=== PATIENT | male | born 1950 | race Caucasian/White ===

== ENCOUNTER 2024-03-17 10:21 | Outpatient (CLI) | payer MEDICARE, OTHER, SELFPAY | END 2024-03-17 10:22 | disposition home or self-care (01) | LOC: AMB 03-21 14:28 | PROVIDERS: Visit Provider Family Medicine | DX: R06.09 Other forms of dyspnea (principal) | CPT/HCPCS: A0425; A0427 ==

== ENCOUNTER 2024-03-17 10:51 | Inpatient (IN) | payer MEDICARE, OTHER, SELFPAY ==
[2024-03-17] VITALS (20 sets, daily range): BP systolic 106–127; BP diastolic 65–85; PULSE 64–73; RESP 20–28; TEMP 36.4–36.6; O2SAT 88–96; BMI 30.4; BMI 30.6
--- NOTE | 2024-03-17 11:35 | ED.GENADULT ---
HPI - General Adult General Date Seen: 03/17/24 Chief complaint: Shortness of Breath/Dyspnea Stated complaint: Shortness of breath Time Seen by Provider: 03/17/24 11:35 History of Present Illness HPI narrative: 74-year-old male brought to the ER today by EMS. He has been short of breath for about 3 days and also has productive cough. He was referred from the [facility]. He had presented today to establish care and get an INR check. According to their records accessed through [facility] [employer] he sees Nephrology and Cardiology at [facility]. Vitals were blood pressure 103/65, pulse 72. No oxygen sats or respiratory rate were charted Additional records through [employer], he had a primary care note from [facility] on 03/13 Has a history of atrial fibrillation, previous stroke/TIA, on chronic anticoagulation. Recent INRs have been ranging 2.0 up to 3.1. His record says he is currently living in [place] in but the patient says he recently moved here to [place] 3 days ago. He says he went to the [facility] to get a new doctor. 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 Although his speech is difficult to understand he is clearly mentating normally and would be able to be a good historian if your able to express himself. I am able to get some history from him. However it is very difficult to understand his garbled speech. We attempted to call a previous care provider named ?Gabby? at [facility] in [place]. She did not answer Recent med list obtained through [employer] Warfarin Torsemide 20 mg tablets-60 mg in the morning and 40 mg at 1:00 p.m.. Patient also says that when he gets peripheral edema is doctor told him to double his dose Thiamine Senna Protonix 20 mg daily Metoprolol XL 25 mg daily Lipitor 80 mg daily Aspirin 81 mg daily Albuterol inhaler (patient says he does not have any inhalers. He does say that he uses nebulizer about every 2 or 3 months) Acetaminophen Artificial tear Pursue vision lutein drops Patient is able to tell me that he has a history of heart disease and has had 3 heart attacks. He has had 2 strokes. He does not recall any other heart problems. No definite valvular disease. He has never been told he has CHF. Recalls that he has had kidney failure twice. He is not currently on dialysis. He takes water pills. He can not tell me the name or dose. He is able to recall that his providers might have them med list and that they may have a med list at the [facility]. He says the also got iron infusions a couple of weeks ago. After receiving the iron infusion a couple weeks ago he had significant development of bilateral lower extremity peripheral edema. He thinks it was probably the iron the triggered it. He has had episodes of peripheral edema in the past and says that he is supposed to double his water pill when he gets swollen his legs. However he has never had such significant and persistent swelling before. For about the past 3 or 4 days he has had a cough. It is wet but nonproductive. He has been getting more and more short of breath. No fevers. No chest pain. No vomiting. No abdominal pain. He has been making normal urine. He went to the [facility] today as for a checkup and was sent here. He received DuoNeb from EMS and is now feeling somewhat better. Related Data Home Medications ?Medication ?Instructions ?Recorded ?Confirmed acetaminophen 500 mg tablet 1,000 mg PO TID PRN 03/17/24 03/17/24 albuterol sulfate 90 mcg/actuation 2 inh inhalation Q4H PRN 03/17/24 03/17/24 aerosol inhaler (Ventolin HFA) amlodipine 10 mg tablet 10 mg PO DAILY 03/17/24 03/17/24 aspirin 81 mg tablet,delayed 81 mg PO DAILY 03/17/24 03/17/24 release (Adult Aspirin Regimen) atorvastatin 80 mg tablet 80 mg PO HS 03/17/24 03/17/24 bisacodyl 10 mg rectal suppository 10 mg NV DAILY PRN 03/17/24 03/17/24 cholecalciferol (vitamin D3) 25 25 mcg PO DAILY 03/17/24 03/17/24 mcg (1,000 unit) capsule dextran 70-hypromellose 0.1 %-0.3 1 drp ophthalmic (eye) QID PRN 03/17/24 03/17/24 % eye drops diclofenac sodium 1 % topical gel 2 g topical QID PRN 03/17/24 03/17/24 (Voltaren Arthritis Pain) methyl salicylate-menthol topical 1 ea topical TID PRN 03/17/24 03/17/24 ointment metoprolol succinate 25 mg 25 mg PO DAILY 03/17/24 03/17/24 tablet,extended release 24 hr pantoprazole 20 mg tablet,delayed 20 mg PO DAILY 03/17/24 03/17/24 release sennosides 8.6 mg tablet (Senna 17.2 mg PO DAILY PRN 03/17/24 03/17/24 Lax) torsemide 20 mg tablet 60 mg PO DAILY 03/17/24 03/17/24 warfarin 1 mg tablet 1.5 - 2 mg PO DAILY 03/17/24 03/17/24 Allergies Allergy/AdvReac Type Severity Reaction Status Date / Time No Known Drug Allergies Allergy Verified 03/17/24 11:07 [facility] Medical History (Updated 03/17/24 @ 20:36 by Justin Barnes MD) Hypokalemia ?E87.6 - Hypokalemia (ICD-10) History of CVA (cerebrovascular accident) ?Z86.73 - Personal history of transient ischemic attack (TIA), and cerebral infarction without residual deficits (ICD-10) Acute on chronic hypoxic respiratory failure ?J96.21 - Acute and chronic respiratory failure with hypoxia (ICD-10) COPD (chronic obstructive pulmonary disease) ?J44.9 - Chronic obstructive pulmonary disease, unspecified (ICD-10) Chronic heart failure with reduced ejection fraction and diastolic dysfunction ?I50.42 - Chronic combined systolic (congestive) and diastolic (congestive) heart failure (ICD-10) Carotid arterial disease ?I77.9 - Disorder of arteries and arterioles, unspecified (ICD-10) NSTEMI (non-ST elevated myocardial infarction) ?I21.4 - Non-ST elevation (NSTEMI) myocardial infarction (ICD-10) Hemiplegia and hemiparesis 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 ?I69.352 - Hemiplegia and hemiparesis 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 (ICD-10) History of ventricular tachycardia ?Z86.79 - Personal history of other diseases of the circulatory system (ICD-10) Ataxia ?R27.0 - Ataxia, unspecified (ICD-10) Chronic anemia ?D64.9 - Anemia, unspecified (ICD-10) Upper GI bleed ?K92.2 - Gastrointestinal hemorrhage, unspecified (ICD-10) CKD (chronic kidney disease) ?N18.9 - Chronic kidney disease, unspecified (ICD-10) CAD (coronary artery disease) ?I25.10 - Atherosclerotic heart disease of lummi coronary artery without angina pectoris (ICD-10) Cardiomyopathy ?I42.9 - Cardiomyopathy, unspecified (ICD-10) Recurrent left pleural effusion ?J90 - Pleural effusion, not elsewhere classified (ICD-10) 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 - Alcohol use, unspecified with alcohol-induced persisting amnestic disorder (ICD-10) Alcoholic cirrhosis ?K70.30 - Alcoholic cirrhosis of liver without ascites (ICD-10) Alcohol withdrawal seizure ?F10.939 - Alcohol use, unspecified with withdrawal, unspecified (ICD-10) ?R56.9 - Unspecified convulsions (ICD-10) Alcohol dependence ?F10.20 - Alcohol dependence, uncomplicated (ICD-10) Aphasia ?R47.01 - Aphasia (ICD-10) Cardioembolic stroke ?I63.9 - Cerebral infarction, unspecified (ICD-10) Lacunar infarction ?I63.81 - Other cerebral infarction due to occlusion or stenosis of small artery (ICD-10) Atrial fibrillation ?I48.91 - Unspecified atrial fibrillation (ICD-10) Pulmonary hypertension ?I27.20 - Pulmonary hypertension, unspecified (ICD-10) Hyperlipidemia ?E78.5 - Hyperlipidemia, unspecified (ICD-10) Hypertension ?I10 - Essential (primary) hypertension (ICD-10) Adrenal adenoma ?D35.00 - Benign neoplasm of unspecified adrenal gland (ICD-10) Surgical History H/O hernia repair ?Z98.890 - Other specified postprocedural states (ICD-10) ?Z87.19 - Personal history of other diseases of the digestive system (ICD-10) Social History What is your current living situation?: I presently have a place to live Problems where you live: no known problems Problems where you live details: no known problems In the past 12 months, utilities in danger of being shut off: no In past 12 months, lack of transportation kept you from medical appts, meetings, work, or getting things needed for daily living: no In the past 12 mos, have been you worried that your food would run out before you had money to buy more?: never true In the past 12 mos, the food you bought just didn't last and you didn't have money to buy more?: never true Smoking Status: Former smoker Do you use any of these nicotine containing products: None Second hand tobacco smoke exposure: No How often do you have a drink containing alcohol: 4 or more times a week Alcohol type: hard liquor Alcohol type details: 2 whiskey 7-ups per day How many standard drinks containing alcohol do you have on a typical day: 1 or 2 How often do you have six or more drinks on one occasion: Never AUDIT-C Alcohol total score: 4 Non-prescribed substance use: denies use Caffeine: Yes How often does anyone, including family, friends and others, physically hurt you: never How often does anyone, including family, friends and others, insult or talk down to you: never How often does anyone, including family, friends and others, threaten you with harm: never How often does anyone, including family, friends and others, scream or curse at you: never service: No Exam Narrative: Exam Narrative: Constitutional: Appears well-developed and well-nourished. Alert. Conversant but speech is very difficult to understand. I asked him to repeat himself multiple times and cannot understand somewhat he says but part of his speech is just not comprehensible. Has chronic aphasia from previous stroke. Also chronic left-sided weakness from previous stroke.. HENT: Head: Atraumatic. Nose: Nose normal. Mouth/Throat: Oral mucosa is clear and dry. no trismus. Pharynx difficult to visualize, but visualized upper segment normal. No stridor. Uvula midline. Tonsils symmetric. Eyes: Conjunctivae normal. EOM normal. Pupils equal, round, and reactive to light. No scleral icterus. Neck: Normal range of motion. Neck supple. No tracheal deviation present. No JVD Cardiovascular: Normal rate, regular rhythm. No gallop. No friction rub. No murmur heard. Symmetric radial and PT artery pulses Pulmonary/Chest: Effort normal. No stridor. No respiratory distress. Frequent wet sound but nonproductive cough. Minimal bilateral wheezes. No rales. No rhonchi . No tenderness. Abdominal: Soft. Bowel sounds normal. No distension. No mass. No tenderness. No rebound. No guarding. Musculoskeletal: RUE: Normal range of motion. No tenderness. No deformity LUE: Normal range of motion. No tenderness. No deformity RLE: Normal range of motion. 3+ edema. No tenderness. No deformity LLE: Normal range of motion. 3+ edema. No tenderness. No deformity Neurological: Alert and oriented to person, place, and time. Normal strength. CN II-VII intact. He has chronic left upper extremity weakness from old stroke. No other new sensory deficit. GCS eye subscore is 4. GCS verbal subscore is 5. GCS motor subscore is 6. Normal coordination speech is somewhat garbled due to previous stroke. Skin: He has significant bilateral lower extremity edema and erythema and warmth of both of his shins. Symmetric. No palpable fluctuance. Skin is warm and dry. No no other rash noted. No pallor. Normal capillary refill. Psychiatric: Normal mood. Normal affect. Const: Vital Signs, click to edit/add: Vital Signs - 24 hr 03/17/24 11:01 03/17/24 11:29 03/17/24 11:30 Temperature Pulse Rate 69 73 Pulse Rate [Left P ulse Oximeter] 71 Respiratory Rate 28 H Blood Pressure [Ri ght Arm] Blood Pressure [Ri ght Upper Arm] 127/65 Pulse Oximetry 96 94 94 Oxygen Delivery Me thod Room Air Oxygen Flow Rate 03/17/24 11:40 03/17/24 11:45 03/17/24 12:00 Temperature 97.6 F Pulse Rate 72 69 Pulse Rate [Left P ulse Oximeter] Respiratory Rate Blood Pressure [Ri ght Arm] Blood Pressure [Ri ght Upper Arm] Pulse Oximetry 95 95 Oxygen Delivery Me thod Oxygen Flow Rate 03/17/24 12:15 03/17/24 12:30 03/17/24 12:45 Temperature Pulse Rate 68 70 65 Pulse Rate [Left P ulse Oximeter] Respiratory Rate Blood Pressure [Ri ght Arm] Blood Pressure [Ri ght Upper Arm] Pulse Oximetry 94 94 89 Oxygen Delivery Me thod Oxygen Flow Rate 03/17/24 13:15 03/17/24 13:30 03/17/24 13:45 Temperature Pulse Rate 66 64 66 Pulse Rate [Left P ulse Oximeter] Respiratory Rate Blood Pressure [Ri ght Arm] Blood Pressure [Ri ght Upper Arm] Pulse Oximetry 92 92 92 Oxygen Delivery Me thod Oxygen Flow Rate 03/17/24 14:00 03/17/24 14:15 03/17/24 14:30 Temperature Pulse Rate 66 64 69 Pulse Rate [Left P ulse Oximeter] Respiratory Rate Blood Pressure [Ri ght Arm] Blood Pressure [Ri ght Upper Arm] Pulse Oximetry 88 92 88 Oxygen Delivery Me thod Oxygen Flow Rate 03/17/24 15:14 03/17/24 15:16 03/17/24 15:29 Temperature 97.8 F 97.8 F Pulse Rate Pulse Rate [Left P ulse Oximeter] Respiratory Rate 22 22 22 Blood Pressure [Ri ght Arm] 124/85 124/85 Blood Pressure [Ri ght Upper Arm] Pulse Oximetry 96 96 96 Oxygen Delivery Me thod Nasal Cannula Room Air Oxygen Flow Rate 03/17/24 15:29 03/17/24 15:29 Temperature Pulse Rate 64 Pulse Rate [Left P ulse Oximeter] Respiratory Rate 24 Blood Pressure [Ri ght Arm] Blood Pressure [Ri ght Upper Arm] Pulse Oximetry 90 Oxygen Delivery Me thod Nasal Cannula Oxygen Flow Rate 1 Course Vital Signs Vital signs: Initial Vital Signs Pulse Rate 71 03/17/24 11:01 Pulse Rhythm Regular 03/17/24 11:01 Pulse Strength 3+ Normal 03/17/24 11:01 Respiratory Rate 28 H 03/17/24 11:01 Blood Pressure 127/65 03/17/24 11:01 Blood Pressure Mean 85 03/17/24 11:01 Blood Pressure Position High-Fowlers 03/17/24 11:01 Pulse Oximetry 96 03/17/24 11:01 Oxygen Delivery Method Room Air 03/17/24 11:01 Vital Signs Pulse Rate 71 03/17/24 11:01 Respiratory Rate 28 H 03/17/24 11:01 Blood Pressure 127/65 03/17/24 11:01 Pulse Oximetry 96 03/17/24 11:01 Oxygen Delivery Method Room Air 03/17/24 11:01 Temperature 97.5 F L 03/17/24 19:00 Pulse Rate 67 03/17/24 19:00 Respiratory Rate 20 03/17/24 19:00 Blood Pressure 119/70 03/17/24 19:00 Pulse Oximetry 90 03/17/24 19:00 Oxygen Delivery Method Nasal Cannula 03/17/24 19:00 Oxygen Flow Rate 1.5 03/17/24 19:00 Medications Administered Medications: Generic Name Dose Route Start Last Admin Trade Name Barber PRN Reason Stop Dose Admin Albuterol/Ipratropium 1 neb 03/17/24 18:00 03/17/24 18:35 Iprat-Albut 0.5-2.5 Mg/3 Ml Neb IH 1 neb Q6H SOFÍA Administration Atorvastatin Calcium 80 mg 03/17/24 21:00 03/17/24 20:27 Atorvastatin Calcium 40 Mg Tablet PO 80 mg HS SOFÍA Administration Sodium Chloride 5 ml 03/17/24 21:00 03/17/24 20:27 Sodium Chloride 0.9 % (Flush) 10 Ml Syringe IVF 5 ml BID SOFÍA Administration Discontinued Medications Generic Name Dose Route Start Last Admin Trade Name Mikelq PRN Reason Stop Dose Admin Furosemide 80 mg 03/17/24 13:54 03/17/24 14:19 Furosemide 10 Mg/Ml Inj IVP 03/17/24 13:55 80 mg ONCE ONE Administration Ceftriaxone Sodium 1 gm/ 100 mls @ 200 mls/hr 03/17/24 12:11 03/17/24 13:40 Sodium Chloride IVPB 03/17/24 12:12 200 mls/hr ONCE ONE Administration Azithromycin 500 mg/ Sodium 255 mls @ 255 mls/hr 03/17/24 12:11 03/17/24 14:30 Chloride IVPB 03/17/24 12:12 255 mls/hr ONCE ONE Administration Potassium Bicarbonate 50 meq 03/17/24 14:02 03/17/24 14:19 Potassium Bicarb 25 Meq Effervescent Tab PO 03/17/24 14:03 50 meq ONCE ONE Administration Potassium Chloride 40 meq 03/17/24 17:22 03/17/24 17:39 Potassium Chloride 10 Meq Capsule Er PO 03/17/24 17:23 40 meq ONCE ONE Administration Prednisone 60 mg 03/17/24 16:15 03/17/24 17:06 Prednisone 20 Mg Tablet PO 03/17/24 16:16 60 mg ONCE ONE Administration Warfarin Sodium 1 each 03/17/24 17:00 03/17/24 18:36 No Warfarin Today PO 03/17/24 17:01 Not Given ONCE ONE Medical Decision Making MDM Narrative Medical decision making narrative: 74-year-old gentleman with a complex presentation to the ER. He was sent to the ER today by EMS from the [facility] because of cough, shortness of breath, hypoxia. Was apparently hypoxic, short of breath and coughing per EMS. Received a DuoNeb with improvement in lung sounds. Remains on nasal cannula. Differential for cough would include viral infection. Coronavirus, influenza, RSV PCR is negative. Other common cold viruses cannot be ruled out. Also consider possible community-acquired pneumonia. Given wet sound and cough, we did administer antibiotics for Ca P when he arrived here in the ER. Further workup shows normal white count. He is not febrile. Chest x-ray shows mild interstitial prominence, possibly pulmonary edema, less likely would be an atypical pneumonia. He is not febrile cared white blood cell count is normal. He is not hypotensive, tachycardic, or showing sepsis physiology. Venous lactic acid is normal There may be some component of bronchospasm or COPD here as well. He apparently was quite course prior to EMS giving him a neb. Lung sounds are relatively clear on my initial exam. He does have about a 10 day or 2 week history of significant bilateral lower extremity edema. He is already on torsemide a total of 100 mg per day and he says it is not getting better. Chest x-ray could represent pulmonary edema indicating CHF. BNP is elevated about 9000 which would also correlate with CHF. Will initiate Lasix 80 mg IV here in the ER. Additional loop diuretic to be ordered by hospitalist if needed. He also has chronic kidney disease and says he has had ?renal failure? twice. Creatinine today is 2.4. Since he is new to [place] we do not have any old creatinine measurements in our system. I am able to see some creatinine measurements through the [facility] manifestation of [facility]. Most recent creatinine in their system was 1.33 in October 2020, over 3 years ago. Unclear how much creatinine of 2.4 is changed from his recent baselines. He is not having any chest pain. EKG is abnormal showing widened QRS duration nonspecific ST changes but no ST segment elevation. Troponin is normal. Admitting hospitalist recalls caring for this patient in the past. Has a history of alcohol abuse and previous alcohol withdrawal. He requests that we check LFTs and alcohol level. I have added these labs on the be followed up by the hospitalist service. Lab Data Labs: Lab Results 03/17/24 03/17/24 03/17/24 Range/Units 12:17 12:25 12:32 WBC 8.81 (4.50-11.00) K/uL RBC 4.59 (4.30-5.90) m/uL Hgb 11.0 L (13.5-17.5) gm/dL Hct 37.6 (37.0-53.0) % MCV 82 (80-100) fL MCH 24 L (26-34) pg MCHC 29 L (32-36) gm/dL RDW Coeff of Mynor 25.8 H (11.5-15.5) % Plt Count 166 (140-440) K/uL Neut % (Auto) 80.7 H (42.0-72.0) % Lymph % (Auto) 4.3 L (20-44) % Moore % (Auto) 13.1 H (0.0-11.0) % Eos % (Auto) 1.5 (0.0-7.0) % Baso % (Auto) 0.1 (0.0-3.0) % Neut # (Auto) 7.10 H (1.7-7.0) K/uL Lymph # (Auto) 0.40 L (0.90-2.90) K/uL Moore # (Auto) 1.20 H (0.00-0.90) K/UL Eos # (Auto) 0.13 (0.00-0.50) K/uL Baso # (Auto) 0.01 (0.00-0.30) K/uL Abs Immat Gran (auto) 0.03 (0.00-0.30) K/uL Imm/Tot Granulo (auto) 0.3 % INR 3.68 H (0.91-1.10) VBG pH 7.340 (7.32-7.43) VBG pCO2 49 (40-50) mmHG VBG pO2 32.8 (25-47) mmHG VBG HCO3 27 (21-28) mmol/L Sodium 137 (135-149) mmol/L Potassium 3.1 L (3.6-5.1) mmol/L Chloride 101 (96-114) mmol/L Carbon Dioxide 25 (20-32) mmol/L Anion Gap 11 (7-15) mEq/L BUN 39 H (7-30) mg/dL Creatinine 2.4 H (0.5-1.5) mg/dL Estimated Creat Clear 25.25 Estimated GFR 28 ml/min Glucose 95 (60-115) mg/dL Lactate 1.8 (0.5-1.9) mmol/L Calcium 8.8 (8.4-10.6) mg/dL Magnesium 2.0 (1.5-2.6) mg/dL Total Bilirubin 2.4 H (0.1-1.5) mg/dL Direct Bilirubin 1.2 H (0.0-0.5) mg/dL AST 32 (12-35) U/L ALT 15 (4-50) U/L Alkaline Phosphatase 243 H (40-150) U/L Troponin I 0.02 (0.01-0.04) ng/mL C-Reactive Protein 4.5 H (0.5-1.0) mg/dL NT-Pro-B Natriuret Pep 9360 pg/mL Total Protein 7.6 (6.0-8.3) g/dL Albumin 4.3 (3.3-5.0) g/dL Procalcitonin 0.26 (<0.50) ng/mL Ethyl Alcohol < 0.01 L (0.01-0.03) % SARS-CoV-2 (PCR) Negative SARS-CoV-2 (Negative) Influenza Type A (PCR) Negative PCR FLU A (Negative) Influenza Type B (PCR) Negative PCR FLU B (Negative) RSV (PCR) Negative PCR RSV (Negative) Lab Acknowledgement 03/17/24 Range/Units 15:33 WBC (4.50-11.00) K/uL RBC (4.30-5.90) m/uL Hgb (13.5-17.5) gm/dL Hct (37.0-53.0) % MCV (80-100) fL MCH (26-34) pg MCHC (32-36) gm/dL RDW Coeff of Mynor (11.5-15.5) % Plt Count (140-440) K/uL Neut % (Auto) (42.0-72.0) % Lymph % (Auto) (20-44) % Moore % (Auto) (0.0-11.0) % Eos % (Auto) (0.0-7.0) % Baso % (Auto) (0.0-3.0) % Neut # (Auto) (1.7-7.0) K/uL Lymph # (Auto) (0.90-2.90) K/uL Moore # (Auto) (0.00-0.90) K/UL Eos # (Auto) (0.00-0.50) K/uL Baso # (Auto) (0.00-0.30) K/uL Abs Immat Gran (auto) (0.00-0.30) K/uL Imm/Tot Granulo (auto) % INR (0.91-1.10) VBG pH (7.32-7.43) VBG pCO2 (40-50) mmHG VBG pO2 (25-47) mmHG VBG HCO3 (21-28) mmol/L Sodium (135-149) mmol/L Potassium (3.6-5.1) mmol/L Chloride (96-114) mmol/L Carbon Dioxide (20-32) mmol/L Anion Gap (7-15) mEq/L BUN (7-30) mg/dL Creatinine (0.5-1.5) mg/dL Estimated Creat Clear Estimated GFR ml/min Glucose (60-115) mg/dL Lactate (0.5-1.9) mmol/L Calcium (8.4-10.6) mg/dL Magnesium (1.5-2.6) mg/dL Total Bilirubin (0.1-1.5) mg/dL Direct Bilirubin (0.0-0.5) mg/dL AST (12-35) U/L ALT (4-50) U/L Alkaline Phosphatase (40-150) U/L Troponin I (0.01-0.04) ng/mL C-Reactive Protein (0.5-1.0) mg/dL NT-Pro-B Natriuret Pep pg/mL Total Protein (6.0-8.3) g/dL Albumin (3.3-5.0) g/dL Procalcitonin (<0.50) ng/mL Ethyl Alcohol (0.01-0.03) % SARS-CoV-2 (PCR) (Negative) Influenza Type A (PCR) (Negative) Influenza Type B (PCR) (Negative) RSV (PCR) (Negative) Lab Acknowledgement New Spec Needed Imaging Data Chest x-ray: Attestation: I have reviewed the pertinent imaging results. Radiologist's impression: Impression: Mild interstitial prominence may relate to low lung volumes or represent mild pulmonary edema. Discharge Plan Discharge Clinical Impression: CHF (congestive heart failure), Hypoxia, COPD (chronic obstructive pulmonary disease)
--- NOTE | 2024-03-17 12:11 | CRLHL7_ITS ---
For Patients: As a result of the Cures Act, medical imaging exams and procedure reports are released immediately into your electronic medical record. You may view this report before your referring provider. If you have questions, please contact your health care provider. Indication: COUGH, SOB, HYPOXIA Technique: PA and lateral views of the chest. Comparison: None. Findings: Left chest AICD with right atrial and right ventricular leads. Low lung volumes. Mildly enlarged cardiomediastinal silhouette with calcified aortic knob. No focal consolidation, pleural effusions, or visualized pneumothorax. Mild interstitial prominence. Impression: Mild interstitial prominence may relate to low lung volumes or represent mild pulmonary edema. Dictated by Nico Enriquez MD @ 03/17/2024 1:16:08 PM (Electronically Signed)
[2024-03-17 12:36] LABS: Lactate Sepsis w/Reflex* 1.8 mmol/L (0.5-1.9)
[2024-03-17 12:38] LABS: Basophils Absolute Auto 0.01 K/uL (0.00-0.30); Basophils Percent Auto 0.1 % (0.0-3.0); Eosinophils Absolute Auto 0.13 K/uL (0.00-0.50); Eosinophils Percent Auto 1.5 % (0.0-7.0); Hematocrit 37.6 % (37.0-53.0); Immature Granulocytes Abs Auto 0.03 K/uL (0.00-0.30); Immature Granulocytes Pct Auto 0.3 %; Lymphocytes Percent Auto 4.3 % (20-44); Mean Corpuscular HGB Conc 29 gm/dL (32-36); Mean Corpuscular Hemoglobin 24 pg (26-34); Mean Corpuscular Volume 82 fL (80-100); Monocytes Percent Auto 13.1 % (0.0-11.0); Neutrophils Percent Auto 80.7 % (42.0-72.0); Platelet Count* 166 K/uL (140-440); RDW Coefficient of Variation % 25.8 % (11.5-15.5); Red Blood Count 4.59 m/uL (4.30-5.90); White Blood Count* 8.81 K/uL (4.50-11.00)
[2024-03-17 12:40] LABS: Slide Review Reflex No
[2024-03-17 12:57] LABS: INR 3.68 (0.91-1.10); Prothrombin Time 39.5 Seconds
[2024-03-17 12:58] LABS: Chloride* 101 mmol/L (96-114)
[2024-03-17 12:59] LABS: Potassium* 3.1 mmol/L (3.6-5.1); Sodium* 137 mmol/L (135-149)
[2024-03-17 13:01] LABS: Creatinine* 2.4 mg/dL (0.5-1.5); Est. Creatinine Clearance* 25.25; Estimated Glomerular Filt Rate 28 ml/min
[2024-03-17 13:02] LABS: Anion Gap 11 mEq/L (7-15); Blood Urea Nitrogen* 39 mg/dL (7-30); Carbon Dioxide* 25 mmol/L (20-32); Glucose* 95 mg/dL (60-115)
[2024-03-17 13:02] LABS: PCR FLU A Negative PCR FLU A (Negative); PCR FLU B Negative PCR FLU B (Negative); PCR RSV Negative PCR RSV (Negative); SARS PCR* Negative SARS-CoV-2 (Negative)
[2024-03-17 13:03] LABS: Calcium* 8.8 mg/dL (8.4-10.6)
[2024-03-17 13:05] LABS: C Reactive Protein* 4.5 mg/dL (0.5-1.0)
[2024-03-17 13:14] LABS: Troponin I* 0.02 ng/mL (0.01-0.04)
[2024-03-17 13:15] LABS: NT Pro B Type NatriureticPept* 9360 pg/mL
[2024-03-17] MEDS: cefTRIAXone 1 GM in 0.9 % SODIUM CHLORIDE Mini-bag 100 ML IVPB (13:40)
[2024-03-17] MEDS: FUROSEMIDE 10 MG/ML inj 80 MG IVP (14:19)
[2024-03-17] MEDS: POTASSIUM BICARB 25 MEQ EFFERVESCENT TAB 50 MEQ PO (14:19)
[2024-03-17 14:27] LABS: Albumin* 4.3 g/dL (3.3-5.0)
[2024-03-17 14:30] LABS: Alanine Aminotransferase* 15 U/L (4-50); Alkaline Phosphatase* 243 U/L (40-150); Aspartate Amino Transferase* 32 U/L (12-35); Bilirubin Direct* 1.2 mg/dL (0.0-0.5); Bilirubin Total* 2.4 mg/dL (0.1-1.5); Total Protein* 7.6 g/dL (6.0-8.3)
[2024-03-17] MEDS: AZITHROMYCIN 500 MG in 0.9 % SODIUM CHLORIDE 250 ml 250 ML 255 MG IVPB (14:30)
[2024-03-17 14:31] LABS: Ethanol* < 0.01 % (0.01-0.03)
--- NOTE | 2024-03-17 15:26 | CRLHL7_ITS ---
For Patients: As a result of the Century Cures Act, medical imaging exams and procedure reports are released immediately into your electronic medical record. You may view this report before your referring provider. If you have questions, please contact your health care provider. INDICATION: Leg pain and swelling. TECHNIQUE: Ultrasound venous duplex bilateral lower extremity. Compression venous exam was performed using spears-scale, color Doppler, and spectral Doppler analysis. COMPARISON: None. FINDINGS: Deep veins: Sonographic imaging demonstrates the bilateral common femoral, deep femoral, superficial femoral, popliteal, posterior tibial veins to be fully compressible with normal color Doppler blood flow. Superficial veins: Greater saphenous vein are fully compressible. No popliteal cyst. IMPRESSION: No DVT in the bilateral lower extremities. Dictated by Nickolas De León MD @ 03/17/2024 4:38:14 PM (Electronically Signed)
--- NOTE | 2024-03-17 15:41 | PC.SOCIAL ---
Discharge planning: Met with pt regarding his concern about his power scooter. Pt had taken [employer] bus from his apartment to [facility] in [place]. When he was sent by ambulance to the hospital, his power scooter was left at [facility]. As it is a holiday weekend, the [facility] will be closed form 5:00 today until Wednesday morning. Pt requested the power scooter be sent by [employer] from [facility] either to the hospital if he is still here on Wednesday, or to his apartment if he is discharged home before Wednesday. Pt states he uses a walker in his home and only uses the scooter outside his home. Pt's daughter is currently out of town for the holiday and pt refused for social research assistant to call her to discuss this concern. Pt states he makes his won decisions and can get the scooter to his home after discharge from the hospital. Pt discharged from [facility] in [facility] to his apartment in [place] on Wednesday03/13/24 and is excited to be living on his own. He plans to discharge back to his apartment from the hospital and is not interested in a higher level of care. Called pt's insurance to see if there is coverage for transport of his power scooter and was informed he has medical transportation benefits, but this can not be used for the scooter if pt is not riding it. Shared this information with pt who states that he will find a ride to [facility] after he is discharged and then ride the scooter home on the [employer] bus. Received call from pt's insurance hearing healthcare practitioner, Rohini, . Rohini confirms pt has just discharged from a correction to his apartment this week. She states that she was his hearing healthcare practitioner when he was at [place], but when he establishes residency in [facility], his care coordination will change to the medical assistance contracted with [facility]. As pt has medical transportation benefits through his Medical Assistance connected insurance, non-emergency ambulance transportation should be covered at discharge if needed. Pt states he thinks his daughter is returning to [place] on Wednesday.
[2024-03-17 15:48] LABS: Lab Add On Test New Spec Needed
[2024-03-17 16:00] LABS: HCO3 VBG 27 mmol/L (21-28); PCO2 VBG 49 mmHG (40-50); PO2 VBG 32.8 mmHG (25-47)
--- NOTE | 2024-03-17 16:14 | PM.IMHP1 ---
Hospitalist- H&P: HPI History of Present Illness Date Seen: 03/17/24 Chief complaint: Shortness of breath Narrative: Chet Willis is a 74 year old male significant past medical history including CHF, CKD, COPD, CAD, cardiomyopathy, hypertension, hyperlipidemia, atrial fibrillation status post pacemaker on chronic anticoagulation, history of CVA with aphasia and left hemiparesis, NSTEMI is admitted to the medical floor from the ED for further management acute on chronic hypoxic respiratory failure. Patient reportedly checked himself out of a jail in [place], having relocated to [place] 3-4 days ago and reports a 10 day history of increasing shortness of breath, worse than usual. He tells me he is not oxygen dependent nor does he use a CPAP/BiPAP at bedtime. Has not had a sleep study. Has a nebulizer at home but has not used for some time. Denies headaches or dizziness. Denies recent fevers chills or sweats. Denies chest pain. Has had no abdominal pain, nausea, vomiting, diarrhea. No change in urination. Reports bilateral lower extremity swelling and erythema which he relates to following an iron infusion at [facility]. The exact date of this is unknown, reported as somewhere in the past 2 weeks. Patient cannot tell me why he had this infusion either. He was seen in the [facility] earlier this morning and advised to be seen in the ED. Oxygen saturation initially reported to be 78% on room air. Currently satting at 94% on 2 L. receive 1 dose of ceftriaxone and azithromycin in the ED. As well as 80 mg IV Lasix. He received a DuoNeb which was reported to help. Most recently, patient has had his medical care through [facility]. Followed by Cardiology, Nephrology, Pulmonology. Last hospitalized in [place] April 2023. Was seen in the [facility] clinic today to establish care. Previous smoker. Active alcohol use, 2 whiskey 7 ups daily. Last drink was 03/16 at 4:00 p.m.. History of alcohol withdrawal seizures but tells me he did not experience these last month when he went without drinking for short period of time. Review of Systems Narrative: REVIEW OF SYSTEMS: Complete review of systems performed and negative unless otherwise stated in HPI or below. [facility] Medical History (Updated 03/17/24 @ 17:22 by Kiera M DeBus, PA-C) Hypokalemia ?E87.6 - Hypokalemia (ICD-10) History of CVA (cerebrovascular accident) ?Z86.73 - Personal history of transient ischemic attack (TIA), and cerebral infarction without residual deficits (ICD-10) Acute on chronic hypoxic respiratory failure ?J96.21 - Acute and chronic respiratory failure with hypoxia (ICD-10) COPD (chronic obstructive pulmonary disease) ?J44.9 - Chronic obstructive pulmonary disease, unspecified (ICD-10) Chronic heart failure with reduced ejection fraction and diastolic dysfunction ?I50.42 - Chronic combined systolic (congestive) and diastolic (congestive) heart failure (ICD-10) Carotid arterial disease ?I77.9 - Disorder of arteries and arterioles, unspecified (ICD-10) NSTEMI (non-ST elevated myocardial infarction) ?I21.4 - Non-ST elevation (NSTEMI) myocardial infarction (ICD-10) Hemiplegia and hemiparesis 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 ?I69.352 - Hemiplegia and hemiparesis 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 (ICD-10) History of ventricular tachycardia ?Z86.79 - Personal history of other diseases of the circulatory system (ICD-10) Ataxia ?R27.0 - Ataxia, unspecified (ICD-10) Chronic anemia ?D64.9 - Anemia, unspecified (ICD-10) Upper GI bleed ?K92.2 - Gastrointestinal hemorrhage, unspecified (ICD-10) CKD (chronic kidney disease) ?N18.9 - Chronic kidney disease, unspecified (ICD-10) CAD (coronary artery disease) ?I25.10 - Atherosclerotic heart disease of [place] coronary artery without angina pectoris (ICD-10) Cardiomyopathy ?I42.9 - Cardiomyopathy, unspecified (ICD-10) Recurrent left pleural effusion ?J90 - Pleural effusion, not elsewhere classified (ICD-10) 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 - Alcohol use, unspecified with alcohol-induced persisting amnestic disorder (ICD-10) Alcoholic cirrhosis ?K70.30 - Alcoholic cirrhosis of liver without ascites (ICD-10) Alcohol withdrawal seizure ?F10.939 - Alcohol use, unspecified with withdrawal, unspecified (ICD-10) ?R56.9 - Unspecified convulsions (ICD-10) Alcohol dependence ?F10.20 - Alcohol dependence, uncomplicated (ICD-10) Aphasia ?R47.01 - Aphasia (ICD-10) Cardioembolic stroke ?I63.9 - Cerebral infarction, unspecified (ICD-10) Lacunar infarction ?I63.81 - Other cerebral infarction due to occlusion or stenosis of small artery (ICD-10) Atrial fibrillation ?I48.91 - Unspecified atrial fibrillation (ICD-10) Pulmonary hypertension ?I27.20 - Pulmonary hypertension, unspecified (ICD-10) Hyperlipidemia ?E78.5 - Hyperlipidemia, unspecified (ICD-10) Hypertension ?I10 - Essential (primary) hypertension (ICD-10) Adrenal adenoma ?D35.00 - Benign neoplasm of unspecified adrenal gland (ICD-10) Surgical History H/O hernia repair ?Z98.890 - Other specified postprocedural states (ICD-10) ?Z87.19 - Personal history of other diseases of the digestive system (ICD-10) Social History What is your current living situation?: I presently have a place to live Problems where you live: no known problems Problems where you live details: no known problems In the past 12 months, utilities in danger of being shut off: no In past 12 months, lack of transportation kept you from medical appts, meetings, work, or getting things needed for daily living: no In the past 12 mos, have been you worried that your food would run out before you had money to buy more?: never true In the past 12 mos, the food you bought just didn't last and you didn't have money to buy more?: never true Smoking Status: Former smoker Do you use any of these nicotine containing products: None Second hand tobacco smoke exposure: No How often do you have a drink containing alcohol: 4 or more times a week Alcohol type: hard liquor Alcohol type details: 2 whiskey 7-ups per day How many standard drinks containing alcohol do you have on a typical day: 1 or 2 How often do you have six or more drinks on one occasion: Never AUDIT-C Alcohol total score: 4 Non-prescribed substance use: denies use Caffeine: Yes How often does anyone, including family, friends and others, physically hurt you: never How often does anyone, including family, friends and others, insult or talk down to you: never How often does anyone, including family, friends and others, threaten you with harm: never How often does anyone, including family, friends and others, scream or curse at you: never service: No Meds Home Medications and Allergies Home Medications ?Medication ?Instructions ?Recorded ?Confirmed ?Type acetaminophen 500 mg tablet 1,000 mg PO TID PRN 03/17/24 03/17/24 History albuterol sulfate 90 mcg/actuation 2 inh inhalation Q4H PRN 03/17/24 03/17/24 History aerosol inhaler (Ventolin HFA) amlodipine 10 mg tablet 10 mg PO DAILY 03/17/24 03/17/24 History aspirin 81 mg tablet,delayed 81 mg PO DAILY 03/17/24 03/17/24 History release (Adult Aspirin Regimen) atorvastatin 80 mg tablet 80 mg PO HS 03/17/24 03/17/24 History bisacodyl 10 mg rectal suppository 10 mg ND DAILY PRN 03/17/24 03/17/24 History cholecalciferol (vitamin D3) 25 25 mcg PO DAILY 03/17/24 03/17/24 History mcg (1,000 unit) capsule dextran 70-hypromellose 0.1 %-0.3 1 drp ophthalmic (eye) QID PRN 03/17/24 03/17/24 History % eye drops diclofenac sodium 1 % topical gel 2 g topical QID PRN 03/17/24 03/17/24 History (Voltaren Arthritis Pain) methyl salicylate-menthol topical 1 ea topical TID PRN 03/17/24 03/17/24 History ointment metoprolol succinate 25 mg 25 mg PO DAILY 03/17/24 03/17/24 History tablet,extended release 24 hr pantoprazole 20 mg tablet,delayed 20 mg PO DAILY 03/17/24 03/17/24 History release sennosides 8.6 mg tablet (Senna 17.2 mg PO DAILY PRN 03/17/24 03/17/24 History Lax) torsemide 20 mg tablet 60 mg PO DAILY 03/17/24 03/17/24 History warfarin 1 mg tablet 1.5 - 2 mg PO DAILY 03/17/24 03/17/24 History Allergies Allergy/AdvReac Type Severity Reaction Status Date / Time No Known Drug Allergies Allergy Verified 03/17/24 11:07 Exam Narrative: Exam Narrative: PHYSICAL EXAM General: Pleasant, very conversant though difficult to understand secondary to chronic aphasia, NAD HEENT: Normocephalic, atraumatic, sclera white, EOMI, oral mucosa moist Cardiovascular: RRR, S1S2. Pulmonary: Coarse breath sounds throughout without rhonchi or expiratory wheezes. Mild dyspnea on NC Abdominal: Soft, nondistended, NTTP Neurological: Alert, answering questions appropriately, cranial nerves intact, no focal findings Extremities: Bilateral lower extremities with erythema distally to the knees, no open wounds at this time, no bleeding or drainage, +2 pitting edema. Neurovascularly intact Skin: Warm, dry. Const: Vital Signs, click to edit/add: Vital Signs - 24 hr 03/17/24 11:01 03/17/24 11:29 03/17/24 11:30 Temperature Pulse Rate 69 73 Pulse Rate [Left P ulse Oximeter] 71 Respiratory Rate 28 H Blood Pressure [Ri ght Arm] Blood Pressure [Ri ght Upper Arm] 127/65 Pulse Oximetry 96 94 94 Oxygen Delivery Me thod Room Air 03/17/24 11:40 03/17/24 11:45 03/17/24 12:00 Temperature 97.6 F Pulse Rate 72 69 Pulse Rate [Left P ulse Oximeter] Respiratory Rate Blood Pressure [Ri ght Arm] Blood Pressure [Ri ght Upper Arm] Pulse Oximetry 95 95 Oxygen Delivery Me thod 03/17/24 12:15 03/17/24 12:30 03/17/24 12:45 Temperature Pulse Rate 68 70 65 Pulse Rate [Left P ulse Oximeter] Respiratory Rate Blood Pressure [Ri ght Arm] Blood Pressure [Ri ght Upper Arm] Pulse Oximetry 94 94 89 Oxygen Delivery Me thod 03/17/24 13:15 03/17/24 13:30 03/17/24 13:45 Temperature Pulse Rate 66 64 66 Pulse Rate [Left P ulse Oximeter] Respiratory Rate Blood Pressure [Ri ght Arm] Blood Pressure [Ri ght Upper Arm] Pulse Oximetry 92 92 92 Oxygen Delivery Me thod 03/17/24 14:00 03/17/24 14:15 03/17/24 14:30 Temperature Pulse Rate 66 64 69 Pulse Rate [Left P ulse Oximeter] Respiratory Rate Blood Pressure [Ri ght Arm] Blood Pressure [Ri ght Upper Arm] Pulse Oximetry 88 92 88 Oxygen Delivery Me thod 03/17/24 15:16 Temperature 97.8 F Pulse Rate Pulse Rate [Left P ulse Oximeter] Respiratory Rate 22 Blood Pressure [Ri ght Arm] 124/85 Blood Pressure [Ri ght Upper Arm] Pulse Oximetry 96 Oxygen Delivery Me thod Room Air Hospitalist - H&P: Result Labs Labs: Short CBC 03/17/24 Range/Units 12:32 WBC 8.81 (4.50-11.00) K/uL Hgb 11.0 L (13.5-17.5) gm/dL Hct 37.6 (37.0-53.0) % Plt Count 166 (140-440) K/uL BMP 03/17/24 12:32 Sodium 137 Potassium 3.1 L Chloride 101 Carbon Dioxide 25 BUN 39 H Creatinine 2.4 H Glucose 95 Calcium 8.8 Cardiac Enzymes 03/17/24 Range/Units 12:32 Troponin I 0.02 (0.01-0.04) ng/mL Liver Function 03/17/24 Range/Units 12:25 Total Bilirubin 2.4 H (0.1-1.5) mg/dL Direct Bilirubin 1.2 H (0.0-0.5) mg/dL AST 32 (12-35) U/L ALT 15 (4-50) U/L Alkaline Phosphatase 243 H (40-150) U/L Albumin 4.3 (3.3-5.0) g/dL Imaging Chest x-ray: Attestation: I have reviewed the pertinent imaging results. Radiologist's impression: PA and lateral views of the chest. Comparison: None. Findings: Left chest AICD with right atrial and right ventricular leads. Low lung volumes. Mildly enlarged cardiomediastinal silhouette with calcified aortic knob. No focal consolidation, pleural effusions, or visualized pneumothorax. Mild interstitial prominence. Impression: Mild interstitial prominence may relate to low lung volumes or represent mild pulmonary edema. Venous US: Attestation: I have reviewed the pertinent imaging results. Radiologist's impression: Ultrasound venous duplex bilateral lower extremity. Compression venous exam was performed using spears-scale, color Doppler, and spectral Doppler analysis. COMPARISON: None. FINDINGS: Deep veins: Sonographic imaging demonstrates the bilateral common femoral, deep femoral, superficial femoral, popliteal, posterior tibial veins to be fully compressible with normal color Doppler blood flow. Superficial veins: Greater saphenous vein are fully compressible. No popliteal cyst. IMPRESSION: No DVT in the bilateral lower extremities. Assessment and Plan Assessment and plan (1) Acute on chronic hypoxic respiratory failure: Problem comment: Recurrent, initial saturations noted to be 78%, without hypercapnia In setting of chronic comorbidities COPD, CHF. Query adequate outpatient control, medication compliance VBG pH 7.340, pCO2 49, PO2 32.8, HC03 27 Afebrile, no leukocytosis, lactate 1.8, CRP 4.5, procalcitonin 0.26, triple swab negative, BNP 9360 (previous recorded at >6000), troponin 0.02, EKG ventricular rate 68, QTC 601, sinus rhythm with first-degree AV block, RBBB (noted on previous EKGs) Continue oxygen supplementation to maintain saturations 88-92%, weaning as able RT for pulmonary support Status: Acute (2) Chronic heart failure with reduced ejection fraction and diastolic dysfunction: Problem comment: BNP 9360 (previous recorded at >6000) Hold home torsemide. Received Lasix 80 mg IV in ED Continue Lasix 40 mg IV b.i.d., strict I&Os, daily weights, monitoring renal function 2g sodium diet Echocardiogram April 2023 done at [facility]: 1. Borderline enlarged left ventricular chamber size, regional wall motion abnormalities were present (see wall motion graphics), estimated ejection fraction range 20% - 25%. 2. Left ventricular cardiac index 1.47 l/min/m2. 3. Elevated left ventricular filling pressure. 4. Moderately enlarged right ventricular chamber size, moderate-severely reduced systolic function, estimated right ventricular systolic pressure 63 mmHg (right atrial pressure of 5 mmHg). 5. Mild-moderate tricuspid valve regurgitation. 6. Normal inferior vena cava size with normal inspiratory collapse (>50%). 7. Tiny pericardial effusion. 8. Compared to the report of 07/31/2021 the following changes have occurred: The left ventricular systolic function has decreased with a decrease in the cardiac index. The right ventricular systolic pressures has increased. . Side by side comparison of images performed. Status: Acute (3) COPD (chronic obstructive pulmonary disease): Problem comment: Exacerbation, without hypercapnia Continue ceftriaxone and azithromycin as initiated in ED for now Prednisone 40 mg daily x5 days, receive 60 mg x1 today Magnesium 2.0 DuoNebs q.i.d., albuterol nebs p.r.n., incentive spirometry, RT to follow Status: Acute (4) CKD (chronic kidney disease): Problem comment: Creatinine 2.4, recent baseline 1.6-2.0. History of 1 round of dialysis 04/2023, at that time [employer] [place] 10 with K+ 7.2 at that time Avoid nephrotoxic medications, continue to monitor, initiating IV Lasix diuresis Status: Acute (5) Alcohol dependence: Problem comment: With remote history of alcohol withdrawal seizures Reports typical 2 whiskeys daily, last drink 1600pm 03/16, ETOH <0.01 Monitor for now, may need to consider CIWA, seizure precautions Status: Acute (6) Alcoholic cirrhosis: Problem comment: Alk-phos 243, direct bili 1.2, total bili 2.4 Status: Acute (7) Aphasia: Problem comment: Sequelae, history of - Left MCA infarct in 2018 resulting in moderate to severe aphasia (cared for at other facilities). - 10/19/2020: presented to [facility] ED for transient left hemiplegia and was found to have right ICA stroke. Eliquis was switched to warfarin. - 02/05/2021: presented to [facility] ED for worsening dysphagia and was found to have worsening stenosis of the left ICA. Underwent stenting to the left ICA on 02/07/21 and discharged on 4 weeks of Plavix in addition to indefinite daily baby aspirin and warfarin. Patient has significant speech, motor improvement after stenting. Status: Acute (8) Atrial fibrillation: Problem comment: Continue metoprolol and warfarin, pharmacy to dose Currently supratherapeutic, INR 3.68 Telemetry S/p pacemaker Status: Acute (9) Hyperlipidemia: Problem comment: Continue statin Status: Acute (10) Hypertension: Problem comment: Continue amlodipine Status: Acute (11) Carotid arterial disease: Problem comment: s/p left ICA stenting 02/07/2021 Status: Acute (12) Hypokalemia: Problem comment: Potassium 3.1 Oral supplement, monitoring during IV diuresis Status: Acute Total Time Spent Total Time Spent: Total time spent caring for the patient today was 75 minutes. This includes time spent for the visit reviewing the chart, time spent during the visit, time spent after the visit and documentation and planning in coordination of care.
[2024-03-17 16:22] LABS: Procalcitonin* 0.26 ng/mL (<0.50)
[2024-03-17] MEDS: predniSONE 20 MG TABLET 60 MG PO (17:06)
[2024-03-17] MEDS: POTASSIUM CHLORIDE 10 MEQ CAPSULE ER 40 MEQ PO (17:39)
[2024-03-17] MEDS: IPRAT-ALBUT 0.5-2.5 MG/3 ML NEB 1 NEB IH (18:35)
--- NOTE | 2024-03-17 19:10 | PC.NURSE ---
Patient VSS. Patient dx with COPD. O2 saturations between 88-90% on 1 L of oxygen via nasal cannula. 2 gram sodium diet and tolerates well. A1 with walker gait belt.
[2024-03-17] MEDS: SODIUM CHLORIDE 0.9 % (FLUSH) 10 ML SYRINGE 5 ML IVF (20:27)
[2024-03-17] MEDS: ATORVASTATIN CALCIUM 40 MG TABLET 80 MG PO (20:27)
[2024-03-18] MEDS: IPRAT-ALBUT 0.5-2.5 MG/3 ML NEB 1 NEB IH ×5 (00:12→23:40)
[2024-03-18 03:00] VITALS: BP 137/72; PULSE 70; RESP 22; TEMP 36.8; O2SAT 95
[2024-03-18] MEDS: OMEPRAZOLE 20 MG CAPSULE DR PO (06:29)
[2024-03-18 07:00] VITALS: BP 178/67; PULSE 72; PULSE 76; RESP 22; TEMP 36.6; O2SAT 90
--- NOTE | 2024-03-18 07:01 | PC.NURSE ---
End of shift report: [id number] pleasant and cooperative with cares. Denies any pain this shift. SOB with exertion and reports intermittent SOB with rest. O2 sats between 86-92% on 1L, O2 did drop to 83% while sleeping and O2 increased to 1.5L to keep sats >87% while sleeping. Attempted to wean off O2 this am while awake, sats 96% on 1L, patient tolerated room air for 10 minutes then oxygen dropped to 81%, oxygen restarted at 0.75L and sats increased to 90%. Transfers with pivot to [facility], i able to walk short distances with A x 1 and walker.
[2024-03-18 07:40] LABS: Hematocrit 35.6 % (37.0-53.0); Hemoglobin* 10.4 gm/dL (13.5-17.5); Mean Corpuscular HGB Conc 29 gm/dL (32-36); Mean Corpuscular Hemoglobin 24 pg (26-34); Mean Corpuscular Volume 82 fL (80-100); Platelet Count* 174 K/uL (140-440); Red Blood Count 4.35 m/uL (4.30-5.90); White Blood Count* 4.21 K/uL (4.50-11.00)
[2024-03-18 07:42] LABS: Slide Review Reflex No
[2024-03-18] MEDS: FUROSEMIDE 10 MG/ML inj 80 MG IVP ×3 (07:58→16:14)
[2024-03-18 07:59] LABS: INR 3.26 (0.91-1.10); Prothrombin Time 35.8 Seconds
[2024-03-18] MEDS: predniSONE 20 MG TABLET 40 MG PO (07:59)
[2024-03-18 08:02] LABS: Chloride* 101 mmol/L (96-114); Potassium* 4.4 mmol/L (3.6-5.1); Sodium* 135 mmol/L (135-149)
[2024-03-18 08:04] LABS: Bilirubin Total* 1.8 mg/dL (0.1-1.5); Creatinine* 2.2 mg/dL (0.5-1.5); Est. Creatinine Clearance* 27.54; Estimated Glomerular Filt Rate 31 ml/min
[2024-03-18 08:05] LABS: Alanine Aminotransferase* 14 U/L (4-50); Alkaline Phosphatase* 222 U/L (40-150); Anion Gap 9 mEq/L (7-15); Aspartate Amino Transferase* 30 U/L (12-35); Blood Urea Nitrogen* 41 mg/dL (7-30); Calcium* 8.5 mg/dL (8.4-10.6); Carbon Dioxide* 25 mmol/L (20-32); Glucose* 125 mg/dL (60-115)
[2024-03-18] MEDS: AZITHROMYCIN 250 MG TABLET 500 MG PO (09:41)
[2024-03-18] MEDS: cefTRIAXone 1 GM in 0.9 % SODIUM CHLORIDE Mini-bag 100 ML IVPB (09:42)
[2024-03-18] MEDS: AMLODIPINE 10 MG TABLET PO (09:42)
[2024-03-18] MEDS: METOPROLOL SUCCINATE (XL) 25 MG TAB PO (09:42)
[2024-03-18] MEDS: ASPIRIN 81 MG TABLET EC PO (09:42)
[2024-03-18] MEDS: SODIUM CHLORIDE 0.9 % (FLUSH) 10 ML SYRINGE 5 ML IVF ×2 (09:46→20:45)
[2024-03-18] MEDS: POTASSIUM CHLORIDE 10 MEQ CAPSULE ER 20 MEQ PO ×2 (09:51→18:01)
[2024-03-18 11:00] VITALS: BP 132/67; PULSE 64; RESP 26; TEMP 36.6; O2SAT 85
[2024-03-18 15:00] VITALS: BP 147/82; PULSE 69; PULSE 76; RESP 26; TEMP 36.6; O2SAT 85
--- NOTE | 2024-03-18 15:15 | PM.IMPN1 ---
Progress Note: A&P Assessment and plan (1) Acute on chronic hypoxic respiratory failure: Problem details: Recurrent, initial saturations noted to be 78%, without hypercapnia In setting of chronic comorbidities COPD, CHF. Query adequate outpatient control, medication compliance, dietary compliance. VBG pH 7.340, pCO2 49, PO2 32.8, HC03 27 Afebrile, no leukocytosis, lactate 1.8, CRP 4.5, procalcitonin 0.26, triple swab negative, BNP 9360 (previous recorded at >6000), troponin 0.02, EKG ventricular rate 68, QTC 601, sinus rhythm with first-degree AV block, RBBB (noted on previous EKGs) Continue oxygen supplementation to maintain saturations 88-92%, weaning as able RT for pulmonary support. Status: Acute (2) Chronic heart failure with reduced ejection fraction and diastolic dysfunction: Problem details: Appears to be heart failure exacerbation causing hypoxic respiratory primarily. BNP 9360 (previous recorded at >6000) Hold home torsemide. Patient does not know home torsemide dose. Possibly 60 mg daily. Continue Lasix 80 mg IV b.i.d., strict I&Os, daily weights, monitoring renal function 2g sodium diet Echocardiogram April 2023 done at [facility]: 1. Borderline enlarged left ventricular chamber size, regional wall motion abnormalities were present (see wall motion graphics), estimated ejection fraction range 20% - 25%. 2. Left ventricular cardiac index 1.47 l/min/m2. 3. Elevated left ventricular filling pressure. 4. Moderately enlarged right ventricular chamber size, moderate-severely reduced systolic function, estimated right ventricular systolic pressure 63 mmHg (right atrial pressure of 5 mmHg). 5. Mild-moderate tricuspid valve regurgitation. 6. Normal inferior vena cava size with normal inspiratory collapse (>50%). 7. Tiny pericardial effusion. 8. Compared to the report of 07/31/2021 the following changes have occurred: The left ventricular systolic function has decreased with a decrease in the cardiac index. The right ventricular systolic pressures has increased. . Side by side comparison of images performed. Status: Acute (3) COPD (chronic obstructive pulmonary disease): Problem details: Hypoxic respiratory failure secondarily related to COPD. Exacerbation, without hypercapnia Continue ceftriaxone and azithromycin as initiated in ED for now Prednisone 40 mg daily x5 days, receive 60 mg x1 today Magnesium 2.0 DuoNebs q.i.d., albuterol nebs p.r.n., incentive spirometry, RT to follow Status: Acute (4) CKD (chronic kidney disease): Problem details: Creatinine 2.4 on admission, recent baseline 1.8. 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 Currently stage 4 chronic kidney disease. Status: Acute (5) Alcohol dependence: Problem details: With remote history of alcohol withdrawal seizures. Denies problem with alcohol use. Reports typical 2 whiskeys daily since leaving the jail 3 days prior to admission. last drink 1600pm 03/16, ETOH <0.01 Monitor for now, may need to consider CIWA, seizure precautions Status: Acute (6) Alcoholic cirrhosis: Problem details: Alk-phos 243, direct bili 1.2, total bili 2.4 Status: Acute (7) Aphasia: Problem details: Sequelae, history of - Left MCA infarct in 2018 resulting in moderate to severe aphasia (cared for at other facilities). - 10/19/2020: presented to [facility] ED for transient left hemiplegia and was found to have right ICA stroke. Eliquis was switched to warfarin. - 02/05/2021: presented to [facility] ED for worsening dysphagia and was found to have worsening stenosis of the left ICA. Underwent stenting to the left ICA on 02/07/21 and discharged on 4 weeks of Plavix in addition to indefinite daily baby aspirin and warfarin. Patient has significant speech, motor improvement after stenting. Status: Acute (8) Atrial fibrillation: Problem details: Continue metoprolol and warfarin, pharmacy to dose Currently supratherapeutic, INR 3.68. Possibly related to heart failure Telemetry S/p pacemaker Status: Acute (9) Hyperlipidemia: Problem details: Continue statin Status: Acute (10) Hypertension: Problem details: Continue amlodipine Status: Acute (11) Carotid arterial disease: Problem details: s/p left ICA stenting 02/07/2021 Status: Acute (12) Hypokalemia: Problem details: Potassium 3.1 Monitor and replace. Note chronic kidney disease and heart failure requiring diuresis Status: Acute Plan Continue in hospital for management of acute decompensation. Assess ability to function independently. Ongoing concerns about patient's ability to manage independent living, complex end-stage organ failure, complex and high risk medication regimen, sobriety. 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 Patient reportedly checked himself out of a jail in [place], having relocated to [place] 3-4 days ago and reports a 10 day history of increasing shortness of breath, worse than usual. He tells me he is not oxygen dependent nor does he use a CPAP/BiPAP at bedtime. Has not had a sleep study. Has a nebulizer at home but has not used for some time. Denies headaches or dizziness. Denies recent fevers chills or sweats. Denies chest pain. Has had no abdominal pain, nausea, vomiting, diarrhea. No change in urination. Reports bilateral lower extremity swelling and erythema which he relates to following an iron infusion at [facility]. The exact date of this is unknown, reported as somewhere in the past 2 weeks. Patient cannot tell me why he had this infusion either. He was seen in the [facility] earlier this morning and advised to be seen in the ED. Oxygen saturation initially reported to be 78% on room air. Currently satting at 94% on 2 L. receive 1 dose of ceftriaxone and azithromycin in the ED. As well as 80 mg IV Lasix. He received a DuoNeb which was reported to help. Most recently, patient has had his medical care through [facility]. Followed by Cardiology, Nephrology, Pulmonology. Last hospitalized in [place] April 2023. Was seen in the [facility] clinic today to establish care. He has had a guardian appointed who has kept him in a jail. He has been working with the [employer] system for the last 2 years to removed guardianship. This was successful a couple weeks ago. With removal of guardianship he was able to leave the jail on [place], 3 days prior to admission. I spoke with the patient and with his daughter on speaker phone in his room. His daughter indicated that she had concerns about him leaving the jail because of his inability to care for himself with his multiple medical problems and the likelihood of her his returning to drinking alcohol. Patient became quite upset with me and his daughter as we discussed issues around his ability to care for himself and manage independently. He is adamantly opposed to going to a jail or having a guardian appointed. He is unable to tell me what medications he is taking or how he remembers to take them. It sounds like he may have medications in a blister pack. Previous smoker. Active alcohol use, 2 whiskey 7 ups daily. Last drink was 03/16 at 4:00 p.m.. History of alcohol withdrawal seizures but tells me he did not experience these last month when he went without drinking for short period of time. March 18: Patient called his daughter on the phone and we spoke with her on speaker phone. I also spoke with the patient separate of that. He reports increasing swelling in his legs and some dyspnea since he got the iron infusion. He reports he has been taking his medications as prescribed. He has no concerns about his ability to manage independently, no concerns about drinking, no other health concerns. He received IV furosemide. He reports his edema is better but not back to normal for him. He continues to require oxygen to maintain his O2 sats at 90% Exam Narrative: Exam Narrative: He is alert and appears in no distress. Speech is somewhat difficult to understand due to sequela of previous stroke. He appears to manage his secretions fairly well though does have observed cough on occasion to clear his secretions. Respirations with marked decreased breath sounds in all lung marie. Occasional scattered wheezes are noted as well. No consolidation. Cardiovascular: S1, S2, relatively regular rhythm. Distant heart sounds. Abdomen: Bowel sounds active. Abdomen is soft without tenderness or mass. Extremities with bilateral trace to 1+ edema. No tenderness. Const: Vital Signs, click to edit/add: Vital Signs - 24 hr 03/17/24 15:16 03/17/24 15:29 03/17/24 15:29 Temperature 97.8 F 97.8 F Pulse Rate Pulse Rate [Right Pulse Oximeter] Respiratory Rate 22 22 24 Blood Pressure [Ri ght Arm] 124/85 124/85 Pulse Oximetry 96 96 90 Oxygen Delivery Me thod Room Air Nasal Cannula Oxygen Flow Rate 1 03/17/24 15:29 03/17/24 19:00 03/17/24 23:00 Temperature 97.5 F L Pulse Rate 64 65 Pulse Rate [Right Pulse Oximeter] 67 Respiratory Rate 20 Blood Pressure [Ri ght Arm] 119/70 Pulse Oximetry 90 Oxygen Delivery Me thod Nasal Cannula Oxygen Flow Rate 1.5 03/17/24 23:00 03/17/24 23:00 03/17/24 23:00 Temperature 97.6 F Pulse Rate Pulse Rate [Right Pulse Oximeter] 67 68 Respiratory Rate 20 20 Blood Pressure [Ri ght Arm] 106/78 Pulse Oximetry 90 94 Oxygen Delivery Me thod Nasal Cannula Oxygen Flow Rate 1.5 03/18/24 03:00 03/18/24 07:00 03/18/24 07:00 Temperature 98.2 F Pulse Rate 72 Pulse Rate [Right Pulse Oximeter] 70 Respiratory Rate 22 Blood Pressure [Ri ght Arm] 137/72 Pulse Oximetry 95 90 Oxygen Delivery Me thod Nasal Cannula Oxygen Flow Rate 1 03/18/24 07:00 03/18/24 07:00 03/18/24 11:00 Temperature 97.9 F 97.9 F Pulse Rate Pulse Rate [Right Pulse Oximeter] 76 76 64 Respiratory Rate 22 22 26 H Blood Pressure [Ri ght Arm] 178/67 H 132/67 Pulse Oximetry 90 85 L Oxygen Delivery Me thod Nasal Cannula Oxygen Flow Rate 1 03/18/24 15:00 03/18/24 15:00 03/18/24 15:00 Temperature 97.8 F Pulse Rate Pulse Rate [Right Pulse Oximeter] 76 76 Respiratory Rate 26 H 26 H Blood Pressure [Ri ght Arm] 147/82 H Pulse Oximetry 85 L 85 L Oxygen Delivery Me thod Nasal Cannula Oxygen Flow Rate 4 Documenting provider has reviewed patient's vital signs: yes Labs Labs: Laboratory Results - last 24 hr 03/17/24 03/17/24 03/17/24 12:25 12:32 15:33 WBC RBC Hgb Hct MCV MCH MCHC Plt Count INR VBG pH 7.340 VBG pCO2 49 VBG pO2 32.8 VBG HCO3 27 Sodium Potassium Chloride Carbon Dioxide Anion Gap BUN Creatinine Estimated Creat Clear Estimated GFR Glucose Calcium Magnesium 2.0 Total Bilirubin AST ALT Alkaline Phosphatase Total Protein Albumin Procalcitonin 0.26 Lab Acknowledgement New Spec Needed 03/18/24 06:37 WBC 4.21 L RBC 4.35 Hgb 10.4 L Hct 35.6 L MCV 82 MCH 24 L MCHC 29 L Plt Count 174 INR 3.26 H VBG pH VBG pCO2 VBG pO2 VBG HCO3 Sodium 135 Potassium 4.4 Chloride 101 Carbon Dioxide 25 Anion Gap 9 BUN 41 H Creatinine 2.2 H Estimated Creat Clear 27.54 Estimated GFR 31 Glucose 125 H Calcium 8.5 Magnesium Total Bilirubin 1.8 H AST 30 ALT 14 Alkaline Phosphatase 222 H Total Protein 7.0 Albumin 4.0 Procalcitonin Lab Acknowledgement
[2024-03-18] MEDS: WARFARIN 3 MG TABLET 1.5 MG PO (17:05)
--- NOTE | 2024-03-18 18:35 | PC.NURSE ---
Patient VSS. On 1 L of O2. Up to chair, tolerates well. Tolerating 2 gram sodium diet. Productive cough. Still c/o of SOB at times.
[2024-03-18 19:00] VITALS: BP 113/54; PULSE 68; RESP 18; TEMP 36.4; O2SAT 91
[2024-03-18] MEDS: ATORVASTATIN CALCIUM 40 MG TABLET 80 MG PO (20:45)
[2024-03-18] MEDS: guaiFENesin 600 MG TAB.ER.12H PO (21:43)
[2024-03-18 23:00] VITALS: BP 141/79; PULSE 69; PULSE 72; RESP 20; TEMP 36.3; O2SAT 92
[2024-03-19] VITALS (7 sets, daily range): BP systolic 112–130; BP diastolic 60–86; PULSE 58–69; RESP 18–24; TEMP 36.1–36.5; O2SAT 88–97
--- NOTE | 2024-03-19 05:54 | PC.NURSE ---
End of shift [id number]: Pleasant and cooperative with cares. SOB with exertion and coughing episodes. Patient able to expectorate thick, clear sputum. MD updated with thick secretions and new order for guaifenesin BID, patient reporting relief from thick secretions after medication. Transfers with Ax1 with walker, able to ambulate short distances with SBA, gait belt and walker. Oxygen sats maintained >88% wit O2 ranging from 1-3L per NC.
[2024-03-19] MEDS: OMEPRAZOLE 20 MG CAPSULE DR PO (06:26)
[2024-03-19] MEDS: IPRAT-ALBUT 0.5-2.5 MG/3 ML NEB 1 NEB IH ×4 (06:26→23:51)
[2024-03-19 06:44] LABS: Hematocrit 37.7 % (37.0-53.0); Hemoglobin* 11.2 gm/dL (13.5-17.5); Mean Corpuscular HGB Conc 30 gm/dL (32-36); Mean Corpuscular Hemoglobin 24 pg (26-34); Mean Corpuscular Volume 82 fL (80-100); Platelet Count* 202 K/uL (140-440); White Blood Count* 13.84 K/uL (4.50-11.00)
[2024-03-19 06:45] LABS: Slide Review Reflex No
[2024-03-19 06:57] LABS: Albumin* 4.1 g/dL (3.3-5.0); Chloride* 103 mmol/L (96-114)
[2024-03-19 06:58] LABS: INR 2.42 (0.91-1.10); Potassium* 4.5 mmol/L (3.6-5.1); Prothrombin Time 28.1 Seconds; Sodium* 137 mmol/L (135-149)
[2024-03-19 07:00] LABS: Anion Gap 9 mEq/L (7-15); Aspartate Amino Transferase* 30 U/L (12-35); Bilirubin Total* 1.4 mg/dL (0.1-1.5); Carbon Dioxide* 25 mmol/L (20-32); Creatinine* 2.1 mg/dL (0.5-1.5); Est. Creatinine Clearance* 28.85; Estimated Glomerular Filt Rate 32 ml/min; Total Protein* 7.3 g/dL (6.0-8.3)
[2024-03-19 07:01] LABS: Alanine Aminotransferase* 16 U/L (4-50); Alkaline Phosphatase* 206 U/L (40-150); Blood Urea Nitrogen* 47 mg/dL (7-30); Calcium* 8.2 mg/dL (8.4-10.6); Glucose* 112 mg/dL (60-115)
[2024-03-19] MEDS: POTASSIUM CHLORIDE 10 MEQ CAPSULE ER 20 MEQ PO ×2 (07:46→18:08)
[2024-03-19] MEDS: predniSONE 20 MG TABLET 40 MG PO (07:46)
[2024-03-19] MEDS: guaiFENesin 600 MG TAB.ER.12H PO ×2 (09:43→20:43)
[2024-03-19] MEDS: ASPIRIN 81 MG TABLET EC PO (09:44)
[2024-03-19] MEDS: FUROSEMIDE 10 MG/ML inj 80 MG IVP ×2 (09:48→16:15)
[2024-03-19] MEDS: SODIUM CHLORIDE 0.9 % (FLUSH) 10 ML SYRINGE 5 ML IVF ×2 (09:48→20:43)
[2024-03-19] MEDS: AZITHROMYCIN 250 MG TABLET 500 MG PO (09:49)
[2024-03-19] MEDS: AMLODIPINE 10 MG TABLET PO (09:50)
[2024-03-19] MEDS: METOPROLOL SUCCINATE (XL) 25 MG TAB PO (09:50)
--- NOTE | 2024-03-19 09:50 | CRLHL7_ITS ---
For Patients: As a result of the Century Cures Act, medical imaging exams and procedure reports are released immediately into your electronic medical record. You may view this report before your referring provider. If you have questions, please contact your health care provider. INDICATION: Hypoxia. COMPARISON: Chest radiographs dated 03/17/2024 TECHNIQUE: CT of the chest without intravenous contrast. Please note that all CT scans at this facility use dose modulation, iterative reconstruction, and/or weight-based dosing when appropriate to reduce radiation dose to as low as reasonably achievable. FINDINGS: The study is performed without intravenous contrast. This limits the sensitivity of the exam for the detection vascular pathology including arterial thrombosis, dissection and pulmonary arterial embolism. Visualized Lower Neck: No lower cervical adenopathy. Mediastinum: Diffuse severe atherosclerotic mural calcification of the thoracic aorta and aortic branch vessels. Cardiomegaly. Severe multivessel atherosclerotic coronary artery calcification. Left ventricular myocardial calcification consistent with the sequela of a prior infarct, for example. Correlation with the patient`s clinical history is recommended. Endoluminal tracheal secretions. There is no mediastinal lymphadenopathy. Lungs and Pleura: Symmetrical bilateral upper lobe predominant moderate emphysema. 4 mm (mean diameter) solid right lower lobe nodule (series 4; image 78). No routine imaging surveillance is indicated for such findings in the absence of an established history of malignancy or clinical risk factors for lung cancer such as a smoking history. If the latter, an optional 12 month follow-up chest CT according to Fleischner management guidelines is recommended. Left lower lobe superior segment architectural distortion and posterior basal segment pleural-based band opacities consistent with fibrosis. No significant pleural effusion. Left pleural calcification. No pneumothorax. Skeleton: Chronic appearing [id number] superior endplate compression deformities vertebral bodies L1 and L2. chronic left 3-10 rib fracture deformities. Thoracic soft tissues: Severe bilateral asymmetrical, more extensive on the left compared to the right, gynecomastia. No axillary adenopathy. Left-sided dual lead cardiac conduction device. Visualized Upper Abdomen: Small volume bilateral subphrenic ascites periods discontinuous mural calcification of the contracted gallbladder wall. Nonobstructing right nephrolith (2; 111). Severe aortic and branch vessel (SMA and left renal artery) atherosclerotic mural calcification. IMPRESSION: 1. No evidence of pneumonia, interstitial pulmonary edema to explain the history of hypoxia. 2. Moderate emphysema. 3. Cardiomegaly and severe multivessel atherosclerotic coronary artery calcification. Left ventricular myocardial calcification consistent with a chronic infarct. Please correlate with the patient`s clinical history. 4. 4 mm solid right lower lobe nodule. Management recommendations provided in the body of the report. Additional incidental findings described above. Please note that all CT scans at this facility use dose modulation, iterative reconstruction, and/or weight-based dosing when appropriate to reduce radiation dose to as low as reasonably achievable. Dictated by Elver Arreola MD @ 03/19/2024 10:51:12 AM (Electronically Signed)
[2024-03-19] MEDS: cefTRIAXone 1 GM in 0.9 % SODIUM CHLORIDE Mini-bag 100 ML IVPB (10:25)
--- NOTE | 2024-03-19 12:34 | PM.IMPN1 ---
Progress Note: A&P Assessment and plan (1) Acute on chronic hypoxic respiratory failure: Problem details: Multiple factors contributing including severe heart failure with reduced ejection fraction, severe COPD, suspected sleep apnea, concern for aspiration, Uncertain of medication compliance. Not on chronic outpatient oxygen. Recurrent, initial saturations noted to be 78%, without hypercapnia VBG pH 7.340, pCO2 49, PO2 32.8, HC03 27 Afebrile, no leukocytosis, lactate 1.8, CRP 4.5, procalcitonin 0.26, triple swab negative, BNP 9360 (previous recorded at >6000), troponin 0.02, EKG ventricular rate 68, QTC 601, sinus rhythm with first-degree AV block, RBBB (noted on previous EKGs) Continue oxygen supplementation to maintain saturations 88-92%, weaning as able RT for pulmonary support. Status: Acute (2) Chronic heart failure with reduced ejection fraction and diastolic dysfunction: Problem details: Possibly the primary cause of hypoxia. BNP 9360 (previous recorded at >6000) Hold home torsemide. Patient does not know home torsemide dose. Possibly 60 mg daily. Continue Lasix 80 mg IV b.i.d., strict I&Os, daily weights, monitoring renal function 2g sodium diet Echocardiogram April 2023 done at [facility]: 1. Borderline enlarged left ventricular chamber size, regional wall motion abnormalities were present (see wall motion graphics), estimated ejection fraction range 20% - 25%. 2. Left ventricular cardiac index 1.47 l/min/m2. 3. Elevated left ventricular filling pressure. 4. Moderately enlarged right ventricular chamber size, moderate-severely reduced systolic function, estimated right ventricular systolic pressure 63 mmHg (right atrial pressure of 5 mmHg). 5. Mild-moderate tricuspid valve regurgitation. 6. Normal inferior vena cava size with normal inspiratory collapse (>50%). 7. Tiny pericardial effusion. 8. Compared to the report of 07/31/2021 the following changes have occurred: The left ventricular systolic function has decreased with a decrease in the cardiac index. The right ventricular systolic pressures has increased. . Side by side comparison of images performed. Preliminary echocardiogram from 03/19/2024: Ejection fraction around 35-40%. Mild TR. Decreased right ventricular function. Dilated IVC. Status: Acute (3) COPD (chronic obstructive pulmonary disease): Problem details: Hypoxic respiratory failure secondarily related to COPD. Exacerbation, without hypercapnia Continue ceftriaxone and azithromycin as initiated in ED for now Prednisone 40 mg daily x5 days, receive 60 mg x1 today Magnesium 2.0 DuoNebs q.i.d., albuterol nebs p.r.n., incentive spirometry, RT to follow Status: Acute (4) CKD (chronic kidney disease): Problem details: Creatinine 2.4 on admission, recent baseline 1.8. History of 1 round of dialysis 04/2023, at that time [facility] 10 with K+ 7.2 at that time Avoid nephrotoxic medications, continue to monitor, initiating IV Lasix diuresis. Currently stage 4 chronic kidney disease. Creatinine improving to 2.1 on March 19. Status: Acute (5) Alcohol dependence: Problem details: With remote history of alcohol withdrawal seizures. Denies problem with alcohol use. Reports typical 2 whiskeys daily since leaving the long-term 3 days prior to admission. last drink 1600pm 03/16, ETOH <0.01 Monitor for now, may need to consider CIWA, seizure precautions Status: Acute (6) Alcoholic cirrhosis: Problem details: Alk-phos 243, direct bili 1.2, total bili 2.4. Bilirubin improving. Increase in bilirubin possibly related to congestion from right heart failure. Status: Acute (7) Aphasia: Problem details: Sequelae, history of - Left MCA infarct in 2018 resulting in moderate to severe aphasia (cared for at other facilities). - 10/19/2020: presented to [facility] ED for transient left hemiplegia and was found to have right ICA stroke. Eliquis was switched to warfarin. - 02/05/2021: presented to [facility] ED for worsening dysphagia and was found to have worsening stenosis of the left ICA. Underwent stenting to the left ICA on 02/07/21 and discharged on 4 weeks of Plavix in addition to indefinite daily baby aspirin and warfarin. Patient has significant speech, motor improvement after stenting. Status: Acute (8) Atrial fibrillation: Problem details: Continue metoprolol and warfarin, pharmacy to dose Currently supratherapeutic, INR 3.68. Possibly related to right heart failure with liver congestion Telemetry S/p pacemaker Status: Acute (9) Hyperlipidemia: Problem details: Continue statin Status: Acute (10) Hypertension: Problem details: Continue amlodipine Status: Acute (11) Carotid arterial disease: Problem details: s/p left ICA stenting 02/07/2021 Status: Acute (12) Hypokalemia: Problem details: Monitor and replace. Note chronic kidney disease and heart failure requiring diuresis Status: Acute Plan Continue in hospital for management of hypoxic respiratory failure. Continue IV furosemide, COPD management and chronic disease management. 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 Patient reportedly checked himself out of a long-term in [place], having relocated to [place] 3-4 days ago and reports a 10 day history of increasing shortness of breath, worse than usual. He tells me he is not oxygen dependent nor does he use a CPAP/BiPAP at bedtime. Has not had a sleep study. Has a nebulizer at home but has not used for some time. Denies headaches or dizziness. Denies recent fevers chills or sweats. Denies chest pain. Has had no abdominal pain, nausea, vomiting, diarrhea. No change in urination. Reports bilateral lower extremity swelling and erythema which he relates to following an iron infusion at [facility]. The exact date of this is unknown, reported as somewhere in the past 2 weeks. Patient cannot tell me why he had this infusion either. He was seen in the [facility] earlier this morning and advised to be seen in the ED. Oxygen saturation initially reported to be 78% on room air. Currently satting at 94% on 2 L. receive 1 dose of ceftriaxone and azithromycin in the ED. As well as 80 mg IV Lasix. He received a DuoNeb which was reported to help. Most recently, patient has had his medical care through [facility]. Followed by Cardiology, Nephrology, Pulmonology. Last hospitalized in [place] April 2023. Was seen in the [facility] today to establish care. He has had a guardian appointed who has kept him in a long-term. He has been working with the court system for the last 2 years to removed guardianship. This was successful a couple weeks ago. With removal of guardianship he was able to leave the long-term on Wednesday, 3 days prior to admission. I spoke with the patient and with his daughter on speaker phone in his room. His daughter indicated that she had concerns about him leaving the long-term because of his inability to care for himself with his multiple medical problems and the likelihood of her his returning to drinking alcohol. Patient became quite upset with me and his daughter as we discussed issues around his ability to care for himself and manage independently. He is adamantly opposed to going to a long-term or having a guardian appointed. He is unable to tell me what medications he is taking or how he remembers to take them. It sounds like he may have medications in a blister pack. Previous smoker. Active alcohol use, 2 whiskey 7 ups daily. Last drink was 03/16 at 4:00 p.m.. History of alcohol withdrawal seizures but tells me he did not experience these last month when he went without drinking for short period of time. March 18: Patient called his daughter on the phone and we spoke with her on speaker phone. I also spoke with the patient separate of that. He reports increasing swelling in his legs and some dyspnea since he got the iron infusion. He reports he has been taking his medications as prescribed. He has no concerns about his ability to manage independently, no concerns about drinking, no other health concerns. He received IV furosemide. He reports his edema is better but not back to normal for him. He continues to require oxygen to maintain his O2 sats at 90% March 19: Patient continued to need supplemental oxygen. He has continued to have a coarse loose cough with some troubles managing secretions. He reports no other concerns today. Physical therapy says he is relatively independent with mobility. Exam Narrative: Exam Narrative: He is alert and has mild increased work of breathing with rhonchus breath sounds. Speech is at baseline with some dysarthria. Mental status appears normal with appropriate responses to questions. Respirations with bilateral rhonchi and bilateral wheezes. He has diminished breath sounds and increased rate and work of breathing. Cardiovascular: S1, S2, regular rate and rhythm. Abdomen: Bowel sounds active. Abdomen is soft without tenderness. Extremities with 1+ edema bilaterally. Support hose in place. Const: Vital Signs, click to edit/add: Vital Signs - 24 hr 03/18/24 15:00 03/18/24 15:00 03/18/24 15:00 Temperature 97.8 F Pulse Rate Pulse Rate [Right Pulse Oximeter] 76 76 Respiratory Rate 26 H 26 H Blood Pressure [Ri ght Arm] 147/82 H Pulse Oximetry 85 L 85 L Oxygen Delivery Me thod Nasal Cannula Oxygen Flow Rate 4 03/18/24 15:00 03/18/24 19:00 03/18/24 23:00 Temperature 97.5 F L Pulse Rate 69 72 Pulse Rate [Right Pulse Oximeter] 68 Respiratory Rate 18 Blood Pressure [Ri ght Arm] 113/54 L Pulse Oximetry 91 Oxygen Delivery Me thod Nasal Cannula Oxygen Flow Rate 1 03/18/24 23:00 03/18/24 23:00 03/18/24 23:00 Temperature 97.4 F L Pulse Rate Pulse Rate [Right Pulse Oximeter] 69 69 Respiratory Rate 20 20 Blood Pressure [Ri ght Arm] 141/79 H Pulse Oximetry 92 92 Oxygen Delivery Me thod Nasal Cannula Oxygen Flow Rate 1 03/19/24 03:00 03/19/24 07:00 03/19/24 07:00 Temperature 97.0 F L 97.7 F Pulse Rate Pulse Rate [Right Pulse Oximeter] 66 67 Respiratory Rate 18 24 Blood Pressure [Ri ght Arm] 125/60 118/68 Pulse Oximetry 93 91 91 Oxygen Delivery Me thod Nasal Cannula Oxygen Flow Rate 2 03/19/24 07:00 03/19/24 07:00 03/19/24 11:00 Temperature 97.2 F L Pulse Rate 69 Pulse Rate [Right Pulse Oximeter] 67 58 L Respiratory Rate 24 24 Blood Pressure [Ri ght Arm] 130/86 Pulse Oximetry 91 Oxygen Delivery Me thod Oxygen Flow Rate Documenting provider has reviewed patient's vital signs: yes Labs Labs: Laboratory Results - last 24 hr 03/19/24 06:10 WBC 13.84 H RBC 4.60 Hgb 11.2 L Hct 37.7 MCV 82 MCH 24 L MCHC 30 L Plt Count 202 INR 2.42 H Sodium 137 Potassium 4.5 Chloride 103 Carbon Dioxide 25 Anion Gap 9 BUN 47 H Creatinine 2.1 H Estimated Creat Clear 28.85 Estimated GFR 32 Glucose 112 Calcium 8.2 L Total Bilirubin 1.4 AST 30 ALT 16 Alkaline Phosphatase 206 H Total Protein 7.[address] scan - chest: Radiologist's impression: INDICATION: Hypoxia. COMPARISON: Chest radiographs dated 03/17/2024 TECHNIQUE: CT of the chest without intravenous contrast. Please note that all CT scans at this facility use dose modulation, iterative reconstruction, and/or weight-based dosing when appropriate to reduce radiation dose to as low as reasonably achievable. FINDINGS: The study is performed without intravenous contrast. This limits the sensitivity of the exam for the detection vascular pathology including arterial thrombosis, dissection and pulmonary arterial embolism. Visualized Lower Neck: No lower cervical adenopathy. Mediastinum: Diffuse severe atherosclerotic mural calcification of the thoracic aorta and aortic branch vessels. Cardiomegaly. Severe multivessel atherosclerotic coronary artery calcification. Left ventricular myocardial calcification consistent with the sequela of a prior infarct, for example. Correlation with the patient`s clinical history is recommended. Endoluminal tracheal secretions. There is no mediastinal lymphadenopathy. Lungs and Pleura: Symmetrical bilateral upper lobe predominant moderate emphysema. 4 mm (mean diameter) solid right lower lobe nodule (series 4; image 78). No routine imaging surveillance is indicated for such findings in the absence of an established history of malignancy or clinical risk factors for lung cancer such as a smoking history. If the latter, an optional 12 month follow-up chest CT according to Fleischner management guidelines is recommended. Left lower lobe superior segment architectural distortion and posterior basal segment pleural-based band opacities consistent with fibrosis. No significant pleural effusion. Left pleural calcification. No pneumothorax. Skeleton: Chronic appearing [id number] superior endplate compression deformities vertebral bodies L1 and L2. chronic left 3-10 rib fracture deformities. Thoracic soft tissues: Severe bilateral asymmetrical, more extensive on the left compared to the right, gynecomastia. No axillary adenopathy. Left-sided dual lead cardiac conduction device. Visualized Upper Abdomen: Small volume bilateral subphrenic ascites periods discontinuous mural calcification of the contracted gallbladder wall. Nonobstructing right nephrolith (2; 111). Severe aortic and branch vessel (SMA and left renal artery) atherosclerotic mural calcification. IMPRESSION: 1. No evidence of pneumonia, interstitial pulmonary edema to explain the history of hypoxia. 2. Moderate emphysema. 3. Cardiomegaly and severe multivessel atherosclerotic coronary artery calcification. Left ventricular myocardial calcification consistent with a chronic infarct. Please correlate with the patient`s clinical history. 4. 4 mm solid right lower lobe nodule. Management recommendations provided in the body of the report. Additional incidental findings described above.
[2024-03-19] MEDS: WARFARIN 2 MG TABLET PO (17:01)
--- NOTE | 2024-03-19 18:48 | PC.NURSE ---
Patient VSS. Alert and oriented. SBA with ambulation. Patient to wear oxi-mask during ambulation and activities. Patient took a shower today. Worked with PT today.
[2024-03-19] MEDS: ATORVASTATIN CALCIUM 40 MG TABLET 80 MG PO (20:43)
[2024-03-20] VITALS (11 sets, daily range): BP systolic 120–139; BP diastolic 64–86; PULSE 63–69; RESP 18–26; TEMP 35.9–36.7; O2SAT 88–98
[2024-03-20] MEDS: OMEPRAZOLE 20 MG CAPSULE DR PO (06:10)
[2024-03-20] MEDS: IPRAT-ALBUT 0.5-2.5 MG/3 ML NEB 1 NEB IH ×4 (06:10→23:27)
[2024-03-20 07:11] LABS: HCO3 VBG 28 mmol/L (21-28); PCO2 VBG 49 mmHG (40-50); PO2 VBG 35.5 mmHG (25-47); pH VBG 7.365 (7.32-7.43)
[2024-03-20 07:18] LABS: Hematocrit 38.7 % (37.0-53.0); Hemoglobin* 11.3 gm/dL (13.5-17.5); Mean Corpuscular HGB Conc 29 gm/dL (32-36); Mean Corpuscular Hemoglobin 24 pg (26-34); Mean Corpuscular Volume 82 fL (80-100); Platelet Count* 242 K/uL (140-440); White Blood Count* 15.05 K/uL (4.50-11.00)
[2024-03-20 07:22] LABS: Slide Review Reflex No
[2024-03-20 07:33] LABS: Albumin* 4.3 g/dL (3.3-5.0); Chloride* 102 mmol/L (96-114); INR 1.88 (0.91-1.10); Potassium* 4.7 mmol/L (3.6-5.1); Prothrombin Time 22.9 Seconds; Sodium* 137 mmol/L (135-149)
[2024-03-20 07:35] LABS: Estimated Glomerular Filt Rate 34 ml/min
[2024-03-20 07:36] LABS: Alanine Aminotransferase* 17 U/L (4-50); Alkaline Phosphatase* 192 U/L (40-150); Anion Gap 9 mEq/L (7-15); Aspartate Amino Transferase* 33 U/L (12-35); Bilirubin Total* 1.2 mg/dL (0.1-1.5); Blood Urea Nitrogen* 54 mg/dL (7-30); Carbon Dioxide* 26 mmol/L (20-32); Glucose* 93 mg/dL (60-115); Total Protein* 7.3 g/dL (6.0-8.3)
[2024-03-20 07:37] LABS: Calcium* 8.5 mg/dL (8.4-10.6)
[2024-03-20] MEDS: predniSONE 20 MG TABLET 40 MG PO (07:41)
[2024-03-20] MEDS: POTASSIUM CHLORIDE 10 MEQ CAPSULE ER 20 MEQ PO (07:41)
[2024-03-20] MEDS: METOPROLOL SUCCINATE (XL) 25 MG TAB PO (08:56)
[2024-03-20] MEDS: guaiFENesin 600 MG TAB.ER.12H PO ×2 (08:57→20:42)
[2024-03-20] MEDS: AMLODIPINE 10 MG TABLET PO (08:57)
[2024-03-20] MEDS: ASPIRIN 81 MG TABLET EC PO (08:57)
[2024-03-20] MEDS: AZITHROMYCIN 250 MG TABLET 500 MG PO (08:57)
[2024-03-20] MEDS: cefTRIAXone 1 GM in 0.9 % SODIUM CHLORIDE Mini-bag 100 ML IVPB (08:58)
[2024-03-20] MEDS: TORSEMIDE 100 MG TABLET PO (09:19)
[2024-03-20] MEDS: SPIRONOLACTONE 25 MG TABLET PO (10:02)
--- NOTE | 2024-03-20 10:34 | RESP.RT ---
Patient sitting up in chair on 2.5 Nasal Cannula. Respiratory rate 20-28/minute. SaO2 at rest 94-96%, with patient talking with animated arms movement, SaO2 would decrease to 86-88%. Clubbing notice on fingers, capillary refill 4 seconds. BBS diminished all marie more so in Left marie. No wheezing or grunting noted at this time. Wheezing reported early by Nursing, patient had been coughing forcefully when RT entered room, possible reason of no wheeze noted. Patient color kali, effort needed to keep talking, short of breath in long sentences. Patient off Oxygen SaO2 decreases to low 70%, Patient needs 10 Lpm OxyMask for ambulation to bathroom, transfers, any activity.
--- NOTE | 2024-03-20 14:01 | PM.IMPN1 ---
Progress Note: A&P Assessment and plan (1) Acute on chronic hypoxic respiratory failure: Problem details: Multiple factors contributing including severe heart failure with reduced ejection fraction, severe COPD, suspected sleep apnea, concern for aspiration, Uncertain of medication compliance. Not on chronic outpatient oxygen for past 6 months. Recurrent, initial saturations noted to be 78%, without hypercapnia VBG pH 7.340, pCO2 49, PO2 32.8, HC03 27 Initial treatment for heart failure, COPD exacerbation, aspiration pneumonia. Status: Acute (2) Chronic heart failure with reduced ejection fraction and diastolic dysfunction: Problem details: Possibly the primary cause of hypoxia. BNP 9360 (previous recorded at >6000) Hold home torsemide. Patient does not know home torsemide dose. Possibly 60 mg daily. Continue Lasix 80 mg IV b.i.d., strict I&Os, daily weights, monitoring renal function 2g sodium diet Echocardiogram April 2023 done at [facility]: 1. Borderline enlarged left ventricular chamber size, regional wall motion abnormalities were present (see wall motion graphics), estimated ejection fraction range 20% - 25%. 2. Left ventricular cardiac index 1.47 l/min/m2. 3. Elevated left ventricular filling pressure. 4. Moderately enlarged right ventricular chamber size, moderate-severely reduced systolic function, estimated right ventricular systolic pressure 63 mmHg (right atrial pressure of 5 mmHg). 5. Mild-moderate tricuspid valve regurgitation. 6. Normal inferior vena cava size with normal inspiratory collapse (>50%). 7. Tiny pericardial effusion. 8. Compared to the report of 07/31/2021 the following changes have occurred: The left ventricular systolic function has decreased with a decrease in the cardiac index. The right ventricular systolic pressures has increased. . Side by side comparison of images performed. Preliminary echocardiogram from 03/19/2024: Ejection fraction around 35-40%. Mild TR. Decreased right ventricular function. Dilated IVC. Transition to oral diuretics Status: Acute (3) COPD (chronic obstructive pulmonary disease): Problem details: Hypoxic respiratory failure secondarily related to COPD. Exacerbation, without hypercapnia Continue ceftriaxone and azithromycin as initiated in ED for now Prednisone 40 mg daily x5 days, receive 60 mg x1 today Magnesium 2.0 DuoNebs q.i.d., albuterol nebs p.r.n., incentive spirometry, RT to follow Status: Acute (4) CKD (chronic kidney disease): Problem details: Creatinine 2.4 on admission, recent baseline 1.8. History of 1 round of dialysis 04/2023, at that time [employer] 10 with K+ 7.2 at that time Avoid nephrotoxic medications, continue to monitor, initiating IV Lasix diuresis. Currently stage 4 chronic kidney disease. Creatinine improving to 2.1 on March 19. Status: Acute (5) Alcohol dependence: Problem details: With remote history of alcohol withdrawal seizures. Denies problem with alcohol use. Reports typical 2 whiskeys daily since leaving the long term 3 days prior to admission. last drink 1600pm 03/16, ETOH <0.01 Monitor for now, may need to consider CIWA, seizure precautions Status: Acute (6) Alcoholic cirrhosis: Problem details: Alk-phos 243, direct bili 1.2, total bili 2.4. Bilirubin improving. Increase in bilirubin possibly related to congestion from right heart failure. Status: Acute (7) Aphasia: Problem details: Sequelae, history of - Left MCA infarct in 2018 resulting in moderate to severe aphasia (cared for at other facilities). - 10/19/2020: presented to [facility] ED for transient left hemiplegia and was found to have right ICA stroke. Eliquis was switched to warfarin. - 02/05/2021: presented to [facility] ED for worsening dysphagia and was found to have worsening stenosis of the left ICA. Underwent stenting to the left ICA on 02/07/21 and discharged on 4 weeks of Plavix in addition to indefinite daily baby aspirin and warfarin. Patient has significant speech, motor improvement after stenting. Status: Acute (8) Atrial fibrillation: Problem details: Continue metoprolol and warfarin, pharmacy to dose Currently supratherapeutic, INR 3.68. Possibly related to right heart failure with liver congestion Telemetry S/p pacemaker Status: Acute (9) Hyperlipidemia: Problem details: Continue statin Status: Acute (10) Hypertension: Problem details: Continue amlodipine Status: Acute (11) Carotid arterial disease: Problem details: s/p left ICA stenting 02/07/2021 Status: Acute (12) Hypokalemia: Problem details: Monitor and replace. Note chronic kidney disease and heart failure requiring diuresis Status: Acute Plan Continue in hospital for management of hypoxic respiratory failure. Evaluate for plan of disposition. 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 Patient reportedly checked himself out of a long term in [place], having relocated to [place] 3-4 days ago and reports a 10 day history of increasing shortness of breath, worse than usual. He tells me he is not oxygen dependent nor does he use a CPAP/BiPAP at bedtime. Has not had a sleep study. Has a nebulizer at home but has not used for some time. Denies headaches or dizziness. Denies recent fevers chills or sweats. Denies chest pain. Has had no abdominal pain, nausea, vomiting, diarrhea. No change in urination. Reports bilateral lower extremity swelling and erythema which he relates to following an iron infusion at [facility]. The exact date of this is unknown, reported as somewhere in the past 2 weeks. Patient cannot tell me why he had this infusion either. He was seen in the [facility] earlier this morning and advised to be seen in the ED. Oxygen saturation initially reported to be 78% on room air. Currently satting at 94% on 2 L. receive 1 dose of ceftriaxone and azithromycin in the ED. As well as 80 mg IV Lasix. He received a DuoNeb which was reported to help. Most recently, patient has had his medical care through [facility]. Followed by Cardiology, Nephrology, Pulmonology. Last hospitalized in [place] April 2023. Was seen in the [facility] clinic today to establish care. He has had a guardian appointed who has kept him in a long term. He has been working with the court system for the last 2 years to removed guardianship. This was successful a couple weeks ago. With removal of guardianship he was able to leave the long term on Wednesday, 3 days prior to admission. I spoke with the patient and with his daughter on speaker phone in his room. His daughter indicated that she had concerns about him leaving the long term because of his inability to care for himself with his multiple medical problems and the likelihood of her his returning to drinking alcohol. Patient became quite upset with me and his daughter as we discussed issues around his ability to care for himself and manage independently. He is adamantly opposed to going to a long term or having a guardian appointed. He is unable to tell me what medications he is taking or how he remembers to take them. It sounds like he may have medications in a blister pack. Previous smoker. Active alcohol use, 2 whiskey 7 ups daily. Last drink was 03/16 at 4:00 p.m.. History of alcohol withdrawal seizures but tells me he did not experience these last month when he went without drinking for short period of time. March 18: Patient called his daughter on the phone and we spoke with her on speaker phone. I also spoke with the patient separate of that. He reports increasing swelling in his legs and some dyspnea since he got the iron infusion. He reports he has been taking his medications as prescribed. He has no concerns about his ability to manage independently, no concerns about drinking, no other health concerns. He received IV furosemide. He reports his edema is better but not back to normal for him. He continues to require oxygen to maintain his O2 sats at 90% March 19: Patient continued to need supplemental oxygen. He has continued to have a coarse loose cough with some troubles managing secretions. He reports no other concerns today. Physical therapy says he is relatively independent with mobility. March 20: Patient remains quite hypoxic. He tells me that he was not on oxygen in the long term in the last [address] chest yesterday done without contrast showed no acute findings. Clearly has severe COPD. On admission INR was significantly elevated and PE was not thought to be the cause of his acute respiratory distress. Diuresis for his heart failure has not improved his oxygenation. Exam Narrative: Exam Narrative: He is alert and appears in no distress. Mild increased work of breathing when he is talking and his O2 sats drop into the upper 80s. Respirations with marked decreased breath sounds in all lung marie. Occasional wheezes are noted. No consolidation. Cardiovascular: S1, S2, regular rate and rhythm. Abdomen is soft without tenderness or mass. Extremities with 1+ edema. Support hose in place. Const: Vital Signs, click to edit/add: Vital Signs - 24 hr 03/19/24 15:00 03/19/24 15:00 03/19/24 15:00 Temperature 97.2 F L Pulse Rate Pulse Rate [Right Pulse Oximeter] 65 65 Respiratory Rate 24 24 Blood Pressure [Ri ght Arm] 114/68 Pulse Oximetry 91 97 Oxygen Delivery Me thod Nasal Cannula Oxygen Flow Rate 03/19/24 15:00 03/19/24 19:00 03/19/24 23:00 Temperature 97.7 F Pulse Rate 62 65 Pulse Rate [Right Pulse Oximeter] 67 Respiratory Rate 22 Blood Pressure [Ri ght Arm] 112/66 Pulse Oximetry 89 Oxygen Delivery Me thod Nasal Cannula Oxygen Flow Rate 2 03/20/24 05:00 03/20/24 07:00 03/20/24 07:58 Temperature 98 F Pulse Rate 65 Pulse Rate [Right Pulse Oximeter] 69 Respiratory Rate 26 H Blood Pressure [Ri ght Arm] 120/69 Pulse Oximetry 91 98 Oxygen Delivery Me thod Nasal Cannula Oxygen Flow Rate 2 03/20/24 10:31 03/20/24 11:00 Temperature 96.7 F L Pulse Rate Pulse Rate [Right Pulse Oximeter] 64 Respiratory Rate 26 H 22 Blood Pressure [Ri t Arm] 139/80 Pulse Oximetry 88 91 Oxygen Delivery Me thod Nasal Cannula Nasal Cannula Oxygen Flow Rate 2.5 2.5 Documenting provider has reviewed patient's vital signs: yes Labs Labs: Laboratory Results - last 24 hr 03/20/24 06:20 WBC 15.05 H RBC 4.70 Hgb 11.3 L Hct 38.7 MCV 82 MCH 24 L MCHC 29 L Plt Count 242 INR 1.88 H VBG pH 7.365 VBG pCO2 49 VBG pO2 35.5 VBG HCO3 28 Sodium 137 Potassium 4.7 Chloride 102 Carbon Dioxide 26 Anion Gap 9 BUN 54 H Creatinine 2.0 H Estimated Creat Clear 30.30 Estimated GFR 34 Glucose 93 Calcium 8.5 Total Bilirubin 1.2 AST 33 ALT 17 Alkaline Phosphatase 192 H Total Protein 7.3 Albumin 4.3
[2024-03-20] MEDS: WARFARIN 2 MG TABLET PO (17:37)
--- NOTE | 2024-03-20 18:44 | PC.NURSE ---
shift note: sats decreased to 78% on 8L per mask while ambulating in link with PT. pt using 10L per mask with activity after initial ambulation and sats 85-88%. pt at rest using 1.5L pnc -2L pnc O2 with sats 89-97%. pt nails clubbed and pale. LS course throughout. productive cough with thick white phlegm. IV patent
[2024-03-20] MEDS: ATORVASTATIN CALCIUM 40 MG TABLET 80 MG PO (20:42)
[2024-03-20] MEDS: SODIUM CHLORIDE 0.9 % (FLUSH) 10 ML SYRINGE 5 ML IVF (20:43)
[2024-03-21] VITALS (13 sets, daily range): BP systolic 128–143; BP diastolic 64–90; PULSE 63–74; RESP 18–20; TEMP 36.1–36.8; O2SAT 89–100
[2024-03-21] MEDS: ACETAMINOPHEN 325 MG TABLET 650 MG PO (02:54)
[2024-03-21] MEDS: IPRAT-ALBUT 0.5-2.5 MG/3 ML NEB 1 NEB IH ×4 (05:48→23:25)
[2024-03-21] MEDS: OMEPRAZOLE 20 MG CAPSULE DR PO (06:02)
--- NOTE | 2024-03-21 06:33 | PC.NURSE ---
End of shift [id number]: A&O pleasant and cooperative. VSS w/ sats >88% on 1.5 liters nasal cannula. Using urinal at bedside. Reports 3/10 shoulder pain managed with tylenol. Using call light appropriately.
[2024-03-21 06:42] LABS: HCO3 VBG 30 mmol/L (21-28); PCO2 VBG 45 mmHG (40-50); PO2 VBG 41.8 mmHG (25-47); pH VBG 7.423 (7.32-7.43)
[2024-03-21 06:48] LABS: Hematocrit 35.5 % (37.0-53.0); Hemoglobin* 10.6 gm/dL (13.5-17.5); Mean Corpuscular HGB Conc 30 gm/dL (32-36); Mean Corpuscular Hemoglobin 24 pg (26-34); Mean Corpuscular Volume 82 fL (80-100); Platelet Count* 223 K/uL (140-440); Red Blood Count 4.35 m/uL (4.30-5.90); White Blood Count* 13.74 K/uL (4.50-11.00)
[2024-03-21 06:52] LABS: Slide Review Reflex No
[2024-03-21 07:11] LABS: INR 2.01 (0.91-1.10); Prothrombin Time 24.2 Seconds
[2024-03-21 07:37] LABS: Albumin* 4.2 g/dL (3.3-5.0)
[2024-03-21 07:38] LABS: Chloride* 102 mmol/L (96-114); Potassium* 4.9 mmol/L (3.6-5.1); Sodium* 138 mmol/L (135-149)
[2024-03-21 07:40] LABS: Anion Gap 7 mEq/L (7-15); Aspartate Amino Transferase* 36 U/L (12-35); Bilirubin Total* 1.2 mg/dL (0.1-1.5); Carbon Dioxide* 29 mmol/L (20-32); Estimated Glomerular Filt Rate 34 ml/min
[2024-03-21 07:41] LABS: Alanine Aminotransferase* 19 U/L (4-50); Alkaline Phosphatase* 186 U/L (40-150); Blood Urea Nitrogen* 57 mg/dL (7-30); Calcium* 8.9 mg/dL (8.4-10.6); Glucose* 88 mg/dL (60-115); Total Protein* 7.1 g/dL (6.0-8.3)
[2024-03-21] MEDS: predniSONE 20 MG TABLET 40 MG PO (07:51)
[2024-03-21] MEDS: TORSEMIDE 100 MG TABLET PO (07:51)
[2024-03-21] MEDS: POTASSIUM CHLORIDE 10 MEQ CAPSULE ER 20 MEQ PO (07:53)
[2024-03-21] MEDS: SODIUM CHLORIDE 0.9 % (FLUSH) 10 ML SYRINGE 5 ML IVF ×2 (08:49→20:05)
[2024-03-21] MEDS: AMLODIPINE 10 MG TABLET PO (08:49)
[2024-03-21] MEDS: cefTRIAXone 1 GM in 0.9 % SODIUM CHLORIDE Mini-bag 100 ML IVPB (08:49)
[2024-03-21] MEDS: ASPIRIN 81 MG TABLET EC PO (08:50)
[2024-03-21] MEDS: guaiFENesin 600 MG TAB.ER.12H PO ×2 (08:50→20:04)
[2024-03-21] MEDS: METOPROLOL SUCCINATE (XL) 25 MG TAB PO (08:50)
[2024-03-21] MEDS: SPIRONOLACTONE 25 MG TABLET PO (08:51)
--- NOTE | 2024-03-21 11:22 | NUTR.NU ---
RDN with diet education related to 2 gram sodium diet. Patient admitted for respiratory failure. Current Weight 192 lb 7 oz; Height 5ft 7in; BMI 30.1 kg/m2. Current diet is 2 gram sodium. Meal intakes have mainly been 100% since admit. RDN visited with patient whom reports following a low sodium diet at home. He does not add salt to his meals. He declined diet education related to low sodium diet at this time - no designated caregiver listed to offer education to. Patient did however accept educational materials and was encouraged to call RDN with any questions or concerns. No nutrition interventions at this time. RDN will continue to monitor.
--- NOTE | 2024-03-21 13:49 | PC.SOCIAL ---
Addendum entered by DEBI Bermeo 03/21/24 16:15: Discharge planning/late entry: hydroponics worker offered to call pt's daughter and [facility] in [place] to see about getting pt's scooter picked up and pt stated that he did not need help with this and was going to take care of it on his own. Social work to follow-up as needed. Addendum entered by DEBI Bermeo 03/21/24 15:15: Discharge planning: hydroponics worker met with pt in his room and assisted him with applying for SNAP through [facility]. hydroponics worker sent the application to [facility] via secure email at [email or web address]. The pt also told this worker that he is getting a new scooter this Wednesday delivered to his apartment and that he wants to donate his old scooter that was left over at [facility] when he came to the hospital last Wednesday. Social work to follow-up as needed. Original Note: Discharge planning: hydroponics worker met with pt today in his room. Pt stated that he wants to go home at discharge and is open to home care services, if that is recommended by the doctor. Pt stated that he will not go back to a long-term. Pt stated that he just moved into his apartment on 03/13/2024 and was interested in applying for SNAP. hydroponics worker will assist the pt with applying for SNAP later this afternoon. Pt stated that he does not have a guardian anymore, but that he does still have a rep payee through [employer] whom he is trying to no longer have and will be going back to court about this, as well. hydroponics worker spoke to the human resources benefits administrator at [facility] in [place](the long-term the pt just discharged from on 03/13/2024) and she stated that the pt was discharged on his own accord and did not leave [place] [facility]. Pt's guardianship was overturned by [facility] and pt chose to move out, although it was recommended that he stay at the long-term. hydroponics worker also spoke to Rohini from [facility] who wanted to confirm that the pt was still in the hospital and who stated that she was available to assist with discharge planning needs for the pt, if needed. Social work to follow-up as needed.
--- NOTE | 2024-03-21 14:45 | PC.NURSE ---
PT has been on 1.5 L NC ranging 90-92% this shift. Wheezing heard on lung sounds. PT denies pain. 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
--- NOTE | 2024-03-21 14:59 | P.IMPN_ITS ---
Progress Note: A&P Assessment and plan (1) Acute on chronic hypoxic respiratory failure: Problem details: Multiple factors contributing including severe heart failure with reduced ejection fraction, severe COPD, suspected sleep apnea, concern for aspiration, Uncertain of medication compliance. Not on chronic outpatient oxygen for past 6 months. Recurrent, initial saturations noted to be 78%, without hypercapnia VBG pH 7.340, pCO2 49, PO2 32.8, HC03 27 Initial treatment for heart failure, COPD exacerbation, aspiration pneumonia. Appears likely to need home oxygen again Status: Acute (2) Chronic heart failure with reduced ejection fraction and diastolic dysfunction: Problem details: Possibly the primary cause of hypoxia. BNP 9360 (previous recorded at >6000) Hold home torsemide. Patient does not know home torsemide dose. Possibly 60 mg daily. Continue Lasix 80 mg IV b.i.d., strict I&Os, daily weights, monitoring renal function 2g sodium diet Echocardiogram April 2023 done at [facility]: 1. Borderline enlarged left ventricular chamber size, regional wall motion abnormalities were present (see wall motion graphics), estimated ejection fraction range 20% - 25%. 2. Left ventricular cardiac index 1.47 l/min/m2. 3. Elevated left ventricular filling pressure. 4. Moderately enlarged right ventricular chamber size, moderate-severely reduced systolic function, estimated right ventricular systolic pressure 63 mmHg (right atrial pressure of 5 mmHg). 5. Mild-moderate tricuspid valve regurgitation. 6. Normal inferior vena cava size with normal inspiratory collapse (>50%). 7. Tiny pericardial effusion. 8. Compared to the report of 07/31/2021 the following changes have occurred: The left ventricular systolic function has decreased with a decrease in the cardiac index. The right ventricular systolic pressures has increased. . Side by side comparison of images performed. echocardiogram from 03/19/2024: Ejection fraction around 35-40%. Apical inferior and apical septum abnormal motion. Mild TR. Decreased right ventricular function. Mild right ventricular systolic pressure, 42 mmHg. Dilated IVC. Transition to oral diuretics Status: Acute (3) COPD (chronic obstructive pulmonary disease): Problem details: Hypoxic respiratory failure secondarily related to COPD. Exacerbation, without hypercapnia Finished 3 days of ceftriaxone. Prednisone 40 mg daily x5 days, receive 60 mg x1 today Magnesium 2.0 DuoNebs q.i.d., albuterol nebs p.r.n., incentive spirometry, RT to follow Status: Acute (4) CKD (chronic kidney disease): Problem details: Creatinine 2.4 on admission, recent baseline 1.8. History of 1 round of dialysis 04/2023, at that time Insulator Helper 10 with K+ 7.2 at that time Avoid nephrotoxic medications, continue to monitor, initiating IV Lasix diuresis. Currently stage 4 chronic kidney disease. Creatinine improving to 2.0 on March 21 Status: Acute (5) Alcohol dependence: Problem details: With remote history of alcohol withdrawal seizures. Denies problem with alcohol use. Reports typical 2 whiskeys daily since leaving the senior living 3 days prior to admission. last drink 1600pm 03/16, ETOH <0.01 No evidence of alcohol withdrawal on this admission Status: Acute (6) Alcoholic cirrhosis: Problem details: Alk-phos 243, direct bili 1.2, total bili 2.4. Bilirubin improving. Increase in bilirubin possibly related to congestion from right heart failure. Status: Acute (7) Aphasia: Problem details: Sequelae, history of - Left MCA infarct in 2018 resulting in moderate to severe aphasia (cared for at other facilities). - 10/19/2020: presented to [facility] ED for transient left hemiplegia and was found to have right ICA stroke. Eliquis was switched to warfarin. - 02/05/2021: presented to [facility] ED for worsening dysphagia and was found to have worsening stenosis of the left ICA. Underwent stenting to the left ICA on 02/07/21 and discharged on 4 weeks of Plavix in addition to indefinite daily baby aspirin and warfarin. Patient has significant speech, motor improvement after stenting. Status: Acute (8) Atrial fibrillation: Problem details: Continue metoprolol and warfarin, pharmacy to dose Supratherapeutic on admission, INR 3.68. Possibly related to right heart failure with liver congestion Telemetry S/p pacemaker Status: Acute (9) Hyperlipidemia: Problem details: Continue statin Status: Acute (10) Hypertension: Problem details: Continue amlodipine Status: Acute (11) Carotid arterial disease: Problem details: s/p left ICA stenting 02/07/2021 Status: Acute (12) Hypokalemia: Problem details: Monitor and replace. Note chronic kidney disease and heart failure requiring diuresis Status: Acute Plan Continue to manage hypoxic respiratory failure, heart failure, COPD in the hospital. Anticipate discharge to home with home oxygen and possibly home care nursing. Time Spent With Patient Total time spent: Total time spent today is 40 minutes, 30 minutes in coordination of care discussing with patient and other providers plan of disposition and managing hypoxia. 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 Patient reportedly checked himself out of a senior living in [place], having relocated to [place] 3-4 days ago and reports a 10 day history of increasing shortness of breath, worse than usual. He tells me he is not oxygen dependent nor does he use a CPAP/BiPAP at bedtime. Has not had a sleep study. Has a n ebulizer at home but has not used for some time. Denies headaches or dizziness. Denies recent fevers chills or sweats. Denies chest pain. Has had no abdominal pain, nausea, vomiting, diarrhea. No change in urination. Reports bilateral lower extremity swelling and erythema which he relates to following an iron infusion at [facility]. The exact date of this is unknown, reported as somewhere in the past 2 weeks. Patient cannot tell me why he had this infusion either. He was seen in the [facility] earlier this morning and advised to be seen in the ED. Oxygen saturation initially reported to be 78% on room air. Currently satting at 94% on 2 L. receive 1 dose of ceftriaxone and azithromycin in the ED. As well as 80 mg IV Lasix. He received a DuoNeb which was reported to help. Most recently, patient has had his medical care through [facility]. Followed by Cardiology, Nephrology, Pulmonology. Last hospitalized in [place] April 2023. Was seen in the [facility] clinic today to establish care. He has had a guardian appointed who has kept him in a senior living. He has been working with the [employer] system for the last 2 years to removed guardianship. This was successful a couple weeks ago. With removal of guardianship he was able to leave the senior living on Wednesday, 3 days prior to admission. I spoke with the patient and with his daughter on speaker phone in his room. His daughter indicated that she had concerns about him leaving the senior living because of his inability to care for himself with his multiple medical problems and the likelihood of her his returning to drinking alcohol. Patient became quite upset with me and his daughter as we discussed issues around his ability to care for himself and manage independently. He is adamantly opposed to going to a senior living or having a guardian appointed. He is unable to tell me what medications he is taking or how he remembers to take them. It sounds like he may have medications in a blister pack. Previous smoker. Active alcohol use, 2 whiskey 7 ups daily. Last drink was 03/16 at 4:00 p.m.. History of alcohol withdrawal seizures but tells me he did not experience these last month when he went without drinking for short period of time. March 18: Patient called his daughter on the phone and we spoke with her on speaker phone. I also spoke with the patient separate of that. He reports increasing swelling in his legs and some dyspnea since he got the iron infusion. He reports he has been taking his medications as prescribed. He has no concerns about his ability to manage independently, no concerns about drinking, no other health concerns. He received IV furosemide. He reports his edema is better but not back to normal for him. He continues to require oxygen to maintain his O2 sats at 90% March 19: Patient continued to need supplemental oxygen. He has continued to have a coarse loose cough with some troubles managing secretions. He reports no other concerns today. Physical therapy says he is relatively independent with mobility. March 20: Patient remains quite hypoxic. He tells me that he was not on oxygen in the senior living in the last [address] chest yesterday done without contrast showed no acute findings. Clearly has severe COPD. On admission INR was significantly elevated and PE was not thought to be the cause of his acute respiratory distress. Diuresis for his heart failure has not improved his oxygenation. March 21: Patient reports feeling fine. He has no concerns today. Staff note that he still desaturates substantially with any activity. Patient reports no dyspnea. He continues to have relatively rhonchus breathing and frequent repeated episodes of coughing. I discussed do a disposition plan. I indicated my concerns about him living independently, managing oxygen, chronic medications and drinking alcohol. He became quite upset with me even considering a senior living for him. Exam 2 Narrative: Exam Narrative: He is alert and appears in no distress. Speech remains somewhat difficult to understand due to old stroke but is if anything a little better over the last 2 days. Respirations with some rhonchus breathing. No wheezing. No crackles. Fairly air exchange all lung marie. No consolidation. Cardiovascular: S1, S2, regular rate and rhythm. Abdomen: Bowel sounds active. Abdomen is soft without tenderness or mass. Trace edema in his ankles. Issa hose in place Const: Vital Signs, click to edit/add: Vital Signs - 24 hr 03/20/24 15:00 03/20/24 15:00 03/20/24 15:00 Temperature 96.6 F L Pulse Rate Pulse Rate [Right Pulse Oximeter] 67 67 Respiratory Rate 20 18 Blood Pressure [Ri ght Arm] 138/86 Pulse Oximetry 97 95 Oxygen Delivery Me thod Nasal Cannula Oxygen Flow Rate 1.5 03/20/24 15:39 03/20/24 19:21 03/20/24 22:08 Temperature 98.0 F Pulse Rate 65 69 Pulse Rate [Right Pulse Oximeter] 63 Respiratory Rate 20 Blood Pressure [Ri ght Arm] 135/64 Pulse Oximetry 96 Oxygen Delivery Me thod Nasal Cannula Oxygen Flow Rate 2 03/20/24 22:48 03/20/24 22:50 03/21/24 00:20 Temperature 97.6 F Pulse Rate Pulse Rate [Right Pulse Oximeter] 65 Respiratory Rate 22 Blood Pressure [Ri ght Arm] 138/76 Pulse Oximetry 94 94 97 Oxygen Delivery Me thod Nasal Cannula Nasal Cannula Oxygen Flow Rate 2 2 03/21/24 00:21 03/21/24 02:49 03/21/24 07:00 Temperature 97.6 F Pulse Rate Pulse Rate [Right Pulse Oximeter] 65 Respiratory Rate 20 20 Blood Pressure [Ri ght Arm] 143/79 H Pulse Oximetry 90 89 92 Oxygen Delivery Me thod Nasal Cannula Nasal Cannula Nasal Cannula Oxygen Flow Rate 0.5 1.5 1.5 03/21/24 07:00 03/21/24 07:00 03/21/24 07:19 Temperature 97.9 F Pulse Rate 63 Pulse Rate [Right Pulse Oximeter] 74 Respiratory Rate 20 Blood Pressure [Ri ght Arm] 139/67 Pulse Oximetry 92 92 Oxygen Delivery Me thod Nasal Cannula Oxygen Flow Rate 1.5 03/21/24 11:00 Temperature 97 F L Pulse Rate Pulse Rate [Right Pulse Oximeter] 66 Respiratory Rate 18 Blood Pressure [Ri ght Arm] 128/64 Pulse Oximetry 90 Oxygen Delivery Me thod Nasal Cannula Oxygen Flow Rate 1.5 Documenting provider has reviewed patient's vital signs: yes Labs Labs: Laboratory Results - last 24 hr 03/21/24 05:42 WBC 13.74 H RBC 4.35 Hgb 10.6 L Hct 35.5 L MCV 82 MCH 24 L MCHC 30 L Plt Count 223 INR 2.01 H VBG pH 7.423 VBG pCO2 45 VBG pO2 41.8 VBG HCO3 30 H Sodium 138 Potassium 4.9 Chloride 102 Carbon Dioxide 29 Anion Gap 7 BUN 57 H Creatinine 2.0 H Estimated Creat Clear 30.30 Estimated GFR 34 Glucose 88 Calcium 8.9 Total Bilirubin 1.2 AST 36 H ALT 19 Alkaline Phosphatase 186 H Total Protein 7.1 Albumin 4.2
[2024-03-21] MEDS: WARFARIN 2 MG TABLET PO (17:39)
--- NOTE | 2024-03-21 18:09 | PC.NURSE ---
(Shift 15-19) Pt alert. Pt had no complaints of pain during shift. Pt up to chair. Pt assist of one. ?
[2024-03-21] MEDS: ATORVASTATIN CALCIUM 40 MG TABLET 80 MG PO (20:04)
[2024-03-22] VITALS (12 sets, daily range): BP systolic 132–150; BP diastolic 62–80; PULSE 65–88; RESP 18–20; TEMP 36.3–36.9; O2SAT 88–95
--- NOTE | 2024-03-22 03:26 | PC.NURSE ---
Pt pleasant and cooperative this night. On 1.5L NC all night. LS coarse Bilat. Reporting zero pain. Desats when getting up out of bed.
[2024-03-22] MEDS: IPRAT-ALBUT 0.5-2.5 MG/3 ML NEB 1 NEB IH ×3 (05:48→23:57)
[2024-03-22] MEDS: OMEPRAZOLE 20 MG CAPSULE DR PO (05:49)
[2024-03-22 06:29] LABS: HCO3 VBG 30 mmol/L (21-28); PCO2 VBG 49 mmHG (40-50); PO2 VBG 39.5 mmHG (25-47); pH VBG 7.402 (7.32-7.43)
[2024-03-22 06:35] LABS: Hematocrit 37.1 % (37.0-53.0); Mean Corpuscular HGB Conc 30 gm/dL (32-36); Mean Corpuscular Hemoglobin 24 pg (26-34); Mean Corpuscular Volume 82 fL (80-100); Platelet Count* 244 K/uL (140-440); White Blood Count* 13.87 K/uL (4.50-11.00)
[2024-03-22 06:36] LABS: Slide Review Reflex No
[2024-03-22 06:47] LABS: Albumin* 4.4 g/dL (3.3-5.0); Chloride* 104 mmol/L (96-114); Potassium* 4.4 mmol/L (3.6-5.1); Sodium* 141 mmol/L (135-149)
[2024-03-22 06:49] LABS: Creatinine* 1.9 mg/dL (0.5-1.5); Est. Creatinine Clearance* 31.89; Estimated Glomerular Filt Rate 37 ml/min; INR 2.23 (0.91-1.10); Prothrombin Time 26.4 Seconds
[2024-03-22 06:50] LABS: Alanine Aminotransferase* 31 U/L (4-50); Alkaline Phosphatase* 183 U/L (40-150); Anion Gap 7 mEq/L (7-15); Aspartate Amino Transferase* 48 U/L (12-35); Blood Urea Nitrogen* 60 mg/dL (7-30); Carbon Dioxide* 30 mmol/L (20-32); Glucose* 117 mg/dL (60-115); Total Protein* 7.6 g/dL (6.0-8.3)
[2024-03-22] MEDS: TORSEMIDE 100 MG TABLET PO (07:47)
[2024-03-22] MEDS: predniSONE 20 MG TABLET 40 MG PO (07:47)
--- NOTE | 2024-03-22 08:17 | CRLHL7_ITS ---
For Patients: As a result of the Century Cures Act, medical imaging exams and procedure reports are released immediately into your electronic medical record. You may view this report before your referring provider. If you have questions, please contact your health care provider. Indication: Hypoxia Technique: CT angiogram of the chest was performed for evaluation of pulmonary embolism. 95 mL of Isovue 370 intravenous contrast was administered. Comparison: 03/19/2024 Findings: CARDIOVASCULAR: Diagnostic quality: Contrast opacification of the pulmonary arterial circulation is adequate for assessment of pulmonary embolism. Study is not significantly limited by respiratory motion artifact. Pulmonary arteries: No filling defects to suggest pulmonary embolism. Enlarged, measuring 3.5 centimeter in diameter (). Heart: No interventricular septal deviation. Normal in size. Moderate coronary artery calcification. No significant valvular calcification. Left ventricular calcification, which may represent chronic prior infarct. Pericardium: No pericardial effusion. Thoracic aorta: Moderate calcification. Normal cervical branching. REMAINING CHEST: Medical devices: Left chest AICD with right atrial and right ventricular leads. Thyroid: Normal. Lymph nodes: Increased number of prominent subcentimeter mediastinal lymph nodes. Other mediastinal structures: No significant abnormality. Lung parenchyma: Mild centrilobular emphysema. Redemonstration of 4 millimeter right lower lobe pulmonary nodule (). Consensus guidelines for single or multiple solid lung nodules less than 6 mm, not applicable if known malignancy or immunocompromise: Low risk: No routine follow-up. High risk without suspicious morphology AND not in upper lobe: Consider CT at 12 months. High risk AND nodule(s) with suspicious morphology OR in upper lobe: Strongly consider CT at 12 months. (Thee, et al. Radiology 2017) Mild right and moderate left apical pleural parenchymal scarring. Airways: Moderate bronchial wall thickening. Scattered areas of distal mucous plugging. Pleura: Left-sided pleural calcifications. Chest wall: Moderate bilateral gynecomastia. Upper abdomen: Please see separately dictated same day CT. Trace perihepatic ascites. Musculoskeletal: Moderate multilevel degenerative changes of the visualized spine. Moderate chronic posterior left-sided rib deformities. Redemonstration of [id number] superior endplate compression deformities at L1 and L2. Impression: 1. No acute pulmonary embolism. 2. Enlarged main pulmonary artery, which can be seen in the setting of pulmonary hypertension. 3. Moderate bronchial wall thickening with scattered areas of distal mucous plugging may represent airways infection or inflammation. Please note that all CT scans at this facility use dose modulation, iterative reconstruction, and/or weight-based dosing when appropriate to reduce radiation dose to as low as reasonably achievable. Dictated by Nico Enriquez MD @ 03/22/2024 11:38:32 AM (Electronically Signed)
--- NOTE | 2024-03-22 08:17 | CRLHL7_ITS ---
For Patients: As a result of the 21st Century Cures Act, medical imaging exams and procedure reports are released immediately into your electronic medical record. You may view this report before your referring provider. If you have questions, please contact your health care provider. INDICATION: HYPOXIA; ABD DISTENTION TECHNIQUE: CT of the abdomen and pelvis was obtained with 95 mL of Isovue 370 intravenous contrast. Please note that all CT scans at this facility use dose modulation, iterative reconstruction, and/or weight-based dosing when appropriate to reduce radiation dose to as low as reasonably achievable. COMPARISON: 05/22/2019 FINDINGS: Lower thorax: Please see separately dictated same day CT of the chest. Liver and biliary tree: Normal. Gallbladder: Contracted. Cholelithiasis. Mildly hyperenhancing wall with associated wall thickening. Spleen: Normal. Pancreas: Normal. Adrenal glands: Redemonstration of 1.3 centimeter left adrenal nodule measuring 93 HU (2/37). Kidneys and ureters: No hydronephrosis. Bilateral renal and parapelvic cysts. Nonobstructing renal calculi measuring up to 1.1 centimeter on the right (2/54). Gastrointestinal tract: Moderate stool burden. Mild sigmoid colonic diverticulosis without CT evidence of acute diverticulitis. No evidence of bowel obstruction. Normal appendix. Peritoneal cavity: Trace upper abdominal ascites. Bladder: Normal. Pelvic organs: Mildly enlarged prostate. Vasculature: Moderate calcification. Lymph nodes: Normal. Abdominal wall: Trace fat containing periumbilical hernia. Small fat containing bilateral inguinal hernias. Musculoskeletal: Moderate multilevel degenerative changes of the visualized spine. Redemonstration of moderate superior endplate L1 and L2 compression deformities and interval progression of moderate to severe L4 superior endplate compression deformity. Moderate degenerative changes of the bilateral hips. Postsurgical changes of the proximal left femur. Moderate anasarca. IMPRESSION: 1. Moderate stool burden. No evidence of bowel obstruction. 2. Contracted gallbladder with cholelithiasis with mildly hyperenhancing wall and associated wall thickening. This may relate to underdistention. Consider correlation with signs or symptoms of acute cholecystitis an ultrasound for further evaluation as clinically indicated. 3. Moderate anasarca and trace upper abdominal ascites. 4. Nonobstructing renal calculi measuring up to 1.1 centimeter on the right. No hydronephrosis. 5. Redemonstration of 1.3 centimeter left adrenal nodule measuring 93 HU. Consider outpatient adrenal protocol CT for further characterization. 6. Redemonstration of moderate superior endplate L1 and L2 compression deformities and interval progression of moderate to severe L4 superior endplate compression deformity. Please note that all CT scans at this facility use dose modulation, iterative reconstruction, and/or weight-based dosing when appropriate to reduce radiation dose to as low as reasonably achievable. Dictated by Nico Enriquez MD @ 03/22/2024 11:53:29 AM (Electronically Signed)
[2024-03-22] MEDS: POTASSIUM CHLORIDE 10 MEQ CAPSULE ER PO (09:32)
[2024-03-22] MEDS: AMLODIPINE 10 MG TABLET PO (09:33)
[2024-03-22] MEDS: METOPROLOL SUCCINATE (XL) 25 MG TAB PO (09:33)
[2024-03-22] MEDS: guaiFENesin 600 MG TAB.ER.12H PO ×2 (09:33→20:42)
[2024-03-22] MEDS: SPIRONOLACTONE 25 MG TABLET PO (09:34)
[2024-03-22] MEDS: ASPIRIN 81 MG TABLET EC PO (09:34)
[2024-03-22] MEDS: SODIUM CHLORIDE 0.9 % (FLUSH) 10 ML SYRINGE 5 ML IVF ×2 (09:35→20:43)
--- NOTE | 2024-03-22 14:28 | PC.NURSE ---
PT was on RA throughout the shift with ranging sats of 88-94%. PT A&Ox3, up and la. PT is calm and cooperative. CT scan was done per MD orders. Neb was returned today due to PT resting over the afternoon.
--- NOTE | 2024-03-22 14:49 | PC.SOCIAL ---
Discharge planning: horticultural farmworker spoke with pt's daughter, Vicky, and she was pleased to hear that her father is open to having home health care services come into his apartment when he discharges. Pt's daughter stated that she had major concerns about father's guardianship being overturned and realizes that he has a high risk for failure with living on his own; however, she also realizes that her father is nearing the end of his life due to medical issues and she also wants him to be happy during his final years. Pt has stated to his daughter that he will be happier living on his own than in a alf. horticultural farmworker explained that this worker will update her more when there is a certain discharge date and plan for final services needed. Social work to follow-up as needed.
--- NOTE | 2024-03-22 15:49 | PM.IMPN1 ---
Progress Note: A&P Assessment and plan (1) Acute on chronic hypoxic respiratory failure: Problem details: Multiple factors contributing including severe heart failure with reduced ejection fraction, severe COPD, suspected sleep apnea, concern for aspiration, Uncertain of medication compliance. Not on chronic outpatient oxygen for past 6 months. Recurrent, initial saturations noted to be 78%, without hypercapnia VBG pH 7.340, pCO2 49, PO2 32.8, HC03 27 Initial treatment for heart failure, COPD exacerbation, aspiration pneumonia. Appears likely to need home oxygen again Status: Acute (2) Chronic heart failure with reduced ejection fraction and diastolic dysfunction: Problem details: Possibly the primary cause of hypoxia. BNP 9360 (previous recorded at >6000) Hold home torsemide. Patient does not know home torsemide dose. Possibly 60 mg daily. Continue Lasix 80 mg IV b.i.d., strict I&Os, daily weights, monitoring renal function 2g sodium diet Echocardiogram April 2023 done at [facility]: 1. Borderline enlarged left ventricular chamber size, regional wall motion abnormalities were present (see wall motion graphics), estimated ejection fraction range 20% - 25%. 2. Left ventricular cardiac index 1.47 l/min/m2. 3. Elevated left ventricular filling pressure. 4. Moderately enlarged right ventricular chamber size, moderate-severely reduced systolic function, estimated right ventricular systolic pressure 63 mmHg (right atrial pressure of 5 mmHg). 5. Mild-moderate tricuspid valve regurgitation. 6. Normal inferior vena cava size with normal inspiratory collapse (>50%). 7. Tiny pericardial effusion. 8. Compared to the report of 07/31/2021 the following changes have occurred: The left ventricular systolic function has decreased with a decrease in the cardiac index. The right ventricular systolic pressures has increased. . Side by side comparison of images performed. Echocardiogram from 03/19/2024: Ejection fraction around 35-40%. Apical inferior and apical septum abnormal motion. Mild TR. Decreased right ventricular function. Mild right ventricular systolic pressure, 42 mmHg. Dilated IVC. Transition to oral diuretics Status: Acute (3) COPD (chronic obstructive pulmonary disease): Problem details: Hypoxic respiratory failure secondarily related to COPD. Exacerbation, without hypercapnia Finished 3 days of ceftriaxone. Prednisone 40 mg daily x5 days, receive 60 mg x1 today Magnesium 2.0 DuoNebs q.i.d., albuterol nebs p.r.n., incentive spirometry, RT to follow Status: Acute (4) CKD (chronic kidney disease): Problem details: Creatinine 2.4 on admission, recent baseline 1.8. History of 1 round of dialysis 04/2023, at that time [facility] 10 with K+ 7.2 at that time Avoid nephrotoxic medications, continue to monitor, initiating IV Lasix diuresis. Currently stage 4 chronic kidney disease. Creatinine improving to 1.9 on March 22 Status: Acute (5) Alcohol dependence: Problem details: With remote history of alcohol withdrawal seizures. Denies problem with alcohol use currently. Reports typical 2 whiskeys daily since leaving the senior care 3 days prior to admission. last drink 1600pm 03/16, ETOH <0.01 No evidence of alcohol withdrawal on this admission. I recommend abstinence. Patient is opposed to this and plans to continue modest occasional alcohol consumption. Status: Acute (6) Alcoholic cirrhosis: Problem details: Alk-phos 243, direct bili 1.2, total bili 2.4. Bilirubin improving. Increase in bilirubin possibly related to congestion from right heart failure. Status: Acute (7) Aphasia: Problem details: Sequelae, history of - Left MCA infarct in 2018 resulting in moderate to severe aphasia (cared for at other facilities). - 10/19/2020: presented to [facility] ED for transient left hemiplegia and was found to have right ICA stroke. Eliquis was switched to warfarin. - 02/05/2021: presented to [facility] ED for worsening dysphagia and was found to have worsening stenosis of the left ICA. Underwent stenting to the left ICA on 02/07/21 and discharged on 4 weeks of Plavix in addition to indefinite daily baby aspirin and warfarin. Patient has significant speech, motor improvement after stenting. Status: Acute (8) Atrial fibrillation: Problem details: Continue metoprolol and warfarin, Supratherapeutic on admission, INR 3.68. Possibly related to right heart failure with liver congestion Telemetry S/p pacemaker Status: Acute (9) Hyperlipidemia: Problem details: Continue statin Status: Acute (10) Hypertension: Problem details: Continue amlodipine Status: Acute (11) Carotid arterial disease: Problem details: s/p left ICA stenting 02/07/2021 Status: Acute (12) Hypokalemia: Problem details: Monitor and replace. Note chronic kidney disease and heart failure requiring diuresis Status: Acute (13) Adrenal nodule: Problem details: Incidental finding of adrenal nodule on CT. Radiologist recommends dedicated CT protocol for adrenal nodule as an outpatient. Status: Acute Plan Continue in hospital for 1 more day. Possible discharge to home tomorrow if respiratory status is improved and fluid electrolyte status is appropriate. 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 Patient reportedly checked himself out of a senior care in [place], having relocated to [place] 3-4 days ago and reports a 10 day history of increasing shortness of breath, worse than usual. He tells me he is not oxygen dependent nor does he use a CPAP/BiPAP at bedtime. Has not had a sleep study. Has a nebulizer at home but has not used for some time. Denies headaches or dizziness. Denies recent fevers chills or sweats. Denies chest pain. Has had no abdominal pain, nausea, vomiting, diarrhea. No change in urination. Reports bilateral lower extremity swelling and erythema which he relates to following an iron infusion at [facility]. The exact date of this is unknown, reported as somewhere in the past 2 weeks. Patient cannot tell me why he had this infusion either. He was seen in the [facility] earlier this morning and advised to be seen in the ED. Oxygen saturation initially reported to be 78% on room air. Currently satting at 94% on 2 L. receive 1 dose of ceftriaxone and azithromycin in the ED. As well as 80 mg IV Lasix. He received a DuoNeb which was reported to help. Most recently, patient has had his medical care through [facility]. Followed by Cardiology, Nephrology, Pulmonology. Last hospitalized in [place] April 2023. Was seen in the [facility] today to establish care. He has had a guardian appointed who has kept him in a senior care. He has been working with the [employer] system for the last 2 years to removed guardianship. This was successful a couple weeks ago. With removal of guardianship he was able to leave the senior care on Wednesday, 3 days prior to admission. I spoke with the patient and with his daughter on speaker phone in his room. His daughter indicated that she had concerns about him leaving the senior care because of his inability to care for himself with his multiple medical problems and the likelihood of her his returning to drinking alcohol. Patient became quite upset with me and his daughter as we discussed issues around his ability to care for himself and manage independently. He is adamantly opposed to going to a senior care or having a guardian appointed. He is unable to tell me what medications he is taking or how he remembers to take them. It sounds like he may have medications in a blister pack. Previous smoker. Active alcohol use, 2 whiskey 7 ups daily. Last drink was 03/16 at 4:00 p.m.. History of alcohol withdrawal seizures but tells me he did not experience these last month when he went without drinking for short period of time. March 18: Patient called his daughter on the phone and we spoke with her on speaker phone. I also spoke with the patient separate of that. He reports increasing swelling in his legs and some dyspnea since he got the iron infusion. He reports he has been taking his medications as prescribed. He has no concerns about his ability to manage independently, no concerns about drinking, no other health concerns. He received IV furosemide. He reports his edema is better but not back to normal for him. He continues to require oxygen to maintain his O2 sats at 90% March 19: Patient continued to need supplemental oxygen. He has continued to have a coarse loose cough with some troubles managing secretions. He reports no other concerns today. Physical therapy says he is relatively independent with mobility. March 20: Patient remains quite hypoxic. He tells me that he was not on oxygen in the senior care in the last [address] chest yesterday done without contrast showed no acute findings. Clearly has severe COPD. On admission INR was significantly elevated and PE was not thought to be the cause of his acute respiratory distress. Diuresis for his heart failure has not improved his oxygenation. March 21: Patient reports feeling fine. He has no concerns today. Staff note that he still desaturates substantially with any activity. Patient reports no dyspnea. He continues to have relatively rhonchus breathing and frequent repeated episodes of coughing. I discussed do a disposition plan. I indicated my concerns about him living independently, managing oxygen, chronic medications and drinking alcohol. He became quite upset with me even considering a senior care for him. March 22: Patient has been able to wean off of oxygen and is having O2 sats in the upper 80s to low 90s on room air at rest. CT chest abdomen pelvis with multiple incidental and chronic findings. No heart failure, pneumonia, pulmonary embolism. Contracted gallbladder noted but clinically has no signs or symptoms of gallbladder disease. Adrenal nodule noted and dedicated CT protocol for adrenal nodule as an outpatient is recommended. Lumbar endplate compression deformities noted. Exam Narrative: Exam Narrative: He is alert and appears in no distress. Breathing is unlabored on room air at rest. He does become a little dyspneic when talking. Respirations with diminished breath sounds rare basilar crackles noted. Cardiovascular: S1, S2, regular rate and rhythm. No murmur gallop or rub. Abdomen is soft without tenderness or mass. Extremities with trace edema. Const: Vital Signs, click to edit/add: Vital Signs - 24 hr 03/21/24 16:36 03/21/24 19:01 03/21/24 19:37 Temperature 97.8 F Pulse Rate 73 73 Pulse Rate [Right Pulse Oximeter] 68 Respiratory Rate 18 Blood Pressure [Ri t Arm] 141/90 H Pulse Oximetry 92 Oxygen Delivery Me thod Nasal Cannula Oxygen Flow Rate 1.5 03/21/24 22:27 03/21/24 22:28 03/21/24 22:28 Temperature 98.2 F Pulse Rate Pulse Rate [Right Pulse Oximeter] 68 68 Respiratory Rate 18 18 Blood Pressure [Ri t Arm] 135/73 Pulse Oximetry 95 95 Oxygen Delivery Me thod Nasal Cannula Oxygen Flow Rate 1.5 03/21/24 22:29 03/22/24 01:22 03/22/24 02:57 Temperature 98.5 F 97.4 F L Pulse Rate Pulse Rate [Right Pulse Oximeter] 69 72 Respiratory Rate 18 18 20 Blood Pressure [Ri t Arm] 132/67 149/74 H Pulse Oximetry 95 95 94 Oxygen Delivery Me thod Nasal Cannula Nasal Cannula Nasal Cannula Oxygen Flow Rate 1.5 1.5 1.5 03/22/24 07:00 03/22/24 07:00 03/22/24 07:00 Temperature Pulse Rate Pulse Rate [Right Pulse Oximeter] Respiratory Rate 18 18 Blood Pressure [[facility]] Pulse Oximetry 93 93 Oxygen Delivery Me thod Nasal Cannula Oxygen Flow Rate 1 03/22/24 07:00 03/22/24 11:00 03/22/24 11:01 Temperature 97.5 F L 97.4 F L Pulse Rate 66 Pulse Rate [Right Pulse Oximeter] 71 65 Respiratory Rate 18 18 Blood Pressure [Ri t Arm] 133/70 148/77 H Pulse Oximetry 93 90 Oxygen Delivery Me thod Nasal Cannula Room Air Oxygen Flow Rate 1 Documenting provider has reviewed patient's vital signs: yes Labs Labs: Laboratory Results - last 24 hr 03/22/24 06:06 WBC 13.87 H RBC 4.50 Hgb 11.0 L Hct 37.1 MCV 82 MCH 24 L MCHC 30 L Plt Count 244 INR 2.23 H VBG pH 7.402 VBG pCO2 49 VBG pO2 39.5 VBG HCO3 30 H Sodium 141 Potassium 4.4 Chloride 104 Carbon Dioxide 30 Anion Gap 7 BUN 60 H Creatinine 1.9 H Estimated Creat Clear 31.89 Estimated GFR 37 Glucose 117 H Calcium 9.0 Total Bilirubin 1.0 AST 48 H ALT 31 Alkaline Phosphatase 183 H Total Protein 7.6 Albumin 4.4
[2024-03-22] MEDS: WARFARIN 2 MG TABLET PO (17:24)
[2024-03-22] MEDS: ATORVASTATIN CALCIUM 40 MG TABLET 80 MG PO (20:42)
--- NOTE | 2024-03-22 22:57 | PC.NURSE ---
End of Shift: Patient pleasant and cooperative, A&O. VSS, afebrile. SpO2 maintained above 85% on RA. Patient denies pain this shift. Using urinal at bedside independently. Tolerating regular diet.
[2024-03-23 03:04] VITALS: BP 114/56; PULSE 67; RESP 18; TEMP 36.1; O2SAT 92
[2024-03-23] MEDS: IPRAT-ALBUT 0.5-2.5 MG/3 ML NEB 1 NEB IH (06:15)
[2024-03-23] MEDS: OMEPRAZOLE 20 MG CAPSULE DR PO (06:15)
--- NOTE | 2024-03-23 06:31 | PC.NURSE ---
End of shift note [id number]: Pt noted to be alert & oriented x 4 and has been continent of bladder using urinal. Pt able to reposition independently. Oxygen used at 1-1.5 LPM to maintain O2 sat above 90% per order. O2 sat noted to dip to low to mid 80?s when sleeping- oxygen then increased to 1.5 LPM. Pt transfers/ambulates with SBA using walker. He has been denying pain when asked and has been afebrile throughout the shift. Telemetry in place with first degree AV block?noted. Pt noted to be awake for first half of shift though declined PRN Melatonin when offered. IV to R AC SL. ?
[2024-03-23 07:00] VITALS: BP 128/71; PULSE 74; RESP 18; TEMP 35.8; O2SAT 90
[2024-03-23 07:25] VITALS: PULSE 67
[2024-03-23 07:32] LABS: Hematocrit 35.9 % (37.0-53.0); Hemoglobin* 10.6 gm/dL (13.5-17.5); Mean Corpuscular HGB Conc 30 gm/dL (32-36); Mean Corpuscular Hemoglobin 24 pg (26-34); Mean Corpuscular Volume 82 fL (80-100); Platelet Count* 263 K/uL (140-440); Red Blood Count 4.36 m/uL (4.30-5.90); White Blood Count* 15.35 K/uL (4.50-11.00)
[2024-03-23 07:34] LABS: Slide Review Reflex No
[2024-03-23 07:43] LABS: INR 2.33 (0.91-1.10); Prothrombin Time 27.3 Seconds
[2024-03-23 07:46] LABS: Albumin* 3.8 g/dL (3.3-5.0); Chloride* 104 mmol/L (96-114)
[2024-03-23 07:47] LABS: Potassium* 4.2 mmol/L (3.6-5.1); Sodium* 140 mmol/L (135-149)
[2024-03-23 07:49] LABS: Anion Gap 5 mEq/L (7-15); Aspartate Amino Transferase* 66 U/L (12-35); Bilirubin Total* 1.1 mg/dL (0.1-1.5); Blood Urea Nitrogen* 55 mg/dL (7-30); Carbon Dioxide* 31 mmol/L (20-32); Creatinine* 1.7 mg/dL (0.5-1.5); Est. Creatinine Clearance* 35.64; Estimated Glomerular Filt Rate 42 ml/min; Total Protein* 6.8 g/dL (6.0-8.3)
[2024-03-23 07:50] LABS: Alanine Aminotransferase* 45 U/L (4-50); Alkaline Phosphatase* 167 U/L (40-150); Calcium* 8.6 mg/dL (8.4-10.6); Glucose* 92 mg/dL (60-115)
[2024-03-23] MEDS: predniSONE 20 MG TABLET 40 MG PO (08:38)
[2024-03-23] MEDS: guaiFENesin 600 MG TAB.ER.12H PO (08:39)
[2024-03-23] MEDS: METOPROLOL SUCCINATE (XL) 25 MG TAB PO (08:39)
[2024-03-23] MEDS: POTASSIUM CHLORIDE 10 MEQ CAPSULE ER PO (08:39)
[2024-03-23] MEDS: AMLODIPINE 10 MG TABLET PO (08:39)
[2024-03-23] MEDS: ASPIRIN 81 MG TABLET EC PO (08:40)
[2024-03-23] MEDS: TORSEMIDE 100 MG TABLET PO (08:40)
[2024-03-23] MEDS: SPIRONOLACTONE 25 MG TABLET PO (08:41)
[2024-03-23] MEDS: SODIUM CHLORIDE 0.9 % (FLUSH) 10 ML SYRINGE 5 ML IVF (08:41)
[2024-03-23 09:42] VITALS: O2SAT 84; O2SAT 90; O2SAT 92
--- NOTE | 2024-03-23 12:09 | PC.SOCIAL ---
Discharge planning: Pt will be discharging home today. compound worker set-up home care for the pt through [facility] for PT/OT and custodial. [facility] will be able to open the pt this Wednesday, March 25. Pt was pleased with this plan and was informed that [facility] will call him to set-up a time on Wednesday for the intake. Pt stated that he plans to take [employer] [facility] bus back home today from the hospital. compound worker provided pt with The Important Message from Medicare document. Pt is pleased with his discharge plan. compound worker attempted to contact pt's daughter, Vicky, to inform her about the finalized discharge plans, but her phone went straight to voicemail and this worker was not able to leave a message due to the mailbox being full. Social work to follow-up as needed.
--- NOTE | 2024-03-23 13:02 | P.DS_ITS ---
DS: Providers Provider Date Seen: 03/23/24 Date of admission: 03/17/24 16:30 Primary care physician: Not a Local Provider Admitting Clinician: Santiago Larkin MD Attending Physician on discharge: Santiago Larkin MD Date of Discharge: 03/23/24 DS: Diagnosis Discharge Diagnosis (1) Acute on chronic hypoxic respiratory failure: Status: Acute Problem details: Multiple factors contributing including severe heart failure with reduced ejection fraction, severe COPD, suspected sleep apnea, concern for aspiration, Uncertain of medication compliance. Not on chronic outpatient oxygen for past 6 months. Initial treatment for heart failure, COPD exacerbation, aspiration pneumonia. Has weaned off of oxygen at rest but still requiring oxygen with activity. (2) Chronic heart failure with reduced ejection fraction and diastolic dysfunction: Status: Acute Problem details: Possibly the primary cause of hypoxia. BNP 9360 (previous recorded at >6000) IV furosemide initiated on admission then Increased home torsemide to 100 mg daily and added spironolactone 25 mg daily and potassium 20 mEq daily. Significant improvement with this treatment. Needs close outpatient follow-up of respiratory status, vital signs, volume status, electrolytes Echocardiogram April 2023 done at [facility]: 1. Borderline enlarged left ventricular chamber size, regional wall motion abnormalities were present (see wall motion graphics), estimated ejection fraction range 20% - 25%. 2. Left ventricular cardiac index 1.47 l/min/m2. 3. Elevated left ventricular filling pressure. 4. Moderately enlarged right ventricular chamber size, moderate-severely reduced systolic function, estimated right ventricular systolic pressure 63 mmHg (right atrial pressure of 5 mmHg). 5. Mild-moderate tricuspid valve regurgitation. 6. Normal inferior vena cava size with normal inspiratory collapse (>50%). 7. Tiny pericardial effusion. 8. Compared to the report of 07/31/2021 the following changes have occurred: The left ventricular systolic function has decreased with a decrease in the cardiac index. The right ventricular systolic pressures has increased. . Side by side comparison of images performed. Echocardiogram from 03/19/2024: Ejection fraction around 35-40%. Apical inferior and apical septum abnormal motion. Mild TR. Decreased right ventricular function. Mild right ventricular systolic pressure, 42 mmHg. Dilated IVC. Transition to oral diuretics (3) COPD (chronic obstructive pulmonary disease): Status: Acute Problem details: Hypoxic respiratory failure secondarily related to COPD. Exacerbation, without hypercapnia Finished 3 days of ceftriaxone. Prednisone 40 mg daily x5 days, receive 60 mg x1 today Magnesium 2.0 DuoNebs q.i.d., albuterol nebs p.r.n., incentive spirometry, RT to follow (4) CKD (chronic kidney disease): Status: Acute Problem details: Creatinine 2.4 on admission, recent baseline 1.8. History of 1 round of dialysis 04/2023, at that time Estimator And Drafter 10 with K+ 7.2 at that time Avoid nephrotoxic medications, continue to monitor, initiating IV Lasix diuresis. Currently stage 4 chronic kidney disease. Creatinine improving to 1.9 on March 22 (5) Alcohol dependence: Status: Acute Problem details: With remote history of alcohol withdrawal seizures. Denies problem with alcohol use currently. Reports typical 2 whiskeys daily since leaving the jail 3 days prior to admission. last drink 1600pm 03/16, ETOH <0.01 No evidence of alcohol withdrawal on this admission. I recommend abstinence. Patient is opposed to this and plans to continue modest occasional alcohol consumption. (6) Alcoholic cirrhosis: Status: Acute Problem details: Alk-phos 243, direct bili 1.2, total bili 2.4. Bilirubin improving. Increase in bilirubin possibly related to congestion from right heart failure. (7) Aphasia: Status: Acute Problem details: Sequelae, history of - Left MCA infarct in 2018 resulting in moderate to severe aphasia (cared for at other facilities). - 10/19/2020: presented to [facility] ED for transient left hemiplegia and was found to have right ICA stroke. Eliquis was switched to warfarin. - 02/05/2021: presented to [facility] ED for worsening dysphagia and was found to have worsening stenosis of the left ICA. Underwent stenting to the left ICA on 02/07/21 and discharged on 4 weeks of Plavix in addition to indefinite daily baby aspirin and warfarin. Patient has significant speech, motor improvement after stenting. (8) Atrial fibrillation: Status: Acute Problem details: Continue metoprolol and warfarin, heart rate adequately controlled. Supratherapeutic on admission, INR 3.68. Possibly related to right heart failure with liver congestion. Has pacemaker (9) Hyperlipidemia: Status: Acute Problem details: Continue statin (10) Hypertension: Status: Acute Problem details: Continue amlodipine (11) Carotid arterial disease: Status: Acute Problem details: s/p left ICA stenting 02/07/2021 (12) Hypokalemia: Status: Acute Problem details: Monitor and replace. Note chronic kidney disease and heart failure requiring diuresis. Potassium and spironolactone added at discharge (13) Adrenal nodule: Status: Acute Problem details: Incidental finding of adrenal nodule on CT. Radiologist recommends dedicated CT protocol for adrenal nodule as an outpatient. (14) Obstructive sleep apnea: Status: Suspected Problem details: He he desaturates at night. Likely has obstructive sleep apnea. Outpatient evaluation offered DS: Summary Hospital Course Hospital Course: 74-year-old male with heart failure with reduced ejection fraction, chronic kidney disease previously on dialysis, COPD, coronary artery disease with recurrent non STEMI, recurrent stroke with aphasia and hemiparesis, atrial fibrillation, history of alcohol abuse and alcohol withdrawal is admitted to the hospital with hypoxic respiratory failure. Patient was resident of [facility] in [place] until 3 days prior to admission. He had been there under the care directed by his court appointed guardian. For the last 2 years he has been working through the court system to have the guardianship revoked. This was done about 2 weeks prior to admission. Having revoked guardianship the patient has left the jail and moved to independent living in [place]. He tells me that in the jail a couple weeks ago he received an infusion of intravenous iron and since that time he has had increasing shortness of breath and increasing swelling in his legs. Patient is convinced that the IV iron was the cause of this. On this admission it appears that he is having a heart failure exacerbation as the primary cause of his hypoxic respiratory failure with secondary contributors being relatively severe underlying COPD and probable recurrent episodes of aspiration. Due to his stroke he appears to have some difficulty handling food fluid and secretions. He tells me he has had a swallowing evaluation and everything was fine. During this hospital stay was of deserves to have a relatively wet cough and rhonchus breathing frequently. He also appeared to have a COPD exacerbation with marked decreased breath sounds and bilateral wheezing. He was treated with IV furosemide and transition to oral torsemide with spironolactone for diuresis. He was treated with prednisone and antibiotics for community-acquired pneumonia. He slowly got better over his hospital stay. Patient was felt to be relatively frail and high risk of complications due to multiple relatively severe multiorgan disease. He did accept offers to have home nursing, PT and OT but declined any consideration of return to jail. Patient has an history of alcohol abuse which he reports is no longer a problem he did report that he was drinking since he left the jail and disputed my recommendation to avoid alcohol. I recommended against alcohol because of h is disabilities from his stroke, chronic heart failure, chronic liver disease, warfarin therapy for AFib. Physical therapy and occupational therapy assess that he was probably back to baseline mobility. Status at Discharge Functional status at discharge: uses cane/walker Overall status at discharge: patient is progressing back to baseline Time Spent with Patient Time attestation: Total time spent providing and/or coordinating discharge services: Time spent: Greater than 30 minutes Exam Narrative: Exam Narrative: He is alert and appears in no distress. Some rhonchus breathing. He is otherwise breathing relatively comfortably on room air at rest. O2 sats 89% when I see him. No significant edema. Const: Vital Signs, click to edit/add: Vital Signs - 24 hr 03/22/24 15:00 03/22/24 15:00 03/22/24 15:00 Temperature 97.6 F Pulse Rate Pulse Rate [Right Pulse Oximeter] 88 88 Respiratory Rate 18 18 Blood Pressure [Le ft Arm] Blood Pressure [Ri ght Arm] 150/75 H Pulse Oximetry 88 88 Oxygen Delivery Me thod Room Air Oxygen Flow Rate 03/22/24 15:00 03/22/24 15:00 03/22/24 19:00 Temperature 97.8 F Pulse Rate 66 Pulse Rate [Right Pulse Oximeter] 72 Respiratory Rate 18 18 Blood Pressure [Le ft Arm] Blood Pressure [Ri ght Arm] 137/62 Pulse Oximetry 88 90 Oxygen Delivery Me thod Room Air Room Air Oxygen Flow Rate 03/22/24 23:00 03/22/24 23:22 03/22/24 23:54 Temperature Pulse Rate 66 Pulse Rate [Right Pulse Oximeter] 68 Respiratory Rate 18 Blood Pressure [Le ft Arm] Blood Pressure [Ri ght Arm] Pulse Oximetry 91 Oxygen Delivery Me thod Oxygen Flow Rate 03/22/24 23:55 03/22/24 23:56 03/23/24 03:04 Temperature 97.3 F L 97.0 F L Pulse Rate Pulse Rate [Right Pulse Oximeter] 68 67 Respiratory Rate 18 18 18 Blood Pressure [Le ft Arm] 137/80 114/56 L Blood Pressure [Ri ght Arm] Pulse Oximetry 91 91 92 Oxygen Delivery Me thod Nasal Cannula Nasal Cannula Nasal Cannula Oxygen Flow Rate 1 1 1 03/23/24 07:00 03/23/24 07:00 03/23/24 07:00 Temperature 96.5 F L Pulse Rate Pulse Rate [Right Pulse Oximeter] 74 Respiratory Rate 18 Blood Pressure [Le ft Arm] 128/71 Blood Pressure [Ri ght Arm] Pulse Oximetry 90 90 90 Oxygen Delivery Me thod Room Air Room Air Oxygen Flow Rate 03/23/24 07:25 Temperature Pulse Rate 67 Pulse Rate [Right Pulse Oximeter] Respiratory Rate Blood Pressure [Le ft Arm] Blood Pressure [Ri ght Arm] Pulse Oximetry Oxygen Delivery Me thod Oxygen Flow Rate Documenting provider has reviewed patient's vital signs: yes DS: Data Data Completed and Pending Labs on day of discharge: Labs from last 24 hours 03/23/24 07:08 WBC 15.35 H RBC 4.36 Hgb 10.6 L Hct 35.9 L MCV 82 MCH 24 L MCHC 30 L Plt Count 263 INR 2.33 H Sodium 140 Potassium 4.2 Chloride 104 Carbon Dioxide 31 Anion Gap 5 L BUN 55 H Creatinine 1.7 H Estimated Creat Clear 35.64 Estimated GFR 42 Glucose 92 Calcium 8.6 Total Bilirubin 1.1 AST 66 H ALT 45 Alkaline Phosphatase 167 H Total Protein 6.[address] Chest/Ab/Pelvis: Radiologist's impression: Indication: Hypoxia Technique: CT angiogram of the chest was performed for evaluation of pulmonary embolism. 95 mL of Isovue 370 intravenous contrast was administered. Comparison: 03/19/2024 Findings: CARDIOVASCULAR: Diagnostic quality: Contrast opacification of the pulmonary arterial circulation is adequate for assessment of pulmonary embolism. Study is not significantly limited by respiratory motion artifact. Pulmonary arteries: No filling defects to suggest pulmonary embolism. Enlarged, measuring 3.5 centimeter in diameter (4/78). Heart: No interventricular septal deviation. Normal in size. Moderate coronary artery calcification. No significant valvular calcification. Left ventricular calcification, which may represent chronic prior infarct. Pericardium: No pericardial effusion. Thoracic aorta: Moderate calcification. Normal cervical branching. REMAINING CHEST: Medical devices: Left chest AICD with right atrial and right ventricular leads. Thyroid: Normal. Lymph nodes: Increased number of prominent subcentimeter mediastinal lymph nodes. Other mediastinal structures: No significant abnormality. Lung parenchyma: Mild centrilobular emphysema. Redemonstration of 4 millimeter right lower lobe pulmonary nodule (). Consensus guidelines for single or multiple solid lung nodules less than 6 mm, not applicable if known malignancy or immunocompromise: Low risk: No routine follow-up. High risk without suspicious morphology AND not in upper lobe: Consider CT at 12 months. High risk AND nodule(s) with suspicious morphology OR in upper lobe: Strongly consider CT at 12 months. (Thee, et al. Radiology 2017) Mild right and moderate left apical pleural parenchymal scarring. Airways: Moderate bronchial wall thickening. Scattered areas of distal mucous plugging. Pleura: Left-sided pleural calcifications. Chest wall: Moderate bilateral gynecomastia. Upper abdomen: Please see separately dictated same day CT. Trace perihepatic ascites. Musculoskeletal: Moderate multilevel degenerative changes of the visualized spine. Moderate chronic posterior left-sided rib deformities. Redemonstration of [id number] superior endplate compression deformities at L1 and L2. Impression: 1. No acute pulmonary embolism. 2. Enlarged main pulmonary artery, which can be seen in the setting of pulmonary hypertension. 3. Moderate bronchial wall thickening with scattered areas of distal mucous plugging may represent airways infection or inflammation. INDICATION: HYPOXIA; ABD DISTENTION TECHNIQUE: CT of the abdomen and pelvis was obtained with 95 mL of Isovue 370 intravenous contrast. Please note that all CT scans at this facility use dose modulation, iterative reconstruction, and/or weight-based dosing when appropriate to reduce radiation dose to as low as reasonably achievable. COMPARISON: 05/22/2019 FINDINGS: Lower thorax: Please see separately dictated same day CT of the chest. Liver and biliary tree: Normal. Gallbladder: Contracted. Cholelithiasis. Mildly hyperenhancing wall with associated wall thickening. Spleen: Normal. Pancreas: Normal. Adrenal glands: Redemonstration of 1.3 centimeter left adrenal nodule measuring 93 HU (2/37). Kidneys and ureters: No hydronephrosis. Bilateral renal and parapelvic cysts. Nonobstructing renal calculi measuring up to 1.1 centimeter on the right (2/54). Gastrointestinal tract: Moderate stool burden. Mild sigmoid colonic diverticulosis without CT evidence of acute diverticulitis. No evidence of bowel obstruction. Normal appendix. Peritoneal cavity: Trace upper abdominal ascites. Bladder: Normal. Pelvic organs: Mildly enlarged prostate. Vasculature: Moderate calcification. Lymph nodes: Normal. Abdominal wall: Trace fat containing periumbilical hernia. Small fat containing bilateral inguinal hernias. Musculoskeletal: Moderate multilevel degenerative changes of the visualized spine. Redemonstration of moderate superior endplate L1 and L2 compression deformities and interval progression of moderate to severe L4 superior endplate compression deformity. Moderate degenerative changes of the bilateral hips. Postsurgical changes of the proximal left femur. Moderate anasarca. IMPRESSION: 1. Moderate stool burden. No evidence of bowel obstruction. 2. Contracted gallbladder with cholelithiasis with mildly hyperenhancing wall and associated wall thickening. This may relate to underdistention. Consider correlation with signs or symptoms of acute cholecystitis an ultrasound for further evaluation as clinically indicated. 3. Moderate anasarca and trace upper abdominal ascites. 4. Nonobstructing renal calculi measuring up to 1.1 centimeter on the right. No hydronephrosis. 5. Redemonstration of 1.3 centimeter left adrenal nodule measuring 93 HU. Consider outpatient adrenal protocol CT for further characterization. 6. Redemonstration of moderate superior endplate L1 and L2 compression deformities and interval progression of moderate to severe L4 superior endplate compression deformity. Discharge Plan Discharge Disposition: Home, Self-Care Date of Admission: 03/17/24 16:30 Attending Provider on Discharge: Santiago Larkin Primary Care Provider: Provider,Not a Local Condition: Improved Anticipated Discharge Date/Time: 03/23/24 09:54 Discharge Medications: New potassium chloride 10 mEq Capsule, Extended Release 20 meq PO DAILYWM Qty: 60 0RF spironolactone 25 mg Tablet 25 mg PO DAILY Qty: 30 0RF Continued atorvastatin 80 mg tablet 80 mg PO HS amlodipine 10 mg tablet 10 mg PO DAILY pantoprazole 20 mg tablet,delayed release (DR/EC) 20 mg PO DAILY metoprolol succinate 25 mg tablet extended release 24 hr 25 mg PO DAILY warfarin 1 mg tablet 1.5 - 2 mg PO DAILY Rx Instructions: DIRECTED BY INR CLINIC aspirin [Adult Aspirin Regimen] 81 mg tablet,delayed release (DR/EC) 81 mg PO DAILY acetaminophen 500 mg tablet 1,000 mg PO TID PRN albuterol sulfate [Ventolin HFA] 90 mcg/actuation HFA aerosol inhaler 2 inh inhalation Q4H PRN bisacodyl 10 mg suppository 10 mg [place] DAILY PRN cholecalciferol (vitamin D3) 25 mcg (1,000 unit) capsule 25 mcg PO DAILY diclofenac sodium [Voltaren Arthritis Pain] 1 % gel 2 g topical QID PRN Rx Instructions: apply to single elbow, wrist or hand; for hand includes palm/fingers/back of hand methyl salicylate-menthol Ointment 1 ea topical TID PRN dextran 70-hypromellose 0.1-0.3 % drops 1 drp ophthalmic (eye) QID PRN sennosides [Senna Lax] 8.6 mg tablet 17.2 mg PO DAILY PRN Changed torsemide 20 mg tablet 100 mg PO DAILY Qty: 150 0RF Discharge Orders: Discharge Order (Routine); Ordered 03/23/24 Ordered By: Santiago Larkin Patient Education: Potassium Chloride (By mouth), Alcohol Dependence (DC), Chronic Respiratory Failure (DC), Acute Respiratory Failure (GEN) Activity Level: Activity as Tolerated and Use Walker Discharge Diet: Heart Healthy (2 gm sodium, low fat) Follow Up Appointments: Nelson Hayes MD [Staff Physician] - (Follow-up in clinic in 4-6 days. Check basic metabolic panel and INR in 4-6 days) Provider,Not a Local [Primary Care Provider] - Yuliet Blair DO [Staff Physician] - 03/29/24 11:15 am ([facility] for follow-up, and check basic metabolic panel and INR.) Forms: INFIMET Info Instructions
== END 2024-03-23 13:03 | disposition home or self-care (01) | DRG 291 ==
LOC: ED 12:00 → MEDSURG 14:33
PROVIDERS: Admitting Provider Physician Assistant; Emergency Provider Emergency Medicine; Visit Provider Family Medicine
DX: I13.0 Hypertensive heart and chronic kidney disease with heart failure and stage 1 through stage 4 chronic kidney disease, or unspecified chronic kidney disease (principal); I50.43 Acute on chronic combined systolic (congestive) and diastolic (congestive) heart failure; J69.0 Pneumonitis due to inhalation of food and vomit; J96.21 Acute and chronic respiratory failure with hypoxia; J44.1 Chronic obstructive pulmonary disease with (acute) exacerbation; N18.4 Chronic kidney disease, stage 4 (severe); I69.354 Hemiplegia and hemiparesis following cerebral infarction affecting left non-dominant side; I69.320 Aphasia following cerebral infarction; F10.20 Alcohol dependence, uncomplicated; K70.30 Alcoholic cirrhosis of liver without ascites; Y90.0 Blood alcohol level of less than 20 mg/100 ml; Z87.891 Personal history of nicotine dependence; E87.6 Hypokalemia; I48.91 Unspecified atrial fibrillation; Z95.0 Presence of cardiac pacemaker; G47.33 Obstructive sleep apnea (adult) (pediatric); I77.9 Disorder of arteries and arterioles, unspecified; E27.8 Other specified disorders of adrenal gland; I25.10 Atherosclerotic heart disease of native coronary artery without angina pectoris; I43 Cardiomyopathy in diseases classified elsewhere; Z79.01 Long term (current) use of anticoagulants; E78.5 Hyperlipidemia, unspecified
CPT/HCPCS: 36415; 71046; 71250; 71275; 74177; 80048; 80053; 80076; 82077; 82803; 83605; 83735; 83880; 84145; 84484; 85025; 85027; 85610; 86140; 87040; 87631; 93005; 93306; 93970; 94640; 94761; 97110; 97112; 97116; 97162; 97165; 97530; 97535; 99284; 99285; A9270; J0456; J0696; J1940; J7050; J7512; Q9967

== ENCOUNTER 2024-04-17 08:19 | Outpatient (CLI) | payer MEDICARE, OTHER, SELFPAY | END 2024-04-17 08:20 | disposition home or self-care (01) | LOC: WOUND 08:20 | PROVIDERS: Visit Provider Family Medicine | DX: R06.00 Dyspnea, unspecified (principal); R06.02 Shortness of breath; I95.0 Idiopathic hypotension; I50.22 Chronic systolic (congestive) heart failure; R47.01 Aphasia; S81.801A Unspecified open wound, right lower leg, initial encounter | CPT/HCPCS: G0463 ==

== ENCOUNTER 2024-04-17 08:56 | Observation (INO) | payer MEDICARE, OTHER, SELFPAY ==
[2024-04-17] VITALS (24 sets, daily range): BP systolic 105–126; BP diastolic 57–71; PULSE 58–62; RESP 18; TEMP 35.7–36.9; O2SAT 94–100; BMI 27.4; BMI 26.1
--- NOTE | 2024-04-17 09:00 | ED_ITS ---
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 Thought to be multifactorial including severe heart failure, severe COPD, sleep apnea, possible aspiration. Per records he had not been on chronic oxygen at home. BNP 9360 (previous recorded at >6000) IV furosemide initiated on admission then Increased home torsemide to 100 mg daily and added spironolactone 25 mg daily and potassium 20 mEq daily. Significant improvement with this treatment. Needs close outpatient follow-up of respiratory status, vital signs, volume status, electrolytes Echocardiogram April 2023 done at [place]: 1. Borderline enlarged left ventricular chamber size, regional wall motion abnormalities were present (see wall motion graphics), estimated ejection fraction range 20% - 25%. 2. Left ventricular cardiac index 1.47 l/min/m2. 3. Elevated left ventricular filling pressure. 4. Moderately enlarged right ventricular chamber size, moderate-severely reduced systolic function, estimated right ventricular systolic pressure 63 mmHg (right atrial pressure of 5 mmHg). 5. Mild-moderate tricuspid valve regurgitation. 6. Normal inferior vena cava size with normal inspiratory collapse (>50%). 7. Tiny pericardial effusion. 8. Compared to the report of 07/31/2021 the following changes have occurred: The left ventricular systolic function has decreased with a decrease in the cardiac index. The right ventricular systolic pressures has increased. . Side by side comparison of images performed. Echocardiogram from 03/19/2024: Ejection fraction around 35-40%. Apical inferior and apical septum abnormal motion. Mild TR. Decreased right ventricular function. Mild right ventricular systolic pressure, 42 mmHg. Dilated IVC. (3) COPD (chronic obstructive pulmonary disease): Hypoxic respiratory failure secondarily related to COPD. Exacerbation, without hypercapnia Finished 3 days of ceftriaxone. Prednisone 40 mg daily x5 days, receive 60 mg x1 today Magnesium 2.0 DuoNebs q.i.d., albuterol nebs p.r.n., incentive spirometry, RT to follow (4) CKD (chronic kidney disease): Creatinine 2.4 on admission, recent baseline 1.8. History of 1 round of dialysis 04/2023, at that time [employer] 10 with K+ 7.2 at that time Avoid nephrotoxic medications, continue to monitor, initiating IV Lasix diuresis. Currently stage 4 chronic kidney disease. Creatinine improving to 1.9 on March 22 (5) Alcohol dependence: With remote history of alcohol withdrawal seizures. Denies problem with alcohol use currently. Reports typical 2 whiskeys daily since leaving the [facility] 3 days prior to admission. last drink 1600pm 03/16, ETOH <0.01 No evidence of alcohol withdrawal on this admission. I recommend abstinence. Patient is opposed to this and plans to continue modest occasional alcohol consumption. (6) Alcoholic cirrhosis: Alk-phos 243, direct bili 1.2, total bili 2.4. Bilirubin improving. Increase in bilirubin possibly related to congestion from right heart failure. (7) Aphasia: Sequelae, history of - Left MCA infarct in 2018 resulting in moderate to severe aphasia (cared for at other facilities). - 10/19/2020: presented to [facility] ED for transient left hemiplegia and was found to have right ICA stroke. Eliquis was switched to warfarin. - 02/05/2021: presented to [facility] ED for worsening dysphagia and was found to have worsening stenosis of the left ICA. Underwent stenting to the left ICA on 02/07/21 and discharged on 4 weeks of Plavix in addition to indefinite daily baby aspirin and warfarin. (8) Atrial fibrillation: Continue metoprolol and warfarin, heart rate adequately controlled. Has pacemake r History is difficult because of the patient's expressive aphasia, and is somewhat limited but best history I can get is as below Per patient he has been doing pretty well at home. He has been taking his prescribed meds including his diuretic, his anticoagulation. He notes that he has been doing well since discharge from the hospital last month. Breathing has been good. No recent cough. No chest pain. His weight has actually come down. He was 195 lb when he was hospitalized last month and is now down to 172. He notes significant improvement in his lower extremity edema. He does wear oxygen overnight but does not really need to use it during the day. He has not had any worsening shortness of breath lately. He has been getting visits from home nursing and they been helping him change dressings for the wound on his right faria. His faria wound has been healing. No recent redness. No purulent drainage. He was feeling normally this morning. He got up and came to the wound clinic for his long awaited wound clinic visit. He did begin to feel short of breath about an hour prior to arrival in the wound clinic. No chest pain. No cough. No other symptoms. In the wound clinic they did check his vital signs. They measured oxygen level at 80% on room air and put him on nasal cannula. However, it is notable that the patient has very poor perfusion of his finger tips and we are not able to get a reliable oximetry from his finger, even with his supplemental oxygen nasal cannula active. When we place a forehead probe we get a good plethysmography waveform and oxygen level is 100%. I dialed him back to room air and oxygen level remained in the high 90s (when measured through the forehead probe). Blood pressure was 70/40 on 3 measurements at the wound clinic triage. However does normalize to 106/60 upon arrival here to the ER. Patient says he feels fine now. No chest pain. No shortness of breath at this time. No cough. No leg swelling. After I discovered that the patient had a creatinine of 3.1, he and I discussed again his diuretics. He actually says that his doctors at the [facility] cut his dose down from 6 pills per day down to 2 pills per day, last week. Per records, the patient has been doing point of care INR is at home. INRs have been supratherapeutic lately. It was 3.5 on 04/14. They wanted him to get a venous INR done at the hospital today. According to records from [facility] a care link it looks like his doctor gave and over the phone order to decrease his torsemide dose to 40 mg per day on 04/07 I do see that he had a BMP on 03/29 Sodium 140, potassium 4.7, chloride 96, bicarb 30, glucose 74, BUN 38, creatinine 2.23 He had another BMP on 04/06. Sodium 131, potassium 5.7, chloride 93, bicarb twenty-three, BUN 39, creatinine 2.3 Related Data Home Medications ?Medication ?Instructions ?Recorded ?Confirmed albuterol sulfate 90 mcg/actuation 2 inh inhalation Q4H PRN 03/17/24 04/17/24 aerosol inhaler (Ventolin HFA) aspirin 81 mg tablet,delayed 81 mg PO DAILY 03/17/24 04/17/24 release (Adult Aspirin Regimen) atorvastatin 80 mg tablet 80 mg PO HS 03/17/24 04/17/24 bisacodyl 10 mg rectal suppository 10 mg RI DAILY PRN 03/17/24 04/17/24 dextran 70-hypromellose 0.1 %-0.3 1 drp ophthalmic (eye) QID PRN 03/17/24 04/17/24 % eye drops diclofenac sodium 1 % topical gel 2 g topical QID PRN 03/17/24 04/17/24 (Voltaren Arthritis Pain) methyl salicylate-menthol topical 1 ea topical TID PRN 03/17/24 04/17/24 ointment pantoprazole 20 mg tablet,delayed 20 mg PO DAILY 03/17/24 04/17/24 release sennosides 8.6 mg tablet (Senna 17.2 mg PO DAILY PRN 03/17/24 04/17/24 Lax) warfarin 1 mg tablet 1.5 - 2 mg PO DAILY 03/17/24 04/17/24 acetaminophen 650 mg 650 mg PO Q6H PRN 04/17/24 04/17/24 tablet,extended release (Arthritis Pain Reliever) carvedilol 6.25 mg tablet 6.25 mg PO BID 04/17/24 04/17/24 lisinopril 2.5 mg tablet 2.5 mg PO DAILY 04/17/24 04/17/24 torsemide 20 mg tablet 50 mg PO DAILY 04/17/24 04/17/24 Previous Rx's ?Medication ?Instructions ?Recorded potassium chloride 10 mEq 20 meq (2 x 10 mEq) PO DAILYWM #60 03/23/24 capsule,extended release caps spironolactone 25 mg tablet 25 mg PO DAILY #30 tabs 03/23/24 Allergies Allergy/AdvReac Type Severity Reaction Status Date / Time No Known Drug Allergies Allergy Verified 03/17/24 11:07 [facility] Medical History Hypoxia ?R09.02 - Hypoxemia (ICD-10) Obstructive sleep apnea ?G47.33 - Obstructive sleep apnea (adult) (pediatric) (ICD-10) Adrenal nodule ?E27.8 - Other specified disorders of adrenal gland (ICD-10) Hypokalemia ?E87.6 - Hypokalemia (ICD-10) History of CVA (cerebrovascular accident) ?Z86.73 - Personal history of transient ischemic attack (TIA), and cerebral infarction without residual deficits (ICD-10) Acute on chronic hypoxic respiratory failure ?J96.21 - Acute and chronic respiratory failure with hypoxia (ICD-10) Chronic heart failure with reduced ejection fraction and diastolic dysfunction ?I50.42 - Chronic combined systolic (congestive) and diastolic (congestive) heart failure (ICD-10) Carotid arterial disease ?I77.9 - Disorder of arteries and arterioles, unspecified (ICD-10) NSTEMI (non-ST elevated myocardial infarction) ?I21.4 - Non-ST elevation (NSTEMI) myocardial infarction (ICD-10) Hemiplegia and hemiparesis 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 ?I69.352 - Hemiplegia and hemiparesis 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 (ICD-10) History of ventricular tachycardia ?Z86.79 - Personal history of other diseases of the circulatory system (ICD- 10) Ataxia ?R27.0 - Ataxia, unspecified (ICD-10) Chronic anemia ?D64.9 - Anemia, unspecified (ICD-10) Upper GI bleed ?K92.2 - Gastrointestinal hemorrhage, unspecified (ICD-10) CKD (chronic kidney disease) ?N18.9 - Chronic kidney disease, unspecified (ICD-10) CAD (coronary artery disease) ?I25.10 - Atherosclerotic heart disease of [place] coronary artery without angina pectoris (ICD-10) Cardiomyopathy ?I42.9 - Cardiomyopathy, unspecified (ICD-10) Recurrent left pleural effusion ?J90 - Pleural effusion, not elsewhere classified (ICD-10) 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 - Alcohol use, unspecified with alcohol-induced persisting amnestic disorder (ICD-10) Alcoholic cirrhosis ?K70.30 - Alcoholic cirrhosis of liver without ascites (ICD-10) Alcohol withdrawal seizure ?F10.939 - Alcohol use, unspecified with withdrawal, unspecified (ICD-10) ?R56.9 - Unspecified convulsions (ICD-10) Alcohol dependence ?F10.20 - Alcohol dependence, uncomplicated (ICD-10) Aphasia ?R47.01 - Aphasia (ICD-10) Cardioembolic stroke ?I63.9 - Cerebral infarction, unspecified (ICD-10) Lacunar infarction ?I63.81 - Other cerebral infarction due to occlusion or stenosis of small artery (ICD-10) Atrial fibrillation ?I48.91 - Unspecified atrial fibrillation (ICD-10) Pulmonary hypertension ?I27.20 - Pulmonary hypertension, unspecified (ICD-10) Hyperlipidemia ?E78.5 - Hyperlipidemia, unspecified (ICD-10) Hypertension ?I10 - Essential (primary) hypertension (ICD-10) Adrenal adenoma ?D35.00 - Benign neoplasm of unspecified adrenal gland (ICD-10) Surgical History H/O hernia repair ?Z98.890 - Other specified postprocedural states (ICD-10) ?Z87.19 - Personal history of other diseases of the digestive system (ICD-10) Social History What is your current living situation?: I presently have a place to live Problems where you live: no known problems Problems where you live details: N/A In the past 12 months, utilities in danger of being shut off: no In past 12 months, lack of transportation kept you from medical appts, meetings, work, or getting things needed for daily living: no In the past 12 mos, have been you worried that your food would run out before you had money to buy more?: never true In the past 12 mos, the food you bought just didn't last and you didn't have money to buy more?: never true Smoking Status: Former smoker Do you use any of these nicotine containing products: None Second hand tobacco smoke exposure: No How often do you have a drink containing alcohol: 4 or more times a week Alcohol type: hard liquor Alcohol type details: 2 whiskey 7-ups per day How many standard drinks containing alcohol do you have on a typical day: 1 or 2 How often do you have six or more drinks on one occasion: Never AUDIT-C Alcohol total score: 4 Non-prescribed substance use: denies use Caffeine: Yes How often does anyone, including family, friends and others, physically hurt you : never How often does anyone, including family, friends and others, insult or talk down to you: never How often does anyone, including family, friends and others, threaten you with harm: never How often does anyone, including family, friends and others, scream or curse at you: never service: No Exam Narrative: Exam Narrative: Constitutional: Appears well-developed and well-nourished. Alert. Has an expressive aphasia but is polite and remembers meeting the last month in the ER. Non toxic. HENT: Head: Atraumatic. Nose: Nose normal. Mouth/Throat: Oral mucosa is clear and moist. no trismus. Pharynx normal. Tonsils symmetric. No tonsillar enlargement, erythema, or exudate. Eyes: Conjunctivae normal. EOM normal. Pupils equal, round, and reactive to light. No scleral icterus. Neck: Normal range of motion. Neck supple. No tracheal deviation present. Cardiovascular: Normal rate, regular rhythm. No gallop. No friction rub. No murmur heard. Symmetric radial artery pulses Pulmonary/Chest: Effort normal. No stridor. No respiratory distress. No wheezes. No rales. No rhonchi . No tenderness. Oxygen 100% on room air when measured through a forehead probe. Or night able to get a good oxygen reading from his finger tip. Abdominal: Soft. Bowel sounds normal. No distension. No mass. No tenderness. No rebound. No guarding. Musculoskeletal: RUE: Normal range of motion. No tenderness. No deformity LUE: Normal range of motion. No tenderness. No deformity RLE: Normal range of motion. No edema. No tenderness. No deformity. Dressing in place on right mid faria, removed for exam. There is a healing oval-shaped wound on the right anterior faria roughly 6 x 3 cm. It largely appeared to be covered by he new skin. There is a small rim of granulation tissue on the upper and lateral rim of the oval that looks like it is still healing and not yet covered by skin. No redness. No purulent drainage. No palpable fluctuance or crepitus. Overall this appears to be a chronic wound that has been slowly healing and looks good today LLE: Normal range of motion. No edema. No tenderness. No deformity Lymph: No ascending lymphangitis Neurological: Alert and oriented to person, place, and time. Normal strength. CN II-VII intact. No sensory deficit. GCS eye subscore is 4. GCS verbal subscore is 5. GCS motor subscore is 6. Normal coordination Skin: Skin is warm and dry. No rash noted. No pallor. Normal capillary refill. Psychiatric: Normal mood. Normal affect. Const: Vital Signs, click to edit/add: Vital Signs - 24 hr 04/17/24 09:02 04/17/24 09:26 04/17/24 09:30 Temperature 96.3 F L Pulse Rate 60 60 Pulse Rate [Right Pulse Oximeter] 60 Respiratory Rate 18 Blood Pressure Blood Pressure [Ri ght Upper Arm] 105/59 L Pulse Oximetry 100 98 97 Oxygen Delivery Me thod Nasal Cannula Nasal Cannula Nasal Cannula Oxygen Flow Rate 2 2 2 04/17/24 09:45 04/17/24 10:00 04/17/24 10:18 Temperature Pulse Rate 60 60 60 Pulse Rate [Right Pulse Oximeter] Respiratory Rate Blood Pressure Blood Pressure [Ri ght Upper Arm] Pulse Oximetry 99 100 95 Oxygen Delivery Me thod Room Air Room Air Room Air Oxygen Flow Rate 04/17/24 10:21 04/17/24 10:22 04/17/24 10:30 Temperature Pulse Rate 58 L 60 59 L Pulse Rate [Right Pulse Oximeter] Respiratory Rate Blood Pressure 120/64 Blood Pressure [Ri ght Upper Arm] Pulse Oximetry 98 100 99 Oxygen Delivery Me thod Room Air Oxygen Flow Rate 04/17/24 10:32 04/17/24 10:45 04/17/24 11:00 Temperature Pulse Rate 60 60 60 Pulse Rate [Right Pulse Oximeter] Respiratory Rate Blood Pressure 117/62 Blood Pressure [Ri ght Upper Arm] Pulse Oximetry 99 98 98 Oxygen Delivery Me thod Oxygen Flow Rate 04/17/24 11:02 04/17/24 11:15 04/17/24 11:30 Temperature Pulse Rate 60 60 60 Pulse Rate [Right Pulse Oximeter] Respiratory Rate Blood Pressure 125/68 Blood Pressure [Ri ght Upper Arm] Pulse Oximetry 98 94 99 Oxygen Delivery Me thod Oxygen Flow Rate 04/17/24 11:45 04/17/24 12:00 04/17/24 12:02 Temperature Pulse Rate 60 59 L 60 Pulse Rate [Right Pulse Oximeter] Respiratory Rate Blood Pressure 118/68 Blood Pressure [Ri ght Upper Arm] Pulse Oximetry 98 96 98 Oxygen Delivery Me thod Oxygen Flow Rate 04/17/24 12:15 Temperature Pulse Rate 60 Pulse Rate [Right Pulse Oximeter] Respiratory Rate Blood Pressure Blood Pressure [Ri ght Upper Arm] Pulse Oximetry 100 Oxygen Delivery Me thod Oxygen Flow Rate Course Vital Signs Vital signs: Initial Vital Signs Temperature 96.3 F L 04/17/24 09:02 Temperature Source Temporal Artery Scan 04/17/24 09:02 Pulse Rate 60 04/17/24 09:02 Pulse Rhythm Regular 04/17/24 09:02 Respiratory Rate 18 04/17/24 09:02 Blood Pressure 105/59 L 04/17/24 09:02 Blood Pressure Mean 74 04/17/24 09:02 Blood Pressure Position Supine 04/17/24 09:02 Pulse Oximetry 100 04/17/24 09:02 Oxygen Delivery Method Nasal Cannula 04/17/24 09:02 Oxygen Flow Rate 2 04/17/24 09:02 Vital Signs Temperature 96.3 F L 04/17/24 09:02 Pulse Rate 60 04/17/24 09:02 Respiratory Rate 18 04/17/24 09:02 Blood Pressure 105/59 L 04/17/24 09:02 Pulse Oximetry 100 04/17/24 09:02 Oxygen Delivery Method Nasal Cannula 04/17/24 09:02 Oxygen Flow Rate 2 04/17/24 09:02 Temperature 98.4 F 04/17/24 19:00 Pulse Rate 60 04/17/24 19:00 Respiratory Rate 18 04/17/24 19:00 Blood Pressure 126/71 04/17/24 20:52 Pulse Oximetry 94 04/17/24 19:00 Oxygen Delivery Method Room Air 04/17/24 19:00 Oxygen Flow Rate 0 04/17/24 19:00 Medications Administered Medications: Generic Name Dose Route Start Last Admin Trade Name Freq PRN Reason Stop Dose Admin Acetaminophen 650 mg 04/17/24 13:27 04/17/24 20:57 Acetaminophen 650 Mg Tablet Er PO 650 mg Q6H PRN Administration Atorvastatin Calcium 80 mg 04/17/24 21:00 04/17/24 20:50 Atorvastatin Calcium 40 Mg Tablet PO 80 mg HS SOFÍA Administration Carvedilol 6.25 mg 04/17/24 21:00 04/17/24 20:52 Carvedilol 6.25 Mg Tablet PO 6.25 mg BID SOFÍA Administration Sodium Chloride 5 ml 04/17/24 21:00 04/17/24 20:52 Sodium Chloride 0.9 % (Flush) 10 Ml Syringe IVF 5 ml BID SOFÍA Administration Discontinued Medications Generic Name Dose Route Start Last Admin Trade Name Barber PRN Reason Stop Dose Admin Sodium Chloride 500 mls @ 500 mls/hr 04/17/24 11:20 04/17/24 11:55 0.9 % Sodium Chloride 500 Ml IV 04/17/24 12:19 500 mls/hr .Q1H ONE Administration Sodium Chloride 500 mls @ 500 mls/hr 04/17/24 13:35 04/17/24 14:18 0.9 % Sodium Chloride 500 Ml IV 04/17/24 14:34 500 mls/hr .Q1H ONE Administration Medical Decision Making MDM Narrative Medical decision making narrative: This pleasant 74-year-old gentleman with a very complex past medical history is referred to the ER from the wound clinic this morning for hypoxia and hypotension. He has a chronic wound on his right mid faria for which he was referred to the Wound Clinic (he was actually supposed to have had his 1st wound clinic visit this morning). He has chronic CHF, COPD and is chronically on oxygen overnight (but says he does not use it during the day). He developed shortness of breath above his baseline about an hour prior to his clinic appointment. No other symptoms such as cough, chest pain, palpitations, new peripheral edema. In clinic they were not able to get good oxygen measurements. He was apparently saturating 80% on room air. However they were using on oximeter measuring at his finger tip. In our ER were not able to get reliable measurements from his finger tip. However with a forehead probe saturation is actually 100% on 2 L and in the mid 90s on room air. Suspect that the measured hypoxia from clinic was probably due to measuring from his finger tip, rather than from his forehead. He actually says he is feeling better now. We did do a workup for possible hypoxia. Lung sounds are clear. No wheezing or bronchospasm. No focal rales to suggest pneumonia or pleural effusion, or CHF. Chest x-ray is clear. EKG shows functioning pacemaker with no obvious ischemia. Troponin is negative. Chest x-ray shows no obvious pulmonary edema. Interval proBNP is 3940 today, down from 9000 during his recent hospitalization. Laboratory workup shows a normal white count 7.6, normal hemoglobin. Platelet counts 209. INR is supratherapeutic today at 3.7. With no new lower extremity edema or signs of DVT and a supratherapeutic INR, with normal oxygen saturations here in the ER, I think the patient is very low risk for PE. Would hold off on CT pulmonary angiogram at this time especially in the setting of renal insufficiency. Creatinine today is 3.4. Most recent creatinine was March 23 when he was discharged from the hospital. At that point it was 1.7. BUN is also elevated at 78 (increased from 55 on 03/23). suspect this is probably pre-renal from diuresis. Medical record indicates he is currently on torsemide 100 mg daily. However he actually says his primary care office at [facility] cut him back to 40 mg per day week ago. He has been taking the reduced dose. With worsening renal insufficiency I do think he needs small IV fluid bolus, administered here in the ER. It will be very difficult for this patient to get any outpatient for expeditious follow-up due to his difficulty moving and difficulty with transportation. Therefore we will admit for gentle high rehydration and kidney function monitoring. Lab Data Labs: Lab Results 04/17/24 04/17/24 04/17/24 Range/Units 09:32 09:47 12:12 WBC 7.64 (4.50-11.00) K/uL RBC 5.35 (4.30-5.90) m/uL Hgb 13.7 (13.5-17.5) gm/dL Hct 45.6 (37.0-53.0) % MCV 85 (80-100) fL MCH 26 (26-34) pg MCHC 30 L (32-36) gm/dL RDW Coeff of Mynor 27.6 H (11.5-15.5) % Plt Count 209 (140-440) K/uL Neut % (Auto) 74.9 H (42.0-72.0) % Lymph % (Auto) 9.0 L (20-44) % [place] % (Auto) 12.4 H (0.0-11.0) % Eos % (Auto) 3.4 (0.0-7.0) % Baso % (Auto) 0.0 (0.0-3.0) % Neut # (Auto) 5.70 (1.7-7.0) K/uL Lymph # (Auto) 0.70 L (0.90-2.90) K/uL [place] # (Auto) 0.90 (0.00-0.90) K/UL Eos # (Auto) 0.26 (0.00-0.50) K/uL Baso # (Auto) 0.00 (0.00-0.30) K/uL Abs Immat Gran (auto) 0.02 (0.00-0.30) K/uL Imm/Tot Granulo (auto) 0.3 % INR 3.70 H (0.91-1.10) Sodium 134 L (135-149) mmol/L Potassium 4.9 (3.6-5.1) mmol/L Chloride 100 (96-114) mmol/L Carbon Dioxide 22 (20-32) mmol/L Anion Gap 12 (7-15) mEq/L BUN 78 H (7-30) mg/dL Creatinine 3.4 H (0.5-1.5) mg/dL Estimated Creat Clear 17.82 Estimated GFR 18 ml/min Glucose 105 (60-115) mg/dL Calcium 9.4 (8.4-10.6) mg/dL NT-Pro-B Natriuret Pep 3940 pg/mL POC Troponin I 0.02 0.03 (0.01-0.04) ng/ml Imaging Data Chest x-ray: My impression: Pacemaker in place. Cardiomegaly. Clear lung marie. No pulmonary edema. No pleural effusion. No pneumothorax. No focal infiltrate Radiologist's impression: IMPRESSION: Stable exam without radiographic findings to explain shortness of breath. ECG Data Attestation: I personally reviewed and interpreted this ECG as follows: Interpretation: AV paced rhythm Rate: 60 RI: N/a QRS axis: Paced QRS complex. Left axis deviation ST segment/T wave: No ST segment elevation or depression. T-waves discordant from paced QRS is QTc: 556 Discharge Plan Discharge Clinical Impression: GORGE (acute kidney injury) Patient Disposition: Admitted As Observation
--- NOTE | 2024-04-17 09:32 | CRLHL7_ITS ---
For Patients: As a result of the Cures Act, medical imaging exams and procedure reports are released immediately into your electronic medical record. You may view this report before your referring provider. If you have questions, please contact your health care provider. INDICATION: Shortness of breath. COMPARISON: 03/17/2024 TECHNIQUE: 2 views. FINDINGS: The frontal chest radiograph is limited by technique. Medical Devices: In-situ left-sided dual lead cardiac conduction device. Lung Volumes: Adequate inspiration. No significant atelectasis. Lungs: No focal infiltrate. Pleura and Pleural spaces: No significant pleural effusion. No pneumothorax. Mediastinum: Stable. Bony Thorax and Soft Tissues: No significant incidental findings. IMPRESSION: Stable exam without radiographic findings to explain shortness of breath. Dictated by Elver Arreola MD @ 04/17/2024 10:34:42 AM (Electronically Signed)
[2024-04-17 09:56] LABS: Eosinophils Absolute Auto 0.26 K/uL (0.00-0.50); Eosinophils Percent Auto 3.4 % (0.0-7.0); Hematocrit 45.6 % (37.0-53.0); Hemoglobin* 13.7 gm/dL (13.5-17.5); Immature Granulocytes Abs Auto 0.02 K/uL (0.00-0.30); Immature Granulocytes Pct Auto 0.3 %; Mean Corpuscular HGB Conc 30 gm/dL (32-36); Mean Corpuscular Hemoglobin 26 pg (26-34); Mean Corpuscular Volume 85 fL (80-100); Monocytes Percent Auto 12.4 % (0.0-11.0); Neutrophils Percent Auto 74.9 % (42.0-72.0); Platelet Count* 209 K/uL (140-440); RDW Coefficient of Variation % 27.6 % (11.5-15.5); Red Blood Count 5.35 m/uL (4.30-5.90); White Blood Count* 7.64 K/uL (4.50-11.00)
[2024-04-17 09:59] LABS: Slide Review Reflex No
[2024-04-17 10:10] LABS: Chloride* 100 mmol/L (96-114); Potassium* 4.9 mmol/L (3.6-5.1); Sodium* 134 mmol/L (135-149)
[2024-04-17 10:12] LABS: Prothrombin Time 39.7 Seconds
[2024-04-17 10:12] LABS: Troponin, Point-of-Care* 0.02 ng/ml (0.01-0.04)
--- NOTE | 2024-04-17 10:12 | RESP.RT ---
Patient with Complaint of SOB. Patient SaO2 97% on room air, breathing regular/easy, RR 18/minute. Patient stated not SOB at moment. Patent states has Home Oxygen he uses at night and as required. Has MDI of Albuterol, does not use with extension. Extension given to patient with explanation of use, and how long to wait between inhalation of medication. Patient understands and states so.
[2024-04-17 10:13] LABS: Anion Gap 12 mEq/L (7-15); Blood Urea Nitrogen* 78 mg/dL (7-30); Carbon Dioxide* 22 mmol/L (20-32); Creatinine* 3.4 mg/dL (0.5-1.5); Est. Creatinine Clearance* 17.82; Estimated Glomerular Filt Rate 18 ml/min; Glucose* 105 mg/dL (60-115)
[2024-04-17 10:14] LABS: Calcium* 9.4 mg/dL (8.4-10.6)
[2024-04-17 10:41] LABS: NT Pro B Type NatriureticPept* 3940 pg/mL
[2024-04-17] MEDS: 0.9 % SODIUM CHLORIDE 500 ML 500 ML IV ×2 (11:55→14:18)
[2024-04-17 12:13] LABS: Troponin, Point-of-Care* 0.03 ng/ml (0.01-0.04)
--- NOTE | 2024-04-17 16:19 | PC.SOCIAL ---
Discharge planning: Met with pt regarding d/c plan. Pt states he is still living by himself in his apartment in [place]. He shared that he had been told before he moved in that it was a handicapped accessible apartment, but his scooter he uses does not fit well into the main door or the bathroom door. He shared that he has been talking to the landlord and is hopeful they will change the doors so that he is better able to get around in his apartment. He provided the contact information for his landlord, Yissel [phone] and gave permission for this licensed social worker to call his landlord to ask about the modifications. Mr. Willis has verbal communication challenges because of his stroke and finds it difficult to communicate with others by phone. Pt also gave licensed social worker permission to contact his [facility] rn case management, Ivy, to ask about insurance coverage for transportation to medical appointments as pt is currently paying for the [facility] which does not always have availability to provide the transportation be needs. Called Rohini at [facility] [employer] through [facility] [phone]. She states she is still pt's rn case management but that it will be switching over to [facility] case management in the next week or two. She stated there is transportation available through his insurance but that anything set up with [facility] would need to be changed to [facility] which has different contracted providers. Shared this information with pt who states he will wait until he is set up with [facility] Case Management to inquire about transportation and will continue to use the [facility] at this time. Pt states he would like to discharge home on the [facility] at discharge from the hospital. On behalf of pt, called [employer] and arranged for a machine operator picker at 1:45 tomorrow for discharge home on his scooter. Cost is $2.50, hospital to cover this cost. At pt's request, called his landlord and left message requesting call back to clarify what changes are planned for his apartment to make it more accessible to him. needleworker to follow up as needed.
--- NOTE | 2024-04-17 16:45 | PM.IMHP1 ---
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 He has been doing pretty well at home. He has been taking his prescribed meds including his diuretic, his anticoagulation. He notes that he has been doing well since discharge from the hospital last month. Breathing has been good. No recent cough. No chest pain. His weight has actually come down. He was 195 lb when he was hospitalized last month and is now down to 172. He notes significant improvement in his lower extremity edema. He does wear oxygen overnight but does not really need to use it during the day. He has not had any worsening shortness of breath lately. He has been getting visits from home nursing and they been helping him change dressings for the wound on his right faria. His faria wound has been healing. No recent redness. No purulent drainage. He was feeling normally this morning. He got up and came to the wound clinic for his long awaited wound clinic visit. He did begin to feel short of breath about an hour prior to arrival in the wound clinic. No chest pain. No cough. No other symptoms. In the wound clinic they did check his vital signs. They measured oxygen level at 80% on room air and put him on nasal cannula. However, it is notable that the patient has very poor perfusion of his finger tips and we are not able to get a reliable oximetry from his finger, even with his supplemental oxygen nasal cannula active. When we place a forehead probe we get a good plethysmography waveform and oxygen level is 100%. I dialed him back to room air and oxygen level remained in the high 90s (when measured through the forehead probe). Blood pressure was 70/40 on 3 measurements at the wound clinic triage. However does normalize to 106/60 upon arrival here to the ER. Patient says he feels fine now. No chest pain. No shortness of breath at this time. No cough. No leg swelling. After I discovered that the patient had a creatinine of 3.1, he and I discussed again his diuretics. He actually says that his doctors at the [facility] cut his dose down from 6 pills per day down to 2 pills per day, last week. Per records, the patient has been doing point of care INR is at home. INRs have been supratherapeutic lately. It was 3.5 on 04/14. They wanted him to get a venous INR done at the hospital today. Additional history: Patient has his medications set up by home health nurse. Does not know his medications. Some uncertainty about whether he is taking potassium, spironolactone, lisinopril and what dose of torsemide he has been on recently. He reports that he is feeling fine in his only here because of the abnormalities noted in the wound care clinic today. He has no current health concerns. He reports his current living arrangements are working well for him. Review of Systems Narrative: No new concerns today. [facility] Medical History Hypoxia ?R09.02 - Hypoxemia (ICD-10) Obstructive sleep apnea ?G47.33 - Obstructive sleep apnea (adult) (pediatric) (ICD-10) Adrenal nodule ?E27.8 - Other specified disorders of adrenal gland (ICD-10) Hypokalemia ?E87.6 - Hypokalemia (ICD-10) History of CVA (cerebrovascular accident) ?Z86.73 - Personal history of transient ischemic attack (TIA), and cerebral infarction without residual deficits (ICD-10) Acute on chronic hypoxic respiratory failure ?J96.21 - Acute and chronic respiratory failure with hypoxia (ICD-10) Chronic heart failure with reduced ejection fraction and diastolic dysfunction ?I50.42 - Chronic combined systolic (congestive) and diastolic (congestive) heart failure (ICD-10) Carotid arterial disease ?I77.9 - Disorder of arteries and arterioles, unspecified (ICD-10) NSTEMI (non-ST elevated myocardial infarction) ?I21.4 - Non-ST elevation (NSTEMI) myocardial infarction (ICD-10) Hemiplegia and hemiparesis 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 ?I69.352 - Hemiplegia and hemiparesis 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 (ICD-10) History of ventricular tachycardia ?Z86.79 - Personal history of other diseases of the circulatory system (ICD-10) Ataxia ?R27.0 - Ataxia, unspecified (ICD-10) Chronic anemia ?D64.9 - Anemia, unspecified (ICD-10) Upper GI bleed ?K92.2 - Gastrointestinal hemorrhage, unspecified (ICD-10) CKD (chronic kidney disease) ?N18.9 - Chronic kidney disease, unspecified (ICD-10) CAD (coronary artery disease) ?I25.10 - Atherosclerotic heart disease of semin[place] coronary artery without angina pectoris (ICD-10) Cardiomyopathy ?I42.9 - Cardiomyopathy, unspecified (ICD-10) Recurrent left pleural effusion ?J90 - Pleural effusion, not elsewhere classified (ICD-10) 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 - Alcohol use, unspecified with alcohol-induced persisting amnestic disorder (ICD-10) Alcoholic cirrhosis ?K70.30 - Alcoholic cirrhosis of liver without ascites (ICD-10) Alcohol withdrawal seizure ?F10.939 - Alcohol use, unspecified with withdrawal, unspecified (ICD-10) ?R56.9 - Unspecified convulsions (ICD-10) Alcohol dependence ?F10.20 - Alcohol dependence, uncomplicated (ICD-10) Aphasia ?R47.01 - Aphasia (ICD-10) Cardioembolic stroke ?I63.9 - Cerebral infarction, unspecified (ICD-10) Lacunar infarction ?I63.81 - Other cerebral infarction due to occlusion or stenosis of small artery (ICD-10) Atrial fibrillation ?I48.91 - Unspecified atrial fibrillation (ICD-10) Pulmonary hypertension ?I27.20 - Pulmonary hypertension, unspecified (ICD-10) Hyperlipidemia ?E78.5 - Hyperlipidemia, unspecified (ICD-10) Hypertension ?I10 - Essential (primary) hypertension (ICD-10) Adrenal adenoma ?D35.00 - Benign neoplasm of unspecified adrenal gland (ICD-10) Surgical History H/O hernia repair ?Z98.890 - Other specified postprocedural states (ICD-10) ?Z87.19 - Personal history of other diseases of the digestive system (ICD-10) Social History What is your current living situation?: I presently have a place to live Problems where you live: no known problems Problems where you live details: N/A In the past 12 months, utilities in danger of being shut off: no In past 12 months, lack of transportation kept you from medical appts, meetings, work, or getting things needed for daily living: no In the past 12 mos, have been you worried that your food would run out before you had money to buy more?: never true In the past 12 mos, the food you bought just didn't last and you didn't have money to buy more?: never true Smoking Status: Former smoker Do you use any of these nicotine containing products: None Second hand tobacco smoke exposure: No How often do you have a drink containing alcohol: 4 or more times a week Alcohol type: hard liquor Alcohol type details: 2 whiskey 7-ups per day How many standard drinks containing alcohol do you have on a typical day: 1 or 2 How often do you have six or more drinks on one occasion: Never AUDIT-C Alcohol total score: 4 Non-prescribed substance use: denies use Caffeine: Yes How often does anyone, including family, friends and others, physically hurt you: never How often does anyone, including family, friends and others, insult or talk down to you: never How often does anyone, including family, friends and others, threaten you with harm: never How often does anyone, including family, friends and others, scream or curse at you: never service: No Meds Home Medications and Allergies Home Medications ?Medication ?Instructions ?Recorded ?Confirmed ?Type albuterol sulfate 90 mcg/actuation 2 inh inhalation Q4H PRN 03/17/24 04/17/24 History aerosol inhaler (Ventolin HFA) aspirin 81 mg tablet,delayed 81 mg PO DAILY 03/17/24 04/17/24 History release (Adult Aspirin Regimen) atorvastatin 80 mg tablet 80 mg PO HS 03/17/24 04/17/24 History bisacodyl 10 mg rectal suppository 10 mg NC DAILY PRN 03/17/24 04/17/24 History dextran 70-hypromellose 0.1 %-0.3 1 drp ophthalmic (eye) QID PRN 03/17/24 04/17/24 History % eye drops diclofenac sodium 1 % topical gel 2 g topical QID PRN 03/17/24 04/17/24 History (Voltaren Arthritis Pain) methyl salicylate-menthol topical 1 ea topical TID PRN 03/17/24 04/17/24 History ointment pantoprazole 20 mg tablet,delayed 20 mg PO DAILY 03/17/24 04/17/24 History release sennosides 8.6 mg tablet (Senna 17.2 mg PO DAILY PRN 03/17/24 04/17/24 History Lax) warfarin 1 mg tablet 1.5 - 2 mg PO DAILY 03/17/24 04/17/24 History acetaminophen 650 mg 650 mg PO Q6H PRN 04/17/24 04/17/24 History tablet,extended release (Arthritis Pain Reliever) carvedilol 6.25 mg tablet 6.25 mg PO BID 04/17/24 04/17/24 History lisinopril 2.5 mg tablet 2.5 mg PO DAILY 04/17/24 04/17/24 History torsemide 20 mg tablet 50 mg PO DAILY 04/17/24 04/17/24 History Allergies Allergy/AdvReac Type Severity Reaction Status Date / Time No Known Drug Allergies Allergy Verified 03/17/24 11:07 Exam Narrative: Exam Narrative: He is alert and appears in no distress. Due to previous stroke he has some difficulties with articulation. This appears to be at baseline for him. Mood and affect are bright. He is pleasant and cooperative. Neck is supple without jugular venous distension. Respirations are clear to auscultation. He has diminished breath sounds but no wheezing rales or rhonchi. Abdomen: Bowel sounds active. Abdomen is soft without tenderness or mass. Extremities are somewhat cool to touch he has somewhat decreased perfusion of his fingers and toes. No edema Const: Vital Signs, click to edit/add: Vital Signs - 24 hr 04/17/24 09:02 04/17/24 09:26 04/17/24 09:30 Temperature 96.3 F L Pulse Rate 60 60 Pulse Rate [Right Pulse Oximeter] 60 Pulse Rate [Right Radial] Respiratory Rate 18 Blood Pressure Blood Pressure [Ri ght Arm] Blood Pressure [Ri ght Upper Arm] 105/59 L Pulse Oximetry 100 98 97 Oxygen Delivery Me thod Nasal Cannula Nasal Cannula Nasal Cannula Oxygen Flow Rate 2 2 2 04/17/24 09:45 04/17/24 10:00 04/17/24 10:18 Temperature Pulse Rate 60 60 60 Pulse Rate [Right Pulse Oximeter] Pulse Rate [Right Radial] Respiratory Rate Blood Pressure Blood Pressure [Ri ght Arm] Blood Pressure [Ri ght Upper Arm] Pulse Oximetry 99 100 95 Oxygen Delivery Me thod Room Air Room Air Room Air Oxygen Flow Rate 04/17/24 10:21 04/17/24 10:22 04/17/24 10:30 Temperature Pulse Rate 58 L 60 59 L Pulse Rate [Right Pulse Oximeter] Pulse Rate [Right Radial] Respiratory Rate Blood Pressure 120/64 Blood Pressure [Ri ght Arm] Blood Pressure [Ri ght Upper Arm] Pulse Oximetry 98 100 99 Oxygen Delivery Me thod Room Air Oxygen Flow Rate 04/17/24 10:32 04/17/24 10:45 04/17/24 11:00 Temperature Pulse Rate 60 60 60 Pulse Rate [Right Pulse Oximeter] Pulse Rate [Right Radial] Respiratory Rate Blood Pressure 117/62 Blood Pressure [Ri ght Arm] Blood Pressure [Ri ght Upper Arm] Pulse Oximetry 99 98 98 Oxygen Delivery Me thod Oxygen Flow Rate 04/17/24 11:02 04/17/24 11:15 04/17/24 11:30 Temperature Pulse Rate 60 60 60 Pulse Rate [Right Pulse Oximeter] Pulse Rate [Right Radial] Respiratory Rate Blood Pressure 125/68 Blood Pressure [Ri ght Arm] Blood Pressure [Ri ght Upper Arm] Pulse Oximetry 98 94 99 Oxygen Delivery Me thod Oxygen Flow Rate 04/17/24 11:45 04/17/24 12:00 04/17/24 12:02 Temperature Pulse Rate 60 59 L 60 Pulse Rate [Right Pulse Oximeter] Pulse Rate [Right Radial] Respiratory Rate Blood Pressure 118/68 Blood Pressure [Ri ght Arm] Blood Pressure [Ri ght Upper Arm] Pulse Oximetry 98 96 98 Oxygen Delivery Me thod Oxygen Flow Rate 04/17/24 12:15 04/17/24 13:08 04/17/24 15:15 Temperature 98.3 F 98.2 F Pulse Rate 60 Pulse Rate [Right Pulse Oximeter] Pulse Rate [Right Radial] 62 60 Respiratory Rate 18 18 Blood Pressure Blood Pressure [Ri ght Arm] 109/66 125/70 Blood Pressure [Ri ght Upper Arm] Pulse Oximetry 100 96 94 Oxygen Delivery Me thod Room Air Room Air Oxygen Flow Rate 04/17/24 15:15 Temperature Pulse Rate Pulse Rate [Right Pulse Oximeter] Pulse Rate [Right Radial] Respiratory Rate 18 Blood Pressure Blood Pressure [Ri ght Arm] Blood Pressure [Ri ght Upper Arm] Pulse Oximetry 94 Oxygen Delivery Me thod Room Air Oxygen Flow Rate 0 Documenting provider has reviewed patient's vital signs: yes Hospitalist - H&P: Result Labs Labs: Short CBC 04/17/24 Range/Units 09:47 WBC 7.64 (4.50-11.00) K/uL Hgb 13.7 (13.5-17.5) gm/dL Hct 45.6 (37.0-53.0) % Plt Count 209 (140-440) K/uL BMP 04/17/24 09:47 Sodium 134 L Potassium 4.9 Chloride 100 Carbon Dioxide 22 BUN 78 H Creatinine 3.4 H Glucose 105 Calcium 9.4 Assessment and Plan Assessment and plan (1) Dehydration: Problem comment: Clinically patient appears to be he dehydrated. I believe this is the cause of the relatively low blood pressures and the cause of the hypoxia which was probably due to poor perfusion of the fingers on the pulse oximetry. O2 sats are normal at 98 to 99% on room air when I see him. Poor perfusion in finger tips persist. Hold diuretics and blood pressure medications and additional fluid. Status: Acute (2) GORGE (acute kidney injury): Problem comment: Likely due to dehydration. Probably needs less diuretics as well. Status: Acute (3) CHF (congestive heart failure): Problem comment: Appears well compensated. Will need close follow-up if reducing heart failure medications. Status: Acute Plan Admit to the hospital for fluid resuscitation and holding heart failure medications with a goal of optimizing heart failure in the context of dehydration, hypotension and acute kidney injury. Total Time Spent Total Time Spent: Total time spent today is 75 minutes, 25 minutes in coordination of care discussing with patient and other providers ongoing evaluation management of heart failure and dehydration
--- NOTE | 2024-04-17 18:29 | PC.NURSE ---
(shift 15-19) Pt alert and oriented. Pt had no complaints of pain. 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 Pt on room air and is tolerating well. Pt wears one Liter of oxygen at night.n Pt SBA. Pt had no complaints of pain. ?
[2024-04-17] MEDS: ATORVASTATIN CALCIUM 40 MG TABLET 80 MG PO (20:50)
[2024-04-17] MEDS: SODIUM CHLORIDE 0.9 % (FLUSH) 10 ML SYRINGE 5 ML IVF (20:52)
[2024-04-17] MEDS: carvediloL 6.25 MG TABLET PO (20:52)
[2024-04-17] MEDS: ACETAMINOPHEN 650 MG TABLET ER PO (20:57)
[2024-04-18 02:19] VITALS: BP 129/68; PULSE 60; RESP 18; TEMP 36.5; O2SAT 100
--- NOTE | 2024-04-18 04:42 | PC.NURSE ---
Shift note: Pt has been pleasant and cooperated with treatment and care. Occasional confusion but easily redirectable. 2 person assist with EZ stand to bedside commode. Groin area clean and Nystatin powder applied. NSR from playground monitor. Pt had adequate sleep, no awkward behaviors this shift. Vitally stable. Pt has Mepilex to coccyx.
--- NOTE | 2024-04-18 05:34 | PC.NURSE ---
Shift note: Pt is doing well this morning. Bp and HR are stable. O2 probe at forehead was successfully replaced with finger and O2 maintain >90 in room air when awake and 1L when sleeping. Small amount of blood was seen coming from the wound at the left faria. Wound cleaned and gauze dressing applied. Pt is SBA in room. Complained of pain to the right shoulder when moving. Tylenol given. A/O, pt had adequate sleep.
[2024-04-18] MEDS: OMEPRAZOLE 20 MG CAPSULE DR PO (06:26)
[2024-04-18 06:50] LABS: Chloride* 104 mmol/L (96-114); Potassium* 4.7 mmol/L (3.6-5.1); Sodium* 136 mmol/L (135-149)
[2024-04-18 06:52] LABS: Creatinine* 2.7 mg/dL (0.5-1.5); Est. Creatinine Clearance* 22.44; Estimated Glomerular Filt Rate 24 ml/min
[2024-04-18 06:53] LABS: Anion Gap 8 mEq/L (7-15); Blood Urea Nitrogen* 66 mg/dL (7-30); Calcium* 8.8 mg/dL (8.4-10.6); Carbon Dioxide* 24 mmol/L (20-32); Glucose* 91 mg/dL (60-115)
[2024-04-18 07:00] VITALS: BP 118/64; PULSE 63; RESP 18; TEMP 36.5; O2SAT 91
[2024-04-18 07:11] LABS: INR 4.14 (0.91-1.10); Prothrombin Time 43.4 Seconds
[2024-04-18] MEDS: carvediloL 6.25 MG TABLET PO (09:14)
[2024-04-18] MEDS: ACETAMINOPHEN 650 MG TABLET ER PO (09:16)
[2024-04-18 11:00] VITALS: BP 109/58; PULSE 60; RESP 16; O2SAT 93
--- NOTE | 2024-04-18 12:14 | P.DS_ITS ---
DS: Providers Provider Date Seen: 04/18/24 Date of admission: 04/17/24 12:39 Primary care physician: Not a Local Provider Admitting Clinician: Santiago Larkin MD Attending Physician on discharge: Santiago Larkin MD Date of Discharge: 04/18/24 DS: Diagnosis Discharge Diagnosis (1) Dehydration: Status: Acute Problem details: Clinically patient appears to be he dehydrated. I believe this is the cause of the relatively low blood pressures and the cause of the hypoxia which was probably due to poor perfusion of the fingers on the pulse oximetry. O2 sats are normal at 98 to 99% on room air when I see him. Poor perfusion in finger tips persist. During his hospital stay his diuretics were held and he was given IV fluids. BUN (66) creatinine) (27) and potassium (4.7) all improved since admission. (2) GORGE (acute kidney injury): Status: Acute Problem details: Likely due to dehydration. Probably needs less diuretics as well. At discharge stop spironolactone and torsemide will be at 40 mg daily. Closely follow weights and basic metabolic panel next week. (3) CHF (congestive heart failure): Status: Acute Problem details: Appears well compensated. Will need close follow-up if reducing heart failure medications. Close outpatient follow-up. 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 He has been doing pretty well at home. He has been taking his prescribed meds including his diuretic, his anticoagulation. INRs have been mostly subtherapeutic or excessively high in the last couple months. Reviewing clinic records it appears that he has had his potassium held, his spironolactone stopped and his torsemide dose adjusted possibly to 40 mg or 50 mg a day. Under sets up his medications. He does not know his medications. Uncertain how compliant he is with his medications. He notes that he has been doing well since discharge from the hospital last month. Breathing has been good. No recent cough. No chest pain. His weight has actually come down. He was 195 lb when he was hospitalized last month and is now down to 172. He notes significant improvement in his lower extremity edema. He does wear oxygen overnight but does not really need to use it during the day. He has not had any worsening shortness of breath lately. He has been getting visits from home nursing and they been helping him change dressings for the wound on his right faria. His faria wound has been healing. No recent redness. No purulent drainage. He was feeling normally this morning. He got up and came to the wound clinic for his long awaited wound clinic visit. He did begin to feel short of breath about an hour prior to arrival in the wound clinic. No chest pain. No cough. No other symptoms. In the wound clinic they did check his vital signs. They measured oxygen level at 80% on room air and put him on nasal cannula. However, it is notable that the patient has very poor perfusion of his finger tips and we are not able to get a reliable oximetry from his finger, even with his supplemental oxygen nasal cannula active. When we place a forehead probe we get a good plethysmography waveform and oxygen level is 100%. I dialed him back to room air and oxygen level remained in the high 90s (when measured through the forehead probe). Blood pressure was 70/40 on 3 measurements at the wound clinic triage. However does normalize to 106/60 upon arrival here to the ER. Patient says he feels fine now. No chest pain. No shortness of breath at this time. No cough. No leg swelling. After I discovered that the patient had a creatinine of 3.1, he and I discussed again his diuretics. He actually says that his doctors at the [facility] cut his dose down from 6 pills per day down to 2 pills per day, last week. Per records, the patient has been doing point of care INR is at home. INRs have been supratherapeutic lately. It was 3.5 on 04/14. They wanted him to get a venous INR done at the hospital today. Additional history: Patient has his medications set up by home health nurse. Does not know his medications. Some uncertainty about whether he is taking potassium, spironolactone, lisinopril and what dose of torsemide he has been on recently. He reports that he is feeling fine in his only here because of the abnormalities noted in the wound care clinic today. He has no current health concerns. He reports his current living arrangements are working well for him. Status at Discharge Functional status at discharge: wheelchair bound Overall status at discharge: patient is progressing back to baseline Time Spent with Patient Time attestation: Total time spent providing and/or coordinating discharge services: 40 mins. Time spent: Greater than 30 minutes Exam Narrative: Exam Narrative: He is alert and appears in no distress. Respirations are clear to auscultation. Cardiovascular: S1, S2, regular rate and rhythm. Abdomen is soft without tenderness. No significant edema. Const: Vital Signs, click to edit/add: Vital Signs - 24 hr 04/17/24 12:15 04/17/24 13:08 04/17/24 15:15 Temperature 98.3 F 98.2 F Pulse Rate 60 Pulse Rate [Right Radial] 62 60 Respiratory Rate 18 18 Blood Pressure [Ri ght Arm] 109/66 125/70 Pulse Oximetry 100 96 94 Oxygen Delivery Me thod Room Air Room Air Oxygen Flow Rate 04/17/24 15:15 04/17/24 19:00 04/17/24 20:52 Temperature 98.4 F Pulse Rate Pulse Rate [Right Radial] 60 Respiratory Rate 18 18 Blood Pressure [Ri ght Arm] 111/57 L 126/71 Pulse Oximetry 94 94 Oxygen Delivery Me thod Room Air Room Air Oxygen Flow Rate 0 0 04/17/24 22:24 04/17/24 22:24 04/18/24 02:19 Temperature 98 F 97.7 F Pulse Rate Pulse Rate [Right Radial] 60 60 60 Respiratory Rate 18 18 18 Blood Pressure [Ri ght Arm] 109/60 129/68 Pulse Oximetry 95 100 Oxygen Delivery Me thod Room Air Nasal Cannula Oxygen Flow Rate 0 1 04/18/24 07:00 04/18/24 07:00 04/18/24 07:00 Temperature 97.7 F Pulse Rate Pulse Rate [Right Radial] 63 63 Respiratory Rate 18 18 18 Blood Pressure [Ri ght Arm] 118/64 Pulse Oximetry 91 91 Oxygen Delivery Me thod Room Air Room Air Oxygen Flow Rate DS: Data Data Completed and Pending Completed studies during hospitalization: Procedures Introduction of Other Therapeutic Substance into Respiratory Tract, Via Natural or Artificial Opening (03/17/24) Labs on day of discharge: Labs from last 24 hours 04/18/24 06:23 INR 4.14 H Sodium 136 Potassium 4.7 Chloride 104 Carbon Dioxide 24 Anion Gap 8 BUN 66 H Creatinine 2.7 H Estimated Creat Clear 22.44 Estimated GFR 24 Glucose 91 Calcium 8.8 Discharge Plan Discharge Disposition: Home, Self-Care Date of Admission: 04/17/24 12:39 Attending Provider on Discharge: Santiago Larkin Primary Care Provider: Provider,Not a Local Condition: Improved Anticipated Discharge Date/Time: 04/18/24 13:00 Discharge Medications: New apixaban 2.5 mg tablet 2.5 mg PO BID Qty: 60 2RF Continued atorvastatin 80 mg tablet 80 mg PO HS pantoprazole 20 mg tablet,delayed release (DR/EC) 20 mg PO DAILY albuterol sulfate [Ventolin HFA] 90 mcg/actuation HFA aerosol inhaler 2 inh inhalation Q4H PRN bisacodyl 10 mg suppository 10 mg [place] DAILY PRN diclofenac sodium [Voltaren Arthritis Pain] 1 % gel 2 g topical QID PRN Rx Instructions: apply to single elbow, wrist or hand; for hand includes palm/fingers/back of hand methyl salicylate-menthol Ointment 1 ea topical TID PRN dextran 70-hypromellose 0.1-0.3 % drops 1 drp ophthalmic (eye) QID PRN sennosides [Senna Lax] 8.6 mg tablet 17.2 mg PO DAILY PRN carvedilol 6.25 mg tablet 6.25 mg PO BID acetaminophen [Arthritis Pain Reliever] 650 mg tablet extended release 650 mg PO Q6H PRN lisinopril 2.5 mg tablet 2.5 mg PO DAILY Changed torsemide 20 mg tablet 40 mg PO DAILY Qty: 60 0RF Discontinued warfarin 1 mg tablet 1.5 - 2 mg PO DAILY Rx Instructions: DIRECTED BY INR CLINIC aspirin [Adult Aspirin Regimen] 81 mg tablet,delayed release (DR/EC) 81 mg PO DAILY potassium chloride 10 mEq Capsule, Extended Release 20 meq PO DAILYWM Qty: 60 0RF Hold Instructions: PER CARDS spironolactone 25 mg Tablet 25 mg PO DAILY Qty: 30 0RF Hold Instructions: ON HOLD PER CARDS Discharge Orders: Discharge Order (Routine); Ordered 04/18/24 Ordered By: Santiago Larkin Patient Education: Apixaban (By mouth), Acute Kidney Injury (DC) Additional Instructions: Home care nurse to set up medications Activity Level: Activity as Tolerated Discharge Diet: Heart Healthy (2 gm sodium, low fat) Follow Up Appointments: Provider,Not a Local [Primary Care Provider] - (Follow-up with primary care provider in 1 week. Follow up labs in 1 week: CBC, basic metabolic panel) Yuliet Blair DO [Staff Physician] - 04/26/24 11:15 am ([facility] for follow-up and labs CBC, basic metabolic panel.) Forms: [employer] Info Instructions
--- NOTE | 2024-04-18 15:18 | PC.NURSE ---
Nursing Care Hours: [id number] Pt this shift calm and cooperative, alert and oriented. VSS. C/o pain to R shoulder, states it has been hurting for about a month. Treating with tylenol. 1L NC while sleeping for hypoxia. SB assist to bathroom. Pt dressed self. IV removed for discharge. Instructions went over with pt. Assisted with scooter to ride. Instructed not to take any medications at home today until home care nurse reviews medications for set up. Bandage on leg CDI.
== END 2024-04-18 13:35 | disposition home or self-care (01) ==
LOC: ED 11:24 → MEDSURG 12:39
PROVIDERS: Admitting Provider Family Medicine; Emergency Provider Emergency Medicine; Visit Provider Family Medicine
DX: N17.9 Acute kidney failure, unspecified (principal); E86.0 Dehydration; I50.20 Unspecified systolic (congestive) heart failure; I13.0 Hypertensive heart and chronic kidney disease with heart failure and stage 1 through stage 4 chronic kidney disease, or unspecified chronic kidney disease; I11.0 Hypertensive heart disease with heart failure; N39.0 Urinary tract infection, site not specified; I48.91 Unspecified atrial fibrillation; R79.0 Abnormal level of blood mineral; I25.10 Atherosclerotic heart disease of native coronary artery without angina pectoris; R63.4 Abnormal weight loss; Z68.25 Body mass index [BMI] 25.0-25.9, adult; S81.801A Unspecified open wound, right lower leg, initial encounter; R60.0 Localized edema; R47.01 Aphasia; E27.8 Other specified disorders of adrenal gland; R06.02 Shortness of breath; I95.9 Hypotension, unspecified; K70.30 Alcoholic cirrhosis of liver without ascites; F10.96 Alcohol use, unspecified with alcohol-induced persisting amnestic disorder; I69.352 Hemiplegia and hemiparesis 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; E78.5 Hyperlipidemia, unspecified; I73.89 Other specified peripheral vascular diseases; G47.33 Obstructive sleep apnea (adult) (pediatric); J44.9 Chronic obstructive pulmonary disease, unspecified; N18.9 Chronic kidney disease, unspecified; Z79.01 Long term (current) use of anticoagulants; Z95.0 Presence of cardiac pacemaker; Z87.09 Personal history of other diseases of the respiratory system; Z86.018 Personal history of other benign neoplasm; Z86.79 Personal history of other diseases of the circulatory system; Z98.890 Other specified postprocedural states; Z87.19 Personal history of other diseases of the digestive system
CPT/HCPCS: 36415; 71046; 80048; 83880; 84484; 85025; 85610; 96360; 96361; 99284; 99285; G0463; A9270; G0378; J7030

== ENCOUNTER 2024-04-26 12:04 | Outpatient (CLI) | payer MEDICARE, MEDICAID, SELFPAY | END 2024-04-26 12:05 | disposition home or self-care (01) | LOC: AMB 04-30 08:32 | PROVIDERS: Visit Provider Emergency Medicine | DX: R55 Syncope and collapse (principal); I95.9 Hypotension, unspecified | CPT/HCPCS: A0425; A0427 ==

== ENCOUNTER 2024-04-26 12:54 | Inpatient (IN) | payer MEDICARE, MEDICAID, SELFPAY ==
[2024-04-26] VITALS (23 sets, daily range): BP systolic 74–118; BP diastolic 46–93; PULSE 60–96; RESP 16; TEMP 35.7–36.4; O2SAT 83–96; BMI 25.1
--- NOTE | 2024-04-26 13:26 | ED_ITS ---
HPI - General Adult General Chief complaint: Hypotension Stated complaint: Low BP Time Seen by Provider: 04/26/24 13:12 History of Present Illness HPI narrative: Patient is a 74-year-old male with a complex past medical history, couple of recent admissions to the hospital here with congestive heart failure as well as acute kidney injury, most recently on April 18 of this year. He was at [facility] clinic today, says he was feeling okay, feels that he has been doing okay since discharge but when they went to draw some blood he started to feel poorly. Was noted to have low blood pressures, perhaps low O2 sats and was sent here by ambulance. He says he feels improved now. His medications were adjusted secondary to his kidney injury and at this point he is on torsemide 40 daily. His speech is very difficult to understand secondary to prior stroke but best I can tell he is taking his medications as prescribed. He has some chronic wounds that he feels are doing okay. He says he is making urine and feels like that has been normal. He has not had fevers or chills, he denies difficulty breathing or leg swelling. Related Data Home Medications ?Medication ?Instructions ?Recorded ?Confirmed albuterol sulfate 90 mcg/actuation 2 inh inhalation Q4H PRN 03/17/24 04/26/24 aerosol inhaler (Ventolin HFA) atorvastatin 80 mg tablet 80 mg PO HS 03/17/24 04/26/24 bisacodyl 10 mg rectal suppository 10 mg [place] DAILY PRN 03/17/24 04/26/24 dextran 70-hypromellose 0.1 %-0.3 1 drp ophthalmic (eye) QID PRN 03/17/24 04/26/24 % eye drops diclofenac sodium 1 % topical gel 2 g topical QID PRN 03/17/24 04/26/24 (Voltaren Arthritis Pain) sennosides 8.6 mg tablet (Senna 17.2 mg PO DAILY PRN 03/17/24 04/26/24 Lax) acetaminophen 650 mg 650 mg PO Q6H PRN 04/17/24 04/26/24 tablet,extended release (Arthritis Pain Reliever) carvedilol 6.25 mg tablet 6.25 mg PO BID 04/17/24 04/26/24 lisinopril 2.5 mg tablet 2.5 mg PO DAILY 04/17/24 04/26/24 pantoprazole 40 mg tablet,delayed 40 mg PO BID 04/26/24 04/26/24 release thiamine mononitrate (vit B1) 50 50 mg PO DAILY 04/26/24 04/26/24 mg tablet torsemide 10 mg tablet 40 mg PO QAM 04/26/24 04/26/24 Previous Rx's ?Medication ?Instructions ?Recorded apixaban 2.5 mg tablet 2.5 mg PO BID #60 tabs 04/18/24 Allergies Allergy/AdvReac Type Severity Reaction Status Date / Time No Known Drug Allergies Allergy Verified 04/26/24 13:08 Review of Systems Status of ROS: Reports: unobtainable due to medical condition PFSH [facility] Medical History Hypoxia ?R09.02 - Hypoxemia (ICD-10) Obstructive sleep apnea ?G47.33 - Obstructive sleep apnea (adult) (pediatric) (ICD-10) Adrenal nodule ?E27.8 - Other specified disorders of adrenal gland (ICD-10) Hypokalemia ?E87.6 - Hypokalemia (ICD-10) History of CVA (cerebrovascular accident) ?Z86.73 - Personal history of transient ischemic attack (TIA), and cerebral infarction without residual deficits (ICD-10) Acute on chronic hypoxic respiratory failure ?J96.21 - Acute and chronic respiratory failure with hypoxia (ICD-10) Chronic heart failure with reduced ejection fraction and diastolic dysfunction ?I50.42 - Chronic combined systolic (congestive) and diastolic (congestive) heart failure (ICD-10) Carotid arterial disease ?I77.9 - Disorder of arteries and arterioles, unspecified (ICD-10) NSTEMI (non-ST elevated myocardial infarction) ?I21.4 - Non-ST elevation (NSTEMI) myocardial infarction (ICD-10) Hemiplegia and hemiparesis 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 ?I69.352 - Hemiplegia and hemiparesis 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 (ICD-10) History of ventricular tachycardia ?Z86.79 - Personal history of other diseases of the circulatory system (ICD- 10) Ataxia ?R27.0 - Ataxia, unspecified (ICD-10) Chronic anemia ?D64.9 - Anemia, unspecified (ICD-10) Upper GI bleed ?K92.2 - Gastrointestinal hemorrhage, unspecified (ICD-10) CKD (chronic kidney disease) ?N18.9 - Chronic kidney disease, unspecified (ICD-10) CAD (coronary artery disease) ?I25.10 - Atherosclerotic heart disease of [place] coronary artery without angina pectoris (ICD-10) Cardiomyopathy ?I42.9 - Cardiomyopathy, unspecified (ICD-10) Recurrent left pleural effusion ?J90 - Pleural effusion, not elsewhere classified (ICD-10) 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 - Alcohol use, unspecified with alcohol-induced persisting amnestic disorder (ICD-10) Alcoholic cirrhosis ?K70.30 - Alcoholic cirrhosis of liver without ascites (ICD-10) Alcohol withdrawal seizure ?F10.939 - Alcohol use, unspecified with withdrawal, unspecified (ICD-10) ?R56.9 - Unspecified convulsions (ICD-10) Alcohol dependence ?F10.20 - Alcohol dependence, uncomplicated (ICD-10) Aphasia ?R47.01 - Aphasia (ICD-10) Cardioembolic stroke ?I63.9 - Cerebral infarction, unspecified (ICD-10) Lacunar infarction ?I63.81 - Other cerebral infarction due to occlusion or stenosis of small art patricia (ICD-10) Atrial fibrillation ?I48.91 - Unspecified atrial fibrillation (ICD-10) Pulmonary hypertension ?I27.20 - Pulmonary hypertension, unspecified (ICD-10) Hyperlipidemia ?E78.5 - Hyperlipidemia, unspecified (ICD-10) Hypertension ?I10 - Essential (primary) hypertension (ICD-10) Adrenal adenoma ?D35.00 - Benign neoplasm of unspecified adrenal gland (ICD-10) Surgical History H/O hernia repair ?Z98.890 - Other specified postprocedural states (ICD-10) ?Z87.19 - Personal history of other diseases of the digestive system (ICD-10) Social History What is your current living situation?: I presently have a place to live Problems where you live: no known problems Problems where you live details: N/A In the past 12 months, utilities in danger of being shut off: no In past 12 months, lack of transportation kept you from medical appts, meetings, work, or getting things needed for daily living: no In the past 12 mos, have been you worried that your food would run out before you had money to buy more?: never true In the past 12 mos, the food you bought just didn't last and you didn't have money to buy more?: never true Smoking Status: Former smoker Do you use any of these nicotine containing products: None Second hand tobacco smoke exposure: No How often do you have a drink containing alcohol: 4 or more times a week Alcohol type: hard liquor Alcohol type details: 2 whiskey 7-ups per day How many standard drinks containing alcohol do you have on a typical day: 1 or 2 How often do you have six or more drinks on one occasion: Never AUDIT-C Alcohol total score: 4 Non-prescribed substance use: denies use Caffeine: Yes How often does anyone, including family, friends and others, physically hurt you : never How often does anyone, including family, friends and others, insult or talk down to you: never How often does anyone, including family, friends and others, threaten you with harm: never How often does anyone, including family, friends and others, scream or curse at you: never service: No Exam Narrative: Exam Narrative: Vital signs as noted above. In general, an alert, nontoxic male. Pleasant, cooperative. Head: Normocephalic, atraumatic. Eyes: Pupils are equal reactive. Extraocular movements are full. Conjunctivae are normal. ENT: Mucous membranes are mildly dry. Throat is normal. Neck: Supple without lymphadenopathy. Heart: Regular rate and rhythm. No murmur or rub. Pacemaker. Lungs: Clear bilaterally. No increased work of breathing, crackles or wheezes. Abdomen: Soft and nontender. No organomegaly. Extremities: Well perfused. No edema. No calf tenderness. Pulses intact. A couple of bandages overlying chronic wounds, these were not removed but there is no surrounding erythema or edema. Neurologic: Patient is alert and oriented to person and place. Speech is fluent. Face is symmetric. Moves all extremities equally. Affect: Normal. Skin: Warm and dry. Well perfused. Const: Vital Signs, click to edit/add: Vital Signs - 24 hr 04/26/24 13:08 04/26/24 13:32 04/26/24 13:47 Temperature 96.3 F L Pulse Rate Pulse Rate [Pulse Oximeter] 96 Respiratory Rate 16 Blood Pressure 100/53 L 111/64 Blood Pressure [Ri ght Upper Arm] 95/48 L Pulse Oximetry 96 Oxygen Delivery Me thod Room Air Oxygen Flow Rate 04/26/24 14:02 04/26/24 14:17 04/26/24 14:32 Temperature Pulse Rate Pulse Rate [Pulse Oximeter] Respiratory Rate Blood Pressure 116/60 115/59 L 112/64 Blood Pressure [Ri ght Upper Arm] Pulse Oximetry Oxygen Delivery Me thod Oxygen Flow Rate 04/26/24 14:46 04/26/24 15:02 04/26/24 15:17 Temperature Pulse Rate Pulse Rate [Pulse Oximeter] Respiratory Rate Blood Pressure 118/58 L 116/68 116/64 Blood Pressure [Ri ght Upper Arm] Pulse Oximetry Oxygen Delivery Me thod Oxygen Flow Rate 04/26/24 15:21 04/26/24 15:30 04/26/24 15:32 Temperature Pulse Rate 78 63 64 Pulse Rate [Pulse Oximeter] Respiratory Rate Blood Pressure 114/93 H Blood Pressure [Ri ght Upper Arm] Pulse Oximetry 88 83 L 83 L Oxygen Delivery Me thod Oxygen Flow Rate 04/26/24 15:33 04/26/24 15:38 Temperature Pulse Rate Pulse Rate [Pulse Oximeter] Respiratory Rate Blood Pressure Blood Pressure [Ri ght Upper Arm] Pulse Oximetry 94 91 Oxygen Delivery Me thod Nasal Cannula Oxygen Flow Rate 1 Course Course ED Course: Patient had a L of normal saline per paramedics, blood pressures have remained in the 90s to low 100s. An EKG shows a paced rhythm, ventricular rate of 60. Labs are notable for a creatinine of 3.6, again up from his baseline. BUN is 84. CBC is unremarkable. Potassium is 5.1. LFTs notable only for an AST of 40 and an alk-phos of 184. Troponin is 0.03. CRP is 0.5, urinalysis took a long time to get this patient did not provide a urine sample for about 4 hours after arrival. This did not come back until after patient's departure from the floor but did show 10-25 white blood cells 0-2 red cells. Case was discussed with the hospitalist, he continues to show signs of acute kidney injury and overall we decided he would be best served by admission again rehydration perhaps a conversation with Cardiology to determine best management for his congestive heart failure in light of his recent difficulties with his kidneys. He is agreeable to that. Vital Signs Vital signs: Initial Vital Signs Temperature 96.3 F L 04/26/24 13:08 Temperature Source Temporal Artery Scan 04/26/24 13:08 Pulse Rate 96 04/26/24 13:08 Respiratory Rate 16 04/26/24 13:08 Blood Pressure 95/48 L 04/26/24 13:08 Blood Pressure Mean 63 L 04/26/24 13:08 Blood Pressure Position Supine 04/26/24 13:08 Pulse Oximetry 96 04/26/24 13:08 Oxygen Delivery Method Room Air 04/26/24 13:08 Vital Signs Temperature 96.3 F L 04/26/24 13:08 Pulse Rate 96 04/26/24 13:08 Respiratory Rate 16 04/26/24 13:08 Blood Pressure 95/48 L 04/26/24 13:08 Pulse Oximetry 96 04/26/24 13:08 Oxygen Delivery Method Room Air 04/26/24 13:08 Temperature 96.3 F L 04/26/24 13:08 Pulse Rate 64 04/26/24 15:32 Respiratory Rate 16 04/26/24 13:08 Blood Pressure 114/93 H 04/26/24 15:32 Pulse Oximetry 91 04/26/24 15:38 Oxygen Delivery Method Nasal Cannula 04/26/24 15:38 Oxygen Flow Rate 1 04/26/24 15:38 Medical Decision Making Lab Data Labs: Lab Results 04/26/24 04/26/24 Range/Units 13:45 16:34 WBC 9.21 (4.50-11.00) K/uL RBC 5.34 (4.30-5.90) m/uL Hgb 13.9 (13.5-17.5) gm/dL Hct 45.3 (37.0-53.0) % MCV 85 (80-100) fL MCH 26 (26-34) pg MCHC 31 L (32-36) gm/dL RDW Coeff of Mynor 27.2 H (11.5-15.5) % Plt Count 215 (140-440) K/uL Neut % (Auto) 82.6 H (42.0-72.0) % Lymph % (Auto) 6.1 L (20-44) % [place] % (Auto) 9.9 (0.0-11.0) % Eos % (Auto) 0.9 (0.0-7.0) % Baso % (Auto) 0.2 (0.0-3.0) % Neut # (Auto) 7.60 H (1.7-7.0) K/uL Lymph # (Auto) 0.60 L (0.90-2.90) K/uL [place] # (Auto) 0.90 (0.00-0.90) K/UL Eos # (Auto) 0.08 (0.00-0.50) K/uL Baso # (Auto) 0.02 (0.00-0.30) K/uL Abs Immat Gran (auto) 0.03 (0.00-0.30) K/uL Imm/Tot Granulo (auto) 0.3 % VBG pH 7.325 (7.32-7.43) VBG pCO2 47 (40-50) mmHG VBG pO2 33.3 (25-47) mmHG VBG HCO3 24 (21-28) mmol/L Sodium 134 L (135-149) mmol/L Potassium 5.1 (3.6-5.1) mmol/L Chloride 102 (96-114) mmol/L Carbon Dioxide 21 (20-32) mmol/L Anion Gap 11 (7-15) mEq/L BUN 84 H (7-30) mg/dL Creatinine 3.6 H (0.5-1.5) mg/dL Estimated GFR 17 ml/min Glucose 103 (60-115) mg/dL Lactate 1.0 (0.5-1.9) mmol/L Calcium 8.7 (8.4-10.6) mg/dL Magnesium 1.9 (1.5-2.6) mg/dL Total Bilirubin 1.1 (0.1-1.5) mg/dL Direct Bilirubin 0.5 (0.0-0.5) mg/dL AST 40 H (12-35) U/L ALT 27 (4-50) U/L Alkaline Phosphatase 184 H (40-150) U/L Troponin I 0.03 (0.01-0.04) ng/mL C-Reactive Protein 0.5 (0.5-1.0) mg/dL Total Protein 7.4 (6.0-8.3) g/dL Albumin 4.3 (3.3-5.0) g/dL Urine Color Yellow (Yellow) Urine Appearance Cloudy A (Clear) Urine pH 5.5 (5.0-8.5) Ur Specific Calder 1.010 (1.000-1.030) Urine Protein Negative (Negative) Urine Glucose (UA) Negative (Negative) Urine Ketones Negative (Negative) Urine Blood 1+ A (Negative) Urine Nitrite Negative (Negative) Urine Bilirubin Negative (Negative) Urine Urobilinogen 0.2 (0.2-1.0) Ur Leukocyte Esterase 1+ A (Negative) Urine RBC 0-2 (0-2) Urine WBC 10-25 A (0-5) Urine WBC Clumps Few A (None) Ur Squamous Epith Cells None (None-Few) Urine Bacteria None (None) Hyaline Casts Few (None-Few) Discharge Plan Discharge Prescriptions: No Action atorvastatin 80 mg tablet 80 mg PO HS albuterol sulfate [Ventolin HFA] 90 mcg/actuation HFA aerosol inhaler 2 inh inhalation Q4H PRN bisacodyl 10 mg suppository 10 mg [place] DAILY PRN diclofenac sodium [Voltaren Arthritis Pain] 1 % gel 2 g topical QID PRN Rx Instructions: apply to single elbow, wrist or hand; for hand includes palm/fingers/back of hand dextran 70-hypromellose 0.1-0.3 % drops 1 drp ophthalmic (eye) QID PRN sennosides [Senna Lax] 8.6 mg tablet 17.2 mg PO DAILY PRN carvedilol 6.25 mg tablet 6.25 mg PO BID acetaminophen [Arthritis Pain Reliever] 650 mg tablet extended release 650 mg PO Q6H PRN lisinopril 2.5 mg tablet 2.5 mg PO DAILY apixaban 2.5 mg tablet 2.5 mg PO BID Qty: 60 2RF torsemide 10 mg tablet 40 mg PO QAM pantoprazole 40 mg tablet,delayed release (DR/EC) 40 mg PO BID thiamine mononitrate (vit B1) 50 mg tablet 50 mg PO DAILY Follow Up/Referrals: Provider,Not a Local [Primary Care Provider] -
[2024-04-26 13:48] LABS: HCO3 VBG 24 mmol/L (21-28); PCO2 VBG 47 mmHG (40-50); PO2 VBG 33.3 mmHG (25-47); pH VBG 7.325 (7.32-7.43)
[2024-04-26 13:51] LABS: Basophils Absolute Auto 0.02 K/uL (0.00-0.30); Basophils Percent Auto 0.2 % (0.0-3.0); Eosinophils Absolute Auto 0.08 K/uL (0.00-0.50); Eosinophils Percent Auto 0.9 % (0.0-7.0); Hematocrit 45.3 % (37.0-53.0); Hemoglobin* 13.9 gm/dL (13.5-17.5); Immature Granulocytes Abs Auto 0.03 K/uL (0.00-0.30); Immature Granulocytes Pct Auto 0.3 %; Lymphocytes Percent Auto 6.1 % (20-44); Mean Corpuscular HGB Conc 31 gm/dL (32-36); Mean Corpuscular Hemoglobin 26 pg (26-34); Mean Corpuscular Volume 85 fL (80-100); Monocytes Percent Auto 9.9 % (0.0-11.0); Neutrophils Percent Auto 82.6 % (42.0-72.0); Platelet Count* 215 K/uL (140-440); RDW Coefficient of Variation % 27.2 % (11.5-15.5); Red Blood Count 5.34 m/uL (4.30-5.90); White Blood Count* 9.21 K/uL (4.50-11.00)
[2024-04-26 13:53] LABS: Slide Review Reflex No
[2024-04-26 14:07] LABS: Albumin* 4.3 g/dL (3.3-5.0); Chloride* 102 mmol/L (96-114); Sodium* 134 mmol/L (135-149)
[2024-04-26 14:08] LABS: Potassium* 5.1 mmol/L (3.6-5.1)
[2024-04-26 14:10] LABS: Anion Gap 11 mEq/L (7-15); Aspartate Amino Transferase* 40 U/L (12-35); Bilirubin Direct* 0.5 mg/dL (0.0-0.5); Bilirubin Total* 1.1 mg/dL (0.1-1.5); Carbon Dioxide* 21 mmol/L (20-32); Creatinine* 3.6 mg/dL (0.5-1.5); Estimated Glomerular Filt Rate 17 ml/min; Total Protein* 7.4 g/dL (6.0-8.3)
[2024-04-26 14:11] LABS: Alanine Aminotransferase* 27 U/L (4-50); Alkaline Phosphatase* 184 U/L (40-150); Blood Urea Nitrogen* 84 mg/dL (7-30); Calcium* 8.7 mg/dL (8.4-10.6); Glucose* 103 mg/dL (60-115); Magnesium* 1.9 mg/dL (1.5-2.6)
[2024-04-26 14:13] LABS: C Reactive Protein* 0.5 mg/dL (0.5-1.0)
[2024-04-26 14:21] LABS: Troponin I* 0.03 ng/mL (0.01-0.04)
[2024-04-26 16:44] LABS: Appearance Urine Cloudy (Clear); Bilirubin Urine Negative (Negative); Blood Urine 1+ (Negative); Color Urine Yellow (Yellow); Glucose Urine Negative (Negative); Ketones Urine Negative (Negative); Leukocyte Esterase Urine 1+ (Negative); Nitrite Urine Negative (Negative); Protein Urine Negative (Negative); Urobilinogen Urine 0.2 (0.2-1.0); pH Urine 5.5 (5.0-8.5)
[2024-04-26 17:21] LABS: RBC Urine 0-2 (0-2); WBC Clumps Urine Few
[2024-04-26 17:22] LABS: Hyaline Casts Urine Few (None-Few)
[2024-04-26] MEDS: 0.9 % SODIUM CHLORIDE 500 ML 500 ML 250 ML IV ×2 (18:59→19:42)
--- NOTE | 2024-04-26 19:09 | PM.IMHP1 ---
Hospitalist- H&P: HPI History of Present Illness Date Seen: 04/26/24 Chief complaint: Low BP Narrative: ADMISSION HISTORY AND PHYSICAL - HOSPITALIST Chief Complaint: HPI: Chet Willis is a 74 year old male with a complex past history including chronic hypoxic respiratory failure (oxygen at night), h/o of stroke (dysarthria, left side weakness uses scooter), coronary disease, CHF with reduced ejection fraction (35-40%), atrial fibrillation on eliquis, hypertension, hyperlipidemia, history of upper GI bleeding, recurrent left pleural effusions, Wernicke-Korsakoff syndrome, and alcoholic cirrhosis presents by ambulance from the [facility] secondary to near-syncope. He was just admitted here approximately 9 days ago. He had an GORGE, acute dehydration and state overnight for fluids. He was at [facility] today, says he was feeling okay, feels that he has been doing okay since discharge but when they went to draw some blood he started to feel poorly. Was noted to have low blood pressures, perhaps low O2 sats and was sent here by ambulance. He says he feels improved now. His medications were adjusted secondary to his kidney injury and at this point he is on torsemide 40 daily. His speech is very difficult to understand secondary to prior stroke but best I can tell he is taking his medications as prescribed. He has some chronic wounds that he feels are doing okay. He says he is making urine and feels like that has been normal. He has not had fevers or chills, he denies difficulty breathing or leg swelling. ER COURSE: labs, discussed with hospitalist to admit - manage his borderline pressures and CKD. CODE STATUS: FULL CODE EMERGENCY CONTACT PLAN: Vicky Conley Rel To Pat Daughter Cell I've updated the PFSH, medications and allergies in the Expanse tabs. INVESTIGATIONS: LABS/MICRO/ECG/IMAGING He is afebrile His blood pressures bouncing 118/58 down to 74/46. Asymptomatic. Sitting up eating dinner with low blood pressures. Pulse rate 60 Respiratory rate 16 and unlabored but sats were in the mid 80s. Weight 72.8 kilos which is down two kgs from discharge 9 days ago CBC reflects a normal white blood cell count. A normal hemoglobin. And normal platelets. Previously INRs have been tract however he is on Eliquis so I am not sure if there was a switch from warfarin at some point. No INR today Blood gas normal. Mild hyponatremia at 134. Normal electrolytes. BUN 84 creatinine 3.6. It would appear his baseline seems to be 2.0 to 1.7 He has known have chronic cirrhosis and his numbers reflect that with no obvious change. His UA shows 1+ leukocyte esterase, 1+ blood. White blood cell clumps and white blood cells. Culture is pending. Troponin is undetectable. BNP is still pending. No further imaging as he was just here 9 days ago He has a paced rhythm in EKG REVIEW OF SYSTEMS: 12-point ROS completed with patient and negative unless otherwise stated in HPI or below. PHYSICAL EXAM: CONSTITUTIONAL: Eating pizza in his room. I see his scooter with his well-known antlers parked in the room. He looks comfortable. His dysarthria is baseline. He has a forehead probe on and is wearing low flow 1/2L. VITAL SIGNS: see record. HEENT: Normocephalic, atraumatic. PERRL, EOMI, conjunctivae pink, no scleral icterus. Ears and nose externally normal. Pharynx normal. NECK: No JVD. No carotid bruit, no thyromegaly, no adenopathy. CHEST: Clear to auscultation bilaterally HEART: S1 and S2 normal. No harsh murmurs. Edema MUSCULOSKELETAL: No gross joint deformity or swelling. NEURO: Cranial nerves intact. Grossly intact. No asymmetric findings. SKIN: No rashes, petechiae, concerning changes PSYCHIATRIC: Euthymic. ADMIT TO MEDSURG: FLOOR CARE DVT: home eliquis GI: PO intake Time spent: Today I spent 75 minutes seeing the patient, discussing the patient with ER staff, reviewing Expanse and EPIC notes/diagnostics, discussing the care plan with our care time that includes social work, PT/OT, pharmacy, RT, senior care and documenting my impressions and plan in the medical record. [facility] Medical History (Updated 04/26/24 @ 19:42 by Helen Sheikh MD) Alcoholic cirrhosis ?K70.30 - Alcoholic cirrhosis of liver without ascites (ICD-10) Atrial fibrillation ?I48.91 - Unspecified atrial fibrillation (ICD-10) Systolic CHF with reduced left ventricular function, NYHA class 3 ?I50.20 - Unspecified systolic (congestive) heart failure (ICD-10) Hypoxia ?R09.02 - Hypoxemia (ICD-10) Obstructive sleep apnea ?G47.33 - Obstructive sleep apnea (adult) (pediatric) (ICD-10) Adrenal nodule ?E27.8 - Other specified disorders of adrenal gland (ICD-10) History of CVA (cerebrovascular accident) ?Z86.73 - Personal history of transient ischemic attack (TIA), and cerebral infarction without residual deficits (ICD-10) Acute on chronic hypoxic respiratory failure ?J96.21 - Acute and chronic respiratory failure with hypoxia (ICD-10) Carotid arterial disease ?I77.9 - Disorder of arteries and arterioles, unspecified (ICD-10) NSTEMI (non-ST elevated myocardial infarction) ?I21.4 - Non-ST elevation (NSTEMI) myocardial infarction (ICD-10) Hemiplegia and hemiparesis 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 ?I69.352 - Hemiplegia and hemiparesis 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 (ICD-10) History of ventricular tachycardia ?Z86.79 - Personal history of other diseases of the circulatory system (ICD-10) Ataxia ?R27.0 - Ataxia, unspecified (ICD-10) Chronic anemia ?D64.9 - Anemia, unspecified (ICD-10) Upper GI bleed ?K92.2 - Gastrointestinal hemorrhage, unspecified (ICD-10) CKD (chronic kidney disease) ?N18.9 - Chronic kidney disease, unspecified (ICD-10) CAD (coronary artery disease) ?I25.10 - Atherosclerotic heart disease of [place] coronary artery without angina pectoris (ICD-10) Recurrent left pleural effusion ?J90 - Pleural effusion, not elsewhere classified (ICD-10) 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 - Alcohol use, unspecified with alcohol-induced persisting amnestic disorder (ICD-10) Alcohol withdrawal seizure ?F10.939 - Alcohol use, unspecified with withdrawal, unspecified (ICD-10) ?R56.9 - Unspecified convulsions (ICD-10) Alcohol dependence ?F10.20 - Alcohol dependence, uncomplicated (ICD-10) Aphasia ?R47.01 - Aphasia (ICD-10) Cardioembolic stroke ?I63.9 - Cerebral infarction, unspecified (ICD-10) Lacunar infarction ?I63.81 - Other cerebral infarction due to occlusion or stenosis of small artery (ICD-10) Pulmonary hypertension ?I27.20 - Pulmonary hypertension, unspecified (ICD-10) Hyperlipidemia ?E78.5 - Hyperlipidemia, unspecified (ICD-10) Hypertension ?I10 - Essential (primary) hypertension (ICD-10) Adrenal adenoma ?D35.00 - Benign neoplasm of unspecified adrenal gland (ICD-10) Surgical History H/O hernia repair ?Z98.890 - Other specified postprocedural states (ICD-10) ?Z87.19 - Personal history of other diseases of the digestive system (ICD-10) Social History What is your current living situation?: I presently have a place to live Problems where you live: no known problems Problems where you live details: N/A In the past 12 months, utilities in danger of being shut off: no In past 12 months, lack of transportation kept you from medical appts, meetings, work, or getting things needed for daily living: no In the past 12 mos, have been you worried that your food would run out before you had money to buy more?: never true In the past 12 mos, the food you bought just didn't last and you didn't have money to buy more?: never true Highest level of school completed/degree received: some college, no degree Smoking Status: Former smoker Do you use any of these nicotine containing products: None Second hand tobacco smoke exposure: No How often do you have a drink containing alcohol: 4 or more times a week Alcohol type: hard liquor Alcohol type details: 2 whiskey 7-ups per day How many standard drinks containing alcohol do you have on a typical day: 1 or 2 How often do you have six or more drinks on one occasion: Never AUDIT-C Alcohol total score: 4 Non-prescribed substance use: denies use Caffeine: Yes How often does anyone, including family, friends and others, physically hurt you: never How often does anyone, including family, friends and others, insult or talk down to you: never How often does anyone, including family, friends and others, threaten you with harm: never How often does anyone, including family, friends and others, scream or curse at you: never service: No Meds Home Medications and Allergies Home Medications ?Medication ?Instructions ?Recorded ?Confirmed ?Type albuterol sulfate 90 mcg/actuation 2 inh inhalation Q4H PRN 03/17/24 04/26/24 History aerosol inhaler (Ventolin HFA) atorvastatin 80 mg tablet 80 mg PO HS 03/17/24 04/26/24 History bisacodyl 10 mg rectal suppository 10 mg MI DAILY PRN 03/17/24 04/26/24 History dextran 70-hypromellose 0.1 %-0.3 1 drp ophthalmic (eye) QID PRN 03/17/24 04/26/24 History % eye drops diclofenac sodium 1 % topical gel 2 g topical QID PRN 03/17/24 04/26/24 History (Voltaren Arthritis Pain) sennosides 8.6 mg tablet (Senna 17.2 mg PO DAILY PRN 03/17/24 04/26/24 History Lax) acetaminophen 650 mg 650 mg PO Q6H PRN 04/17/24 04/26/24 History tablet,extended release (Arthritis Pain Reliever) carvedilol 6.25 mg tablet 6.25 mg PO BID 04/17/24 04/26/24 History lisinopril 2.5 mg tablet 2.5 mg PO DAILY 04/17/24 04/26/24 History pantoprazole 40 mg tablet,delayed 40 mg PO BID 04/26/24 04/26/24 History release thiamine mononitrate (vit B1) 50 50 mg PO DAILY 04/26/24 04/26/24 History mg tablet torsemide 10 mg tablet 40 mg PO QAM 04/26/24 04/26/24 History Allergies Allergy/AdvReac Type Severity Reaction Status Date / Time No Known Drug Allergies Allergy Verified 04/26/24 13:08 Exam Const: Vital Signs, click to edit/add: Vital Signs - 24 hr 04/26/24 13:08 04/26/24 13:32 04/26/24 13:47 Temperature 96.3 F L Pulse Rate Pulse Rate [Pulse Oximeter] 96 Respiratory Rate 16 Blood Pressure 100/53 L 111/64 Blood Pressure [Ri ght Arm] Blood Pressure [Ri ght Upper Arm] 95/48 L Pulse Oximetry 96 Oxygen Delivery Me thod Room Air Oxygen Flow Rate 04/26/24 14:02 04/26/24 14:17 04/26/24 14:32 Temperature Pulse Rate Pulse Rate [Pulse Oximeter] Respiratory Rate Blood Pressure 116/60 115/59 L 112/64 Blood Pressure [Ri ght Arm] Blood Pressure [Ri ght Upper Arm] Pulse Oximetry Oxygen Delivery Me thod Oxygen Flow Rate 04/26/24 14:46 04/26/24 15:02 04/26/24 15:17 Temperature Pulse Rate Pulse Rate [Pulse Oximeter] Respiratory Rate Blood Pressure 118/58 L 116/68 116/64 Blood Pressure [Ri ght Arm] Blood Pressure [Ri ght Upper Arm] Pulse Oximetry Oxygen Delivery Me thod Oxygen Flow Rate 04/26/24 15:21 04/26/24 15:30 04/26/24 15:32 Temperature Pulse Rate 78 63 64 Pulse Rate [Pulse Oximeter] Respiratory Rate Blood Pressure 114/93 H Blood Pressure [Ri ght Arm] Blood Pressure [Ri ght Upper Arm] Pulse Oximetry 88 83 L 83 L Oxygen Delivery Me thod Oxygen Flow Rate 04/26/24 15:33 04/26/24 15:38 04/26/24 17:54 Temperature 96.9 F L Pulse Rate Pulse Rate [Pulse Oximeter] 65 Respiratory Rate 16 Blood Pressure Blood Pressure [Ri ght Arm] 100/60 Blood Pressure [Ri ght Upper Arm] Pulse Oximetry 94 91 92 Oxygen Delivery Me thod Nasal Cannula Nasal Cannula Oxygen Flow Rate 1 0.5 04/26/24 18:15 04/26/24 19:01 04/26/24 19:01 Temperature Pulse Rate Pulse Rate [Pulse Oximeter] Respiratory Rate 16 16 Blood Pressure Blood Pressure [Ri ght Arm] Blood Pressure [Ri ght Upper Arm] Pulse Oximetry 92 92 92 Oxygen Delivery Me thod Nasal Cannula Nasal Cannula Oxygen Flow Rate 0.5 0.5 Hospitalist - H&P: Result Labs Labs: Short CBC 04/26/24 Range/Units 13:45 WBC 9.21 (4.50-11.00) K/uL Hgb 13.9 (13.5-17.5) gm/dL Hct 45.3 (37.0-53.0) % Plt Count 215 (140-440) K/uL BMP 04/26/24 13:45 Sodium 134 L Potassium 5.1 Chloride 102 Carbon Dioxide 21 BUN 84 H Creatinine 3.6 H Glucose 103 Calcium 8.7 Cardiac Enzymes 04/26/24 Range/Units 13:45 Troponin I 0.03 (0.01-0.04) ng/mL Liver Function 04/26/24 Range/Units 13:45 Total Bilirubin 1.1 (0.1-1.5) mg/dL Direct Bilirubin 0.5 (0.0-0.5) mg/dL AST 40 H (12-35) U/L ALT 27 (4-50) U/L Alkaline Phosphatase 184 H (40-150) U/L Albumin 4.3 (3.3-5.0) g/dL Urine 04/26/24 Range/Units 16:34 Urine Color Yellow (Yellow) Urine Appearance Cloudy A (Clear) Urine pH 5.5 (5.0-8.5) Ur Specific [place] 1.010 (1.000-1.030) Urine Protein Negative (Negative) Urine Glucose (UA) Negative (Negative) Assessment and Plan Assessment and plan (1) Acute kidney injury superimposed on stage 4 chronic kidney disease: Problem comment: 1.7-2.1 seems to be our goal. fluids, hold diuretics and antihypertensive medications I suspect this is not from dehydration (no hx and neg ketones) but 2/2 to the intensity of his diuretic regimen. His weight is down another 2kg just in 9 days. currently on 40 of torsemide; likely needs to be decreased again Status: Acute (2) Systolic CHF with reduced left ventricular function, NYHA class 3: Problem comment: Echo in February 2024 EF 35-40%. Moderately reduced global systolic function. Apical inferior segment and apical septum are abnormal. Right ventricle is moderately enlarged, global systolic RV function is moderately reduced Mildly enlarged left atrium Pulmonary hypertension Status: Acute (3) Medication side effect: Problem comment: intensity of the torsemide needs to decreased will suggest 20mg once creatinine has recovered, assuming he stays euvolemic Status: Acute (4) Atrial fibrillation: Problem comment: -paced -on eliquis -on coreg but I placed hold parameters given his blood pressures Status: Acute (5) Chronic anticoagulation: Problem comment: -Eliquis Status: Acute (6) Alcoholic cirrhosis: Problem comment: congestion from right heart failure may influence his LFTS but most likely due to his known alcoholic cirrhosis Status: Acute (7) Hemiplegia and hemiparesis 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: Problem comment: Following CVA in September 2020, with some improvement following ICA stenting in January 2021. Status: Acute
--- NOTE | 2024-04-26 19:22 | PC.NURSE ---
End of Shift: Patient pleasant and cooperative, arrived to the floor at about 1736. Patient hypotensive(see vitals), aware, but stable, lungs clear, BS WNL, IV currently running NS Bolus. Patient on 0.5 L NC with sats in low to mid 90s. Patient 1/2 assist, walker. Patient alert and oriented. Patient rates right shoulder pain 5/10. Patient has a mepilex on right knee and a transparent gel like dressing on right faria from old wounds. Patient has impaired speech. Patient tolerating regular diet.
[2024-04-26] MEDS: cefTRIAXone 1 GM in 0.9 % SODIUM CHLORIDE Mini-bag 100 ML IVPB (19:41)
[2024-04-26] MEDS: 5 % DEXTROSE/0.9% SOD CHLORIDE 1,000 ML 125 ML IV (21:17)
[2024-04-26] MEDS: OMEPRAZOLE 20 MG CAPSULE DR 40 MG PO (21:18)
[2024-04-26] MEDS: APIXABAN 5 MG TABLET 2.5 MG PO (21:18)
[2024-04-26] MEDS: ATORVASTATIN CALCIUM 40 MG TABLET 80 MG PO (21:19)
[2024-04-27 02:57] VITALS: BP 122/59; PULSE 60; RESP 16; TEMP 36.4; O2SAT 95
[2024-04-27] MEDS: ACETAMINOPHEN 325 MG TABLET PO ×2 (04:40→15:24)
--- NOTE | 2024-04-27 04:57 | PC.NURSE ---
Shift note: At the start of the shift at 1900, Bp was low at 84/50. 2nd IV line inserted and IV N/S 1000ml given at 250ml/hr, HOB lowered and pt given 0.5L of oxygen. Systolic Bp gradually elevated above 110 at 2300. Ambulated wit A1 to SBA to BR. personal banking representative has been A.fib with NSR and paced. Pt had adequate sleep. Pt accidentally removed the 2nd IV line at 0230. Continuous O2 delivered through finger probe since pt had difficulty keeping the forehead probe. O2 consistently above 93%. At 0440, pt complained of headache and Tylenol given.
[2024-04-27] MEDS: 5 % DEXTROSE/0.9% SOD CHLORIDE 1,000 ML 125 ML IV (05:13)
[2024-04-27 06:14] LABS: NT Pro B Type NatriureticPept* 3620 pg/mL
[2024-04-27 07:00] VITALS: BP 106/71; PULSE 60; PULSE 61; RESP 18; TEMP 36.2; O2SAT 95
--- NOTE | 2024-04-27 07:34 | PM.IMPN1 ---
Progress Note: A&P Assessment and plan (1) Acute kidney injury superimposed on stage 4 chronic kidney disease: Problem details: Creatinine 3.6 on admission, recently 2.7-3.4 1.7-2.1 seems to be our goal - down trending, 2.8 this morning Fluids, hold diuretics, lisinopril, atorvastatin, carvedilol with parameters. I suspect this is not from dehydration (no hx and neg ketones) but 2/2 to the intensity of his diuretic regimen. His weight is down another 2kg just in 9 days. currently on 40 of torsemide; likely needs to be decreased again Status: Acute (2) Hypotension: Problem details: Has had systolics < 90-100, minimally improved. Continue to hold lisinopril and torsemide. Coreg with parameters. NS boluses as needed Status: Acute (3) Systolic CHF with reduced left ventricular function, NYHA class 3: Problem details: Echo in February 2024 EF 35-40%. Moderately reduced global systolic function. Apical inferior segment and apical septum are abnormal. Right ventricle is moderately enlarged, global systolic RV function is moderately reduced Mildly enlarged left atrium Pulmonary hypertension Diuretic is on hold. Receiving IVF, will need to monitor for fluid overload Status: Acute (4) Medication side effect: Problem details: intensity of the torsemide needs to decreased will suggest 20mg once creatinine has recovered, assuming he stays euvolemic Status: Acute (5) Atrial fibrillation: Problem details: -paced -on eliquis -on coreg but I placed hold parameters given his blood pressures Status: Acute (6) Chronic anticoagulation: Problem details: -Eliquis Status: Acute (7) Alcoholic cirrhosis: Problem details: congestion from right heart failure may influence his LFTS but most likely due to his known alcoholic cirrhosis Status: Acute (8) Hemiplegia and hemiparesis 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: Problem details: Following CVA in September 2020, with some improvement following ICA stenting in January 2021. Status: Acute Plan Patient is currently receiving ceftriaxone, possibly for an abnormal appearing UA. UC is pending. Will discontinue if not appropriate. Time Spent With Patient Total time spent: Total time spent caring for the patient today was 45 minutes. This includes time spent for the visit reviewing the chart, time spent during the visit, time spent after the visit and documentation and planning in coordination of care. Subjective Date Seen: 04/27/24 Exam Const: Vital Signs, click to edit/add: Vital Signs - 24 hr 04/26/24 13:08 04/26/24 13:32 04/26/24 13:47 Temperature 96.3 F L Pulse Rate Pulse Rate [Pulse Oximeter] 96 Respiratory Rate 16 Blood Pressure 100/53 L 111/64 Blood Pressure [Le ft Arm] Blood Pressure [Ri ght Arm] Blood Pressure [Ri ght Upper Arm] 95/48 L Pulse Oximetry 96 Oxygen Delivery Me thod Room Air Oxygen Flow Rate 04/26/24 14:02 04/26/24 14:17 04/26/24 14:32 Temperature Pulse Rate Pulse Rate [Pulse Oximeter] Respiratory Rate Blood Pressure 116/60 115/59 L 112/64 Blood Pressure [Le ft Arm] Blood Pressure [Ri ght Arm] Blood Pressure [Ri ght Upper Arm] Pulse Oximetry Oxygen Delivery Me thod Oxygen Flow Rate 04/26/24 14:46 04/26/24 15:02 04/26/24 15:17 Temperature Pulse Rate Pulse Rate [Pulse Oximeter] Respiratory Rate Blood Pressure 118/58 L 116/68 116/64 Blood Pressure [Le ft Arm] Blood Pressure [Ri ght Arm] Blood Pressure [Ri ght Upper Arm] Pulse Oximetry Oxygen Delivery Me thod Oxygen Flow Rate 04/26/24 15:21 04/26/24 15:30 04/26/24 15:32 Temperature Pulse Rate 78 63 64 Pulse Rate [Pulse Oximeter] Respiratory Rate Blood Pressure 114/93 H Blood Pressure [Le ft Arm] Blood Pressure [Ri ght Arm] Blood Pressure [Ri ght Upper Arm] Pulse Oximetry 88 83 L 83 L Oxygen Delivery Me thod Oxygen Flow Rate 04/26/24 15:33 04/26/24 15:38 04/26/24 17:54 Temperature 96.9 F L Pulse Rate Pulse Rate [Pulse Oximeter] 65 Respiratory Rate 16 Blood Pressure Blood Pressure [Le ft Arm] Blood Pressure [Ri ght Arm] 100/60 Blood Pressure [Ri ght Upper Arm] Pulse Oximetry 94 91 92 Oxygen Delivery Me thod Nasal Cannula Nasal Cannula Oxygen Flow Rate 1 0.5 04/26/24 18:15 04/26/24 18:36 04/26/24 18:46 Temperature Pulse Rate Pulse Rate [Pulse Oximeter] 61 60 Respiratory Rate 16 Blood Pressure Blood Pressure [Le ft Arm] 86/48 L 76/49 L Blood Pressure [Ri ght Arm] Blood Pressure [Ri ght Upper Arm] Pulse Oximetry 92 Oxygen Delivery Me thod Nasal Cannula Oxygen Flow Rate 0.5 04/26/24 18:48 04/26/24 19:00 04/26/24 19:01 Temperature 97.2 F L Pulse Rate Pulse Rate [Pulse Oximeter] 74 60 Respiratory Rate 16 Blood Pressure Blood Pressure [Le ft Arm] 74/46 L 84/50 L Blood Pressure [Ri ght Arm] Blood Pressure [Ri ght Upper Arm] Pulse Oximetry 90 92 Oxygen Delivery Me thod Nasal Cannula Oxygen Flow Rate 0.5 04/26/24 19:01 04/26/24 22:40 04/26/24 22:40 Temperature 97.5 F L Pulse Rate Pulse Rate [Pulse Oximeter] 60 60 Respiratory Rate 16 16 16 Blood Pressure Blood Pressure [Le ft Arm] 114/68 Blood Pressure [Ri ght Arm] Blood Pressure [Ri ght Upper Arm] Pulse Oximetry 92 95 Oxygen Delivery Me thod Nasal Cannula Nasal Cannula Oxygen Flow Rate 0.5 0.5 04/26/24 23:00 04/27/24 02:57 Temperature 97.5 F L Pulse Rate 60 Pulse Rate [Pulse Oximeter] 60 Respiratory Rate 16 Blood Pressure Blood Pressure [Le ft Arm] 122/59 L Blood Pressure [Ri ght Arm] Blood Pressure [Ri ght Upper Arm] Pulse Oximetry 95 Oxygen Delivery Me thod Nasal Cannula Oxygen Flow Rate 0.5 Labs Labs: Laboratory Results - last 24 hr 04/26/24 04/26/24 13:45 16:34 WBC 9.21 RBC 5.34 Hgb 13.9 Hct 45.3 MCV 85 MCH 26 MCHC 31 L RDW Coeff of [place] 27.2 H Plt Count 215 Neut % (Auto) 82.6 H Lymph % (Auto) 6.1 L [place] % (Auto) 9.9 Eos % (Auto) 0.9 Baso % (Auto) 0.2 Neut # (Auto) 7.60 H Lymph # (Auto) 0.60 L [place] # (Auto) 0.90 Eos # (Auto) 0.08 Baso # (Auto) 0.02 Abs Immat Gran (auto) 0.03 Imm/Tot Granulo (auto) 0.3 VBG pH 7.325 VBG pCO2 47 VBG pO2 33.3 VBG HCO3 24 Sodium 134 L Potassium 5.1 Chloride 102 Carbon Dioxide 21 Anion Gap 11 BUN 84 H Creatinine 3.6 H Estimated GFR 17 Glucose 103 Lactate 1.0 Calcium 8.7 Magnesium 1.9 Total Bilirubin 1.1 Direct Bilirubin 0.5 AST 40 H ALT 27 Alkaline Phosphatase 184 H Troponin I 0.03 C-Reactive Protein 0.5 NT-Pro-B Natriuret Pep 3620 Total Protein 7.4 Albumin 4.3 Urine Color Yellow Urine Appearance Cloudy A Urine pH 5.5 Ur Specific [place] 1.010 Urine Protein Negative Urine Glucose (UA) Negative Urine Ketones Negative Urine Blood 1+ A Urine Nitrite Negative Urine Bilirubin Negative Urine Urobilinogen 0.2 Ur Leukocyte Esterase 1+ A Urine RBC 0-2 Urine WBC 10-25 A Urine WBC Clumps Few A Ur Squamous Epith Cells None Urine Bacteria None Hyaline Casts Few
[2024-04-27 08:30] LABS: Albumin* 3.7 g/dL (3.3-5.0); Chloride* 109 mmol/L (96-114); Potassium* 4.1 mmol/L (3.6-5.1); Sodium* 138 mmol/L (135-149)
[2024-04-27 08:32] LABS: Anion Gap 12 mEq/L (7-15); Carbon Dioxide* 17 mmol/L (20-32); Creatinine* 2.8 mg/dL (0.5-1.5); Est. Creatinine Clearance* 21.64; Estimated Glomerular Filt Rate 23 ml/min
[2024-04-27 08:33] LABS: Blood Urea Nitrogen* 74 mg/dL (7-30); Calcium* 8.1 mg/dL (8.4-10.6); Glucose* 125 mg/dL (60-115); Phosphorus* 4.4 mg/dL (2.5-4.5)
[2024-04-27] MEDS: THIAMINE 100 MG TABLET 50 MG PO (08:42)
[2024-04-27] MEDS: APIXABAN 5 MG TABLET 2.5 MG PO ×2 (08:42→21:32)
[2024-04-27] MEDS: OMEPRAZOLE 20 MG CAPSULE DR 40 MG PO ×2 (08:42→21:32)
[2024-04-27 11:00] VITALS: BP 105/52; PULSE 60; RESP 18; TEMP 36.7; O2SAT 94
[2024-04-27] MEDS: 5 % DEXTROSE/0.9% SOD CHLORIDE 1,000 ML 75 ML IV (12:54)
--- NOTE | 2024-04-27 13:35 | PT.IPDN ---
Orders for PT Eval and Treat received. Chart Reviewed. Pt able to demo ind gait without an AD 100 feet and ind transfers STS and supine<>sit. Appears at baseline with regards to functional mobility. No further skilled PT warranted. D/C PT. No Charge.
[2024-04-27 15:00] VITALS: BP 106/75; PULSE 60; RESP 18; TEMP 36.2; O2SAT 93
[2024-04-27] MEDS: cefTRIAXone 1 GM in 0.9 % SODIUM CHLORIDE Mini-bag 100 ML IVPB (18:18)
[2024-04-27 19:00] VITALS: BP 100/70; PULSE 60; RESP 18; TEMP 36.1; O2SAT 91
--- NOTE | 2024-04-27 19:30 | PC.NURSE ---
End of Shift: Patient pleasant and cooperative. SpO2 maintained above 90% on 0.5L O2. Blood pressure at 1100 vitals was slightly low, MD notified. After 1100 his BP stabilized again. Patient reports pain on his right shoulder this shift, managed with PRN medication, see MAR. 1A to bathroom.
[2024-04-27 23:00] VITALS: BP 142/80; PULSE 63; PULSE 64; RESP 18; TEMP 36.3; O2SAT 91
[2024-04-28] MEDS: 5 % DEXTROSE/0.9% SOD CHLORIDE 1,000 ML 75 ML IV (00:51)
[2024-04-28 02:35] VITALS: BP 122/63; PULSE 78; RESP 18; TEMP 36.3; O2SAT 91
--- NOTE | 2024-04-28 06:00 | PC.NURSE ---
Shift note: Pt is doing well this morning. Bp is stabilized. Pt continue to complained of pain to the right shoulder but refused a
--- NOTE | 2024-04-28 06:04 | PC.NURSE ---
Shift note: Pt is doing well this morning. Bp is stabilized. Pt continue to complained of pain to the right shoulder but refused pain medication. Pt is pleasant and cooperate with care and treatment. Pt has been on 0.5L of oxygen throughout the night. Pt had adequate sleep.
[2024-04-28 06:27] LABS: Hematocrit 40.5 % (37.0-53.0); Hemoglobin* 12.3 gm/dL (13.5-17.5); Mean Corpuscular HGB Conc 30 gm/dL (32-36); Mean Corpuscular Hemoglobin 26 pg (26-34); Mean Corpuscular Volume 87 fL (80-100); Platelet Count* 186 K/uL (140-440); Red Blood Count 4.68 m/uL (4.30-5.90); White Blood Count* 8.01 K/uL (4.50-11.00)
[2024-04-28 06:36] LABS: Slide Review Reflex No
[2024-04-28 06:44] LABS: Chloride* 112 mmol/L (96-114)
[2024-04-28 06:45] LABS: Potassium* 4.3 mmol/L (3.6-5.1); Sodium* 139 mmol/L (135-149)
[2024-04-28 06:47] LABS: Creatinine* 1.9 mg/dL (0.5-1.5); Est. Creatinine Clearance* 31.89; Estimated Glomerular Filt Rate 37 ml/min
[2024-04-28 06:48] LABS: Anion Gap 7 mEq/L (7-15); Blood Urea Nitrogen* 49 mg/dL (7-30); Calcium* 8.2 mg/dL (8.4-10.6); Carbon Dioxide* 20 mmol/L (20-32); Glucose* 106 mg/dL (60-115)
[2024-04-28 07:30] VITALS: BP 132/66; PULSE 66; RESP 20; TEMP 36.5; O2SAT 90
[2024-04-28 07:31] VITALS: PULSE 66; RESP 20
[2024-04-28] MEDS: OMEPRAZOLE 20 MG CAPSULE DR 40 MG PO (09:32)
[2024-04-28] MEDS: carvediloL 6.25 MG TABLET PO (09:32)
[2024-04-28] MEDS: APIXABAN 5 MG TABLET 2.5 MG PO (09:32)
[2024-04-28] MEDS: THIAMINE 100 MG TABLET 50 MG PO (09:33)
[2024-04-28 11:15] VITALS: BP 120/81; PULSE 67; RESP 20; TEMP 36.1; O2SAT 95
--- NOTE | 2024-04-28 12:19 | NUTR.NU ---
RDN with diet education related to Renal diet. Patient admitted for GORGE in setting stage stage 4 CKD, current weight 163 lbs 5 oz; height 5ft 7in; BMI 25.6 kg/m2. Patient has a history of about 30 lbs weight loss since February 2024, however suspect this is due to fluid and CHF, though is significant. Current diet is Renal. Meal intakes have been adequate. Patient reports he usually only eats 2 meals daily. He agreed to recieve diet education related to Renal diet. Discussed following a general, healthy diet using the plate method that includes ? plate non-starchy vegetables and fruit, ? plate whole grains/starch, ? plate healthy protein focusing on white meat such as turkey and chicken (limiting red meats), and healthy fats. Discussed limiting saturated fat and sodium intake, and foods high in phosphorus and potassium. Handouts provided to support discussion. RDN contact information provided and encouraged patient to call with questions. RDN to follow up as needed.
--- NOTE | 2024-04-28 12:59 | P.DS_ITS ---
DS: Providers Provider Date Seen: 04/28/24 Date of admission: 04/26/24 18:25 Primary care physician: Not a Local Provider Admitting Clinician: Helen Sheikh MD Consults: 04/26/24 18:25 Consult to Occupational Therapy [CONS] Routine Comment: Reason(s) for OT Consult:: Evaluate and Treat Any Restrictions?:: No Restrictions Consult to Physical Therapy [CONS] Routine Comment: Reason(s) for PT Consult:: Evaluate and Treat Any Restrictions?:: No Restrictions Consult to [employer] [CONS] Routine Comment: Reason for Consult:: Social Service Consult Attending Physician on discharge: Kiera Hood, [facility], [facility] Date of Discharge: 04/28/24 DS: Diagnosis Discharge Diagnosis (1) Acute kidney injury superimposed on stage 4 chronic kidney disease: Status: Acute Problem details: Creatinine 3.6 on admission, recently 2.7-3.4 1.7-2.1 seems to be our goal - down trending, 2.8 this morning Fluids, hold diuretics, lisinopril, atorvastatin, carvedilol with parameters. I suspect this is not from dehydration (no hx and neg ketones) but 2/2 to the in tensity of his diuretic regimen. His weight is down another 2kg just in 9 days. currently on 40 of torsemide; likely needs to be decreased again On discharge, holding torsemide until follow-up with PCP (2) Hypotension: Status: Acute Problem details: Has had systolics < 90-100. Patient tells me his normal systolics are 110 as he checks them routinely at home. Continue to hold lisinopril and torsemide. Coreg with parameters. On discharge, holding torsemide and lisinopril until follow-up with PCP (3) Systolic CHF with reduced left ventricular function, NYHA class 3: Status: Acute Problem details: Echo in February 2024 EF 35-40%. Moderately reduced global systolic function. Apical inferior segment and apical septum are abnormal. Right ventricle is moderately enlarged, global systolic RV function is moderately reduced Mildly enlarged left atrium Pulmonary hypertension On discharge, continuing to hold torsemide until follow-up with PCP. (4) Medication side effect: Status: Acute Problem details: intensity of the torsemide needs to decreased will suggest 20mg once creatinine has recovered, assuming he stays euvolemic On discharge, continuing to hold torsemide and lisinopril to follow-up with PCP. 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 DS: Summary Hospital Course Hospital Course: [age] year old male was admitted to the medical floor for management acute, on chronic, recurrent hypotension and acute kidney injury. Course of care and details as noted above. Patient is very compliant with his medication management. Also checks his blood pressures at home. Normal systolics are 110s. Creatinine significantly improving prior to discharge. Pressures returning to baseline. Lisinopril and torsemide have been held recommending he not take these again until follow-up with his PCP for further medication management. UC growing Enterococcus faecalis. Sensitivities reviewed. Asymptomatic. Was started on IV antibiotics for concerning UA. Discharged with oral antibiotics to complete therapeutic regimen. Follow-up with PCP. Remainder of chronic medical comorbidities were monitored and managed with home medications. Status at Discharge Overall status at discharge: patient is back to baseline Time Spent with Patient Time attestation: Total time spent providing and/or coordinating discharge services: Time spent: Greater than 30 minutes Exam Narrative: Exam Narrative: PHYSICAL EXAM General: Pleasant, conversant, NAD Cardiovascular: RRR Pulmonary: No dyspnea Neurological: Alert, answering questions appropriately Skin: Warm, dry. Const: Vital Signs, click to edit/add: Vital Signs - 24 hr 04/27/24 15:00 04/27/24 15:00 04/27/24 15:00 Temperature 97.2 F L Pulse Rate 60 Pulse Rate [Pulse Oximeter] 60 60 Respiratory Rate 18 18 Blood Pressure [Le ft Arm] 106/75 Pulse Oximetry 93 Oxygen Delivery Me thod Nasal Cannula Oxygen Flow Rate 0.5 04/27/24 19:00 04/27/24 19:00 04/27/24 23:00 Temperature 97.0 F L Pulse Rate Pulse Rate [Pulse Oximeter] 60 64 Respiratory Rate 18 18 Blood Pressure [Le ft Arm] 100/70 Pulse Oximetry 91 91 Oxygen Delivery Me thod Room Air Oxygen Flow Rate 04/27/24 23:00 04/27/24 23:00 04/28/24 02:35 Temperature 97.3 F L 97.3 F L Pulse Rate 63 Pulse Rate [Pulse Oximeter] 64 78 Respiratory Rate 18 18 Blood Pressure [Le ft Arm] 142/80 H 122/63 Pulse Oximetry 91 91 Oxygen Delivery Me thod Nasal Cannula Nasal Cannula Oxygen Flow Rate 0.5 0.5 04/28/24 07:30 04/28/24 07:31 04/28/24 11:15 Temperature 97.7 F 97.0 F L Pulse Rate Pulse Rate [Pulse Oximeter] 66 66 67 Respiratory Rate 20 20 20 Blood Pressure [Le ft Arm] 132/66 120/81 Pulse Oximetry 90 95 Oxygen Delivery Me thod Nasal Cannula Nasal Cannula Oxygen Flow Rate 0.5 1 DS: Data Data Completed and Pending Completed studies during hospitalization: Procedures Introduction of Other Therapeutic Substance into Respiratory Tract, Via Natural or Artificial Opening (03/17/24) Labs on day of discharge: Labs from last 24 hours 04/28/24 06:00 WBC 8.01 RBC 4.68 Hgb 12.3 L Hct 40.5 MCV 87 MCH 26 MCHC 30 L Plt Count 186 Sodium 139 Potassium 4.3 Chloride 112 Carbon Dioxide 20 Anion Gap 7 BUN 49 H Creatinine 1.9 H Estimated Creat Clear 31.89 Estimated GFR 37 Glucose 106 Calcium 8.2 L Discharge Plan Discharge Disposition: Home, Self-Care Date of Admission: 04/26/24 18:25 Attending Provider on Discharge: Kiera Hood Primary Care Provider: Provider,Not a Local Condition: Stable Anticipated Discharge Date/Time: 04/28/24 12:50 Discharge Medications: New amoxicillin-pot clavulanate 875-125 mg tablet 1 tab PO BID Qty: 10 0RF Continued atorvastatin 80 mg tablet 80 mg PO HS albuterol sulfate [Ventolin HFA] 90 mcg/actuation HFA aerosol inhaler 2 inh inhalation Q4H PRN bisacodyl 10 mg suppository [address] DAILY PRN diclofenac sodium [Voltaren Arthritis Pain] 1 % gel 2 g topical QID PRN Rx Instructions: apply to single elbow, wrist or hand; for hand includes palm/fingers/back of hand dextran 70-hypromellose 0.1-0.3 % drops 1 drp ophthalmic (eye) QID PRN sennosides [Senna Lax] 8.6 mg tablet 17.2 mg PO DAILY PRN carvedilol 6.25 mg tablet 6.25 mg PO BID acetaminophen [Arthritis Pain Reliever] 650 mg tablet extended release 650 mg PO Q6H PRN apixaban 2.5 mg tablet 2.5 mg PO BID Qty: 60 2RF pantoprazole 40 mg tablet,delayed release (DR/EC) 40 mg PO BID thiamine mononitrate (vit B1) 50 mg tablet 50 mg PO DAILY Held lisinopril 2.5 mg tablet 2.5 mg PO DAILY Hold Instructions: Resume on 05/05/24. Do not take this medication until follow up with your PCP torsemide 10 mg tablet 40 mg PO QAM Hold Instructions: Resume on 05/05/24. Do not take this medication until follow up with your PCP Discharge Orders: Discharge Order (Routine); Ordered 04/28/24 Ordered By: Kiera Hood Patient Education: Amoxicillin/Clavulanate Potassium (By mouth), Acute Kidney Injury (GEN), Urinary Tract Infection in Men (GEN) Additional Instructions: Continue augmentin for your UTI/bladder infection. Your kidney functions (creatinine) were too high and your blood pressure was too low. Do not continue to take your torsemide or your lisinopril until follow up with your PCP. [employer]IST [employer] OCCUPATIONAL THER[employer]Y Activity Level: Activity as Tolerated Discharge Diet: Heart Healthy (2 gm sodium, low fat) Follow Up Appointments: Provider,Not a Local [Primary Care Provider] - (Post hospital follow-up with PCP next week please. Hypotension, acute kidney injury, blood pressure medication management, UTI. Patient stated he has an appointment this coming Wednesday at [facility].) Forms: Decalog Info Instructions
--- NOTE | 2024-04-28 14:52 | PC.SOCIAL ---
Discharge planning: Late entry: Prior to discharge, met with pt regarding d/c plan. Pt states he is going well at home and has no concerns about being discharged home. Pt has his scooter with him at the hospital and tried calling [facility] [employer] for transport home on his scooter but found out they are closed today because of the holiday. Pt plans to ride his scooter from the hospital to his home. Distance is 2 miles, which he says he knows his battery will do. Pt states he has gone much further than that on his scooter before. Pt is pleased with the home care he is receiving for RN and OT services through [facility]. Faxed MD order to resume home care to [facility] at discharge.
--- NOTE | 2024-04-28 15:08 | PC.NURSE ---
Discharge: Patient pleasant and cooperative, A&O. VSS, afebrile. SpO2 maintained above 90% on 1L O2. Patient removed his IV this shift, tip intact. Patient reports pain on his right shoulder this shift, declined PRN medication. Discharged to home.
== END 2024-04-28 14:10 | disposition home or self-care (01) | DRG 682 ==
LOC: ED 14:11 → MEDSURG 17:33
PROVIDERS: Physician Assistant; Admitting Provider Family Medicine; Emergency Provider Emergency Medicine; Visit Provider Family Medicine
DX: N17.9 Acute kidney failure, unspecified (principal); I50.23 Acute on chronic systolic (congestive) heart failure; I13.0 Hypertensive heart and chronic kidney disease with heart failure and stage 1 through stage 4 chronic kidney disease, or unspecified chronic kidney disease; I69.952 Hemiplegia and hemiparesis following unspecified cerebrovascular disease affecting left dominant side; N39.0 Urinary tract infection, site not specified; N18.4 Chronic kidney disease, stage 4 (severe); G47.33 Obstructive sleep apnea (adult) (pediatric); I27.20 Pulmonary hypertension, unspecified; T50.1X5A Adverse effect of loop [high-ceiling] diuretics, initial encounter; I95.9 Hypotension, unspecified; B95.2 Enterococcus as the cause of diseases classified elsewhere; K70.30 Alcoholic cirrhosis of liver without ascites; F10.26 Alcohol dependence with alcohol-induced persisting amnestic disorder; E27.8 Other specified disorders of adrenal gland; Z79.01 Long term (current) use of anticoagulants; I48.91 Unspecified atrial fibrillation
CPT/HCPCS: 36415; 80048; 80069; 80076; 81001; 82803; 83605; 83735; 83880; 84484; 85025; 85027; 86140; 87086; 87186; 93005; 94761; 97165; 99284; 99285; A9270; J0696; J7030; J7042

== ENCOUNTER 2024-06-23 08:55 | Inpatient (IN) | payer MEDICARE, MEDICAID, SELFPAY ==
[2024-06-23] VITALS (16 sets, daily range): BP systolic 113–182; BP diastolic 48–98; PULSE 58–79; RESP 18–20; TEMP 35.9–36.8; O2SAT 84–96; BMI 28.2; BMI 27.9
--- NOTE | 2024-06-23 09:15 | CRLHL7_ITS ---
For Patients: As a result of the Century Cures Act, medical imaging exams and procedure reports are released immediately into your electronic medical record. You may view this report before your referring provider. If you have questions, please contact your health care provider. Indication: Shortness of breath. Technique: One view(s) of the chest. Comparison: 04/17/2024, 08/22/2020, 04/01/2020. Findings: Left subclavian pacemaker/AICD. Compared to priors CT, the right atrial lead is below the left mainstem bronchus, in the region of the right atrial appendage. The right ventricular lead appears unchanged in position. There is progressive moderate cardiomegaly with left ventricular calcifications. Pulmonary vasculature is similar. Increased mild basilar airspace opacities. No pleural effusion or pneumothorax. Unchanged bones and soft tissues Impression: 1. Minimal bibasilar airspace opacities which may be due to atelectasis or developing pneumonia in the appropriate clinical context. 2. Moderate cardiomegaly. Dictated by April Chance MD @ 06/23/2024 10:13:24 AM (Electronically Signed)
--- NOTE | 2024-06-23 09:16 | ED.GENADULT ---
HPI - General Adult General Date Seen: 06/23/24 Chief complaint: Lower Extremity Swelling Stated complaint: Both legs swollen Time Seen by Provider: 06/23/24 08:57 Source: patient Mode of arrival: wheelchair Limitations: physical limitation History of Present Illness HPI narrative: Patient is a 74-year-old male who comes in on his own to the ER, he does use a motorized scooter. He is on home oxygen but says he does not use it outside of the house. He comes in complaining of shortness of breath and leg swelling for the past week or so. He does not have chest pain, he does have some pain in his right shoulder which he says has been ongoing for the past several months. He was hospitalized here back in April with hypotension and acute on chronic kidney injury, diuretics were held at the time of his hospitalization, he does have a history of stroke and is somewhat difficult understand that seems to be telling me that he is not currently taking a diuretic. I do not see that he has had any cardiology follow-up. He has a history of alcoholic cirrhosis, denies current alcohol use. He does live alone, home health comes to help him. He denies tobacco use. Related Data Home Medications ?Medication ?Instructions ?Recorded ?Confirmed albuterol sulfate 90 mcg/actuation 2 inh inhalation Q4H PRN 03/17/24 06/23/24 aerosol inhaler (Ventolin HFA) atorvastatin 80 mg tablet 80 mg PO HS 03/17/24 06/23/24 sennosides 8.6 mg tablet (Senna 17.2 mg PO DAILY PRN 03/17/24 06/23/24 Lax) acetaminophen 650 mg 650 mg PO Q6H PRN 04/17/24 06/23/24 tablet,extended release (Arthritis Pain Reliever) carvedilol 6.25 mg tablet 6.25 mg PO BID 04/17/24 06/23/24 pantoprazole 40 mg tablet,delayed 40 mg PO BID 04/26/24 06/23/24 release amiodarone 100 mg tablet 100 mg PO DAILY 06/23/24 06/23/24 apixaban 5 mg tablet (Eliquis) 5 mg PO BID 06/23/24 06/23/24 budesonide-formoterol HFA 80 2 inh inhalation BID 08/30/24 08/30/24 mcg-4.5 mcg/actuation aerosol inhaler (Breyna) cholecalciferol (vitamin D3) 25 25 mcg PO DAILY 06/23/24 06/23/24 mcg (1,000 unit) tablet hydralazine 25 mg tablet 25 mg PO TID 06/23/24 06/23/24 isosorbide dinitrate 20 mg tablet 20 mg PO TID 06/23/24 06/23/24 sacubitril 24 mg-valsartan 26 mg 1 tab PO BID 06/23/24 06/23/24 tablet (Entresto) Allergies Allergy/AdvReac Type Severity Reaction Status Date / Time No Known Drug Allergies Allergy Verified 06/23/24 09:06 Review of Systems Status of ROS: Reports: 10 or more systems reviewed and unremarkable except as noted in History and below [facility] Medical History Alcoholic cirrhosis ?K70.30 - Alcoholic cirrhosis of liver without ascites (ICD-10) Atrial fibrillation ?I48.91 - Unspecified atrial fibrillation (ICD-10) Systolic CHF with reduced left ventricular function, NYHA class 3 ?I50.20 - Unspecified systolic (congestive) heart failure (ICD-10) Hypoxia ?R09.02 - Hypoxemia (ICD-10) Obstructive sleep apnea ?G47.33 - Obstructive sleep apnea (adult) (pediatric) (ICD-10) Adrenal nodule ?E27.8 - Other specified disorders of adrenal gland (ICD-10) History of CVA (cerebrovascular accident) ?Z86.73 - Personal history of transient ischemic attack (TIA), and cerebral infarction without residual deficits (ICD-10) Acute on chronic hypoxic respiratory failure ?J96.21 - Acute and chronic respiratory failure with hypoxia (ICD-10) Carotid arterial disease ?I77.9 - Disorder of arteries and arterioles, unspecified (ICD-10) NSTEMI (non-ST elevated myocardial infarction) ?I21.4 - Non-ST elevation (NSTEMI) myocardial infarction (ICD-10) Hemiplegia and hemiparesis 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 ?I69.352 - Hemiplegia and hemiparesis 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 (ICD-10) History of ventricular tachycardia ?Z86.79 - Personal history of other diseases of the circulatory system (ICD-10) Ataxia ?R27.0 - Ataxia, unspecified (ICD-10) Chronic anemia ?D64.9 - Anemia, unspecified (ICD-10) Upper GI bleed ?K92.2 - Gastrointestinal hemorrhage, unspecified (ICD-10) CKD (chronic kidney disease) ?N18.9 - Chronic kidney disease, unspecified (ICD-10) CAD (coronary artery disease) ?I25.10 - Atherosclerotic heart disease of [place] coronary artery without angina pectoris (ICD-10) Recurrent left pleural effusion ?J90 - Pleural effusion, not elsewhere classified (ICD-10) 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 - Alcohol use, unspecified with alcohol-induced persisting amnestic disorder (ICD-10) Alcohol withdrawal seizure ?F10.939 - Alcohol use, unspecified with withdrawal, unspecified (ICD-10) ?R56.9 - Unspecified convulsions (ICD-10) Alcohol dependence ?F10.20 - Alcohol dependence, uncomplicated (ICD-10) Aphasia ?R47.01 - Aphasia (ICD-10) Cardioembolic stroke ?I63.9 - Cerebral infarction, unspecified (ICD-10) Lacunar infarction ?I63.81 - Other cerebral infarction due to occlusion or stenosis of small artery (ICD-10) Pulmonary hypertension ?I27.20 - Pulmonary hypertension, unspecified (ICD-10) Hyperlipidemia ?E78.5 - Hyperlipidemia, unspecified (ICD-10) Hypertension ?I10 - Essential (primary) hypertension (ICD-10) Adrenal adenoma ?D35.00 - Benign neoplasm of unspecified adrenal gland (ICD-10) Surgical History H/O hernia repair ?Z98.890 - Other specified postprocedural states (ICD-10) ?Z87.19 - Personal history of other diseases of the digestive system (ICD-10) Social History What is your current living situation?: I presently have a place to live Problems where you live: no known problems Problems where you live details: N/A In the past 12 months, utilities in danger of being shut off: no In past 12 months, lack of transportation kept you from medical appts, meetings, work, or getting things needed for daily living: no In the past 12 mos, have been you worried that your food would run out before you had money to buy more?: never true In the past 12 mos, the food you bought just didn't last and you didn't have money to buy more?: never true Highest level of school completed/degree received: some college, no degree Smoking Status: Former smoker Do you use any of these nicotine containing products: None Second hand tobacco smoke exposure: No How often do you have a drink containing alcohol: 4 or more times a week Alcohol type: hard liquor Alcohol type details: 2 whiskey 7-ups per day How many standard drinks containing alcohol do you have on a typical day: 1 or 2 How often do you have six or more drinks on one occasion: Never AUDIT-C Alcohol total score: 4 Non-prescribed substance use: denies use Caffeine: Yes How often does anyone, including family, friends and others, physically hurt you: never How often does anyone, including family, friends and others, insult or talk down to you: never How often does anyone, including family, friends and others, threaten you with harm: never How often does anyone, including family, friends and others, scream or curse at you: never service: No Exam Narrative: Exam Narrative: Vital signs as noted above. In general, an alert, nontoxic elderly male, somewhat tachypneic. Head: Normocephalic, atraumatic. Eyes: Pupils are equal reactive. Extraocular movements are full. Conjunctivae are normal. ENT: Mucous membranes are moist. Neck: Supple without lymphadenopathy. Heart: Heart sounds are distant, rate controlled. Lungs: Bibasilar crackles, mildly labored breathing. Abdomen: Protuberant, soft, nontender. Extremities: Bilateral lower extremity edema, natividad erythema symmetric bilaterally suggestive most likely of venous stasis. Neurologic: Patient is alert and oriented to person and place. Dysarthric. Face is symmetric. Moves all extremities equally. Able to transfer from scooter to bed without difficulty. Affect: Normal. Skin: Warm and dry. Well perfused. Const: Vital Signs, click to edit/add: Vital Signs - 24 hr 06/23/24 08:59 06/23/24 09:15 06/23/24 09:15 Temperature 97.9 F Pulse Rate Pulse Rate [Left P ulse Oximeter] 60 Respiratory Rate 18 Blood Pressure Blood Pressure [Ri ght Upper Arm] 113/54 L Pulse Oximetry 84 L 87 L 87 L Oxygen Delivery Me thod Room Air Nasal Cannula Oxygen Flow Rate 4 06/23/24 09:32 06/23/24 09:33 06/23/24 09:45 Temperature Pulse Rate 60 60 Pulse Rate [Left P ulse Oximeter] Respiratory Rate 20 Blood Pressure 124/65 Blood Pressure [Ri ght Upper Arm] Pulse Oximetry 93 92 95 Oxygen Delivery Me thod Nasal Cannula Nasal Cannula Nasal Cannula Oxygen Flow Rate 2 2 2 06/23/24 10:02 06/23/24 10:32 06/23/24 11:02 Temperature Pulse Rate 60 60 61 Pulse Rate [Left P ulse Oximeter] Respiratory Rate Blood Pressure 137/64 141/68 H 144/72 H Blood Pressure [Ri ght Upper Arm] Pulse Oximetry 95 96 95 Oxygen Delivery Me thod Nasal Cannula Nasal Cannula Nasal Cannula Oxygen Flow Rate 2 2 2 Documenting provider has reviewed patient's vital signs: yes Course Course ED Course: O2 sats on room air once he transferred into the ER car were about 81%, he usually apparently is on 2 L at home, we have him on 4 L here and he is satting in the high 80s to 90%. Overall, I suspect that he his now fluid up, will need to figure out what exactly he is on for medications at this point. Other diagnostic considerations would include pulmonary infection whether viral such as COVID or pneumonia, worsening cirrhosis/liver failure, acute coronary syndrome, arrhythmia, anemia among others. Labs are notable for a normal white blood cell count of 7.8, slight left shift with 80% neutrophils. Hemoglobin is mildly low at 11.6, which is stable compared to previous. INR is 2, patient is anticoagulated on Eliquis. Metabolic panel shows a sodium of 134, otherwise normal electrolytes. BUN today is 20 and creatinine is 1.3, which is normalized relative to his target creatinine of 1.7-2.1. Magnesium is 1.8, blood sugar is 88. LFTs [place]. [place] [address], most recently was in the 3 thousands, it was 9000 at the time of his last echo in February. Blood alcohol is 0, COVID is negative. Troponin was stable at 0.03, TSH is pending at this time. Chest x-ray by my review showed some pulmonary congestion although this is read as stable compared to previous by Radiology. Allergy read as follows:Findings: Left subclavian pacemaker/AICD. Compared to priors CT, the right atrial lead is below the left mainstem bronchus, in the region of the right atrial appendage. The right ventricular lead appears unchanged in position. There is progressive moderate cardiomegaly with left ventricular calcifications. Pulmonary vasculature is similar. Increased mild basilar airspace opacities. No pleural effusion or pneumothorax. Unchanged bones and soft tissues 1. Minimal bibasilar airspace opacities which may be due to atelectasis or developing pneumonia in the appropriate clinical context. 2. Moderate cardiomegaly. Overall clinically I do not suspect pneumonia at this time. Clinical picture is more consistent with congestive heart failure and fluid overload. There is no evidence of an acute ischemic event at this time. He did have an EKG which by my review shows a paced rhythm, ventricular rate of 60. Due to his frailty and tenuous renal function, I do think he would be best served by admission for diuresis. I talked with the hospitalist and then spoke with Dr. Lazo, on-call for Cardiology, about this patient as well. He recommended decreasing his carvedilol dose by half for the time being. Noted that patient saw Cardiology on June 16, was started on Entresto, lisinopril was discontinued, hydralazine and nitrates added. I also gave him Lasix 40 mg IV. Plan will be admission to the hospitalist service. Vital Signs Vital signs: Initial Vital Signs Temperature 97.9 F 06/23/24 08:59 Temperature Source Temporal Artery Scan 06/23/24 08:59 Pulse Rate 60 06/23/24 08:59 Respiratory Rate 18 06/23/24 08:59 Blood Pressure 113/54 L 06/23/24 08:59 Blood Pressure Mean 73 06/23/24 08:59 Pulse Oximetry 84 L 06/23/24 08:59 Oxygen Delivery Method Room Air 06/23/24 08:59 Vital Signs Temperature 97.9 F 06/23/24 08:59 Pulse Rate 60 06/23/24 08:59 Respiratory Rate 18 06/23/24 08:59 Blood Pressure 113/54 L 06/23/24 08:59 Pulse Oximetry 84 L 06/23/24 08:59 Oxygen Delivery Method Room Air 06/23/24 08:59 Temperature 97.9 F 06/23/24 08:59 Pulse Rate 61 06/23/24 11:02 Respiratory Rate 20 06/23/24 09:45 Blood Pressure 144/72 H 06/23/24 11:02 Pulse Oximetry 95 06/23/24 11:02 Oxygen Delivery Method Nasal Cannula 06/23/24 11:02 Oxygen Flow Rate 2 06/23/24 11:02 Medications Administered Medications: Discontinued Medications Generic Name Dose Route Start Last Admin Trade Name Freq PRN Reason Stop Dose Admin Furosemide 40 mg 06/23/24 10:44 06/23/24 11:06 Furosemide 10 Mg/Ml Inj IVP 06/23/24 10:45 40 mg ONCE ONE Administration Medical Decision Making Lab Data Labs: Lab Results 06/23/24 06/23/24 06/23/24 Range/Units 09:16 09:17 11:40 WBC 7.84 (4.50-11.00) K/uL RBC 4.19 L (4.30-5.90) m/uL Hgb 11.6 L (13.5-17.5) gm/dL Hct 38.5 (37.0-53.0) % MCV 92 (80-100) fL MCH 28 (26-34) pg MCHC 30 L (32-36) gm/dL RDW Coeff of Myn[place] 19.4 H (11.5-15.5) % Plt Count 162 (140-440) K/uL Neut % (Auto) 80.2 H (42.0-72.0) % Lymph % (Auto) 5.7 L (20-44) % [place] % (Auto) 12.5 H (0.0-11.0) % Eos % (Auto) 1.1 (0.0-7.0) % Baso % (Auto) 0.4 (0.0-3.0) % Neut # (Auto) 6.30 (1.7-7.0) K/uL Lymph # (Auto) 0.40 L (0.90-2.90) K/uL [place] # (Auto) 1.00 H (0.00-0.90) K/UL Eos # (Auto) 0.09 (0.00-0.50) K/uL Baso # (Auto) 0.03 (0.00-0.30) K/uL Abs Immat Gran (auto) 0.01 (0.00-0.30) K/uL Imm/Tot Granulo (auto) 0.1 % INR 2.06 H (0.91-1.10) Sodium 134 L (135-149) mmol/L Potassium 4.6 (3.6-5.1) mmol/L Chloride 103 (96-114) mmol/L Carbon Dioxide 26 (20-32) mmol/L Anion Gap 5 L (7-15) mEq/L BUN 20 (7-30) mg/dL Creatinine 1.3 (0.5-1.5) mg/dL Estimated Creat Clear 46.61 Estimated GFR 58 ml/min Glucose 88 (60-115) mg/dL Calcium 8.9 (8.4-10.6) mg/dL Magnesium 1.8 (1.5-2.6) mg/dL Total Bilirubin 1.2 (0.1-1.5) mg/dL Direct Bilirubin 0.4 (0.0-0.5) mg/dL AST 23 (12-35) U/L ALT 9 (4-50) U/L Alkaline Phosphatase 128 (40-150) U/L NT-Pro-B Natriuret Pep 30466 pg/mL Total Protein 6.2 (6.0-8.3) g/dL Albumin 3.8 (3.3-5.0) g/dL TSH 0.460 (0.270-4.200) uIU/mL Urine Color Yellow (Yellow) Urine Appearance Clear (Clear) Urine pH 6.5 (5.0-8.5) Ur Specific [place] 1.015 (1.000-1.030) Urine Protein Negative (Negative) Urine Glucose (UA) Negative (Negative) Urine Ketones Negative (Negative) Urine Blood Negative (Negative) Urine Nitrite Negative (Negative) Urine Bilirubin Negative (Negative) Urine Urobilinogen 0.2 (0.2-1.0) Ur Leukocyte Esterase 2+ A (Negative) Urine RBC 0-2 (0-2) Urine WBC 25-50 A (0-5) Ur Squamous Epith Cells Few (None-Few) Urine Bacteria Few A (None) Ethyl Alcohol < 0.01 L (0.01-0.03) % SARS-CoV-2 (PCR) Negative SARS-CoV-2 (Negative) POC Troponin I 0.03 (0.01-0.04) ng/ml Discharge Plan Discharge Clinical Impression: Congestive heart failure, Shortness of breath Patient Disposition: Admitted As Observation Condition: Stable
[2024-06-23 09:31] LABS: Basophils Absolute Auto 0.03 K/uL (0.00-0.30); Basophils Percent Auto 0.4 % (0.0-3.0); Eosinophils Absolute Auto 0.09 K/uL (0.00-0.50); Eosinophils Percent Auto 1.1 % (0.0-7.0); Hematocrit 38.5 % (37.0-53.0); Hemoglobin* 11.6 gm/dL (13.5-17.5); Immature Granulocytes Abs Auto 0.01 K/uL (0.00-0.30); Immature Granulocytes Pct Auto 0.1 %; Lymphocytes Percent Auto 5.7 % (20-44); Mean Corpuscular HGB Conc 30 gm/dL (32-36); Mean Corpuscular Hemoglobin 28 pg (26-34); Mean Corpuscular Volume 92 fL (80-100); Monocytes Percent Auto 12.5 % (0.0-11.0); Neutrophils Percent Auto 80.2 % (42.0-72.0); Platelet Count* 162 K/uL (140-440); RDW Coefficient of Variation % 19.4 % (11.5-15.5); Red Blood Count 4.19 m/uL (4.30-5.90); White Blood Count* 7.84 K/uL (4.50-11.00)
[2024-06-23 09:34] LABS: Troponin, Point-of-Care* 0.03 ng/ml (0.01-0.04)
[2024-06-23 09:45] LABS: Albumin* 3.8 g/dL (3.3-5.0)
[2024-06-23 09:46] LABS: Chloride* 103 mmol/L (96-114); Potassium* 4.6 mmol/L (3.6-5.1); Sodium* 134 mmol/L (135-149)
[2024-06-23 09:48] LABS: Anion Gap 5 mEq/L (7-15); Bilirubin Direct* 0.4 mg/dL (0.0-0.5); Bilirubin Total* 1.2 mg/dL (0.1-1.5); Carbon Dioxide* 26 mmol/L (20-32); Creatinine* 1.3 mg/dL (0.5-1.5); Est. Creatinine Clearance* 46.61; Estimated Glomerular Filt Rate 58 ml/min; INR 2.06 (0.91-1.10); Prothrombin Time 24.7 Seconds
[2024-06-23 09:49] LABS: Alanine Aminotransferase* 9 U/L (4-50); Alkaline Phosphatase* 128 U/L (40-150); Aspartate Amino Transferase* 23 U/L (12-35); Blood Urea Nitrogen* 20 mg/dL (7-30); Calcium* 8.9 mg/dL (8.4-10.6); Glucose* 88 mg/dL (60-115); Magnesium* 1.8 mg/dL (1.5-2.6); Total Protein* 6.2 g/dL (6.0-8.3)
[2024-06-23 09:50] LABS: Ethanol* < 0.01 % (0.01-0.03)
[2024-06-23 09:51] LABS: Slide Review Reflex No
[2024-06-23 10:01] LABS: NT Pro B Type NatriureticPept* 12500 pg/mL
[2024-06-23 10:03] LABS: SARS PCR* Negative SARS-CoV-2 (Negative)
[2024-06-23] MEDS: FUROSEMIDE 10 MG/ML inj 40 MG IVP ×2 (11:06→16:27)
[2024-06-23 11:44] LABS: Appearance Urine Clear (Clear); Bilirubin Urine Negative (Negative); Blood Urine Negative (Negative); Color Urine Yellow (Yellow); Glucose Urine Negative (Negative); Ketones Urine Negative (Negative); Leukocyte Esterase Urine 2+ (Negative); Nitrite Urine Negative (Negative); Protein Urine Negative (Negative); Specific Gravity Urine 1.015 (1.000-1.030); Urobilinogen Urine 0.2 (0.2-1.0); pH Urine 6.5 (5.0-8.5)
[2024-06-23 11:55] LABS: Bacteria Urine Few; RBC Urine 0-2 (0-2); Squamous Epithelial Cell Urine Few (None-Few); WBC Urine 25-50 (0-5)
--- NOTE | 2024-06-23 16:00 | P.IMHP_ITS ---
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 He presents today with a 2 week history of increasing dyspnea and swelling in his legs. He notes that his weight has increased as well. He was hospitalized here 3 months ago with hypoxia due to multiple problems including heart failure with reduced ejection fraction, COPD, suspected sleep apnea and suspected aspiration pneumonia. At that time he had an increase in his diuretics: torsemide 60-100 mg daily, spironolactone 25 mg daily and also supplemental potassium. Two months ago he was hospitalized here with what was thought to be dehydration and acute on chronic kidney injury. This was felt to be due to excessive diuresis. The spironolactone was stopped and torsemide reduced to 40 mg daily. Seven weeks ago he was again hospitalized and felt to be having acute on chronic kidney injury due to diuresis so torsemide was stopped altogether. Since that admission he has been generally doing well until about the last 2 weeks when he reports he is having increasing edema and more shortness of breath. He has been on chronic oxygen but was able to wean off of it until 2 weeks ago when he started requiring oxygen again both day and night. He notes that his weight is up as well. He has had swelling in his legs. One week ago he was seen by the it applications analyst and the it applications analyst recommended that he start Entresto, hydralazine, isosorbide and stop taking amlodipine and lisinopril. He tells me those medication changes were just started yesterday. He also thinks he may have been taking torsemide during this month even though it was discontinued at the beginning of April. Patient has significant aphasia due to prior stroke and is quite difficult to understand. Patient also has some uncertainty about his medications as they are set up by his home care nurse. He denies other symptoms of illness, fever, cough, chest pain, abdominal pain, nausea, vomiting, cold or congestion. Review of Systems Narrative: Negative except as noted above [facility] Medical History (Updated 06/23/24 @ 16:32 by Santiago Larkin MD) Hypoxia ?R09.02 - Hypoxemia (ICD-10) Alcoholic cirrhosis ?K70.30 - Alcoholic cirrhosis of liver without ascites (ICD-10) Atrial fibrillation ?I48.91 - Unspecified atrial fibrillation (ICD-10) Systolic CHF with reduced left ventricular function, NYHA class 3 ?I50.20 - Unspecified systolic (congestive) heart failure (ICD-10) Obstructive sleep apnea ?G47.33 - Obstructive sleep apnea (adult) (pediatric) (ICD-10) Adrenal nodule ?E27.8 - Other specified disorders of adrenal gland (ICD-10) History of CVA (cerebrovascular accident) ?Z86.73 - Personal history of transient ischemic attack (TIA), and cerebral infarction without residual deficits (ICD-10) Acute on chronic hypoxic respiratory failure ?J96.21 - Acute and chronic respiratory failure with hypoxia (ICD-10) Carotid arterial disease ?I77.9 - Disorder of arteries and arterioles, unspecified (ICD-10) NSTEMI (non-ST elevated myocardial infarction) ?I21.4 - Non-ST elevation (NSTEMI) myocardial infarction (ICD-10) Hemiplegia and hemiparesis 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 ?I69.352 - Hemiplegia and hemiparesis 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 (ICD-10) History of ventricular tachycardia ?Z86.79 - Personal history of other diseases of the circulatory system (ICD- 10) Ataxia ?R27.0 - Ataxia, unspecified (ICD-10) Chronic anemia ?D64.9 - Anemia, unspecified (ICD-10) Upper GI bleed ?K92.2 - Gastrointestinal hemorrhage, unspecified (ICD-10) CKD (chronic kidney disease) ?N18.9 - Chronic kidney disease, unspecified (ICD-10) CAD (coronary artery disease) ?I25.10 - Atherosclerotic heart disease of [place] coronary artery without angina pectoris (ICD-10) Recurrent left pleural effusion ?J90 - Pleural effusion, not elsewhere classified (ICD-10) 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 - Alcohol use, unspecified with alcohol-induced persisting amnestic disorder (ICD-10) Alcohol withdrawal seizure ?F10.939 - Alcohol use, unspecified with withdrawal, unspecified (ICD-10) ?R56.9 - Unspecified convulsions (ICD-10) Alcohol dependence ?F10.20 - Alcohol dependence, uncomplicated (ICD-10) Aphasia ?R47.01 - Aphasia (ICD-10) Cardioembolic stroke ?I63.9 - Cerebral infarction, unspecified (ICD-10) Lacunar infarction ?I63.81 - Other cerebral infarction due to occlusion or stenosis of small artery (ICD-10) Pulmonary hypertension ?I27.20 - Pulmonary hypertension, unspecified (ICD-10) Hyperlipidemia ?E78.5 - Hyperlipidemia, unspecified (ICD-10) Hypertension ?I10 - Essential (primary) hypertension (ICD-10) Adrenal adenoma ?D35.00 - Benign neoplasm of unspecified adrenal gland (ICD-10) Surgical History H/O hernia repair ?Z98.890 - Other specified postprocedural states (ICD-10) ?Z87.19 - Personal history of other diseases of the digestive system (ICD-10) Social History What is your current living situation?: I presently have a place to live Problems where you live: no known problems Problems where you live details: N/A In the past 12 months, utilities in danger of being shut off: no In past 12 months, lack of transportation kept you from medical appts, meetings, work, or getting things needed for daily living: no In the past 12 mos, have been you worried that your food would run out before you had money to buy more?: never true In the past 12 mos, the food you bought just didn't last and you didn't have money to buy more?: never true Highest level of school completed/degree received: some college, no degree Smoking Status: Former smoker Do you use any of these nicotine containing products: None Second hand tobacco smoke exposure: No How often do you have a drink containing alcohol: 4 or more times a week Alcohol type: hard liquor Alcohol type details: 1 whiskey 7-ups per day How many standard drinks containing alcohol do you have on a typical day: 1 or 2 How often do you have six or more drinks on one occasion: Never AUDIT-C Alcohol total score: 4 Non-prescribed substance use: denies use Caffeine: Yes How often does anyone, including family, friends and others, physically hurt you : never How often does anyone, including family, friends and others, insult or talk down to you: never How often does anyone, including family, friends and others, threaten you with harm: never How often does anyone, including family, friends and others, scream or curse at you: never service: No Meds Home Medications and Allergies Home Medications ?Medication ?Instructions ?Recorded ?Confirmed ?Type albuterol sulfate 90 mcg/actuation 2 inh inhalation Q4H PRN 03/17/24 06/23/24 History aerosol inhaler (Ventolin HFA) atorvastatin 80 mg tablet 80 mg PO HS 03/17/24 06/23/24 History sennosides 8.6 mg tablet (Senna 17.2 mg PO DAILY PRN 03/17/24 06/23/24 History Lax) acetaminophen 650 mg 650 mg PO Q6H PRN 04/17/24 06/23/24 History tablet,extended release (Arthritis Pain Reliever) carvedilol 6.25 mg tablet 6.25 mg PO BID 04/17/24 06/23/24 History pantoprazole 40 mg tablet,delayed 40 mg PO BID 04/26/24 06/23/24 History release amiodarone 100 mg tablet 100 mg PO DAILY 06/23/24 06/23/24 History apixaban 5 mg tablet (Eliquis) 5 mg PO BID 06/23/24 06/23/24 History budesonide-formoterol HFA 80 2 inh inhalation BID 06/23/24 06/23/24 History mcg-4.5 mcg/actuation aerosol inhaler (Breyna) cholecalciferol (vitamin D3) 25 25 mcg PO DAILY 06/23/24 06/23/24 History mcg (1,000 unit) tablet hydralazine 25 mg tablet 25 mg PO TID 06/23/24 06/23/24 History isosorbide dinitrate 20 mg tablet 20 mg PO TID 06/23/24 06/23/24 History sacubitril 24 mg-valsartan 26 mg 1 tab PO BID 06/23/24 06/23/24 History tablet (Entresto) Allergies Allergy/AdvReac Type Severity Reaction Status Date / Time No Known Drug Allergies Allergy Verified 06/23/24 09:06 Exam Narrative: Exam Narrative: He is alert and appears in no distress. Speech is at baseline with significant difficulty in articulation due to old stroke. Eyes are normal. Oropharynx edentulous. No mucous membrane abnormalities. Neck is supple without mass or adenopathy. Respirations with diminished breath sounds throughout. No wheezing. Rare basilar crackle. Cardiovascular: Very distant S1, S2, regular rhythm. Abdomen is mildly distended but soft without tenderness or mass. Extremities with 1+ edema bilaterally. All 4 extremities are cool to touch with sluggish capillary refill and weak pulses Const: Vital Signs, click to edit/add: Vital Signs - 24 hr 06/23/24 08:59 06/23/24 09:15 06/23/24 09:15 Temperature 97.9 F Pulse Rate Pulse Rate [Left P ulse Oximeter] 60 Pulse Rate [Pulse Oximeter] Respiratory Rate 18 Blood Pressure Blood Pressure [Ri ght Arm] Blood Pressure [Ri ght Upper Arm] 113/54 L Pulse Oximetry 84 L 87 L 87 L Oxygen Delivery Me thod Room Air Nasal Cannula Oxygen Flow Rate 4 06/23/24 09:32 06/23/24 09:33 06/23/24 09:45 Temperature Pulse Rate 60 60 Pulse Rate [Left P ulse Oximeter] Pulse Rate [Pulse Oximeter] Respiratory Rate 20 Blood Pressure 124/65 Blood Pressure [Ri ght Arm] Blood Pressure [Ri ght Upper Arm] Pulse Oximetry 93 92 95 Oxygen Delivery Me thod Nasal Cannula Nasal Cannula Nasal Cannula Oxygen Flow Rate 2 2 2 06/23/24 10:02 06/23/24 10:32 06/23/24 11:02 Temperature Pulse Rate 60 60 61 Pulse Rate [Left P ulse Oximeter] Pulse Rate [Pulse Oximeter] Respiratory Rate Blood Pressure 137/64 141/68 H 144/72 H Blood Pressure [Ri ght Arm] Blood Pressure [Ri ght Upper Arm] Pulse Oximetry 95 96 95 Oxygen Delivery Me thod Nasal Cannula Nasal Cannula Nasal Cannula Oxygen Flow Rate 2 2 2 06/23/24 14:16 Temperature 96.7 F L Pulse Rate Pulse Rate [Left P ulse Oximeter] Pulse Rate [Pulse Oximeter] 58 L Respiratory Rate 20 Blood Pressure Blood Pressure [Ri ght Arm] 162/82 H Blood Pressure [Ri ght Upper Arm] Pulse Oximetry 95 Oxygen Delivery Me thod Nasal Cannula Oxygen Flow Rate 2 Documenting provider has reviewed patient's vital signs: yes Hospitalist - H&P: Result Labs Labs: Short CBC 06/23/24 Range/Units 09:17 WBC 7.84 (4.50-11.00) K/uL Hgb 11.6 L (13.5-17.5) gm/dL Hct 38.5 (37.0-53.0) % Plt Count 162 (140-440) K/uL BMP 06/23/24 09:17 Sodium 134 L Potassium 4.6 Chloride 103 Carbon Dioxide 26 BUN 20 Creatinine 1.3 Glucose 88 Calcium 8.9 Liver Function 06/23/24 Range/Units 09:17 Total Bilirubin 1.2 (0.1-1.5) mg/dL Direct Bilirubin 0.4 (0.0-0.5) mg/dL AST 23 (12-35) U/L ALT 9 (4-50) U/L Alkaline Phosphatase 128 (40-150) U/L Albumin 3.8 (3.3-5.0) g/dL Urine 06/23/24 Range/Units 11:40 Urine Color Yellow (Yellow) Urine Appearance Clear (Clear) Urine pH 6.5 (5.0-8.5) Ur Specific Lutz 1.015 (1.000-1.030) Urine Protein Negative (Negative) Urine Glucose (UA) Negative (Negative) ECG Attestation: I personally reviewed and interpreted this ECG as follows: (Regular wide complex rhythm with a rate of 60, likely paced.) Imaging Chest x-ray: Attestation: I have reviewed the pertinent imaging results. (Mild congestion. No definite infiltrate.) Assessment and Plan Assessment and plan (1) Hypoxia: Problem comment: Patient has recently weaned off of oxygen and then restarted it with current exacerbation of heart failure. Likely will need some diuretic for decongestion pending affective treatment with Entresto and isosorbide and hydralazine which were started yesterday. Status: Acute (2) Systolic CHF with reduced left ventricular function, NYHA class 3: Problem comment: Echo in February 2024 EF 35-40%. Moderately reduced global systolic function. Apical inferior segment and apical septum are abnormal. Right ventricle is moderately enlarged, global systolic RV function is moderately reduced Mildly enlarged left atrium Pulmonary hypertension History of chronic hypoxia but has weaned off of oxygen until the last 2 weeks. He may or may not have been off torsemide recently. The order to discontinue was on April 28. Yesterday started on Entresto, isosorbide, hydralazine. His blood pressure is adequate but his peripheral perfusion is poor. Will need to monitor blood pressure and electrolytes with diuresis. Status: Acute (3) Atrial fibrillation: Problem comment: -paced -on eliquis Continue Coreg for rate control Status: Acute (4) Chronic anticoagulation: Problem comment: -Eliquis - with improved renal function now on 5 mg b.i.d. Status: Acute (5) Alcoholic cirrhosis: Problem comment: congestion from right heart failure may influence his LFTS but most likely due to his known alcoholic cirrhosis Status: Acute (6) Wernicke-Korsakoff syndrome (alcoholic): Status: Acute (7) COPD (chronic obstructive pulmonary disease): Status: Acute (8) Acute kidney injury superimposed on stage 4 chronic kidney disease: Problem comment: Previous admissions occurred with elevated creatinine, stage 4 kidney disease and associated dehydration from aggressive diuresis. Status: Acute (9) Hemiplegia and hemiparesis 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: Problem comment: Following CVA in September 2020, with some improvement following ICA stenting in January 2021. Status: Acute (10) Obstructive sleep apnea: Problem comment: He wears oxygen sometimes at night sleeps on his couch in his apartment Declines any further evaluation or treatment Status: Suspected Plan Patient is admitted to the hospital for ongoing monitoring and management of heart failure with reduced ejection fraction, multiple recent changes to heart failure medicines, recent history of acute kidney injury due to diuresis for heart failure, managing major communication, cognitive and mobility deficits, new hypoxia and oxygen requirement. Total Time Spent Total Time Spent: Total time spent today is 90 minutes.
[2024-06-23] MEDS: HYDRALAZINE 25 MG TABLET PO ×2 (16:30→21:33)
[2024-06-23] MEDS: ALBUTEROL SULFATE 2.5 MG/3 ML VIAL.NEB NEB ×2 (16:30→21:31)
[2024-06-23] MEDS: OMEPRAZOLE 20 MG CAPSULE DR 40 MG PO (16:32)
[2024-06-23] MEDS: ISOSORBIDE DINITRATE 10 MG TABLET 20 MG PO (21:32)
[2024-06-23] MEDS: APIXABAN 5 MG TABLET PO (21:32)
[2024-06-23] MEDS: ATORVASTATIN CALCIUM 40 MG TABLET 80 MG PO (21:32)
[2024-06-23] MEDS: carvediloL 6.25 MG TABLET PO (21:33)
[2024-06-23] MEDS: SODIUM CHLORIDE 0.9 % (FLUSH) 10 ML SYRINGE 5 ML IVF (21:34)
[2024-06-23] MEDS: BUDESONIDE 0.5 MG/2ML NEB NEB (21:34)
[2024-06-23] MEDS: SACUBITRIL 24 mg/VALSARTAN 26 mg TABLET 1 TAB PO (21:34)
[2024-06-24] VITALS (9 sets, daily range): BP systolic 112–133; BP diastolic 55–79; PULSE 60–89; RESP 18–22; TEMP 35.6–36.8; O2SAT 88–92
[2024-06-24] MEDS: OMEPRAZOLE 20 MG CAPSULE DR 40 MG PO ×2 (06:28→17:29)
--- NOTE | 2024-06-24 06:56 | PC.NURSE ---
Shift note: Pt has been on 0.5 to 1L of oxygen throughout the night to keep the O2 between 88 and 91. Pulse oximeter probe removed from forehead to left middle finger and appeared to be reading well. Alert sand oriented. Vitally stable. Pt had adequate sleep. About 1+ pedal edema. SCD and ALANIS applied.
[2024-06-24 07:17] LABS: Chloride* 102 mmol/L (96-114); Potassium* 4.3 mmol/L (3.6-5.1); Sodium* 134 mmol/L (135-149)
[2024-06-24 07:20] LABS: Anion Gap 15 mEq/L (7-15); Blood Urea Nitrogen* 26 mg/dL (7-30); Calcium* 8.8 mg/dL (8.4-10.6); Carbon Dioxide* 17 mmol/L (20-32); Creatinine* 1.4 mg/dL (0.5-1.5); Est. Creatinine Clearance* 43.28; Estimated Glomerular Filt Rate 53 ml/min; Glucose* 96 mg/dL (60-115)
[2024-06-24] MEDS: ACETAMINOPHEN 325 MG TABLET PO (08:58)
[2024-06-24] MEDS: AMIODARONE 200 MG TABLET 100 MG PO (08:58)
[2024-06-24] MEDS: HYDRALAZINE 25 MG TABLET PO ×3 (08:58→21:11)
[2024-06-24] MEDS: ISOSORBIDE DINITRATE 10 MG TABLET 20 MG PO ×3 (08:58→21:14)
[2024-06-24] MEDS: SACUBITRIL 24 mg/VALSARTAN 26 mg TABLET 1 TAB PO ×2 (08:59→21:11)
[2024-06-24] MEDS: carvediloL 6.25 MG TABLET PO ×2 (08:59→21:11)
[2024-06-24] MEDS: ALBUTEROL SULFATE 2.5 MG/3 ML VIAL.NEB NEB ×4 (08:59→21:10)
[2024-06-24] MEDS: BUDESONIDE 0.5 MG/2ML NEB NEB ×2 (08:59→21:14)
[2024-06-24] MEDS: APIXABAN 5 MG TABLET PO ×2 (08:59→21:10)
[2024-06-24] MEDS: SODIUM CHLORIDE 0.9 % (FLUSH) 10 ML SYRINGE 5 ML IVF ×2 (09:03→21:12)
--- NOTE | 2024-06-24 15:16 | P.IMPN_ITS ---
Progress Note: A&P Assessment and plan (1) Hypoxia: Problem details: Patient has recently weaned off of oxygen and then restarted it with current exacerbation of heart failure. Likely will need some diuretic for decongestion pending affective treatment with Entresto and isosorbide and hydralazine which were started yesterday. Status: Acute (2) Systolic CHF with reduced left ventricular function, NYHA class 3: Problem details: Echo in February 2024 EF 35-40%. Moderately reduced global systolic function. Apical inferior segment and apical septum are abnormal. Right ventricle is moderately enlarged, global systolic RV function is moderately reduced Mildly enlarged left atrium Pulmonary hypertension History of chronic hypoxia but has weaned off of oxygen until the last 2 weeks. He may or may not have been off torsemide recently. The order to discontinue was on April 28. 06/22 started on Entresto, isosorbide, hydralazine. 06/24 acute on chronic. blood pressure remains adequate but his peripheral perfusion is poor. Oxygen needs are stable. Continue to monitor blood pressure and electrolytes with diuresis. He has diuresed about 1 L, 1 kg overnight. Status: Acute (3) Atrial fibrillation: Problem details: -paced -on eliquis Continue Coreg for rate control Status: Chronic (4) Chronic anticoagulation: Problem details: -Eliquis for atrial fibrillation - with improved renal function now on 5 mg b.i.d. Status: Chronic (5) Alcoholic cirrhosis: Problem details: - these have improved overnight. Suspect congestion from right heart failure and known alcoholic cirrhosis Status: Acute (6) Wernicke-Korsakoff syndrome (alcoholic): Status: Chronic (7) COPD (chronic obstructive pulmonary disease): Status: Chronic (8) Hemiplegia and hemiparesis 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: Problem details: Following CVA in September 2020, with some improvement following ICA stenting in January 2021. Status: Chronic (9) Obstructive sleep apnea: Problem details: He wears oxygen sometimes at night sleeps on his couch in his apartment Declines any further evaluation or treatment Status: Suspected (10) CKD (chronic kidney disease): Problem details: Previous admissions occurred with elevated creatinine, stage 4 kidney disease and associated dehydration from aggressive diuresis. Monitor and expect some cr eatinine elevation with diuresis. Status: Chronic Plan 74-year-old male with acute on chronic heart failure with reduced ejection fraction. Patient has had multiple recent changes to heart failure medications and history of acute kidney injury recently with diuresis. Has had some improvement overnight, but continues to require oxygen. Continued management in the hospital overnight yet and monitor labs electrolytes, oxygen needs, symptoms, cognition and mobility. Subjective Time Seen by Provider: 10:42 Date Seen: 06/24/24 Interval history: Chet is feeling a bit better today, but notes that he is not feeling well enough to go home yet or feeling back to baseline. He complains about the concern impression stockings and says they are hurting his legs and he does not want to wear them. Exam Narrative: Exam Narrative: General: No acute distress. Awake, alert, oriented. Some speech difficulty noted, consistent with chronic issues. No pallor. No jaundice. Oropharynx: Clear. Mucous membranes moist. Cardiovascular: Regular rate and rhythm. No murmurs, gallops, or rubs. Respiratory: Bibasilar crackles. No wheezes. Abdomen: Bowel sounds present. Soft, nondistended, nontender. Extremities: Trace bilateral lower extremity edema. Const: Vital Signs, click to edit/add: Vital Signs - 24 hr 06/23/24 16:31 06/23/24 18:28 06/23/24 19:00 Temperature 97.4 F L 97.4 F L Pulse Rate Pulse Rate [Pulse Oximeter] 65 61 Pulse Rate [orthos tatic lying] 70 Pulse Rate [orthos tatic sitting] 75 Pulse Rate [orthos tatic standing] 79 Respiratory Rate 20 20 Blood Pressure [Ri ght Arm] 182/95 H 122/63 Blood Pressure [or thostatic lying] 139/98 H Blood Pressure [or thostatic sitting] 130/66 Blood Pressure [or thostatic standing ] 128/70 Pulse Oximetry 91 91 Oxygen Delivery Me thod Nasal Cannula Nasal Cannula Oxygen Flow Rate 1 0.5 06/23/24 22:42 06/23/24 22:59 06/23/24 22:59 Temperature 98.2 F Pulse Rate 60 Pulse Rate [Pulse Oximeter] 64 Pulse Rate [orthos tatic lying] Pulse Rate [orthos tatic sitting] Pulse Rate [orthos tatic standing] Respiratory Rate 20 Blood Pressure [Ri ght Arm] 118/48 L Blood Pressure [or thostatic lying] Blood Pressure [or thostatic sitting] Blood Pressure [or thostatic standing ] Pulse Oximetry 88 88 Oxygen Delivery Me thod Nasal Cannula Oxygen Flow Rate 0.5 06/23/24 22:59 06/24/24 03:00 06/24/24 07:00 Temperature 98.2 F Pulse Rate Pulse Rate [Pulse Oximeter] 64 60 Pulse Rate [orthos tatic lying] Pulse Rate [orthos tatic sitting] Pulse Rate [orthos tatic standing] Respiratory Rate 20 20 Blood Pressure [Ri ght Arm] 133/62 Blood Pressure [or thostatic lying] Blood Pressure [or thostatic sitting] Blood Pressure [or thostatic standing ] Pulse Oximetry 88 90 Oxygen Delivery Me thod Nasal Cannula Oxygen Flow Rate 1 06/24/24 07:00 06/24/24 07:00 06/24/24 07:00 Temperature 97.1 F L Pulse Rate 60 Pulse Rate [Pulse Oximeter] 89 89 Pulse Rate [orthos tatic lying] Pulse Rate [orthos tatic sitting] Pulse Rate [orthos tatic standing] Respiratory Rate 22 22 Blood Pressure [Ri ght Arm] 126/69 Blood Pressure [or thostatic lying] Blood Pressure [or thostatic sitting] Blood Pressure [or thostatic standing ] Pulse Oximetry 90 Oxygen Delivery Me thod Nasal Cannula Oxygen Flow Rate 1 06/24/24 07:00 06/24/24 11:00 06/24/24 15:00 Temperature 97.3 F L Pulse Rate Pulse Rate [Pulse Oximeter] 80 Pulse Rate [orthos tatic lying] Pulse Rate [orthos tatic sitting] Pulse Rate [orthos tatic standing] Respiratory Rate 20 Blood Pressure [Ri ght Arm] 112/55 L Blood Pressure [or thostatic lying] Blood Pressure [or thostatic sitting] Blood Pressure [or thostatic standing ] Pulse Oximetry 90 91 90 Oxygen Delivery Me thod Nasal Cannula Nasal Cannula Oxygen Flow Rate 1 1 Labs Labs: Laboratory Results - last 24 hr 06/24/24 06:15 Sodium 134 L Potassium 4.3 Chloride 102 Carbon Dioxide 17 L Anion Gap 15 BUN 26 Creatinine 1.4 Estimated Creat Clear 43.28 Estimated GFR 53 Glucose 96 Calcium 8.8
--- NOTE | 2024-06-24 19:33 | PC.NURSE ---
End of Shift: Patient pleasant and cooperative. Afebrile. C/o pain in right shoulder 2/10 and PRN Tylenol given x1. Up to chair and bathroom with SBA and walker. 0.5-1L O2 via NC to keep sats above 90%. Tolerating regular diet with no nausea.
[2024-06-24] MEDS: ATORVASTATIN CALCIUM 40 MG TABLET 80 MG PO (21:10)
[2024-06-25 02:59] VITALS: BP 133/71; PULSE 77; RESP 18; TEMP 36.5; O2SAT 92
[2024-06-25] MEDS: OMEPRAZOLE 20 MG CAPSULE DR 40 MG PO (06:11)
[2024-06-25] MEDS: ACETAMINOPHEN 325 MG TABLET PO (06:14)
--- NOTE | 2024-06-25 06:17 | PC.NURSE ---
End of shift note [id number]: Pt alert & oriented x 4 and able to make needs known though speech garbled at baseline due to past CVA. VSS with pt on 1 LPM of oxygen throughout the shift. Pt transfers/ambulates with SBA though is independent with repositioning in bed. IV to R AC patent and SL. He has been continent of bladder. PRN Tylenol administered for c/o 3/10 back pain this morning. Pt has been refusing TEDs and SCDs throughout the shift despite encouragement, education and reapproaching. Pt remains on tele- A/V paced with BBB.
[2024-06-25 06:59] LABS: Chloride* 104 mmol/L (96-114); Potassium* 4.1 mmol/L (3.6-5.1); Sodium* 137 mmol/L (135-149)
[2024-06-25 07:02] LABS: Anion Gap 9 mEq/L (7-15); Blood Urea Nitrogen* 28 mg/dL (7-30); Carbon Dioxide* 24 mmol/L (20-32); Creatinine* 1.5 mg/dL (0.5-1.5); Est. Creatinine Clearance* 40.39; Estimated Glomerular Filt Rate 49 ml/min; Glucose* 106 mg/dL (60-115)
[2024-06-25 07:03] LABS: Calcium* 8.9 mg/dL (8.4-10.6)
[2024-06-25 08:45] VITALS: BP 103/68; PULSE 79; RESP 18; TEMP 36.6; O2SAT 91
[2024-06-25 09:00] VITALS: PULSE 73
[2024-06-25] MEDS: BUDESONIDE 0.5 MG/2ML NEB NEB (09:02)
[2024-06-25] MEDS: SACUBITRIL 24 mg/VALSARTAN 26 mg TABLET 1 TAB PO (09:02)
[2024-06-25] MEDS: APIXABAN 5 MG TABLET PO (09:02)
[2024-06-25] MEDS: carvediloL 6.25 MG TABLET PO (09:03)
[2024-06-25] MEDS: HYDRALAZINE 25 MG TABLET PO (09:03)
[2024-06-25] MEDS: AMIODARONE 200 MG TABLET 100 MG PO (09:03)
[2024-06-25] MEDS: ISOSORBIDE DINITRATE 10 MG TABLET 20 MG PO (09:03)
[2024-06-25] MEDS: SODIUM CHLORIDE 0.9 % (FLUSH) 10 ML SYRINGE 5 ML IVF (09:04)
[2024-06-25] MEDS: ALBUTEROL SULFATE 2.5 MG/3 ML VIAL.NEB NEB (09:04)
--- NOTE | 2024-06-25 10:38 | RESP.RT ---
Pt seen for oxygen needs. He has a current prescription for oxygen at home of 2L. This information is per the pt. He does desaurate to 85% with walking. He uses a scoter he uses for all transportation. He does not have oxygen for use on the scoter. Suggest that Primary care looks into the possibility of portable oxygen that is not an oxygen tank for his use when on the scoter. He does use it as a mode of transportation around the community. Will need non emergent ride home, pt not to use his scoter to get home.
[2024-06-25 12:00] VITALS: BP 121/81; PULSE 74; RESP 18; TEMP 36.6; O2SAT 92
--- NOTE | 2024-06-25 12:05 | PM.DS1 ---
DS: Providers Provider Time Seen by Provider: 09:35 Date Seen: 06/25/24 Date of admission: 06/23/24 15:28 Primary care physician: Not a Local Provider Admitting Clinician: Helen Sheikh MD Consults: 06/23/24 13:41 Consult to Occupational Therapy [CONS] Routine Comment: Reason(s) for OT Consult:: Evaluate and Treat Any Restrictions?:: No Restrictions Consult to Physical Therapy [CONS] Routine Comment: Reason(s) for PT Consult:: Evaluate and Treat Any Restrictions?:: No Restrictions Consult to [employer] Waste [employer] [CONS] Routine Comment: Reason for Consult:: Social Service Consult 06/23/24 15:30 Consult to Occupational Therapy [CONS] Routine Comment: Reason(s) for OT Consult:: Evaluate and Treat Any Restrictions?:: No Restrictions Consult to Physical Therapy [CONS] Routine Comment: Reason(s) for PT Consult:: Evaluate and Treat Any Restrictions?:: No Restrictions Attending Physician on discharge: Guillermina Taveras MD Date of Discharge: 06/25/24 DS: Diagnosis Discharge Diagnosis (1) Hypoxia: Status: Acute Problem details: Patient has recently weaned off of oxygen and then restarted it with current exacerbation of heart failure. He started new medications and stopped other antihypertensives just a day before admission. He is doing well on these and should continue the medications as prescribed. The discharge medication list is sent to his [facility] [employer] [facility]. (2) Systolic CHF with reduced left ventricular function, NYHA class 3: Status: Acute Problem details: Echo in February 2024 EF 35-40%. Moderately reduced global systolic function. Apical inferior segment and apical septum are abnormal. Right ventricle is moderately enlarged, global systolic RV function is moderately reduced Mildly enlarged left atrium Pulmonary hypertension History of chronic hypoxia but has weaned off of oxygen until the last 2 weeks. He may or may not have been off torsemide recently. The order to discontinue was on April 28. 06/22 started on Entresto, isosorbide, hydralazine. 06/24 acute on chronic. blood pressure remains adequate but his peripheral perfusion is poor. Oxygen needs are stable. Continue to monitor blood pressure and electrolytes with diuresis. He has diuresed about 1 L, 1 kg overnight. 06/25 he is doing well in improved, 1 L net output. Discharge home in improved condition today. (3) Atrial fibrillation: Status: Chronic Problem details: -paced -on eliquis Continue Coreg for rate control (4) Chronic anticoagulation: Status: Chronic Problem details: -Eliquis for atrial fibrillation - with improved renal function now on 5 mg b.i.d. (5) Alcoholic cirrhosis: Status: Acute Problem details: - these have improved overnight. Suspect congestion from right heart failure and known alcoholic cirrhosis (6) Wernicke-Korsakoff syndrome (alcoholic): Status: Chronic (7) COPD (chronic obstructive pulmonary disease): Status: Chronic (8) Hemiplegia and hemiparesis 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: Status: Chronic Problem details: Following CVA in September 2020, with some improvement following ICA stenting in January 2021. (9) Obstructive sleep apnea: Status: Suspected Problem details: He wears oxygen sometimes at night sleeps on his couch in his apartment Declines any further evaluation or treatment (10) CKD (chronic kidney disease): Status: Chronic Problem details: Previous admissions occurred with elevated creatinine, stage 4 kidney disease and associated dehydration from aggressive diuresis. DS: Summary Hospital Course Hospital Course: This is a 74-year-old male with a complex medical history that includes chronic hypoxic respiratory failure, systolic and diastolic CHF, coronary artery disease, atrial fibrillation, hypertension, hyperlipidemia, stroke with chronic hemiplegia and aphasia, ataxia, history of upper GI bleeding, recurrent left pleural effusions, Wernicke-Korsakoff syndrome, alcoholic cirrhosis, and adrenal adenoma who presented with a 2 week history of increasing dyspnea and swelling in his legs. He has had multiple hospitalizations recently with heart failure exacerbations and multiple changes to his medication. 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 He had just started those medication changes the day before admission. He has home healthcare who sets up his medications. He was admitted for management of heart failure. It was noted that he needed oxygen via nasal cannula. He noted that he sometimes wears oxygen at night, but seemed unaware that he is supposed to wear it during the day. According to recent clinic telephone notes, his home health nurse was calling concerned that he may need an increase in oxygen because he was hypoxic on the 2 liters/minute which he is using continuously. According to the patient, he does not use this continuously, but only at night. His usual medications were continued. No additional diuretics were added. Creatinine was monitor due to his history of acute kidney injury when adjustments in heart failure medications are made. Creatinine remained stable and patient's symptoms improved, lower extremity swelling also improved. His discharged home today in improved in stable condition with oxygen via nasal cannula at 2 liters/minute continuously. Had like him to follow-up with his primary care provider in about a week. Time Spent with Patient Time attestation: Total time spent providing and/or coordinating discharge services: Exam Narrative: Exam Narrative: General: No acute distress. Awake, alert, oriented. Some speech difficulty noted, consistent with chronic issues. Oropharynx: Clear. Mucous membranes moist. Cardiovascular: Regular rate and rhythm. No murmurs, gallops, or rubs. Respiratory: Fine bibasilar crackles, slightly improved from yesterday. No wheezes. Abdomen: Bowel sounds present. Soft, nondistended, nontender. Extremities: Trace bilateral lower extremity edema. Const: Vital Signs, click to edit/add: Vital Signs - 24 hr 06/24/24 15:00 06/24/24 15:00 06/24/24 15:00 Temperature 97.2 F L Pulse Rate Pulse Rate [Pulse Oximeter] 88 Respiratory Rate 20 Blood Pressure [Ri ght Arm] 113/66 Pulse Oximetry 90 90 90 Oxygen Delivery Me thod Nasal Cannula Nasal Cannula Oxygen Flow Rate 1 1 06/24/24 15:00 06/24/24 15:00 06/24/24 19:23 Temperature 96.1 F L Pulse Rate 68 Pulse Rate [Pulse Oximeter] 88 68 Respiratory Rate 20 20 Blood Pressure [Ri ght Arm] 125/72 Pulse Oximetry 91 Oxygen Delivery Me thod Nasal Cannula Oxygen Flow Rate 1 06/24/24 23:00 06/24/24 23:08 06/24/24 23:51 Temperature Pulse Rate 75 Pulse Rate [Pulse Oximeter] 76 Respiratory Rate 18 Blood Pressure [Ri ght Arm] Pulse Oximetry 92 Oxygen Delivery Me thod Oxygen Flow Rate 06/24/24 23:52 06/24/24 23:52 06/25/24 02:59 Temperature 97.0 F L 97.7 F Pulse Rate Pulse Rate [Pulse Oximeter] 76 77 Respiratory Rate 18 18 18 Blood Pressure [Ri ght Arm] 124/79 133/71 Pulse Oximetry 92 92 92 Oxygen Delivery Me thod Nasal Cannula Nasal Cannula Nasal Cannula Oxygen Flow Rate 1 1 1 DS: Data Data Completed and Pending Completed studies during hospitalization: 06/23/2024 EKG: Wide QRS rhythm, 60 beats per minute, left axis deviation, right bundle-branch block, inferior infarct, age undetermined, T-wave abnormality, consider lateral ischemia. Ordering Physician: Kimberly Gray M.D. Date of Service: 06/23/24 Procedure(s): XR chest 1V portable Accession Number(s): [id number] cc: Kimberly Gray M.D.; Provider,Not a Local~ For Patients: As a result of the Cures Act, medical imaging exams and procedure reports are released immediately into your electronic medical record. You may view this report before your referring provider. If you have questions, please contact your health care provider. Indication: Shortness of breath. Technique: One view(s) of the chest. Comparison: 04/17/2024, 08/22/2020, 04/01/2020. Findings: Left subclavian pacemaker/AICD. Compared to priors CT, the right atrial lead is below the left mainstem bronchus, in the region of the right atrial appendage. The right ventricular lead appears unchanged in position. There is progressive moderate cardiomegaly with left ventricular calcifications. Pulmonary vasculature is similar. Increased mild basilar airspace opacities. No pleural effusion or pneumothorax. Unchanged bones and soft tissues Impression: 1. Minimal bibasilar airspace opacities which may be due to atelectasis or developing pneumonia in the appropriate clinical context. 2. Moderate cardiomegaly. Dictated by April Chance MD @ 06/23/2024 10:13:24 AM (Electronically Signed) Labs on day of discharge: Labs from last 24 hours 06/25/24 06:12 Sodium 137 Potassium 4.1 Chloride 104 Carbon Dioxide 24 Anion Gap 9 BUN 28 Creatinine 1.5 Estimated Creat Clear 40.39 Estimated GFR 49 Glucose 106 Calcium 8.9 Discharge Plan Discharge Disposition: Home, Self-Care Date of Admission: 06/23/24 15:28 Attending Provider on Discharge: Guillermina Taveras Primary Care Provider: Provider,Not a Local Condition: Stable Anticipated Discharge Date/Time: 06/25/24 12:09 Discharge Medications: Continued atorvastatin 80 mg tablet 80 mg PO HS albuterol sulfate [Ventolin HFA] 90 mcg/actuation HFA aerosol inhaler 2 inh inhalation Q4H PRN sennosides [Senna Lax] 8.6 mg tablet 17.2 mg PO DAILY PRN isosorbide dinitrate 20 mg tablet 20 mg PO TID Eliquis 5 mg tablet 5 mg PO BID Entresto 24-26 mg tablet 1 tab PO BID hydralazine 25 mg tablet 25 mg PO TID amiodarone 100 mg tablet 100 mg PO DAILY budesonide-formoterol [Breyna] 80-4.5 mcg/actuation HFA aerosol inhaler 2 inh inhalation BID cholecalciferol (vitamin D3) 25 mcg (1,000 unit) tablet 25 mcg PO DAILY carvedilol 6.25 mg tablet 6.25 mg PO BID acetaminophen [Arthritis Pain Reliever] 650 mg tablet extended release 650 mg PO Q6H PRN pantoprazole 40 mg tablet,delayed release (DR/EC) 40 mg PO BID Discharge Orders: Discharge Order (Routine); Ordered 06/25/24 Ordered By: Guillermina Taveras Patient Education: Heart Failure (DC), COPD (Chronic Obstructive Pulmonary Disease) (DC) Activity Level: Use Walker Discharge Diet: Heart Healthy (2 gm sodium, low fat) Follow Up Appointments: Bruce Coughlin MD [Referring] - 07/03/24 1:50 pm ([facility] for follow up appointment. Dr. Blair was unavailable during desired time ) Provider,Not a Local [Primary Care Provider] - () Forms: [employer] Info Instructions
--- NOTE | 2024-06-25 15:46 | PC.NURSE ---
PT UP WITH SBA AND WALKER. CHRONIC SOB WIT EXERTION AND WEARING 2L O2. SATS 91-92% WITH O2. WHILE REVIEWING PATIENT'S DC INSTRUCTIONS, PATIENT REPORTED HE DOES RECEIVE HHC BUT WAS UNSURE OF WHICH COMPANY IT WAS. PATIENT STATED THE HHC SET UP HIS MEDS FOR HIM. REPORTS HE THINKS HIS MEDS ARE SET UP AND HE DOES HAVE ENOUGH FOOD AND RESOURCES AT HIS APARTMENT CURRENTLY. RESPIRATORY THERAPY AND MD INSTRUCTED FOR PATIENT TO USE 2L O2 AT HOME AT ALL TIMES AND DISCUSS PORTABLE O2 WITH HIS PCP ON FOLLOW-UP. PATIENT HAD HOME O2 AT HOME PREVIOUSLY BUT WAS ONLY USING INTERMITTENTLY. PATIENT WAS DC'D HOME WITH NON-EMERGENT EMS TRANSPORT SO HE WOULD HAVE O2 AVAILABLE TO HIM. PATIENT HAD DRIVEN HIMSELF TO THE ED ON WEDNESDAY VIA HIS MOBILITY SCOOTER. MAINTENANCE WAS ABLE TO TRANSPORT PATIENT'S SCOOTER TO HIS APARTMENT PRIOR TO DISCHARGE. REVIEW OF PATIENT'S CHART SHOWED HIS CURRENT HOME CARE IS [facility]. CONTACTED THE FACILITY AND ORDER TO RESUME CARE AND A COPY OF THE ORDERS WERE SENT TO [facility] AT [facility] [place] DC'D AND PATIENT DC'D HOME VIA EMS ON 2L O2.
== END 2024-06-25 13:22 | disposition home health service (06) | DRG 291 ==
LOC: ED 10:58 → MEDSURG 12:25
PROVIDERS: Admitting Provider Family Medicine; Emergency Provider Emergency Medicine; Visit Provider Family Medicine
DX: I13.0 Hypertensive heart and chronic kidney disease with heart failure and stage 1 through stage 4 chronic kidney disease, or unspecified chronic kidney disease (principal); I50.43 Acute on chronic combined systolic (congestive) and diastolic (congestive) heart failure; J96.21 Acute and chronic respiratory failure with hypoxia; N18.4 Chronic kidney disease, stage 4 (severe); N17.9 Acute kidney failure, unspecified; I69.952 Hemiplegia and hemiparesis following unspecified cerebrovascular disease affecting left dominant side; I48.20 Chronic atrial fibrillation, unspecified; F10.26 Alcohol dependence with alcohol-induced persisting amnestic disorder; K70.30 Alcoholic cirrhosis of liver without ascites; G47.33 Obstructive sleep apnea (adult) (pediatric); I27.20 Pulmonary hypertension, unspecified; Z95.0 Presence of cardiac pacemaker; I69.920 Aphasia following unspecified cerebrovascular disease; I69.993 Ataxia following unspecified cerebrovascular disease; E78.5 Hyperlipidemia, unspecified; J44.9 Chronic obstructive pulmonary disease, unspecified; Z99.81 Dependence on supplemental oxygen; D64.9 Anemia, unspecified
CPT/HCPCS: 36415; 71045; 80048; 80076; 81001; 82077; 83735; 83880; 84443; 84484; 85025; 85610; 87081; 87086; 87186; 87635; 93005; 94640; 94761; 97110; 97116; 97161; 97165; 99284; 99285; A9270; J1940; J7626

== ENCOUNTER 2024-06-25 13:19 | Outpatient (CLI) | payer MEDICARE, MEDICAID, SELFPAY | END 2024-06-25 13:20 | disposition home or self-care (01) | LOC: AMB 06-26 23:22 | PROVIDERS: Visit Provider Emergency Medicine Emergency Medical Services | DX: I51.7 Cardiomegaly (principal) | CPT/HCPCS: A0425; A0428 ==

== ENCOUNTER 2024-07-13 12:09 | Emergency (ER) | payer MEDICARE, MEDICAID, SELFPAY ==
[2024-07-13 12:25] VITALS: BP 121/68; PULSE 70; RESP 22; TEMP 36.6; O2SAT 94; BMI 27.5
--- NOTE | 2024-07-13 12:51 | ED_ITS ---
HPI - General Adult General Chief complaint: Diarrhea Stated complaint: Kidney stones Time Seen by Provider: 07/13/24 12:16 History of Present Illness HPI narrative: This 74-year-old male comes in reporting diarrhea for most of the last couple weeks. He does not report any nausea, vomiting, fever, or blood in the toilet. He was into his clinic and had labs drawn recently. He is instructed to come here with persistent diarrhea. He has a history of a stroke with some residual hemiparesis and altered speech. These symptoms are not new for him. He has also history of CHF, coronary artery disease, alcohol abuse with cirrhosis, and COPD. Related Data Home Medications ?Medication ?Instructions ?Recorded ?Confirmed albuterol sulfate 90 mcg/actuation 2 inh inhalation Q4H PRN 03/17/24 06/23/24 aerosol inhaler (Ventolin HFA) atorvastatin 80 mg tablet 80 mg PO HS 03/17/24 06/23/24 sennosides 8.6 mg tablet (Senna 17.2 mg PO DAILY PRN 03/17/24 06/23/24 Lax) acetaminophen 650 mg 650 mg PO Q6H PRN 04/17/24 06/23/24 tablet,extended release (Arthritis Pain Reliever) carvedilol 6.25 mg tablet 6.25 mg PO BID 04/17/24 06/23/24 pantoprazole 40 mg tablet,delayed 40 mg PO BID 04/26/24 06/23/24 release amiodarone 100 mg tablet 100 mg PO DAILY 06/23/24 06/23/24 apixaban 5 mg tablet (Eliquis) 5 mg PO BID 06/23/24 06/23/24 budesonide-formoterol HFA 80 2 inh inhalation BID 06/23/24 06/23/24 mcg-4.5 mcg/actuation aerosol inhaler (Breyna) cholecalciferol (vitamin D3) 25 25 mcg PO DAILY 06/23/24 06/23/24 mcg (1,000 unit) tablet hydralazine 25 mg tablet 25 mg PO TID 06/23/24 06/23/24 isosorbide dinitrate 20 mg tablet 20 mg PO TID 06/23/24 06/23/24 sacubitril 24 mg-valsartan 26 mg 1 tab PO BID 06/23/24 06/23/24 tablet (Entresto) Previous Rx's ?Medication ?Instructions ?Recorded diphenoxylate-atropine 2.5 1 tab PO DAILY #7 tabs 07/13/24 mg-0.025 mg tablet (Lomotil) Allergies Allergy/AdvReac Type Severity Reaction Status Date / Time No Known Drug Allergies Allergy Verified 06/23/24 09:06 Review of Systems Status of ROS: Reports: 10 or more systems reviewed and unremarkable except as noted in History and below Narrative: Constitutional: No fevers, no weight gain or loss. Eyes: No discharge. No vision changes. HENT: No congestion, no sore throat, no ear pain. Cardiovascular: No chest pain, no palpitations. Respiratory: No shortness of breath, no wheezes, no cough. Gastrointestinal: No abdominal pain, no vomiting. Persistent diarrhea. Genitourinary: No dysuria, no hematuria. Musculoskeletal: Normal range of motion. Skin: No rashes, no pruritis. Neurological: No dizziness, weakness, sensory change, speech change. Endo/Heme/Allergies: No bruising or bleeding. No polydipsia. Pysch: no suicidality, no anxiety, no insomnia. All other systems reviewed and are negative. [facility] Medical History (Updated 07/13/24 @ 15:42 by Homero Reyes MD) Hypoxia ?R09.02 - Hypoxemia (ICD-10) Alcoholic cirrhosis ?K70.30 - Alcoholic cirrhosis of liver without ascites (ICD-10) Atrial fibrillation ?I48.91 - Unspecified atrial fibrillation (ICD-10) Systolic CHF with reduced left ventricular function, NYHA class 3 ?I50.20 - Unspecified systolic (congestive) heart failure (ICD-10) Obstructive sleep apnea ?G47.33 - Obstructive sleep apnea (adult) (pediatric) (ICD-10) Adrenal nodule ?E27.8 - Other specified disorders of adrenal gland (ICD-10) History of CVA (cerebrovascular accident) ?Z86.73 - Personal history of transient ischemic attack (TIA), and cerebral infarction without residual deficits (ICD-10) Acute on chronic hypoxic respiratory failure ?J96.21 - Acute and chronic respiratory failure with hypoxia (ICD-10) Carotid arterial disease ?I77.9 - Disorder of arteries and arterioles, unspecified (ICD-10) NSTEMI (non-ST elevated myocardial infarction) ?I21.4 - Non-ST elevation (NSTEMI) myocardial infarction (ICD-10) Hemiplegia and hemiparesis 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 ?I69.352 - Hemiplegia and hemiparesis 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 (ICD-10) History of ventricular tachycardia ?Z86.79 - Personal history of other diseases of the circulatory system (ICD- 10) Ataxia ?R27.0 - Ataxia, unspecified (ICD-10) Chronic anemia ?D64.9 - Anemia, unspecified (ICD-10) Upper GI bleed ?K92.2 - Gastrointestinal hemorrhage, unspecified (ICD-10) CKD (chronic kidney disease) ?N18.9 - Chronic kidney disease, unspecified (ICD-10) CAD (coronary artery disease) ?I25.10 - Atherosclerotic heart disease of [place] coronary artery without angina pectoris (ICD-10) Recurrent left pleural effusion ?J90 - Pleural effusion, not elsewhere classified (ICD-10) 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 - Alcohol use, unspecified with alcohol-induced persisting amnestic disorder (ICD-10) Alcohol withdrawal seizure ?F10.939 - Alcohol use, unspecified with withdrawal, unspecified (ICD-10) ?R56.9 - Unspecified convulsions (ICD-10) Alcohol dependence ?F10.20 - Alcohol dependence, uncomplicated (ICD-10) Aphasia ?R47.01 - Aphasia (ICD-10) Cardioembolic stroke ?I63.9 - Cerebral infarction, unspecified (ICD-10) Lacunar infarction ?I63.81 - Other cerebral infarction due to occlusion or stenosis of small artery (ICD-10) Pulmonary hypertension ?I27.20 - Pulmonary hypertension, unspecified (ICD-10) Hyperlipidemia ?E78.5 - Hyperlipidemia, unspecified (ICD-10) Hypertension ?I10 - Essential (primary) hypertension (ICD-10) Adrenal adenoma ?D35.00 - Benign neoplasm of unspecified adrenal gland (ICD-10) Surgical History H/O hernia repair ?Z98.890 - Other specified postprocedural states (ICD-10) ?Z87.19 - Personal history of other diseases of the digestive system (ICD-10) Social History What is your current living situation?: I presently have a place to live Problems where you live: no known problems Problems where you live details: N/A In the past 12 months, utilities in danger of being shut off: no In past 12 months, lack of transportation kept you from medical appts, meetings, work, or getting things needed for daily living: no In the past 12 mos, have been you worried that your food would run out before you had money to buy more?: never true In the past 12 mos, the food you bought just didn't last and you didn't have money to buy more?: never true Highest level of school completed/degree received: some college, no degree Smoking Status: Former smoker Do you use any of these nicotine containing products: None Second hand tobacco smoke exposure: No How often do you have a drink containing alcohol: 4 or more times a week Alcohol type: hard liquor Alcohol type details: 1 whiskey 7-ups per day How many standard drinks containing alcohol do you have on a typical day: 1 or 2 How often do you have six or more drinks on one occasion: Never AUDIT-C Alcohol total score: 4 Non-prescribed substance use: denies use Caffeine: Yes How often does anyone, including family, friends and others, physically hurt you : never How often does anyone, including family, friends and others, insult or talk down to you: never How often does anyone, including family, friends and others, threaten you with harm: never How often does anyone, including family, friends and others, scream or curse at you: never service: No Exam Narrative: Exam Narrative: Constitutional: Well-developed, well-nourished, no acute distress. HEENT: Normocephalic, atraumatic. Neck: Normal range of motion. Nontender. Supple. Heart: Regular. No murmurs. Normal rate. Intact distal pulses. Lungs: Clear to auscultation. No chest discomfort. No wheezes, rhonchi, or rales. Abdomen: Normal bowel sounds. Nontender. No rebound tenderness. Genitalia: Deferred. Back: No midline tenderness. Normal range of motion. Extremities: Normal range of motion. No injury. No pedal edema. Skin: Intact. No rash. Warm. No erythema or pallor. Neurologic: No altered sensation. Alert and oriented. Residual affects of previous stroke. Psychiatric: No suicidality. No anxiety or depression. No insomnia. Nursing notes and vitals signs are reviewed. Const: Vital Signs, click to edit/add: Vital Signs - 24 hr 07/13/24 12:25 Temperature 97.8 F Pulse Rate [Pulse Oximeter] 70 Respiratory Rate 22 Blood Pressure [Le ft Upper Arm] 121/68 Pulse Oximetry 94 Oxygen Delivery Me thod Nasal Cannula Course Vital Signs Vital signs: Initial Vital Signs Temperature 97.8 F 07/13/24 12:25 Temperature Source Temporal Artery Scan 07/13/24 12:25 Pulse Rate 70 07/13/24 12:25 Respiratory Rate 22 07/13/24 12:25 Blood Pressure 121/68 07/13/24 12:25 Blood Pressure Mean 85 07/13/24 12:25 Blood Pressure Position Sitting 07/13/24 12:25 Pulse Oximetry 94 07/13/24 12:25 Oxygen Delivery Method Nasal Cannula 07/13/24 12:25 Vital Signs Temperature 97.8 F 07/13/24 12:25 Pulse Rate 70 07/13/24 12:25 Respiratory Rate 22 07/13/24 12:25 Blood Pressure 121/68 07/13/24 12:25 Pulse Oximetry 94 07/13/24 12:25 Oxygen Delivery Method Nasal Cannula 07/13/24 12:25 Temperature 97.8 F 07/13/24 12:25 Pulse Rate 70 07/13/24 12:25 Respiratory Rate 22 07/13/24 12:25 Blood Pressure 121/68 07/13/24 12:25 Pulse Oximetry 94 07/13/24 12:25 Oxygen Delivery Method Nasal Cannula 07/13/24 12:25 Medications Administered Medications: Discontinued Medications Generic Name Dose Route Start Last Admin Trade Name Freq PRN Reason Stop Dose Admin Sodium Chloride 1,000 mls @ 1,000 mls/hr 07/13/24 13:00 07/13/24 14:33 0.9 % Sodium Chloride 1000 Ml IV 07/13/24 13:59 Infused .Q1H SOFÍA Infusion Medical Decision Making MDM Narrative Medical decision making narrative: This patient comes in because of diarrhea for most of the past couple weeks. Lab results are obtained today and compared with recent labs. These show reassuring findings. An IV was established and the patient did receive a L of normal saline. He states that he is feeling better. He is okay to be discharged home. I recommended using Imodium as needed and directed for diarrhea. I did also provide a few tablets of the prescription medicine on Lomotil if needed. Lab Data Labs: Lab Results 07/13/24 Range/Units 14:34 WBC 7.29 (4.50-11.00) K/uL RBC 3.99 L (4.30-5.90) m/uL Hgb 11.4 L (13.5-17.5) gm/dL Hct 37.5 (37.0-53.0) % MCV 94 (80-100) fL MCH 29 (26-34) pg MCHC 30 L (32-36) gm/dL RDW Coeff of Mynor 19.2 H (11.5-15.5) % Plt Count 176 (140-440) K/uL Neut % (Auto) 80.3 H (42.0-72.0) % Lymph % (Auto) 4.7 L (20-44) % Lares % (Auto) 12.8 H (0.0-11.0) % Eos % (Auto) 1.6 (0.0-7.0) % Baso % (Auto) 0.3 (0.0-3.0) % Neut # (Auto) 5.90 (1.7-7.0) K/uL Lymph # (Auto) 0.30 L (0.90-2.90) K/uL Lares # (Auto) 0.90 (0.00-0.90) K/UL Eos # (Auto) 0.12 (0.00-0.50) K/uL Baso # (Auto) 0.02 (0.00-0.30) K/uL Abs Immat Gran (auto) 0.02 (0.00-0.30) K/uL Imm/Tot Granulo (auto) 0.3 % Sodium 136 (135-149) mmol/L Potassium 4.0 (3.6-5.1) mmol/L Chloride 103 (96-114) mmol/L Carbon Dioxide 25 (20-32) mmol/L Anion Gap 8 (7-15) mEq/L BUN 39 H (7-30) mg/dL Creatinine 2.0 H (0.5-1.5) mg/dL Estimated Creat Clear 30.30 Estimated GFR 34 ml/min Glucose 101 (60-115) mg/dL Calcium 8.7 (8.4-10.6) mg/dL Total Bilirubin 1.1 (0.1-1.5) mg/dL Direct Bilirubin 0.6 H (0.0-0.5) mg/dL AST 25 (12-35) U/L ALT 13 (4-50) U/L Alkaline Phosphatase 232 H (40-150) U/L Total Protein 6.4 (6.0-8.3) g/dL Albumin 3.8 (3.3-5.0) g/dL Discharge Plan Discharge Clinical Impression: Diarrhea Patient Disposition: Home, Self-Care Condition: Stable Additional Instructions: Take plenty of fluids and resume diet as tolerated. Use Imodium as needed and directed to manage diarrhea symptoms. A prescription for few tablets of Lomotil is also provided if Imodium is not helping. Follow up with MD or return if worsening. Prescriptions: New diphenoxylate-atropine [Lomotil] 2.5-0.025 mg tablet 1 tab PO DAILY Qty: 7 0RF No Action atorvastatin 80 mg tablet 80 mg PO HS albuterol sulfate [Ventolin HFA] 90 mcg/actuation HFA aerosol inhaler 2 inh inhalation Q4H PRN sennosides [Senna Lax] 8.6 mg tablet 17.2 mg PO DAILY PRN isosorbide dinitrate 20 mg tablet 20 mg PO TID Eliquis 5 mg tablet 5 mg PO BID Entresto 24-26 mg tablet 1 tab PO BID hydralazine 25 mg tablet 25 mg PO TID amiodarone 100 mg tablet 100 mg PO DAILY budesonide-formoterol [Breyna] 80-4.5 mcg/actuation HFA aerosol inhaler 2 inh inhalation BID cholecalciferol (vitamin D3) 25 mcg (1,000 unit) tablet 25 mcg PO DAILY carvedilol 6.25 mg tablet 6.25 mg PO BID acetaminophen [Arthritis Pain Reliever] 650 mg tablet extended release 650 mg PO Q6H PRN pantoprazole 40 mg tablet,delayed release (DR/EC) 40 mg PO BID Follow Up/Referrals: Provider,Not a Local [Primary Care Provider] - Stand Alone Forms: [employer] Info Instructions
[2024-07-13] MEDS: 0.9 % SODIUM CHLORIDE 1000 ml 1,000 ML IV (13:30)
[2024-07-13 14:41] LABS: Basophils Absolute Auto 0.02 K/uL (0.00-0.30); Basophils Percent Auto 0.3 % (0.0-3.0); Eosinophils Absolute Auto 0.12 K/uL (0.00-0.50); Eosinophils Percent Auto 1.6 % (0.0-7.0); Hematocrit 37.5 % (37.0-53.0); Hemoglobin* 11.4 gm/dL (13.5-17.5); Immature Granulocytes Abs Auto 0.02 K/uL (0.00-0.30); Immature Granulocytes Pct Auto 0.3 %; Lymphocytes Percent Auto 4.7 % (20-44); Mean Corpuscular HGB Conc 30 gm/dL (32-36); Mean Corpuscular Hemoglobin 29 pg (26-34); Mean Corpuscular Volume 94 fL (80-100); Monocytes Percent Auto 12.8 % (0.0-11.0); Neutrophils Percent Auto 80.3 % (42.0-72.0); Platelet Count* 176 K/uL (140-440); RDW Coefficient of Variation % 19.2 % (11.5-15.5); Red Blood Count 3.99 m/uL (4.30-5.90); White Blood Count* 7.29 K/uL (4.50-11.00)
[2024-07-13 14:45] LABS: Slide Review Reflex No
[2024-07-13 14:54] LABS: Albumin* 3.8 g/dL (3.3-5.0); Chloride* 103 mmol/L (96-114); Sodium* 136 mmol/L (135-149)
[2024-07-13 14:57] LABS: Alanine Aminotransferase* 13 U/L (4-50); Alkaline Phosphatase* 232 U/L (40-150); Anion Gap 8 mEq/L (7-15); Aspartate Amino Transferase* 25 U/L (12-35); Bilirubin Direct* 0.6 mg/dL (0.0-0.5); Bilirubin Total* 1.1 mg/dL (0.1-1.5); Blood Urea Nitrogen* 39 mg/dL (7-30); Carbon Dioxide* 25 mmol/L (20-32); Estimated Glomerular Filt Rate 34 ml/min; Glucose* 101 mg/dL (60-115); Total Protein* 6.4 g/dL (6.0-8.3)
[2024-07-13 14:58] LABS: Calcium* 8.7 mg/dL (8.4-10.6)
== END 2024-07-13 16:04 | disposition home or self-care (01) ==
PROVIDERS: Emergency Provider Emergency Medicine Emergency Medical Services
DX: R19.7 Diarrhea, unspecified (principal)
CPT/HCPCS: 36415; 80048; 80076; 85025; 99283; 99284; J7030

== ENCOUNTER 2024-07-30 10:49 | Outpatient (CLI) | payer MEDICARE, MEDICAID, SELFPAY | END 2024-07-30 10:50 | disposition home or self-care (01) | LOC: AMB 08-03 02:37 | PROVIDERS: PCP Family Medicine; Visit Provider Student in an Organized Health Care Education/Training Program | DX: R53.1 Weakness (principal); R19.7 Diarrhea, unspecified | CPT/HCPCS: A0425; A0429 ==

== ENCOUNTER 2024-07-30 11:34 | Emergency (ER) | payer MEDICARE, MEDICAID, SELFPAY ==
[2024-07-30] VITALS (52 sets, daily range): BP systolic 85–125; BP diastolic 59–102; PULSE 69–103; RESP 18–22; TEMP 36.2; O2SAT 80–99; BMI 19.7
--- NOTE | 2024-07-30 11:48 | ED.GENADULT ---
HPI - General Adult General Date Seen: 07/30/24 Chief complaint: Fall/Minor Trauma Stated complaint: fall Time Seen by Provider: 07/30/24 11:46 History of Present Illness HPI narrative: 74-year-old male presenting to the ER today by EMS for evaluation after a fall. He has a past medical history of multiple previous strokes with chronic left-sided weakness, with significant dysarthria which is baseline for him. 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 He has had recent trouble with diarrhea, patient says for at least the past 3 weeks. Per medical record he was here in the ER about 2 weeks ago on 07/13 for diarrhea and at that time had been going on for a couple of weeks. Labs from the ER showed white count 7.2, hemoglobin 11.4, platelet count 176, sodium 136, potassium 4.0, chloride 103, bicarb 25, anion gap 8, BUN 29, creatinine 2.0, glucose 101, bilirubin 1.1, AST 25, ALT 13, alk-phos 232. He was given a prescription for Lomotil-7 tablets. Patient reports that when he was taking Lomotil it seemed to stop his diarrhea. However he has not had the medication for a couple of weeks. He has been having trouble with watery brown diarrhea. ED he is not having any abdominal pain. No vomiting. No fever. No blood or mucus in his stool. He does not think he has been on any recent antibiotics. He lives at home but does get frequent visits from his family to check on him. He was in the bathroom last night. He was trying to grab onto his grab bar when his retail product advisor slipped and he fell to the bathroom floor. He was not really injured when he fell, he does not think. He did not hit his head. However he was too weak to get off the floor. He apparently laid on the floor for about 12 hours. He was able to crawl out of the bathroom. He then apparently called his daughter on the phone this morning and his daughter called EMS. History from paramedics is that they found him on the floor with they arrived. He was hypoxic with sats in the 70s. However he supposed to be on chronic oxygen at home and had not been able to wear his oxygen overnight after the fall. He was also hypotensive. He was complaining of hip pain but did not seem to have any deformity. Blood pressure improved EN route. Blood sugar was normal. Patient currently denies any pain. No headache. No chest pain. No trouble breathing. He does not have any recent cough. He is not nauseous. No abdominal pain. He does feel like he needs to have more diarrhea. He says he has not made any urine yet today and does not feel the need to urinate. He can not remember if he urinated yesterday or not. He thinks he probably did, at least 1 time. He has some chronic edema in his lower extremities which is baseline. He has a chronic wound on his right faria which is irregularly shaped and measures about 2 x 4 cm. This is actually been healing. He has pictures of it from 4 months ago where it was a fairly large open wound. It does not sound like there is any new acute erythema or redness or new wound on his leg. This is all chronic and healing. He has a python engineer, I think at [facility]. Apparently his python engineer told him to come to the ER 2 weeks ago for the diarrhea. He has not seen his python engineer since then. His primary care provider is Dr. Shelton in the [facility] system. Most recent labs in the [facility] system were from 07/17/2024 Sodium 136, potassium 4.4, chloride 100, bicarb 22, BUN 35, creatinine 1.87 (creatinine from 06/16/2024 was 1.13) Per Cardiology Note from [facility] 07/27/24 74 y.o. 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 ? Patient was seen in consultation by Dr. Goldsmith on 06/16/2024 to reestablish care with cardiology. Patient was started on GDMT and referred to [facility] clinic. Eliquis increased to therapeutic dose of 5 mg twice daily. Patient is significantly volume up today and his weight has been increasing (up ~10 pounds). Will increase to torsemide 40 mg daily. Stop hydralazine and isosorbide. Will repeat labs on Wednesday and have close follow up the end of next week. May consider starting Farxiga at that time. Related Data Home Medications ?Medication ?Instructions ?Recorded ?Confirmed albuterol sulfate 90 mcg/actuation 2 inh inhalation Q4H PRN 03/17/24 07/30/24 aerosol inhaler (Ventolin HFA) atorvastatin 80 mg tablet 80 mg PO HS 03/17/24 07/30/24 acetaminophen 650 mg 650 mg PO Q6H PRN 04/17/24 07/30/24 tablet,extended release (Arthritis Pain Reliever) carvedilol 6.25 mg tablet 6.25 mg PO BID 04/17/24 07/30/24 pantoprazole 40 mg tablet,delayed 40 mg PO BID 04/26/24 07/30/24 release apixaban 5 mg tablet (Eliquis) 5 mg PO BID 06/23/24 07/30/24 budesonide-formoterol HFA 80 2 inh inhalation BID 06/23/24 07/30/24 mcg-4.5 mcg/actuation aerosol inhaler (Breyna) cholecalciferol (vitamin D3) 25 25 mcg PO DAILY 06/23/24 07/30/24 mcg (1,000 unit) tablet sacubitril 24 mg-valsartan 26 mg 1 tab PO BID 06/23/24 07/30/24 tablet (Entresto) amiodarone 200 mg tablet 100 mg PO DAILY 07/30/24 07/30/24 bismuth subsalicylate 262 mg 2 tab PO Q6H PRN diarrhea 07/30/24 07/30/24 chewable tablet ([place] Bismuth) diphenoxylate-atropine 2.5 1 tab PO BID PRN diarrhea 07/30/24 07/30/24 mg-0.025 mg tablet (Lomotil) torsemide 20 mg tablet 40 mg PO DAILY 07/30/24 07/30/24 Allergies Allergy/AdvReac Type Severity Reaction Status Date / Time No Known Drug Allergies Allergy Verified 06/23/24 09:06 [facility] Medical History (Updated 07/30/24 @ 14:50 by Justin Barnes MD) Hypoxia ?R09.02 - Hypoxemia (ICD-10) Alcoholic cirrhosis ?K70.30 - Alcoholic cirrhosis of liver without ascites (ICD-10) Atrial fibrillation ?I48.91 - Unspecified atrial fibrillation (ICD-10) Systolic CHF with reduced left ventricular function, NYHA class 3 ?I50.20 - Unspecified systolic (congestive) heart failure (ICD-10) Obstructive sleep apnea ?G47.33 - Obstructive sleep apnea (adult) (pediatric) (ICD-10) Adrenal nodule ?E27.8 - Other specified disorders of adrenal gland (ICD-10) History of CVA (cerebrovascular accident) ?Z86.73 - Personal history of transient ischemic attack (TIA), and cerebral infarction without residual deficits (ICD-10) Acute on chronic hypoxic respiratory failure ?J96.21 - Acute and chronic respiratory failure with hypoxia (ICD-10) Carotid arterial disease ?I77.9 - Disorder of arteries and arterioles, unspecified (ICD-10) NSTEMI (non-ST elevated myocardial infarction) ?I21.4 - Non-ST elevation (NSTEMI) myocardial infarction (ICD-10) Hemiplegia and hemiparesis 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 ?I69.352 - Hemiplegia and hemiparesis 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 (ICD-10) History of ventricular tachycardia ?Z86.79 - Personal history of other diseases of the circulatory system (ICD-10) Ataxia ?R27.0 - Ataxia, unspecified (ICD-10) Chronic anemia ?D64.9 - Anemia, unspecified (ICD-10) Upper GI bleed ?K92.2 - Gastrointestinal hemorrhage, unspecified (ICD-10) CKD (chronic kidney disease) ?N18.9 - Chronic kidney disease, unspecified (ICD-10) CAD (coronary artery disease) ?I25.10 - Atherosclerotic heart disease of [place] coronary artery without angina pectoris (ICD-10) Recurrent left pleural effusion ?J90 - Pleural effusion, not elsewhere classified (ICD-10) 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 - Alcohol use, unspecified with alcohol-induced persisting amnestic disorder (ICD-10) Alcohol withdrawal seizure ?F10.939 - Alcohol use, unspecified with withdrawal, unspecified (ICD-10) ?R56.9 - Unspecified convulsions (ICD-10) Alcohol dependence ?F10.20 - Alcohol dependence, uncomplicated (ICD-10) Aphasia ?R47.01 - Aphasia (ICD-10) Cardioembolic stroke ?I63.9 - Cerebral infarction, unspecified (ICD-10) Lacunar infarction ?I63.81 - Other cerebral infarction due to occlusion or stenosis of small artery (ICD-10) Pulmonary hypertension ?I27.20 - Pulmonary hypertension, unspecified (ICD-10) Hyperlipidemia ?E78.5 - Hyperlipidemia, unspecified (ICD-10) Hypertension ?I10 - Essential (primary) hypertension (ICD-10) Adrenal adenoma ?D35.00 - Benign neoplasm of unspecified adrenal gland (ICD-10) Surgical History H/O hernia repair ?Z98.890 - Other specified postprocedural states (ICD-10) ?Z87.19 - Personal history of other diseases of the digestive system (ICD-10) Social History What is your current living situation?: I presently have a place to live Problems where you live: no known problems Problems where you live details: N/A In the past 12 months, utilities in danger of being shut off: no In past 12 months, lack of transportation kept you from medical appts, meetings, work, or getting things needed for daily living: no In the past 12 mos, have been you worried that your food would run out before you had money to buy more?: never true In the past 12 mos, the food you bought just didn't last and you didn't have money to buy more?: never true Highest level of school completed/degree received: some college, no degree Smoking Status: Former smoker Do you use any of these nicotine containing products: None Second hand tobacco smoke exposure: No How often do you have a drink containing alcohol: 4 or more times a week Alcohol type: hard liquor Alcohol type details: 1 minnie 7-ups per day How many standard drinks containing alcohol do you have on a typical day: 1 or 2 How often do you have six or more drinks on one occasion: Never AUDIT-C Alcohol total score: 4 Non-prescribed substance use: denies use Caffeine: Yes How often does anyone, including family, friends and others, physically hurt you: never How often does anyone, including family, friends and others, insult or talk down to you: never How often does anyone, including family, friends and others, threaten you with harm: never How often does anyone, including family, friends and others, scream or curse at you: never service: No Exam Narrative: Exam Narrative: Constitutional: Appears well-developed and well-nourished. Alert. Conversant and alert but speech is very difficult to understand due to his baseline stroke. No stridor. Airway patent. He has generalized weakness and requires assistance to sit up in bed. HENT: Head: Atraumatic. No depressed skull fracture, Raccoon Eyes, Morse's sign. Face normal. Nose: Nose normal. Mouth/Throat: Oral mucosa is clear but very dry and desiccated. no trismus. Pharynx normal. Tonsils symmetric. No tonsillar enlargement, erythema, or exudate. Eyes: Conjunctivae normal. EOM normal. Pupils equal, round, and reactive to light. No scleral icterus. Neck: Normal range of motion. Neck supple. No tracheal deviation present. No posterior midline tenderness or step-off. Cardiovascular: Normal rate, regular rhythm. No gallop. No friction rub. No murmur heard. Symmetric radial artery pulses . Pacemaker in left upper chest. Pulmonary/Chest: Effort normal. No stridor. No respiratory distress. No wheezes. No rales. No rhonchi . No tenderness. Abdominal: Soft. Bowel sounds normal. No distension. No mass. No tenderness. No rebound. No guarding. No CVA tenderness Musculoskeletal: RUE: Normal range of motion. No tenderness. No deformity. He does have an ill-defined 3-4 cm area of ecchymosis on his right posterior shoulder that I think is probably a pressure injury from laying on the floor last night. 2 cm area of well-defined ecchymosis on left posterior shoulder LUE: Normal range of motion. No tenderness. No deformity Pelvis is stable. No T or L-spine tenderness. RLE: Normal range of motion. No tenderness. No deformity LLE: Normal range of motion. No tenderness. No deformity He has symmetric bilateral lower extremity edema of the feet, ankles and the distal 2/3 of his shins. He has a small amount of erythema on the right anterior faria with some he healing open sores. He has pictures of the open sore throat few months ago with a were substantially larger than they are today. He says that the redness and swelling are his normal baseline. I gather he is on diuretics for that. They have overall been improving. Neurological: Alert and oriented to person, place, and time. He has chronic left-sided weakness and generalized weakness requiring assistance to sit up. No facial droop. Speech is garbled. No acute neurologic changes. We believe he is at his baseline from previous strokes. Skin: Is dry. His hands are a bit dusky and poorly perfused.. No rash noted. No pallor. Normal capillary refill. Psychiatric: Normal mood. Normal affect. Const: Vital Signs, click to edit/add: Vital Signs - 24 hr 07/30/24 11:50 07/30/24 11:56 07/30/24 11:56 Temperature 97.2 F L Pulse Rate 80 Pulse Rate [Pulse Oximeter] 82 Respiratory Rate 22 Blood Pressure Blood Pressure [Ri ght Upper Arm] 112/85 Pulse Oximetry 99 88 99 Oxygen Delivery Me thod Nasal Cannula Room Air Oxygen Flow Rate 07/30/24 12:00 07/30/24 12:16 07/30/24 12:30 Temperature Pulse Rate 87 82 87 Pulse Rate [Pulse Oximeter] Respiratory Rate Blood Pressure Blood Pressure [Ri ght Upper Arm] Pulse Oximetry 98 84 L 91 Oxygen Delivery Me thod Oxygen Flow Rate 07/30/24 12:45 07/30/24 13:00 07/30/24 13:19 Temperature Pulse Rate 95 Pulse Rate [Pulse Oximeter] Respiratory Rate Blood Pressure 85/67 L Blood Pressure [Ri ght Upper Arm] Pulse Oximetry 80 L 87 L Oxygen Delivery Me thod Nasal Cannula Oxygen Flow Rate 4 07/30/24 13:21 07/30/24 13:30 07/30/24 13:31 Temperature Pulse Rate 81 74 77 Pulse Rate [Pulse Oximeter] Respiratory Rate Blood Pressure 113/74 108/73 Blood Pressure [Ri ght Upper Arm] Pulse Oximetry 99 92 93 Oxygen Delivery Me thod Oxygen Flow Rate 07/30/24 13:32 07/30/24 13:45 07/30/24 13:46 Temperature Pulse Rate 79 80 81 Pulse Rate [Pulse Oximeter] Respiratory Rate Blood Pressure 125/81 Blood Pressure [Ri ght Upper Arm] Pulse Oximetry 92 93 92 Oxygen Delivery Me thod Oxygen Flow Rate 07/30/24 14:00 07/30/24 14:04 07/30/24 14:15 Temperature Pulse Rate 80 79 Pulse Rate [Pulse Oximeter] Respiratory Rate Blood Pressure Blood Pressure [Ri ght Upper Arm] Pulse Oximetry 93 92 90 Oxygen Delivery Me thod Oxygen Flow Rate 07/30/24 14:19 07/30/24 14:30 07/30/24 14:45 Temperature Pulse Rate 89 Pulse Rate [Pulse Oximeter] Respiratory Rate Blood Pressure Blood Pressure [Ri ght Upper Arm] Pulse Oximetry 94 92 90 Oxygen Delivery Me thod Oxygen Flow Rate 07/30/24 15:00 07/30/24 15:15 07/30/24 15:30 Temperature Pulse Rate 85 Pulse Rate [Pulse Oximeter] Respiratory Rate Blood Pressure Blood Pressure [Ri ght Upper Arm] Pulse Oximetry 90 92 90 Oxygen Delivery Me thod Oxygen Flow Rate 07/30/24 15:57 07/30/24 15:58 07/30/24 16:00 Temperature Pulse Rate Pulse Rate [Pulse Oximeter] Respiratory Rate Blood Pressure 113/78 Blood Pressure [Ri ght Upper Arm] Pulse Oximetry 90 93 94 Oxygen Delivery Me thod Oxygen Flow Rate 07/30/24 16:00 07/30/24 16:01 07/30/24 16:15 Temperature Pulse Rate Pulse Rate [Pulse Oximeter] Respiratory Rate 20 Blood Pressure 118/87 Blood Pressure [Ri ght Upper Arm] Pulse Oximetry 93 94 Oxygen Delivery Me thod Oxygen Flow Rate 07/30/24 16:30 07/30/24 16:32 07/30/24 16:45 Temperature Pulse Rate Pulse Rate [Pulse Oximeter] Respiratory Rate Blood Pressure 120/83 Blood Pressure [Ri ght Upper Arm] Pulse Oximetry 93 93 87 L Oxygen Delivery Me thod Oxygen Flow Rate 07/30/24 17:00 07/30/24 17:01 07/30/24 17:02 Temperature Pulse Rate Pulse Rate [Pulse Oximeter] Respiratory Rate Blood Pressure 122/102 H Blood Pressure [Ri ght Upper Arm] Pulse Oximetry 92 94 Oxygen Delivery Me thod Oxygen Flow Rate 07/30/24 17:15 07/30/24 17:30 07/30/24 17:31 Temperature Pulse Rate 103 H Pulse Rate [Pulse Oximeter] Respiratory Rate Blood Pressure 115/82 Blood Pressure [Ri ght Upper Arm] Pulse Oximetry 92 92 91 Oxygen Delivery Me thod Oxygen Flow Rate 07/30/24 17:45 07/30/24 18:00 07/30/24 18:00 Temperature Pulse Rate 70 Pulse Rate [Pulse Oximeter] Respiratory Rate 18 Blood Pressure Blood Pressure [Ri ght Upper Arm] Pulse Oximetry 89 90 Oxygen Delivery Me thod Oxygen Flow Rate 07/30/24 18:15 07/30/24 18:30 07/30/24 18:34 Temperature Pulse Rate 73 Pulse Rate [Pulse Oximeter] Respiratory Rate Blood Pressure Blood Pressure [Ri ght Upper Arm] Pulse Oximetry 89 91 93 Oxygen Delivery Me thod Oxygen Flow Rate 07/30/24 18:45 07/30/24 18:58 07/30/24 19:00 Temperature Pulse Rate Pulse Rate [Pulse Oximeter] Respiratory Rate Blood Pressure 92/71 103/59 L Blood Pressure [Ri ght Upper Arm] Pulse Oximetry 92 92 Oxygen Delivery Me thod Oxygen Flow Rate 07/30/24 19:01 07/30/24 19:02 07/30/24 19:17 Temperature Pulse Rate 73 Pulse Rate [Pulse Oximeter] Respiratory Rate Blood Pressure 102/77 Blood Pressure [Ri ght Upper Arm] Pulse Oximetry 91 96 Oxygen Delivery Me thod Oxygen Flow Rate 07/30/24 19:30 07/30/24 19:34 07/30/24 19:42 Temperature Pulse Rate 69 71 72 Pulse Rate [Pulse Oximeter] Respiratory Rate Blood Pressure 113/71 Blood Pressure [Ri ght Upper Arm] Pulse Oximetry 93 92 92 Oxygen Delivery Me thod Oxygen Flow Rate 07/30/24 19:45 Temperature Pulse Rate 75 Pulse Rate [Pulse Oximeter] Respiratory Rate Blood Pressure Blood Pressure [Ri ght Upper Arm] Pulse Oximetry 93 Oxygen Delivery Me thod Oxygen Flow Rate Course Vital Signs Vital signs: Initial Vital Signs Temperature 97.2 F L 07/30/24 11:50 Temperature Source Temporal Artery Scan 07/30/24 11:50 Pulse Rate 82 07/30/24 11:50 Pulse Rhythm Irregular 07/30/24 11:50 Respiratory Rate 22 07/30/24 11:50 Blood Pressure 112/85 07/30/24 11:50 Blood Pressure Mean 94 07/30/24 11:50 Pulse Oximetry 99 07/30/24 11:50 Oxygen Delivery Method Nasal Cannula 07/30/24 11:50 Vital Signs Temperature 97.2 F L 07/30/24 11:50 Pulse Rate 82 07/30/24 11:50 Respiratory Rate 22 07/30/24 11:50 Blood Pressure 112/85 07/30/24 11:50 Pulse Oximetry 99 07/30/24 11:50 Oxygen Delivery Method Nasal Cannula 07/30/24 11:50 Temperature 97.2 F L 07/30/24 11:50 Pulse Rate 75 07/30/24 19:45 Respiratory Rate 18 07/30/24 18:00 Blood Pressure 113/71 07/30/24 19:42 Pulse Oximetry 93 07/30/24 19:45 Oxygen Delivery Method Nasal Cannula 07/30/24 13:19 Oxygen Flow Rate 4 07/30/24 13:19 Medications Administered Medications: Discontinued Medications Generic Name Dose Route Start Last Admin Trade Name Freq PRN Reason Stop Dose Admin Sodium Chloride 1,000 mls @ 1,000 mls/hr 07/30/24 12:15 07/30/24 15:04 0.9 % Sodium Chloride 1000 Ml IV 07/30/24 13:14 Infused .Q1H SOFÍA Infusion Sodium Chloride 1,000 mls @ 1,000 mls/hr 07/30/24 15:00 07/30/24 17:14 0.9 % Sodium Chloride 1000 Ml IV 07/30/24 15:59 Infused .Q1H SOFÍA Infusion Sodium Chloride 1,000 mls @ 250 mls/hr 07/30/24 18:22 07/30/24 19:01 0.9 % Sodium Chloride 1000 Ml IV 250 mls/hr .Q4H SOFÍA Administration Medical Decision Making MDM Narrative Medical decision making narrative: 74-year-old gentleman with a complex past history brought to the ER today by EMS from his home. He had generalized weakness, leading him to fall to the floor last night in his bathroom. He was too weak to get up off the floor and was brought to the ER after being on the floor about 12 hours. 1. Trauma. He did fall last night. He denies any injury from the fall or any pain. He had complete consciousness during the fall and is confident they did not hit his head. Does not have a headache. No neck pain. No new focal neurologic deficits. He does have some subtle ecchymosis on his right posterior shoulder which I think is probably a sore from laying on the floor rather than actual bruise. No bony tenderness and normal range of motion there so at this point will hold off on shoulder x-rays. CT scan chest abdomen pelvis shows a nondisplaced left pubic rami fracture. This would be non operative. 2. Cardiac. He is not having any chest pain or shortness of breath. He is chronically on oxygen for history of CHF. He was hypoxic when EMS picked him up this morning, because he had been off his oxygen for more than 12 hours. He is back on 2 L nasal cannula here in the ER and satting in the 90s. No respiratory distress. Because of renal failure, noncontrast lung imaging was obtained. We obtained CT abdomen pelvis to evaluate for potential causes of diarrhea, and with that, CT chest. Chest CT shows no evidence for rib fractures, no active pulmonary edema. [place] [address], suspect related to renal failure. EKG shows a pacemaker with a widened QRS. Potassium is normal. No definite ischemia on the EKG. Troponin is normal at 0.02. At this point we do not think it was a cardiac arrhythmia that caused him to fall last night. No evidence for ACS. 3. Pulmonary. On his baseline oxygen and sats in the 90s. No recent cough or fever to suggest COVID or infectious pneumonia. No wheezing or bronchospasm to suggest COPD exacerbation. 4. Heme. Hemoglobin 10.9. This is his baseline. No active bleeding. He is anticoagulated for stroke prophylaxis with AFib on apixaban. 5. Infectious disease. Has had of watery liquidy diarrhea for the past several weeks. No recent antibiotics but consider C diff for other bacterial enteritis. He has had a couple of small volume liquid he mucousy stools here in the ER. C diff is negative. stool culture are pending at the time of this dictation. 6. Has a history of alcohol abuse. CT scan today does show signs of ascites. He is not having any abdominal pain or fever to suggest SBP. Would hold off on paracentesis for now. Total bilirubin up slightly today up to 2.2. Transaminases normal. 7. Renal/electrolytes. He does have an acute kidney injury. Creatinine about 6 weeks ago on June 16 was 1.13. It was up to 2.1 on July 12, down to 1.87 on July 17. Today it is up to 4.3. BUN also elevated at 64. Suspect this is pre renal. CT scan shows a possible pyelonephritis of the right kidney but no evidence for any obstructing kidney stones or bladder outlet obstruction causing post renal renal failure. CT scan abdomen pelvis (noncontrast) shows no evidence for obstructing kidney stones or postrenal renal failure. He had been on the floor for 12 hours. Consider rhabdo. CK is fairly low at 157. Has not made any urine since yesterday and has so far remained and uric while in the ER. Will initiate IV fluids. 1 L saline infused and still no urine output. 2nd L infusing. Will require transfer to hospital with potential nephrology capability case he requires dialysis if kidney function does not rebound with high few hydration. Therefore transfer is indicated. He gets his cardiology care through the [facility] system. Lab Data Labs: Lab Results 07/30/24 07/30/24 07/30/24 Range/Units 12:00 12:06 12:23 WBC 10.98 (4.50-11.00) K/uL RBC 3.73 L (4.30-5.90) m/uL Hgb 10.9 L (13.5-17.5) gm/dL Hct 35.3 L (37.0-53.0) % MCV 95 (80-100) fL MCH 29 (26-34) pg MCHC 31 L (32-36) gm/dL RDW Coeff of Mynor 18.6 H (11.5-15.5) % Plt Count 156 (140-440) K/uL Neut % (Auto) 86.3 H (42.0-72.0) % Lymph % (Auto) 3.0 L (20-44) % [place] % (Auto) 10.3 (0.0-11.0) % Eos % (Auto) 0.1 (0.0-7.0) % Baso % (Auto) 0.1 (0.0-3.0) % Neut # (Auto) 9.50 H (1.7-7.0) K/uL Lymph # (Auto) 0.30 L (0.90-2.90) K/uL [place] # (Auto) 1.10 H (0.00-0.90) K/UL Eos # (Auto) 0.01 (0.00-0.50) K/uL Baso # (Auto) 0.01 (0.00-0.30) K/uL Abs Immat Gran (auto) 0.02 (0.00-0.30) K/uL Imm/Tot Granulo (auto) 0.2 % Sodium 133 L (135-149) mmol/L Potassium 4.4 (3.6-5.1) mmol/L Chloride 100 (96-114) mmol/L Carbon Dioxide 22 (20-32) mmol/L Anion Gap 11 (7-15) mEq/L BUN 64 H (7-30) mg/dL Creatinine 4.2 H (0.5-1.5) mg/dL Estimated Creat Clear 12.08 Estimated GFR 14 ml/min Glucose 98 (60-115) mg/dL Lactate 1.6 (0.5-1.9) mmol/L Calcium 9.1 (8.4-10.6) mg/dL Magnesium 1.7 (1.5-2.6) mg/dL Total Bilirubin 2.2 H (0.1-1.5) mg/dL AST 33 (12-35) U/L ALT 13 (4-50) U/L Alkaline Phosphatase 181 H (40-150) U/L Total Creatine Kinase 157 (54-186) U/L Troponin I 0.03 (0.01-0.04) ng/mL NT-Pro-B Natriuret Pep 80457 pg/mL Total Protein 6.6 (6.0-8.3) g/dL Albumin 4.0 (3.3-5.0) g/dL Stl C. diff Tox B Gene Negative (Negative) Stl C. diff [id number] PRESUMPTIVE NEGATIVE (Negative) Ethyl Alcohol < 0.01 L (0.01-0.03) % POC Troponin I 0.02 (0.01-0.04) ng/ml Imaging Data CT Chest/Ab/Pelvis: Attestation: I have reviewed the pertinent imaging results. Radiologist's impression: Impression: 1. Old left-sided rib deformities with stable calcified pleural plaques, pleural thickening and parenchymal scar. No evidence of new acute or displaced rib fracture. 2. Demonstration of excreted and retained contrast within the collecting system and kidneys with questionable filling defect of the inferolateral right kidney which could represent underlying pyelonephritis change. 3. Twua-cv-[id number] ascites seen throughout the 4 quadrants of the abdomen with nonspecific central mesenteric edema. 4. Nondisplaced fracture of the inferior left pubic ramus. 5. Incidental note made of 4 lumbar type vertebral bodies without an L5 level. Chronic compression change of the superior T12 endplate is appreciated with additional somewhat age-indeterminate compression deformities of the L1 and L3 levels. No other displaced fractures are appreciated. ECG Data Attestation: I personally reviewed and interpreted this ECG as follows: Interpretation: Atrial fibrillation with ventricular pacemaker Rate: 84 PA: na QRS axis: Left axis deviation. Right bundle-branch block pattern. ST segment/T wave: No ST segment elevation or depression. Compared to EKG from 06/23, new nonspecific T-wave inversions in leads V4, V5. QTc: 579 Discharge Plan Discharge Clinical Impression: GORGE (acute kidney injury), Acute dehydration, Diarrhea, Weakness, Fracture of left inferior pubic ramus Prescriptions: No Action atorvastatin 80 mg tablet 80 mg PO HS albuterol sulfate [Ventolin HFA] 90 mcg/actuation HFA aerosol inhaler 2 inh inhalation Q4H PRN Eliquis 5 mg tablet 5 mg PO BID Entresto 24-26 mg tablet 1 tab PO BID budesonide-formoterol [Breyna] 80-4.5 mcg/actuation HFA aerosol inhaler 2 inh inhalation BID cholecalciferol (vitamin D3) 25 mcg (1,000 unit) tablet 25 mcg PO DAILY torsemide 20 mg tablet 40 mg PO DAILY amiodarone 200 mg tablet 100 mg PO DAILY bismuth subsalicylate [[place] Bismuth] 262 mg tablet,chewable 2 tab PO Q6H PRN (Reason: diarrhea) diphenoxylate-atropine [Lomotil] 2.5-0.025 mg tablet 1 tab PO BID PRN (Reason: diarrhea) carvedilol 6.25 mg tablet 6.25 mg PO BID acetaminophen [Arthritis Pain Reliever] 650 mg tablet extended release 650 mg PO Q6H PRN pantoprazole 40 mg tablet,delayed release (/EC) 40 mg PO BID Follow Up/Referrals: Provider,Not a Local [Non-Staff] -
--- NOTE | 2024-07-30 12:06 | CRLHL7_ITS ---
For Patients: As a result of the Century Cures Act, medical imaging exams and procedure reports are released immediately into your electronic medical record. You may view this report before your referring provider. If you have questions, please contact your health care provider. Indication: Hypoxia, fall, back and right hip pain Technique: Volumetric multidetector CT images of the chest, abdomen, and pelvis were obtained without the administration of intravenous contrast. No low osmolar intravenous contrast administered Comparison: CT chest April 01, 2020 FINDINGS: CHEST The thoracic inlet is grossly within normal limits with demonstration of a dual-chamber pacer. The thoracic aorta is nonaneurysmal with moderate to severe scattered atherosclerotic calcification. There are again seen somewhat shotty mediastinal lymph nodes. There is no significant axillary adenopathy. Mild to moderate central bronchial thickening is again appreciated with calcified ysio-nfvqntf-ciyx-right pleural plaques. Moderate centrilobular emphysematous changes of the upper lobes with basilar atelectasis and parenchymal scar. Small pulmonary nodule within the peripheral right lower lobe is again seen, similar to previous exam. Multiple old left-sided rib fractures are appreciated without evidence of acute, displaced fracture The thoracic vertebral body heights are stable from remote comparison exam with stable endplate compression deformity of the anterosuperior T12 level. ABDOMEN AND PELVIS The liver is mildly enlarged. There is no obvious focal abnormality. There is mild perihepatic fluid. The spleen is normal in attenuation and size. There is a diffusely contracted gallbladder with likely calcified gallstones. There is no intrahepatic or common ductal dilatation. The stomach and duodenum are grossly unremarkable. The pancreas is normal in enhancement without significant atrophy. The adrenal glands are unremarkable without evidence of adenoma. There is demonstration of moderate likely retained contrast within the bilateral kidneys with questionable filling defects of the right kidney which may represent sequela of underlying pyelonephritis or devascularization. There is a minimal diffuse amount of intracolonic stool. There is minimal distal colonic diverticulosis. Minimal fluid seen within the central small bowel. The appendix is unremarkable without significant inflammatory change. The abdominal aorta is nonaneurysmal with no significant atherosclerotic disease. There is mild thickening of the urinary bladder. Excreted contrast is seen. Somewhat reactive retroperitoneal and central mesenteric lymph nodes are appreciated. The anterior abdominal wall is grossly intact without significant hernias. There is mild ascites fluid within the 4 quadrants of the abdomen and mild central mesenteric edema. Postoperative change of the left hip status post intertrochanteric fixation. Nondisplaced fracture of the inferior left pubic ramus. Otherwise the pelvic osseous structures are grossly intact. Incidental note is made of 4 lumbar type vertebral bodies with somewhat age-indeterminate compression deformity of the L1 and L3 levels. No evidence of extension into the posterior elements or moderate facet arthrosis. Impression: 1. Old left-sided rib deformities with stable calcified pleural plaques, pleural thickening and parenchymal scar. No evidence of new acute or displaced rib fracture. 2. Demonstration of excreted and retained contrast within the collecting system and kidneys with questionable filling defect of the inferolateral right kidney which could represent underlying pyelonephritis change. 3. Wdlr-ac-ipcwrmrr ascites seen throughout the 4 quadrants of the abdomen with nonspecific central mesenteric edema. 4. Nondisplaced fracture of the inferior left pubic ramus. 5. Incidental note made of 4 lumbar type vertebral bodies without an L5 level. Chronic compression change of the superior T12 endplate is appreciated with additional somewhat age-indeterminate compression deformities of the L1 and L3 levels. No other displaced fractures are appreciated. Please note that all CT scans at this facility use dose modulation, iterative reconstruction, and/or weight-based dosing when appropriate to reduce radiation dose to as low as reasonably achievable. Dictated by Ronaldo Scott MD @ 07/30/2024 2:20:34 PM (Electronically Signed)
[2024-07-30 12:14] LABS: Basophils Absolute Auto 0.01 K/uL (0.00-0.30); Basophils Percent Auto 0.1 % (0.0-3.0); Eosinophils Absolute Auto 0.01 K/uL (0.00-0.50); Eosinophils Percent Auto 0.1 % (0.0-7.0); Hematocrit 35.3 % (37.0-53.0); Hemoglobin* 10.9 gm/dL (13.5-17.5); Immature Granulocytes Abs Auto 0.02 K/uL (0.00-0.30); Immature Granulocytes Pct Auto 0.2 %; Lactate* 1.6 mmol/L (0.5-1.9); Mean Corpuscular HGB Conc 31 gm/dL (32-36); Mean Corpuscular Hemoglobin 29 pg (26-34); Mean Corpuscular Volume 95 fL (80-100); Monocytes Percent Auto 10.3 % (0.0-11.0); Neutrophils Percent Auto 86.3 % (42.0-72.0); Platelet Count* 156 K/uL (140-440); RDW Coefficient of Variation % 18.6 % (11.5-15.5); Red Blood Count 3.73 m/uL (4.30-5.90); White Blood Count* 10.98 K/uL (4.50-11.00)
[2024-07-30 12:17] LABS: Slide Review Reflex No
[2024-07-30 12:25] LABS: Troponin, Point-of-Care* 0.02 ng/ml (0.01-0.04)
[2024-07-30 12:33] LABS: Chloride* 100 mmol/L (96-114); Potassium* 4.4 mmol/L (3.6-5.1); Sodium* 133 mmol/L (135-149)
[2024-07-30 12:35] LABS: Creatine Kinase* 157 U/L (54-186)
[2024-07-30 12:36] LABS: Alanine Aminotransferase* 13 U/L (4-50); Alkaline Phosphatase* 181 U/L (40-150); Anion Gap 11 mEq/L (7-15); Aspartate Amino Transferase* 33 U/L (12-35); Bilirubin Total* 2.2 mg/dL (0.1-1.5); Blood Urea Nitrogen* 64 mg/dL (7-30); Calcium* 9.1 mg/dL (8.4-10.6); Carbon Dioxide* 22 mmol/L (20-32); Creatinine* 4.2 mg/dL (0.5-1.5); Est. Creatinine Clearance* 12.08; Estimated Glomerular Filt Rate 14 ml/min; Glucose* 98 mg/dL (60-115); Magnesium* 1.7 mg/dL (1.5-2.6); Total Protein* 6.6 g/dL (6.0-8.3)
[2024-07-30] MEDS: 0.9 % SODIUM CHLORIDE 1000 ml 1,000 ML IV ×2 (12:45→15:04)
[2024-07-30 12:48] LABS: Troponin I* 0.03 ng/mL (0.01-0.04)
[2024-07-30 12:49] LABS: Ethanol* < 0.01 % (0.01-0.03)
[2024-07-30 13:11] LABS: NT Pro B Type NatriureticPept* 34100 pg/mL
[2024-07-30 13:28] LABS: C.Difficile Negative (Negative); CDIFFEPI 027 PRESUMPTIVE NEGATIVE (Negative)
[2024-07-30] MEDS: 0.9 % SODIUM CHLORIDE 1000 ml 1,000 ML 250 ML IV (19:01)
--- NOTE | 2024-07-30 19:41 | ED.NURSE ---
Pt offered dinner tray- refused to eat. Denies pain. x2 loose small stools. x1 small incontinence episode of urine
--- NOTE | 2024-07-30 20:15 | ED.NURSE ---
Daughter aware pt is transferring to [facility].
--- NOTE | 2024-07-30 20:16 | ED.NURSE ---
Report given to Neha. Pt left at 2014. Vitally stable, 4L NC. Denies pain. Dr Barnes aware of pt low urine output. No new orders placed.
== END 2024-07-30 20:19 | disposition other institution (70) ==
PROVIDERS: Emergency Provider Emergency Medicine; PCP Family Medicine
DX: N17.9 Acute kidney failure, unspecified (principal); E86.0 Dehydration; R19.7 Diarrhea, unspecified; R53.1 Weakness; S32.592A Other specified fracture of left pubis, initial encounter for closed fracture; W18.30XA Fall on same level, unspecified, initial encounter
CPT/HCPCS: 36415; 71250; 74176; 80053; 81001; 82077; 82550; 83605; 83735; 83880; 84484; 85025; 87045; 87046; 87427; 87493; 96360; 96361; 99285; J7030

== ENCOUNTER 2024-07-30 20:04 | Outpatient (CLI) | payer MEDICARE, MEDICAID, SELFPAY | END 2024-07-30 20:05 | disposition home or self-care (01) | LOC: AMB 08-04 03:01 | PROVIDERS: PCP Family Medicine; Visit Provider Family Medicine | DX: N17.9 Acute kidney failure, unspecified (principal); E86.0 Dehydration; R19.7 Diarrhea, unspecified; R53.1 Weakness; S32.592A Other specified fracture of left pubis, initial encounter for closed fracture | CPT/HCPCS: A0425; A0429 ==

== ENCOUNTER 2024-10-16 12:05 | Outpatient (CLI) | payer MEDICARE, SELFPAY | END 2024-10-16 12:06 | disposition home or self-care (01) | LOC: AMB 10-19 16:05 | PROVIDERS: PCP Family Medicine; Visit Provider Emergency Medicine | DX: R53.1 Weakness (principal) ==

== ENCOUNTER 2024-10-16 12:36 | Emergency (ER) | payer MEDICARE, SELFPAY ==
[2024-10-16 12:42] VITALS: BP 117/63; PULSE 102; RESP 18; TEMP 37.2; O2SAT 95; BMI 25.1
--- NOTE | 2024-10-16 13:14 | ED_ITS ---
HPI - General Adult General Date Seen: 10/16/24 Chief complaint: Fall/Minor Trauma Stated complaint: Fall Time Seen by Provider: 10/16/24 12:48 Source: patient History of Present Illness HPI narrative: Patient is a 74-year-old male with lengthy medical history including stroke, left-sided weakness, generalized weakness, dysarthria, cirrhosis, kidney injury among others. He was brought in by EMS, family called as he had fallen, actually, he is careful to tell me that he did not fall, he was going to sit down in a chair, missed the chair and landed on the ground instead. He was unable to get up by himself. He was on the ground for couple of hours. However, since being helped up he says he feels fine. He denies any injuries or complaints. No LOC. He denies any recent illness, vomiting, diarrhea, fevers, black or bloody stools. His family was concerned because he had a fall a couple of months ago and at that time sustained a pelvic fracture. However, he denies any back or pelvic pain, any hip pain, upper extremity pain. Denies hitting his head, no neck pain. He is anticoagulated on Eliquis. Related Data Home Medications ?Medication ?Instructions ?Recorded ?Confirmed albuterol sulfate 90 mcg/actuation 2 inh inhalation Q4H PRN 03/17/24 07/30/24 aerosol inhaler (Ventolin HFA) atorvastatin 80 mg tablet 80 mg PO HS 03/17/24 07/30/24 acetaminophen 650 mg 650 mg PO Q6H PRN 04/17/24 07/30/24 tablet,extended release (Arthritis Pain Reliever) carvedilol 6.25 mg tablet 6.25 mg PO BID 04/17/24 07/30/24 pantoprazole 40 mg tablet,delayed 40 mg PO BID 04/26/24 07/30/24 release apixaban 5 mg tablet (Eliquis) 5 mg PO BID 06/23/24 07/30/24 budesonide-formoterol HFA 80 2 inh inhalation BID 06/23/24 07/30/24 mcg-4.5 mcg/actuation aerosol inhaler (Breyna) cholecalciferol (vitamin D3) 25 25 mcg PO DAILY 06/23/24 07/30/24 mcg (1,000 unit) tablet sacubitril 24 mg-valsartan 26 mg 1 tab PO BID 06/23/24 07/30/24 tablet (Entresto) amiodarone 200 mg tablet 100 mg PO DAILY 07/30/24 07/30/24 bismuth subsalicylate 262 mg 2 tab PO Q6H PRN diarrhea 07/30/24 07/30/24 chewable tablet ([place] Bismuth) diphenoxylate-atropine 2.5 1 tab PO BID PRN diarrhea 07/30/24 07/30/24 mg-0.025 mg tablet (Lomotil) torsemide 20 mg tablet 40 mg PO DAILY 07/30/24 07/30/24 Allergies Allergy/AdvReac Type Severity Reaction Status Date / Time No Known Drug Allergies Allergy Verified 10/16/24 12:48 [facility] Medical History Hypoxia ?R09.02 - Hypoxemia (ICD-10) Alcoholic cirrhosis ?K70.30 - Alcoholic cirrhosis of liver without ascites (ICD-10) Atrial fibrillation ?I48.91 - Unspecified atrial fibrillation (ICD-10) Systolic CHF with reduced left ventricular function, NYHA class 3 ?I50.20 - Unspecified systolic (congestive) heart failure (ICD-10) Obstructive sleep apnea ?G47.33 - Obstructive sleep apnea (adult) (pediatric) (ICD-10) Adrenal nodule ?E27.8 - Other specified disorders of adrenal gland (ICD-10) History of CVA (cerebrovascular accident) ?Z86.73 - Personal history of transient ischemic attack (TIA), and cerebral infarction without residual deficits (ICD-10) Acute on chronic hypoxic respiratory failure ?J96.21 - Acute and chronic respiratory failure with hypoxia (ICD-10) Carotid arterial disease ?I77.9 - Disorder of arteries and arterioles, unspecified (ICD-10) NSTEMI (non-ST elevated myocardial infarction) ?I21.4 - Non-ST elevation (NSTEMI) myocardial infarction (ICD-10) Hemiplegia and hemiparesis 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 ?I69.352 - Hemiplegia and hemiparesis 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 (ICD-10) History of ventricular tachycardia ?Z86.79 - Personal history of other diseases of the circulatory system (ICD- 10) Ataxia ?R27.0 - Ataxia, unspecified (ICD-10) Chronic anemia ?D64.9 - Anemia, unspecified (ICD-10) Upper GI bleed ?K92.2 - Gastrointestinal hemorrhage, unspecified (ICD-10) CKD (chronic kidney disease) ?N18.9 - Chronic kidney disease, unspecified (ICD-10) CAD (coronary artery disease) ?I25.10 - Atherosclerotic heart disease of [place] coronary artery without angina pectoris (ICD-10) Recurrent left pleural effusion ?J90 - Pleural effusion, not elsewhere classified (ICD-10) 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 - Alcohol use, unspecified with alcohol-induced persisting amnestic disorder (ICD-10) Alcohol withdrawal seizure ?F10.939 - Alcohol use, unspecified with withdrawal, unspecified (ICD-10) ?R56.9 - Unspecified convulsions (ICD-10) Alcohol dependence ?F10.20 - Alcohol dependence, uncomplicated (ICD-10) Aphasia ?R47.01 - Aphasia (ICD-10) Cardioembolic stroke ?I63.9 - Cerebral infarction, unspecified (ICD-10) Lacunar infarction ?I63.81 - Other cerebral infarction due to occlusion or stenosis of small artery (ICD-10) Pulmonary hypertension ?I27.20 - Pulmonary hypertension, unspecified (ICD-10) Hyperlipidemia ?E78.5 - Hyperlipidemia, unspecified (ICD-10) Hypertension ?I10 - Essential (primary) hypertension (ICD-10) Adrenal adenoma ?D35.00 - Benign neoplasm of unspecified adrenal gland (ICD-10) Surgical History H/O hernia repair ?Z98.890 - Other specified postprocedural states (ICD-10) ?Z87.19 - Personal history of other diseases of the digestive system (ICD-10) Social History What is your current living situation?: I presently have a place to live Problems where you live: no known problems Problems where you live details: N/A In the past 12 months, utilities in danger of being shut off: no In past 12 months, lack of transportation kept you from medical appts, meetings, work, or getting things needed for daily living: no In the past 12 mos, have been you worried that your food would run out before you had money to buy more?: never true In the past 12 mos, the food you bought just didn't last and you didn't have money to buy more?: never true Highest level of school completed/degree received: some college, no degree Smoking Status: Former smoker Do you use any of these nicotine containing products: None Second hand tobacco smoke exposure: No How often do you have a drink containing alcohol: 4 or more times a week Alcohol type: hard liquor Alcohol type details: 1 whiskey 7-ups per day How many standard drinks containing alcohol do you have on a typical day: 1 or 2 How often do you have six or more drinks on one occasion: Never AUDIT-C Alcohol total score: 4 Non-prescribed substance use: denies use Caffeine: Yes How often does anyone, including family, friends and others, physically hurt you : never How often does anyone, including family, friends and others, insult or talk down to you: never How often does anyone, including family, friends and others, threaten you with harm: never How often does anyone, including family, friends and others, scream or curse at you: never service: No Exam Narrative: Exam Narrative: Vital signs reviewed In general, alert, nontoxic elderly male. Head: Normocephalic, atraumatic. Eyes: Sclera clear. Pupils equal and reactive. ENT: Mucous membranes moist. Neck: Supple without adenopathy. Heart: Regular rate and rhythm without murmur. Lungs: Clear. No increased work of breathing, crackles or wheezes. Abdomen: Soft, nontender to palpation. Extremities: Well perfused, pulses intact. No significant edema. No tenderness, full range of motion of the hips and shoulders. Neurologic: Alert, conversant. Speech is fluent, severely dysarthric and hard understand that this is his baseline. He moves all extremities without difficulty. Skin: Warm, dry well perfused. Affect: Normal. Const: Vital Signs, click to edit/add: Vital Signs - 24 hr 10/16/24 12:42 Temperature 98.9 F Pulse Rate [Left P ulse Oximeter] 102 H Respiratory Rate 18 Blood Pressure [Le ft Upper Arm] 117/63 Pulse Oximetry 95 Oxygen Delivery Me thod Room Air Course Course ED Course: Patient was ambulatory in the emergency department with a walker and his oxygen as is his baseline. He has no complaints, and I think doing a significant workup in this context does not make a lot of sense. Will discharge home, he can obviously return at any time if he notes new symptoms which suggest an injury. Circumstances of the fall do not suggest an acute medical problem. Vital Signs Vital signs: Initial Vital Signs Temperature 98.9 F 10/16/24 12:42 Temperature Source Temporal Artery Scan 10/16/24 12:42 Pulse Rate 102 H 10/16/24 12:42 Respiratory Rate 18 10/16/24 12:42 Blood Pressure 117/63 10/16/24 12:42 Blood Pressure Mean 81 10/16/24 12:42 Blood Pressure Position Supine 10/16/24 12:42 Pulse Oximetry 95 10/16/24 12:42 Oxygen Delivery Method Room Air 10/16/24 12:42 Vital Signs Temperature 98.9 F 10/16/24 12:42 Pulse Rate 102 H 10/16/24 12:42 Respiratory Rate 18 10/16/24 12:42 Blood Pressure 117/63 10/16/24 12:42 Pulse Oximetry 95 10/16/24 12:42 Oxygen Delivery Method Room Air 10/16/24 12:42 Temperature 98.9 F 10/16/24 12:42 Pulse Rate 102 H 10/16/24 12:42 Respiratory Rate 18 10/16/24 12:42 Blood Pressure 117/63 10/16/24 12:42 Pulse Oximetry 95 10/16/24 12:42 Oxygen Delivery Method Room Air 10/16/24 12:42 Discharge Plan Discharge Clinical Impression: Fall Patient Disposition: Home, Self-Care Condition: Stable Instructions: Fall Prevention for Older Adults (ED) Additional Instructions: Return at any time if you develop symptoms suggestive of injury related to this fall. Prescriptions: No Action atorvastatin 80 mg tablet 80 mg PO HS albuterol sulfate [Ventolin HFA] 90 mcg/actuation HFA aerosol inhaler 2 inh inhalation Q4H PRN Eliquis 5 mg tablet 5 mg PO BID Entresto 24-26 mg tablet 1 tab PO BID budesonide-formoterol [Breyna] 80-4.5 mcg/actuation HFA aerosol inhaler 2 inh inhalation BID cholecalciferol (vitamin D3) 25 mcg (1,000 unit) tablet 25 mcg PO DAILY torsemide 20 mg tablet 40 mg PO DAILY amiodarone 200 mg tablet 100 mg PO DAILY bismuth subsalicylate [[place] Bismuth] 262 mg tablet,chewable 2 tab PO Q6H PRN (Reason: diarrhea) diphenoxylate-atropine [Lomotil] 2.5-0.025 mg tablet 1 tab PO BID PRN (Reason: diarrhea) carvedilol 6.25 mg tablet 6.25 mg PO BID acetaminophen [Arthritis Pain Reliever] 650 mg tablet extended release 650 mg PO Q6H PRN pantoprazole 40 mg tablet,delayed release (DR/EC) 40 mg PO BID Follow Up/Referrals: Yuliet Blair DO [Primary Care Provider] - Stand Alone Forms: [facility] Info Instructions
== END 2024-10-16 14:54 | disposition home or self-care (01) ==
LOC: ED 13:41
PROVIDERS: Emergency Provider Emergency Medicine; PCP Family Medicine
DX: S30.91XA Unspecified superficial injury of lower back and pelvis, initial encounter (principal); W07.XXXA Fall from chair, initial encounter
CPT/HCPCS: 99283

== ENCOUNTER 2024-10-16 14:49 | Outpatient (CLI) | payer MEDICARE, SELFPAY | END 2024-10-16 14:50 | disposition home or self-care (01) | LOC: AMB 10-19 16:10 | PROVIDERS: PCP Family Medicine; Visit Provider Emergency Medicine | DX: R53.1 Weakness (principal); J44.9 Chronic obstructive pulmonary disease, unspecified; Z99.81 Dependence on supplemental oxygen | CPT/HCPCS: A0425; A0428 ==

== ENCOUNTER 2024-10-16 22:55 | Outpatient (CLI) | payer MEDICARE, SELFPAY | END 2024-10-16 22:56 | disposition home or self-care (01) | LOC: AMB 10-19 16:13 | PROVIDERS: PCP Family Medicine; Visit Provider Family Medicine | DX: R53.1 Weakness (principal) | CPT/HCPCS: A0998 ==

== ENCOUNTER 2024-10-17 09:57 | Outpatient (CLI) | payer MEDICARE, SELFPAY | END 2024-10-17 09:58 | disposition home or self-care (01) | LOC: AMB 10-19 16:16 | PROVIDERS: PCP Family Medicine; Visit Provider Family Medicine | DX: T82.9XXA Unspecified complication of cardiac and vascular prosthetic device, implant and graft, initial encounter (principal) | CPT/HCPCS: A0425; A0427 ==

== ENCOUNTER 2024-10-17 10:28 | Emergency (ER) | payer MEDICARE, SELFPAY ==
[2024-10-17 10:33] VITALS: BP 125/79
[2024-10-17 10:35] VITALS: BP 125/79; PULSE 98; RESP 20; TEMP 36.1; O2SAT 97; BMI 25.8
[2024-10-17 10:45] VITALS: PULSE 85; O2SAT 93
[2024-10-17 11:00] VITALS: PULSE 93; RESP 16; O2SAT 95
--- NOTE | 2024-10-17 11:07 | CRLHL7_ITS ---
For Patients: As a result of the Century Cures Act, medical imaging exams and procedure reports are released immediately into your electronic medical record. You may view this report before your referring provider. If you have questions, please contact your health care provider. INDICATION: Fell. Defibrillator problems. TECHNIQUE: PA and lateral. COMPARISON: 06/23/2024 FINDINGS: No pneumothorax, hemothorax, pulmonary contusion or evidence of mediastinal widening. No obvious fracture. AICD, as before. Interval placement of multi lumen central venous catheter with tip at the cavoatrial junction. Stable mild to moderate cardiomegaly. CONCLUSION: 1. No obvious acute traumatic abnormality. 2. Clear lungs. 3. Stable mild to moderate cardiomegaly and AICD, as before. 4. Interval placement of multi lumen central venous catheter. Dictated by Santiago Klein MD @ 10/17/2024 11:52:02 AM (Electronically Signed)
--- NOTE | 2024-10-17 11:18 | ED_ITS ---
HPI - Arrhythmia/Palpitations General Date Seen: 10/17/24 Chief Complaint: Arrhythmia/Palpitations Stated Complaint: Defibrillator problem Time Seen by Provider: 10/17/24 10:31 Source: patient, EMS, RN notes reviewed and old records reviewed Mode of arrival: EMS Limitations: no limitations and physical limitation History of Present Illness HPI narrative: Patient is a 70 for old gentleman who presents from his residence, with a history of his defibrillator firing twice over the course of the last 12 hours. He is brought in by EMS and actually has no complaints and does not remember his the defibrillator firing. [employer] who services his defibrillator, called the daughter who requested that he come into the hospital. Patient has a history of a previous stroke and is somewhat tough to understand. The tells me otherwise feels fine, he was here yesterday for a fall, has not fallen again. Denies any fevers chills or sweats for shortness of breath or chest pain. eating and drin carlota otherwise normally tells me he is at his baseline, he also ever did miss his dialysis yesterday, which is Wednesday. As he was here in the emergency room after his fall. Report by ambulance was that he was stable on the drive over, with no complaints and they did not notice any dysrhythmias or firing of his pacemaker. On the monitor Related Data Home Medications ?Medication ?Instructions ?Recorded ?Confirmed albuterol sulfate 90 mcg/actuation 2 inh inhalation Q4H PRN 03/17/24 07/30/24 aerosol inhaler (Ventolin HFA) atorvastatin 80 mg tablet 80 mg PO HS 03/17/24 07/30/24 acetaminophen 650 mg 650 mg PO Q6H PRN 04/17/24 07/30/24 tablet,extended release (Arthritis Pain Reliever) carvedilol 6.25 mg tablet 6.25 mg PO BID 04/17/24 07/30/24 pantoprazole 40 mg tablet,delayed 40 mg PO BID 04/26/24 07/30/24 release apixaban 5 mg tablet (Eliquis) 5 mg PO BID 06/23/24 07/30/24 budesonide-formoterol HFA 80 2 inh inhalation BID 06/23/24 07/30/24 mcg-4.5 mcg/actuation aerosol inhaler (Breyna) cholecalciferol (vitamin D3) 25 25 mcg PO DAILY 06/23/24 07/30/24 mcg (1,000 unit) tablet sacubitril 24 mg-valsartan 26 mg 1 tab PO BID 06/23/24 07/30/24 tablet (Entresto) amiodarone 200 mg tablet 100 mg PO DAILY 07/30/24 07/30/24 bismuth subsalicylate 262 mg 2 tab PO Q6H PRN diarrhea 07/30/24 07/30/24 chewable tablet (Beckemeyer Bismuth) diphenoxylate-atropine 2.5 1 tab PO BID PRN diarrhea 07/30/24 07/30/24 mg-0.025 mg tablet (Lomotil) torsemide 20 mg tablet 40 mg PO DAILY 07/30/24 07/30/24 Allergies Allergy/AdvReac Type Severity Reaction Status Date / Time No Known Drug Allergies Allergy Verified 10/16/24 12:48 Review of Systems Status of ROS: Reports: 10 or more systems reviewed and unremarkable except as noted in History and below [facility] Medical History Hypoxia ?R09.02 - Hypoxemia (ICD-10) Alcoholic cirrhosis ?K70.30 - Alcoholic cirrhosis of liver without ascites (ICD-10) Atrial fibrillation ?I48.91 - Unspecified atrial fibrillation (ICD-10) Systolic CHF with reduced left ventricular function, NYHA class 3 ?I50.20 - Unspecified systolic (congestive) heart failure (ICD-10) Obstructive sleep apnea ?G47.33 - Obstructive sleep apnea (adult) (pediatric) (ICD-10) Adrenal nodule ?E27.8 - Other specified disorders of adrenal gland (ICD-10) History of CVA (cerebrovascular accident) ?Z86.73 - Personal history of transient ischemic attack (TIA), and cerebral infarction without residual deficits (ICD-10) Acute on chronic hypoxic respiratory failure ?J96.21 - Acute and chronic respiratory failure with hypoxia (ICD-10) Carotid arterial disease ?I77.9 - Disorder of arteries and arterioles, unspecified (ICD-10) NSTEMI (non-ST elevated myocardial infarction) ?I21.4 - Non-ST elevation (NSTEMI) myocardial infarction (ICD-10) Hemiplegia and hemiparesis 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 ?I69.352 - Hemiplegia and hemiparesis 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 (ICD-10) History of ventricular tachycardia ?Z86.79 - Personal history of other diseases of the circulatory system (ICD- 10) Ataxia ?R27.0 - Ataxia, unspecified (ICD-10) Chronic anemia ?D64.9 - Anemia, unspecified (ICD-10) Upper GI bleed ?K92.2 - Gastrointestinal hemorrhage, unspecified (ICD-10) CKD (chronic kidney disease) ?N18.9 - Chronic kidney disease, unspecified (ICD-10) CAD (coronary artery disease) ?I25.10 - Atherosclerotic heart disease of rosebud coronary artery without angina pectoris (ICD-10) Recurrent left pleural effusion ?J90 - Pleural effusion, not elsewhere classified (ICD-10) 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 - Alcohol use, unspecified with alcohol-induced persisting amnestic disorder (ICD-10) Alcohol withdrawal seizure ?F10.939 - Alcohol use, unspecified with withdrawal, unspecified (ICD-10) ?R56.9 - Unspecified convulsions (ICD-10) Alcohol dependence ?F10.20 - Alcohol dependence, uncomplicated (ICD-10) Aphasia ?R47.01 - Aphasia (ICD-10) Cardioembolic stroke ?I63.9 - Cerebral infarction, unspecified (ICD-10) Lacunar infarction ?I63.81 - Other cerebral infarction due to occlusion or stenosis of small artery (ICD-10) Pulmonary hypertension ?I27.20 - Pulmonary hypertension, unspecified (ICD-10) Hyperlipidemia ?E78.5 - Hyperlipidemia, unspecified (ICD-10) Hypertension ?I10 - Essential (primary) hypertension (ICD-10) Adrenal adenoma ?D35.00 - Benign neoplasm of unspecified adrenal gland (ICD-10) Surgical History H/O hernia repair ?Z98.890 - Other specified postprocedural states (ICD-10) ?Z87.19 - Personal history of other diseases of the digestive system (ICD-10) Social History What is your current living situation?: I presently have a place to live Problems where you live: no known problems Problems where you live details: N/A In the past 12 months, utilities in danger of being shut off: no In past 12 months, lack of transportation kept you from medical appts, meetings, work, or getting things needed for daily living: no In the past 12 mos, have been you worried that your food would run out before you had money to buy more?: never true In the past 12 mos, the food you bought just didn't last and you didn't have money to buy more?: never true Highest level of school completed/degree received: some college, no degree Smoking Status: Former smoker Do you use any of these nicotine containing products: None Second hand tobacco smoke exposure: No How often do you have a drink containing alcohol: 4 or more times a week Alcohol type: hard liquor Alcohol type details: 1 whiskey 7-ups per day How many standard drinks containing alcohol do you have on a typical day: 1 or 2 How often do you have six or more drinks on one occasion: Never AUDIT-C Alcohol total score: 4 Non-prescribed substance use: denies use Caffeine: Yes How often does anyone, including family, friends and others, physically hurt you : never How often does anyone, including family, friends and others, insult or talk down to you: never How often does anyone, including family, friends and others, threaten you with harm: never How often does anyone, including family, friends and others, scream or curse at you: never service: No Exam Narrative: Exam Narrative: Patient is examined in room 8, he appears to be in no apparent distress, again he has dysarthria from his previous stroke, holds his right arm in flexion, I suspect that is a contracture. Pupils are equal round reactive to light, he tracks normally, no evidence of trauma over his head or neck region, chest is good air entry bilaterally with no wheezing crackles noted no evidence of bruising on his back when he rolls on his right by his power, heart sounds no clicks murmurs or gallops, abdomen is soft, pelvis stable he moves all extremities independently and well, without pain, bruising or other issue. Const: Vital Signs, click to edit/add: Vital Signs - 24 hr 10/17/24 10:33 10/17/24 10:35 10/17/24 10:45 Temperature 97 F L Pulse Rate 85 Pulse Rate [Pulse Oximeter] 98 Respiratory Rate 20 Blood Pressure 125/79 Blood Pressure [Le ft Upper Arm] 125/79 Pulse Oximetry 97 93 Oxygen Delivery Me thod Nasal Cannula Oxygen Flow Rate 10/17/24 11:00 10/17/24 11:27 10/17/24 13:29 Temperature Pulse Rate 93 Pulse Rate [Pulse Oximeter] 92 Respiratory Rate 16 18 Blood Pressure Blood Pressure [Le ft Upper Arm] 166/98 H Pulse Oximetry 95 93 Oxygen Delivery Me thod Nasal Cannula Room Air Oxygen Flow Rate 2 Course Course ED Course: I spoke to from [facility] he recommended transfer to [place], for further interrogation of the pacemaker and treatment. I then talked to the patient, he is in agreement the nurse then talked to the daughter. Patient is stable for transport, this may take some time given today's circumstances. 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 Vital Signs Vital signs: Initial Vital Signs Blood Pressure 125/79 10/17/24 10:33 Blood Pressure Mean 94 10/17/24 10:33 Vital Signs Blood Pressure 125/79 10/17/24 10:33 Temperature 97 F L 10/17/24 10:35 Pulse Rate 92 10/17/24 13:29 Respiratory Rate 18 10/17/24 13:29 Blood Pressure 166/98 H 10/17/24 13:29 Pulse Oximetry 93 10/17/24 13:29 Oxygen Delivery Method Room Air 10/17/24 13:29 Oxygen Flow Rate 2 10/17/24 11:27 MDM - Arrhythmia/Palpitations MDM Narrative Medical decision making narrative: Differential diagnosis includes but is not limited to psychosocial stress, thyroid abnormalities, CHF, SVT, atrial fibrillation, ventricular tachycardia and ventricular fibrillation. This includes the life-threatening complications of heart failure, V-tach, and VFib Medical Records Attestation: I reviewed the patient's medical records. Lab Data Attestation: I reviewed the patient's lab results. Labs: Lab Results 10/17/24 10/17/24 Range/Units 11:08 11:57 WBC 12.57 H (4.50-11.00) K/uL RBC 3.30 L (4.30-5.90) m/uL Hgb 8.7 L (13.5-17.5) gm/dL Hct 28.1 L (37.0-53.0) % MCV 85 (80-100) fL MCH 26 (26-34) pg MCHC 31 L (32-36) gm/dL RDW Coeff of Mynor 20.6 H (11.5-15.5) % Plt Count 229 (140-440) K/uL Neut % (Auto) 87.3 H (42.0-72.0) % Lymph % (Auto) 4.4 L (20-44) % [place] % (Auto) 6.7 (0.0-11.0) % Eos % (Auto) 0.8 (0.0-7.0) % Baso % (Auto) 0.2 (0.0-3.0) % Neut # (Auto) 11.00 H (1.7-7.0) K/uL Lymph # (Auto) 0.60 L (0.90-2.90) K/uL [place] # (Auto) 0.80 (0.00-0.90) K/UL Eos # (Auto) 0.10 (0.00-0.50) K/uL Baso # (Auto) 0.00 (0.00-0.30) K/uL Abs Immat Gran (auto) 0.10 (0.00-0.30) K/uL Imm/Tot Granulo (auto) 0.6 % Diff Slide Review Acceptable Review (Acceptable) Sodium 134 L (135-149) mmol/L Potassium 4.6 (3.6-5.1) mmol/L Chloride 104 (96-114) mmol/L Carbon Dioxide 22 (20-32) mmol/L Anion Gap 8 (7-15) mEq/L BUN 68 H (7-30) mg/dL Creatinine 2.3 H (0.5-1.5) mg/dL Estimated Creat Clear 26.34 Estimated GFR 29 ml/min Glucose 77 (60-115) mg/dL Calcium 9.0 (8.4-10.6) mg/dL Magnesium 2.3 (1.5-2.6) mg/dL POC Troponin I 0.03 (0.01-0.04) ng/ml Imaging Data Chest x-ray: My impression: Chest x-ray shows pacemaker, Radiologist's impression: Ordering Physician: Raffaele Kerns M.D. Date of Service: 10/17/24 Procedure(s): XR chest 2V Accession Number(s): [id number] cc: Raffaele Kerns M.D.; Yuliet Blair, ~ For Patients: As a result of the Cures Act, medical imaging exams and procedure reports are released immediately into your electronic medical record. You may view this report before your referring provider. If you have questions, please contact your health care provider. INDICATION: Fell. Defibrillator problems. TECHNIQUE: PA and lateral. COMPARISON: 06/23/2024 FINDINGS: No pneumothorax, hemothorax, pulmonary contusion or evidence of mediastinal widening. No obvious fracture. AICD, as before. Interval placement of multi lumen central venous catheter with tip at the cavoatrial junction. Stable mild to moderate cardiomegaly. CONCLUSION: 1. No obvious acute traumatic abnormality. 2. Clear lungs. 3. Stable mild to moderate cardiomegaly and AICD, as before. 4. Interval placement of multi lumen central venous catheter. Dictated by Santiago Klein MD @ 10/17/2024 11:52:02 AM (Electronically Signed) ECG Data Attestation: I personally reviewed and interpreted this ECG as follows: Interpretation: EKG shows sinus rhythm with frequent ventricular paced contractions, bifascicular block is noted right bundle branch and left anterior fascicular, QRS is 158, QT is 440 QTC is 514 Assessment: Abnormal EKG with CT sinus rhythm interspersed with ventricular paced complexes Discharge Plan Discharge Prescriptions: No Action atorvastatin 80 mg tablet 80 mg PO HS albuterol sulfate [Ventolin HFA] 90 mcg/actuation HFA aerosol inhaler 2 inh inhalation Q4H PRN Eliquis 5 mg tablet 5 mg PO BID Entresto 24-26 mg tablet 1 tab PO BID budesonide-formoterol [Breyna] 80-4.5 mcg/actuation HFA aerosol inhaler 2 inh inhalation BID cholecalciferol (vitamin D3) 25 mcg (1,000 unit) tablet 25 mcg PO DAILY torsemide 20 mg tablet 40 mg PO DAILY amiodarone 200 mg tablet 100 mg PO DAILY bismuth subsalicylate [Beckemeyer Bismuth] 262 mg tablet,chewable 2 tab PO Q6H PRN (Reason: diarrhea) diphenoxylate-atropine [Lomotil] 2.5-0.025 mg tablet 1 tab PO BID PRN (Reason: diarrhea) carvedilol 6.25 mg tablet 6.25 mg PO BID acetaminophen [Arthritis Pain Reliever] 650 mg tablet extended release 650 mg PO Q6H PRN pantoprazole 40 mg tablet,delayed release (DR/EC) 40 mg PO BID Follow Up/Referrals: Yuliet Blair DO [Primary Care Provider] -
[2024-10-17 12:10] LABS: Basophils Percent Auto 0.2 % (0.0-3.0); Eosinophils Percent Auto 0.8 % (0.0-7.0); Hematocrit 28.1 % (37.0-53.0); Hemoglobin* 8.7 gm/dL (13.5-17.5); Immature Granulocytes Pct Auto 0.6 %; Lymphocytes Percent Auto 4.4 % (20-44); Mean Corpuscular HGB Conc 31 gm/dL (32-36); Mean Corpuscular Hemoglobin 26 pg (26-34); Mean Corpuscular Volume 85 fL (80-100); Monocytes Percent Auto 6.7 % (0.0-11.0); Neutrophils Percent Auto 87.3 % (42.0-72.0); Platelet Count* 229 K/uL (140-440); RDW Coefficient of Variation % 20.6 % (11.5-15.5); White Blood Count* 12.57 K/uL (4.50-11.00)
[2024-10-17 12:13] LABS: Slide Review Reflex Yes
[2024-10-17 12:21] LABS: Troponin, Point-of-Care* 0.03 ng/ml (0.01-0.04)
[2024-10-17 12:22] LABS: Chloride* 104 mmol/L (96-114); Potassium* 4.6 mmol/L (3.6-5.1); Sodium* 134 mmol/L (135-149)
[2024-10-17 12:25] LABS: Anion Gap 8 mEq/L (7-15); Blood Urea Nitrogen* 68 mg/dL (7-30); Carbon Dioxide* 22 mmol/L (20-32); Creatinine* 2.3 mg/dL (0.5-1.5); Est. Creatinine Clearance* 26.34; Estimated Glomerular Filt Rate 29 ml/min; Glucose* 77 mg/dL (60-115)
[2024-10-17 12:50] LABS: Slide Review Acceptable Review (Acceptable)
[2024-10-17 12:58] LABS: Magnesium* 2.3 mg/dL (1.5-2.6)
[2024-10-17 13:29] VITALS: BP 108/70; BP 166/98; PULSE 80; PULSE 92; RESP 18; O2SAT 93
[2024-10-17 15:12] VITALS: BP 126/84
== END 2024-10-17 15:22 | disposition short-term general hospital (02) ==
PROVIDERS: Emergency Provider Family Medicine; PCP Family Medicine
DX: R00.2 Palpitations (principal)
CPT/HCPCS: 36415; 71046; 80048; 83735; 84484; 85025; 93005; 94761; 99285

== ENCOUNTER 2024-10-17 15:08 | Outpatient (CLI) | payer MEDICARE, SELFPAY | END 2024-10-17 15:09 | disposition home or self-care (01) | LOC: AMB 10-19 16:19 | PROVIDERS: PCP Family Medicine; Visit Provider Family Medicine | DX: I49.8 Other specified cardiac arrhythmias (principal); T82.09XA Other mechanical complication of heart valve prosthesis, initial encounter; Z95.2 Presence of prosthetic heart valve | CPT/HCPCS: A0425; A0427 ==